=== PATIENT | female | born 1955 | race Caucasian/White ===

== ENCOUNTER → 2023-10-19 08:59 | Outpatient (BNVA) | payer MEDICARE, OTHER, SELFPAY | PROVIDERS: Visit Provider Thoracic Surgery (Cardiothoracic Vascular Surgery) | DX: I96 Gangrene, not elsewhere classified (principal); T81.31XD Disruption of external operation (surgical) wound, not elsewhere classified, subsequent encounter; Y83.8 Other surgical procedures as the cause of abnormal reaction of the patient, or of later complication, without mention of misadventure at the time of the procedure | CPT/HCPCS: 97597; 99213; A6210; A6212 ==

== ENCOUNTER → 2023-11-16 09:47 | Outpatient (BNVA) | payer MEDICARE, OTHER, SELFPAY | PROVIDERS: Visit Provider Thoracic Surgery (Cardiothoracic Vascular Surgery) | DX: I96 Gangrene, not elsewhere classified (principal); T81.31XD Disruption of external operation (surgical) wound, not elsewhere classified, subsequent encounter; Y83.8 Other surgical procedures as the cause of abnormal reaction of the patient, or of later complication, without mention of misadventure at the time of the procedure | CPT/HCPCS: 97597 ==

== ENCOUNTER 2023-12-06 06:00 | Outpatient (CLI) | payer MEDICARE, OTHER, SELFPAY ==
--- NOTE | 2023-12-06 12:00 | MM_ITS ---
WS: [id number] BILATERAL 3D TOMOSYNTHESIS DIGITAL SCREENING MAMMOGRAPHY WITH CAD CLINICAL INFORMATION: SCREENING HISTORY: Screening mammogram. No current complaints. COMPARISON: None. TECHNIQUE: Bilateral CC and MLO views. FINDINGS: Scattered fibroglandular densities bilaterally. No suspicious focal mass, asymmetry, calcifications, or architectural distortion. No evidence of malignancy. Incidental punctate and lucent centered calci fications. MM/MM scr tomosynthesis [id number] IMPRESSION: DENSITY: There are scattered areas of fibroglandular density. BI-RADS: 2 - Benign. FOLLOW UP: 1 Year Follow-up Recommend return to annual screening mammography.
== END 2023-12-06 06:01 | disposition home or self-care (01) ==
LOC: MOBLMAM 02-02 06:58
PROVIDERS: PCP Family Medicine; Visit Provider Family Medicine
DX: Z12.31 Encounter for screening mammogram for malignant neoplasm of breast (principal); R92.323 Mammographic fibroglandular density, bilateral breasts; R92.1 Mammographic calcification found on diagnostic imaging of breast
CPT/HCPCS: 77063; 77067

== ENCOUNTER → 2023-12-07 15:58 | Outpatient (BNVA) | payer MEDICARE, OTHER, SELFPAY | PROVIDERS: Visit Provider Internal Medicine Cardiovascular Disease | DX: R07.9 Chest pain, unspecified (principal); I49.9 Cardiac arrhythmia, unspecified; I44.4 Left anterior fascicular block; R94.31 Abnormal electrocardiogram [ECG] [EKG] | CPT/HCPCS: 93005; 99204 ==

== ENCOUNTER → 2023-12-14 09:39 | Outpatient (BNVA) | payer MEDICARE, OTHER, SELFPAY | PROVIDERS: Visit Provider Thoracic Surgery (Cardiothoracic Vascular Surgery) | DX: I96 Gangrene, not elsewhere classified (principal); L98.421 Non-pressure chronic ulcer of back limited to breakdown of skin | CPT/HCPCS: 97597; A6210 ==

== ENCOUNTER → 2024-01-10 11:18 | Outpatient (BNVA) | payer MEDICARE, OTHER, SELFPAY | PROVIDERS: Visit Provider Student in an Organized Health Care Education/Training Program | DX: T84.7XXA Infection and inflammatory reaction due to other internal orthopedic prosthetic devices, implants and grafts, initial encounter (principal); L89.104 Pressure ulcer of unspecified part of back, stage 4; X58.XXXA Exposure to other specified factors, initial encounter | CPT/HCPCS: 99205 ==

== ENCOUNTER 2024-01-11 11:08 | Outpatient (CLI) | payer MEDICARE, OTHER, SELFPAY ==
--- NOTE | 2024-01-11 11:11 | XRR_ITS ---
PROCEDURE INFORMATION: Exam: XR Spine; Lumbar Exam date and time: 01/11/2024 11:42 AM Age: 68 years old Clinical indication: Condition or disease; Condition/disease: Hardware infection over lumbar spine; Prior surgery; Surgery date: 6+ months; Surgery type: Pain pump, rods in spine, both hips replaced; Patient HX: [place] to exposed hardware TECHNIQUE: Imaging protocol: XR of the spine. Exam focused on the lumbar spine. Views: 1 view. 1 view. COMPARISON: No relevant prior studies available. FINDINGS: Tubes, catheters and devices: Neurostimulator device projects over the mid abdomen. Bones/joints: Very extensive prior surgery. Bilateral hip replacement. Extensive fusion of the thoracic and lumbar spine. Pedicle screws and rods and posterior cerclage wires.. No acute fracture. Normal alignment. Gastrointestinal tract: Nonspecific bowel gas pattern. Soft tissues: Normal. XR/XR lumbar spine 1V [id number] IMPRESSION: Extremely limited study, one view only. Extensive prior surgery.
[2024-01-11 11:37] LABS: Basophils % 0.7 %; Eosinophils # 0.2 10^3/uL (0.0-0.8); Eosinophils % 3.2 %; Hematocrit 36.6 % (36-47); Lymphocytes # 1.4 10^3/uL (0.8-4.8); Lymphocytes % 26.4 %; Mean Corpuscular HGB Conc 32.2 g/dL (30-55); Mean Corpuscular Hemoglobin 28.5 pg (27-33); Mean Corpuscular Volume 88.4 fl (85-98); Mean Platelet Volume 10.5 fL (7.4-10.4); Monocytes # 0.3 10^3/uL (0.2-0.9); Monocytes % 6.2 %; Neutrophils # 3.37 10^3/uL (1.8-7.7); Neutrophils % 63.1 %; Nucleated Red Blood Cells % 0 %; Platelet Count 233 10^3/cmm (157-399); Red Blood Count 4.14 10^6/uL (3.85-5.65); Red Cell Distribution Width 14.6 % (12.1-15.1); White Blood Count 5.34 10^3/uL (3.29-11.43)
[2024-01-11 11:54] LABS: Alanine Aminotransferase 12 U/L (0-33); Alkaline Phosphatase 87 U/L (35-105); Aspartate Amino Transferase 19 U/L (0-32); Blood Urea Nitrogen 48 mg/dL (8-23); C Reactive Protein 5.2 mg/L (0.0-4.9); Calcium 9.4 mg/dL (8.5-10.5); Carbon Dioxide 25 mmol/L (22-29); Chloride 98 mmol/L (98-107); Globulin 3.7 g/dL (1.3-4.6); Glomerular Filtration Rate 29.9 mL/min (90-130); Glucose 97 mg/dL (65-115); Osmolality Calculated 295 mOsm/kg (285-295); Sodium 136 mmol/L (136-145); Total Bilirubin 0.4 mg/dL (0.15-1.2); Total Protein 7.7 g/dL (6.6-8.7)
== END 2024-01-11 11:09 | disposition home or self-care (01) ==
LOC: LAB 11:10
PROVIDERS: PCP Family Medicine; Visit Provider Student in an Organized Health Care Education/Training Program
DX: T84.7XXA Infection and inflammatory reaction due to other internal orthopedic prosthetic devices, implants and grafts, initial encounter (principal); X58.XXXA Exposure to other specified factors, initial encounter; I96 Gangrene, not elsewhere classified; T81.31XD Disruption of external operation (surgical) wound, not elsewhere classified, subsequent encounter; Y83.8 Other surgical procedures as the cause of abnormal reaction of the patient, or of later complication, without mention of misadventure at the time of the procedure
CPT/HCPCS: 36415; 72020; 80053; 85025; 86140; 87070; 87077; 87176; 87186; 87205; 97597; A6220

== ENCOUNTER → 2024-01-18 07:38 | Day surgery (SDC) | payer MEDICARE, OTHER, SELFPAY ==
[2024-01-18 07:30] VITALS: BP 176/73; PULSE 72; RESP 18; TEMP 36.2; O2SAT 94
--- NOTE | 2024-01-18 07:52 | XRR_ITS ---
PROCEDURE INFORMATION: Exam: XR Chest Exam date and time: 01/18/2024 8:54 AM Age: 68 years old Clinical indication: Device placement; Picc; Additional info: Post picc insertion, maylin zhao in gi. Should be ready at 0825 TECHNIQUE: Imaging protocol: Radiologic exam of the chest. Views: 1 view. COMPARISON: No relevant prior studies available. FINDINGS: Tubes, catheters and devices: Peripherally inserted right central venous catheter is seen with tip at the distal superior vena cava. Lungs: Likely artifactual lucency of the right lung field. Pleural spaces: Unremarkable. No pleural effusion. No pneumothorax. Heart/Mediastinum: Unremarkable. No cardiomegaly. Bones/joints: Extensive spinal construct is seen without evidence for acute complication. Healed right lateral rib fracture deformities. XR/XR chest 1V portable [id number] IMPRESSION: 1. Medical devices as above. 2. Likely artifactual lucency of the right mid lung field. If there is concern for intrathoracic pathology recommend cross-sectional evaluation.
[2024-01-18] MEDS: cefepime 2,000 MG in sodium chloride 0.9% (plus) 50 ML 100 MG IV (09:30)
--- NOTE | 2024-01-18 09:49 | PICC.NOTE ---
Single lumen PICC placed to right brachial vein. Referred to vascular access nurse for PICC placement due to need for IV antibiotics x 6 weeks. Risks and benefits discussed and informed consent obtained from pt. Right arm assessed with right brachial vein measuring 3.2 mm, straight, and apparent best choice for placement. Using sterile technique and MST,right brachial vein accessed x 1 stick. Unable to pass guide wire. New attempt made proximal to original site with new needle. Able to pass guide wire. Mid-arm circumference measured 10 cm from right AC 23 cm. Trimmed cath 36 cm with 0 cm external length noted. CXR shows tip in distal SVC, in good position for use per radiologist. Line secured with stat-lock. Insertion site covered with Biopatch and TSM. Pt states her insurance unable to cover home infusions. Dr. Roney Kaiser's nurse, notified. Pt to come daily to OPS/CTC for daily infusions. First dose of IV Cefepime 2 gm given as ordered. No reaction noted. Pt put on holiday/weekend schedule for OPS at 1100. Pt has appointment at [facility] Tuesday, 01/22 at 0830. Appointments written on discharge paperwork. Pt verbalized understanding and states she has transportation to get her to daily appointments.
== END ==
LOC: GILAB 07:41
PROVIDERS: PCP Family Medicine; Visit Provider Student in an Organized Health Care Education/Training Program
DX: Z45.2 Encounter for adjustment and management of vascular access device (principal)
CPT/HCPCS: 36573; 71045; 96365; J0692

== ENCOUNTER 2024-01-21 10:42 | Oncology outpatient (recurring) (ONCR) | payer MEDICARE, OTHER, SELFPAY ==
[2024-01-19 11:09] VITALS: BP 148/80; RESP 16; TEMP 36.1
[2024-01-19] MEDS: cefepime 2,000 MG in sodium chloride 0.9% (plus) 50 ML 100 MG IV (11:32)
[2024-01-20 11:10] VITALS: BP 155/93; PULSE 80; RESP 16; TEMP 37.1; O2SAT 98
[2024-01-20] MEDS: cefepime 2,000 MG in sodium chloride 0.9% (plus) 50 ML 100 MG IV (11:12)
[2024-01-21] MEDS: cefepime 2,000 MG in sodium chloride 0.9% (plus) 50 ML 100 MG IV (10:49)
[2024-01-21 10:58] VITALS: BP 147/75; PULSE 82; RESP 17; TEMP 36.9; O2SAT 98
== END 2024-01-21 23:59 | disposition home or self-care (01) ==
LOC: OPS 01-22 11:26 → ONCMED 01-23 09:09
PROVIDERS: PCP Family Medicine; Visit Provider Radiology Diagnostic Radiology
DX: T84.7XXA Infection and inflammatory reaction due to other internal orthopedic prosthetic devices, implants and grafts, initial encounter (principal); Z79.899 Other long term (current) drug therapy
CPT/HCPCS: 96365; J0692

== ENCOUNTER 2024-01-30 15:16 | Outpatient (CLI) | payer MEDICARE, OTHER, SELFPAY ==
--- NOTE | 2024-01-30 15:30 | CTR_ITS ---
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 CT to TECHNIQUE: Imaging protocol: Computed tomography of the pelvis without contrast. Exam focused on the skeleton. Radiation optimization: All CT scans at this facility use at least one of these dose optimization techniques: automated exposure control; mA and/or kV adjustment per patient size (includes targeted exams where dose is matched to clinical indication); or iterative reconstruction. COMPARISON: CT lumbar spine wo con* [id number] 01/30/2024 3:19 PM RADIATION DOSE METRICS: Total DLP (mGy-cm): 503.7 FINDINGS: Tubes, catheters and devices: An intrathecal pump device is implanted in the subcutaneous tissues of the anterior pelvis near midline with the catheter partially imaged running through the subcutaneous tissues along the right flank entering the canal at the lumbosacral junction. Intestine: Large amount of stool is noted in the visualized portion of the rectum and distal colon. Bones/joints: The bones are osteopenic. Lumbar fixation hardware is present. A left iliac screw is joint with demineralization surrounding the screw track. Iliac sclerosis of the sacroiliac joint is noted. The patient is post bilateral total hip arthroplasty without evidence for hardware complication. There is no acute fracture. Soft tissues: There is swelling and inflammatory change with possible skin ulceration overlying the base of the left iliac screw in the joint and hardware connecting it to the lumbar hardware.. CT/CT bony pelvis [id number] IMPRESSION: Osteopenia and postsurgical change as described. Inflammatory change and possible skin ulceration in the left lower back, probably associated with the indwelling iliac surgical hardware. Constipation/rectal fecal impaction.
--- NOTE | 2024-01-30 16:00 | CTR_ITS ---
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 CT to TECHNIQUE: Imaging protocol: Computed tomography of the lumbar spine without contrast. Radiation optimization: All CT scans at this facility use at least one of these dose optimization techniques: automated exposure control; mA and/or kV adjustment per patient size (includes targeted exams where dose is matched to clinical indication); or iterative reconstruction. COMPARISON: CR XR lumbar spine 1V [id number] 01/11/2024 11:42 AM RADIATION DOSE METRICS: Total DLP (mGy-cm): 503.7 FINDINGS: Bones/joints: There is a 32 degree levoconvex curvature of the lumbar spine centered at L3. The bones are severely osteopenic. The patient is post fixation with pedicle screws from L2-S1, anterior plate and screws at L4-L5 and an interbody spacer device intervening and vertical rods which are bracketed to the L4 spinous process with cerclage wire fixing the rods to multiple lower thoracic and lumbar lamina. An intrathecal catheter is present, entering the canal at the right L5-S1 interlaminar foramen, passing craniad with the tip at the L1 level. Indwelling surgical hardware causes extensive beam hardening artifact limiting assessment. The lumbar canal is otherwise preserved and there is no significant bony neural foraminal stenosis. There is a left iliac screw which is bracketed to the vertical león on the left with demineralization of the bone surrounding the screw. Soft tissues: Unremarkable. CT/CT lumbar spine wo con* [id number] IMPRESSION: Extensive postsurgical change in the lumbar spine. Underlying osteopenia and levoscoliosis.
== END 2024-01-30 15:17 | disposition home or self-care (01) ==
LOC: RAD 15:16
PROVIDERS: PCP Family Medicine; Visit Provider Student in an Organized Health Care Education/Training Program
DX: T84.7XXA Infection and inflammatory reaction due to other internal orthopedic prosthetic devices, implants and grafts, initial encounter (principal); M85.80 Other specified disorders of bone density and structure, unspecified site; M43.26 Fusion of spine, lumbar region; M41.86 Other forms of scoliosis, lumbar region; X58.XXXA Exposure to other specified factors, initial encounter; K59.00 Constipation, unspecified; M79.89 Other specified soft tissue disorders
CPT/HCPCS: 72131; 72192

== ENCOUNTER 2024-02-07 11:00 | Oncology outpatient (recurring) (ONCR) | payer MEDICARE, OTHER, SELFPAY ==
[2024-01-22] MEDS: cefepime 2,000 MG in sodium chloride 0.9% (plus) 50 ML 100 MG IV (11:26)
[2024-01-22 11:30] VITALS: BP 114/65; PULSE 87; RESP 16; TEMP 37.1; O2SAT 98
[2024-01-23] MEDS: cefepime 2,000 mg SDV 2000 MG IVP (09:17)
[2024-01-23 09:28] VITALS: BP 146/81; PULSE 82; RESP 16; TEMP 36.3; O2SAT 92
[2024-01-24] MEDS: cefepime 2,000 mg SDV 2000 MG IVP (12:40)
[2024-01-24 12:50] VITALS: PULSE 79; RESP 16; TEMP 36.4; O2SAT 98
[2024-01-25] MEDS: cefepime 2,000 mg SDV 2000 MG IVP (11:10)
[2024-01-25 11:35] VITALS: BP 137/81; PULSE 77; RESP 16; TEMP 36.7; O2SAT 97
[2024-01-26] MEDS: cefepime 2,000 mg SDV 2000 MG IVP (11:27)
[2024-01-26 11:37] VITALS: BP 134/79; PULSE 100; RESP 16; TEMP 36.4; O2SAT 96
[2024-01-27] MEDS: cefepime 2,000 mg SDV 2000 MG IVP (10:59)
[2024-01-27 11:15] VITALS: BP 132/82; PULSE 59; RESP 16; TEMP 36.4; O2SAT 99
[2024-01-28 10:25] VITALS: BP 141/80; PULSE 68; RESP 16; TEMP 36.4; O2SAT 100
[2024-01-28] MEDS: cefepime 2,000 mg SDV 2000 MG IVP (10:37)
[2024-01-29] MEDS: cefepime 2,000 mg SDV 2000 MG IVP (10:50)
[2024-01-29 11:33] VITALS: BP 126/86; PULSE 83; RESP 18; TEMP 36.8; O2SAT 100
[2024-01-30] MEDS: cefepime 2,000 mg SDV 2000 MG IVP (12:14)
[2024-01-30 12:17] LABS: Basophils % 0.5 %; Eosinophils # 0.3 10^3/uL (0.0-0.8); Eosinophils % 4.3 %; Hematocrit 28.8 % (36-47); Lymphocytes # 1.9 10^3/uL (0.8-4.8); Lymphocytes % 31.8 %; Mean Corpuscular HGB Conc 31.9 g/dL (30-55); Mean Corpuscular Hemoglobin 28.5 pg (27-33); Mean Corpuscular Volume 89.2 fl (85-98); Mean Platelet Volume 10.6 fL (7.4-10.4); Monocytes # 0.7 10^3/uL (0.2-0.9); Monocytes % 12.6 %; Neutrophils # 2.94 10^3/uL (1.8-7.7); Neutrophils % 50.6 %; Nucleated Red Blood Cells % 0 %; Platelet Count 155 10^3/cmm (157-399); Red Blood Count 3.23 10^6/uL (3.85-5.65); Red Cell Distribution Width 14.4 % (12.1-15.1); White Blood Count 5.81 10^3/uL (3.29-11.43)
[2024-01-30 12:18] VITALS: BP 134/72; PULSE 80; RESP 16; TEMP 36.9; O2SAT 98
[2024-01-30 12:37] LABS: Alanine Aminotransferase 12 U/L (0-33); Albumin Level 3.5 g/dL (3.5-5.2); Alkaline Phosphatase 71 U/L (35-105); Aspartate Amino Transferase 17 U/L (0-32); Globulin 3.4 g/dL (1.3-4.6); Glomerular Filtration Rate 55.1 mL/min (90-130); Total Bilirubin 0.3 mg/dL (0.15-1.2); Total Protein 6.9 g/dL (6.6-8.7)
[2024-01-31] MEDS: cefepime 2,000 mg SDV 2000 MG IVP (11:36)
[2024-01-31 11:47] VITALS: BP 143/82; PULSE 70; RESP 16; TEMP 36.4; O2SAT 97
[2024-02-01] MEDS: cefepime 2,000 mg SDV 2000 MG IVP (11:15)
[2024-02-02] MEDS: cefepime 2,000 mg SDV 2000 MG IVP (10:50)
[2024-02-02 11:00] VITALS: BP 148/82; PULSE 65; RESP 18; TEMP 36.4; O2SAT 96
[2024-02-03 11:14] VITALS: BP 144/77; PULSE 79; RESP 16; TEMP 36.6; O2SAT 99
[2024-02-03] MEDS: cefepime 2,000 mg SDV 2000 MG IVP (11:20)
[2024-02-05 11:07] VITALS: BP 139/80; PULSE 84; RESP 18; TEMP 36.5; O2SAT 99
[2024-02-05] MEDS: cefepime 2,000 mg SDV 2000 MG IVP (11:37)
[2024-02-06 11:03] VITALS: BP 116/67; PULSE 67; RESP 16; TEMP 36.6; O2SAT 96
[2024-02-06] MEDS: cefepime 2,000 mg SDV 2000 MG IVP (11:11)
[2024-02-06 11:22] VITALS: BP 117/60; PULSE 85; RESP 17; TEMP 36.4; O2SAT 98
[2024-02-07 11:57] VITALS: BP 148/70; PULSE 73; RESP 14; TEMP 36.8; O2SAT 99
[2024-02-07] MEDS: cefepime 2,000 mg SDV 2000 MG IVP (12:00)
== END 2024-02-21 23:59 | disposition home or self-care (01) ==
PROVIDERS: PCP Family Medicine; Visit Provider Radiology Diagnostic Radiology
DX: Z53.9 Procedure and treatment not carried out, unspecified reason (principal); Z45.2 Encounter for adjustment and management of vascular access device; T84.7XXA Infection and inflammatory reaction due to other internal orthopedic prosthetic devices, implants and grafts, initial encounter; Y79.2 Prosthetic and other implants, materials and accessory orthopedic devices associated with adverse incidents; L89.134 Pressure ulcer of right lower back, stage 4
CPT/HCPCS: 36592; 80076; 82565; 85025; 96365; 96374; 99215; J0692

== ENCOUNTER → 2024-02-08 09:43 | Outpatient (BNVA) | payer MEDICARE, OTHER, SELFPAY | PROVIDERS: PCP Family Medicine; Visit Provider Thoracic Surgery (Cardiothoracic Vascular Surgery) | DX: I96 Gangrene, not elsewhere classified (principal); L98.422 Non-pressure chronic ulcer of back with fat layer exposed | CPT/HCPCS: 11042 ==

== ENCOUNTER → 2024-03-07 09:45 | Outpatient (BNVA) | payer MEDICARE, OTHER, SELFPAY | PROVIDERS: PCP Family Medicine; Visit Provider Thoracic Surgery (Cardiothoracic Vascular Surgery) | DX: I96 Gangrene, not elsewhere classified (principal); L98.422 Non-pressure chronic ulcer of back with fat layer exposed | CPT/HCPCS: 11042; A6220; A6446 ==

== ENCOUNTER → 2024-03-08 11:36 | Outpatient (BNVA) | payer MEDICARE, OTHER, SELFPAY | PROVIDERS: PCP Family Medicine; Visit Provider Nurse Practitioner Family | DX: R06.02 Shortness of breath (principal); M41.35 Thoracogenic scoliosis, thoracolumbar region; Q67.6 Pectus excavatum; Z96.698 Presence of other orthopedic joint implants | CPT/HCPCS: 71046; 99213 ==

== ENCOUNTER 2024-03-29 09:59 | Outpatient (CLI) | payer MEDICARE, OTHER, SELFPAY ==
--- NOTE | 2024-03-29 10:02 | XR_ITS ---
WS: [id number] Left hip, 2 views, 03/29/2024 Clinical Data: PAIN IN LEFT HIP JOINT Comparison: CT pelvis, 01/30/2024 Findings: The artificial left femoral head is dislocated from the acetabular cup. No fractures are seen. The extensive posterior lumbar fusion with a left SI joint fusion screw is noted. The left SI joint fusion screw has fractured in its midportion. There is a generator overlying the left lower abdomen, probably in the posterior subcutaneous space. 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
== END 2024-03-29 10:00 | disposition home or self-care (01) ==
LOC: RAD 10:01
PROVIDERS: PCP Family Medicine; Visit Provider Family Medicine
DX: M25.552 Pain in left hip (principal); T84.021A Dislocation of internal left hip prosthesis, initial encounter; X58.XXXA Exposure to other specified factors, initial encounter; Z98.1 Arthrodesis status
CPT/HCPCS: 73502

== ENCOUNTER 2024-04-04 13:01 | Emergency (ER) | payer MEDICARE, OTHER, SELFPAY ==
[2024-04-04 13:41] VITALS: BP 129/79; PULSE 70; RESP 17; TEMP 36.6; O2SAT 99; BMI 19.1
--- NOTE | 2024-04-04 13:56 | XR_ITS ---
WS: [id number] XR hip LT 2-3V wo/w pel* [id number] REASON FOR EXAM: previous reduction 4 days ago, pain returned FINDINGS: There is a total right hip arthroplasty which appears unremarkable. There is a total left hip arthroplasty which appears dislocated in a configuration essentially the same as 03/29/2024. No fracture is identified. XR/XR hip LT 2-3V wo/w pel* [id number] IMPRESSION: Dislocation of the total left hip arthroplasty.
--- NOTE | 2024-04-04 15:37 | CTR_ITS ---
PROCEDURE INFORMATION: Exam: CT Left Lower Extremity, Hip Exam date and time: 04/04/2024 4:20 PM Age: 68 years old Clinical indication: Pain; Left; Prior surgery; Surgery date: 6+ months; Surgery type: Bilateral hip, lumbar; Additional info: Pain/dislocation TECHNIQUE: Imaging protocol: CT of the left lower extremity without contrast was performed. Exam focused on the hip. Radiation optimization: All CT scans at this facility use at least one of these dose optimization techniques: automated exposure control; mA and/or kV adjustment per patient size (includes targeted exams where dose is matched to clinical indication); or iterative reconstruction. COMPARISON: CR XR hip LT 2-3V wo/w pel* [id number] 04/04/2024 2:35 PM RADIATION DOSE METRICS: Total DLP (mGy-cm): 418.95 FINDINGS: Limitations: Streak artifact from the metallic hardware limits fine detailed evaluation of the osseous structures in the region. Bones/joints: Generalized osseous demineralization. No evidence of fracture. Dislocated left hip arthroplasty. Soft tissues: Normal. CT/CT hip LT wo con* [id number] IMPRESSION: Dislocated left hip arthroplasty. No evidence of fracture.
--- NOTE | 2024-04-04 16:02 | W.ED.EXTPRO ---
Documented by User: Raza Roman, 04/05/24 05:42 HPI - Extremity Problem General: Chief complaint: Extremity Injury, Lower Stated complaint: left hip pain Time Seen by Provider: 04/04/24 15:24 History of Present Illness: 68-year-old female presents to the emergency room With a complaint of hip pain. 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 She was seen in her doctor's office on the 03/29. x-ray showed a dislocation she states she went to an orthopedist in [place] and had it reduced she feels like it is dislocated again now. She does not remember exactly what seemed to precipitated it began last night. It has been dislocated for nearly 24 hours no trauma that she can recall. Patient states in the past she has gone days with the hip dislocated. Associated symptoms: Deny chest pain, fever(s) or rash Related Data Home Medications ?Medication ?Instructions ?Recorded ?Confirmed amitriptyline 25 mg tablet 25 mg PO DAILY 12/07/23 03/08/24 atorvastatin 40 mg tablet 40 mg PO DAILY 12/07/23 03/08/24 bimatoprost 0.03 % eye drops 1 drp ophthalmic (eye) DAILY 12/07/23 03/08/24 brimonidine 0.2 % eye drops 1 drp ophthalmic (eye) Q8H 12/07/23 03/08/24 clopidogrel 75 mg tablet 75 mg PO DAILY 12/07/23 03/08/24 dorzolamide 2 % eye drops 1 drp ophthalmic (eye) TID 12/07/23 03/08/24 isosorbide dinitrate 10 mg tablet 10 mg PO BID 12/07/23 03/08/24 levothyroxine 50 mcg capsule 50 mcg PO DAILY 12/07/23 03/08/24 lubiprostone 24 mcg capsule 24 mcg PO BID 12/07/23 03/08/24 metformin 500 mg tablet 500 mg PO DAILY 12/07/23 03/08/24 metoprolol tartrate 25 mg tablet 25 mg PO DAILY 12/07/23 03/08/24 metronidazole 500 mg tablet 500 mg PO TID 12/07/23 03/08/24 netarsudil 0.02 % eye drops 1 drp ophthalmic (eye) ONCE 12/07/23 03/08/24 (Rhopressa) oxycodone 10 mg tablet 10 mg PO BID PRN Pain 12/07/23 03/08/24 pantoprazole 40 mg tablet,delayed 40 mg PO DAILY 12/07/23 03/08/24 release triamterene 75 1 tab PO DAILY 12/07/23 03/08/24 mg-hydrochlorothiazide 50 mg tablet Previous Rx's ?Medication ?Instructions ?Recorded cefepime 1 gram solution for 1 g IV Q12H 6 weeks #84 ea 01/17/24 injection ciprofloxacin HCl 500 mg tablet 500 mg PO BID hardware infection 02/07/24 30 days #60 tabs Allergies Allergy/AdvReac Type Severity Reaction Status Date / Time Penicillins Allergy Mild ALGY-Rash Verified 04/04/24 13:45 Review of Systems Const: Denies: fever(s) or chills Card: Denies: chest pain Resp: Denies: dyspnea GI: Denies: abdominal pain : Denies: dysuria, urinary frequency or urinary urgency Musc: Reports: joint pain (Left hip); Denies: neck pain or back pain Skin/Breast: Denies: rash PFSH ED PFSH: Medical History (Updated 04/04/24 @ 20:01 by Mayra Zamorano MD) RSD (reflex sympathetic dystrophy) Dyslipidemia Atherosclerosis of coronary artery of [place] without angina pectoris Had a LAD stent at the bifurcation,TRYTON stenting-found to be patent by angiogram in January 2023, 30% ostial narrowing of the right renal artery. Mild disease in the other vessels Benign essential HTN T2DM (type 2 diabetes mellitus) Social History Smoking and tobacco/nicotine status: never used tobacco/nicotine Physical Exam Const: GENERAL APPEARANCE: cooperative ORIENTATION/CONSCIOUSNESS: Yes awake, Yes oriented to person, Yes oriented to place and Yes oriented to time HENMT: COMMON NORMALS: normocephalic, atraumatic and hearing grossly normal bilaterally HEAD & SCALP: normocephalic and atraumatic Resp: COMMON NORMALS: normal respiratory effort, No retractions, No use of accessory muscles and clear to auscultation bilaterally AUSCULTATION: clear to auscultation bilaterally Cardio: COMMON NORMALS: regular rate, regular rhythm and No murmurs present (Cardio) RATE: regular rate RHYTHM: regular rhythm GI: COMMON NORMALS: Soft to palpation and No hepatosplenomegaly present AUSCULTATION: Yes normoactive bowel sounds PALPATION: Yes Soft to palpation, No Tenderness to palpation present (GI), No Guarding due to palpation present (GI) and Yes No hepatosplenomegaly present Extremity: OTHER: Pain in the left hip held in flexion dorsalis pedis pulse normal patient has normal sensation she is able to move the foot but she cannot take the hip out of hyperflexion. Even light palpation across it patient reports significant pain. Neuro: SENSORIUM/ORIENTATION: Yes oriented to person, Yes oriented to place and Yes oriented to time Skin: OTHER: Sacral decubitus ulcer Course Vital Signs: Vital signs: Vital Signs Temperature 97.9 F 04/04/24 13:41 Pulse Rate 65 04/04/24 20:20 Respiratory Rate 18 04/04/24 20:20 Blood Pressure 170/81 04/04/24 20:20 Pulse Oximetry 98 04/04/24 20:20 Oxygen Delivery Me thod Room Air 04/04/24 19:12 Oxygen Flow Rate 4 04/04/24 18:47 MDM - Extremity (Nontraumatic) Medical Decision Making Reviewed initial plain films discussed with Dr. Zepeda it does look like there is a dislocation however looks like the ball of the hip arthroplasty is held outside of the cup but not necessarily anterior post lead dislocated. Was difficult to tell in the view of the films Dr. Rommel Zepeda recommended CT to confirm. I am concerned there may be soft tissue entrapped within the hemiarthroplasty keeping it from relocating. Patient has had this out many times. We did attempt to reduce unable to do so. I contacted Dr. Ivory who is on-call for orthopedics who is aware this patient have referred her on previously. He did not feel that further attempts to reduce it would be beneficial the patient is likely to dislocate again. He recommends that she be discharged home with pain medications nonweightbearing and follow-up with referral for joint revision. Will sign out the case to Dr. Zamorano and try to contact the orthopedist where she previously had this reduced. Medical Records I reviewed the patient's medical records. Lab Data I reviewed the patient's lab results. Radiology Impressions Hip/Pelvis X-Ray 04/04/24 13:56 IMPRESSION: Dislocation of the total left hip arthroplasty. Hip CT 04/04/24 15:37 IMPRESSION: Dislocated left hip arthroplasty. No evidence of fracture. Discharge Plan Discharge Patient Disposition: Home Clinical Impression: Dislocation of hip prosthesis, Decubitus ulcer Condition: Stable Prescriptions: No Action Rhopressa 0.02 % drops 1 drp ophthalmic (eye) ONCE triamterene-hydrochlorothiazid 75-50 mg tablet 1 tab PO DAILY pantoprazole 40 mg tablet,delayed release (DR/EC) 40 mg PO DAILY metronidazole 500 mg tablet 500 mg PO TID metoprolol tartrate 25 mg tablet 25 mg PO DAILY metformin 500 mg tablet 500 mg PO DAILY lubiprostone 24 mcg capsule 24 mcg PO BID levothyroxine 50 mcg capsule 50 mcg PO DAILY isosorbide dinitrate 10 mg tablet 10 mg PO BID Rx Instructions: allow nitrate-free interval of 12-14 hrs per 24-hr period dorzolamide 2 % drops 1 drp ophthalmic (eye) TID clopidogrel 75 mg tablet 75 mg PO DAILY brimonidine 0.2 % drops 1 drp ophthalmic (eye) Q8H bimatoprost 0.03 % drops 1 drp ophthalmic (eye) DAILY atorvastatin 40 mg tablet 40 mg PO DAILY amitriptyline 25 mg tablet 25 mg PO DAILY oxycodone 10 mg tablet 10 mg PO BID PRN (Reason: Pain) ciprofloxacin HCl 500 mg tablet 500 mg PO BID 30 Days Qty: 60 2RF cefepime 1 gram recon soln 1 g IV Q12H 42 Days Qty: 84 0RF Discharge Orders: Discharge ED (Routine); Ordered 04/04/24 Ordered By: Mayra Zamorano Referrals: yahir [Other] Stefany Hawk DO [Primary Care Provider] - Bib Tom MD [Physician] - 04/05/24 9:00 am (I spoke with Dr. Hendrickson, Dr. Tom's partner who wants you to come to clinic tomorrow and be scheduled to have hip prosthesis removed.) Discharge Diet: Usual diet Discharge Activity: Limit activity as instructed Patient Instructions: Opioid Safety, Pain Management Activity Restrictions/Additional Instructions: Thank you for choosing [facility] for your healthcare needs today. Please realize this is an emergency room and that we are providing you with a medical screening exam and this may not be complete and all inclusive of all the testing and or work up that you may need to determine your ailment or severity of your illness. You have been screened and evaluated and felt safe for discharge. Health conditions do change or evolve sometimes and as such it is important that you follow up with your Primary Doctor to be re checked, 3-5 days is a general good time frame for follow up. You are always welcome to return to the ED for re assessment if your symptoms are worsening or you have new concerns Print Language: Nigerian Coding Level of Care Code ED Ophthalmic Technologist for Chg Fwd Documented by User: Mayra Zamorano MD 04/04/24 20:06 HPI - Extremity Problem General: Chief complaint: Extremity Injury, Lower Stated complaint: left hip pain Time Seen by Provider: 04/04/24 15:24 Related Data Home Medications ?Medication ?Instructions ?Recorded ?Confirmed amitriptyline 25 mg tablet 25 mg PO DAILY 12/07/23 03/08/24 atorvastatin 40 mg tablet 40 mg PO DAILY 12/07/23 03/08/24 bimatoprost 0.03 % eye drops 1 drp ophthalmic (eye) DAILY 12/07/23 03/08/24 brimonidine 0.2 % eye drops 1 drp ophthalmic (eye) Q8H 12/07/23 03/08/24 clopidogrel 75 mg tablet 75 mg PO DAILY 12/07/23 03/08/24 dorzolamide 2 % eye drops 1 drp ophthalmic (eye) TID 12/07/23 03/08/24 isosorbide dinitrate 10 mg tablet 10 mg PO BID 12/07/23 03/08/24 levothyroxine 50 mcg capsule 50 mcg PO DAILY 12/07/23 03/08/24 lubiprostone 24 mcg capsule 24 mcg PO BID 12/07/23 03/08/24 metformin 500 mg tablet 500 mg PO DAILY 12/07/23 03/08/24 metoprolol tartrate 25 mg tablet 25 mg PO DAILY 12/07/23 03/08/24 metronidazole 500 mg tablet 500 mg PO TID 12/07/23 03/08/24 netarsudil 0.02 % eye drops 1 drp ophthalmic (eye) ONCE 12/07/23 03/08/24 (Rhopressa) oxycodone 10 mg tablet 10 mg PO BID PRN Pain 12/07/23 03/08/24 pantoprazole 40 mg tablet,delayed 40 mg PO DAILY 12/07/23 03/08/24 release triamterene 75 1 tab PO DAILY 12/07/23 03/08/24 mg-hydrochlorothiazide 50 mg tablet Previous Rx's ?Medication ?Instructions ?Recorded cefepime 1 gram solution for 1 g IV Q12H 6 weeks #84 ea 01/17/24 injection ciprofloxacin HCl 500 mg tablet 500 mg PO BID hardware infection 02/07/24 30 days #60 tabs Allergies Allergy/AdvReac Type Severity Reaction Status Date / Time Penicillins Allergy Mild ALGY-Rash Verified 04/04/24 13:45 [facility] ED PFSH: Medical History (Updated 04/04/24 @ 20:01 by Mayra Zamorano MD) RSD (reflex sympathetic dystrophy) Dyslipidemia Atherosclerosis of coronary artery of [place] without angina pectoris Had a LAD stent at the bifurcation,TRYTON stenting-found to be patent by angiogram in January 2023, 30% ostial narrowing of the right renal artery. Mild disease in the other vessels Benign essential HTN T2DM (type 2 diabetes mellitus) Social History Smoking and tobacco/nicotine status: never used tobacco/nicotine Course Vital Signs: Vital signs: Vital Signs Temperature 97.9 F 04/04/24 13:41 Pulse Rate 65 04/04/24 20:20 Respiratory Rate 18 04/04/24 20:20 Blood Pressure 170/81 04/04/24 20:20 Pulse Oximetry 98 04/04/24 20:20 Oxygen Delivery Me thod Room Air 04/04/24 19:12 Oxygen Flow Rate 4 04/04/24 18:47 MDM - Extremity (Nontraumatic) Medical Decision Making Reviewed initial plain films discussed with Dr. Zepeda it does look like there is a dislocation however looks like the ball of the hip arthroplasty is held outside of the cup but not necessarily anterior post lead dislocated. Was difficult to tell in the view of the films Dr. Rommel Zepeda recommended CT to confirm. I am concerned there may be soft tissue entrapped within the hemiarthroplasty keeping it from relocating. Patient has had this out many times. We did attempt to reduce unable to do so. I contacted Dr. Ivory who is on-call for orthopedics who is aware this patient have referred her on previously. He did not feel that further attempts to reduce it would be beneficial the patient is likely to dislocate again. He recommends that she be discharged home with pain medications nonweightbearing and follow-up with referral for joint revision. Will sign out the case to Dr. Zamorano and try to contact the orthopedist where she previously had this reduced. Patient care transitioned me at shift change. I spoke with Dr. Hendrickson who is on-call for Dr. Negro lopez. He says do not attempt to place the hip any further and they will see the patient in clinic tomorrow. They will schedule a time to have the prosthesis removed completely. With the decubitus ulcer they are not going to try to revise this at this time. I discussed this plan with the family and with the patient. Lab Data Radiology Impressions Hip/Pelvis X-Ray 04/04/24 13:56 IMPRESSION: Dislocation of the total left hip arthroplasty. Hip CT 04/04/24 15:37 IMPRESSION: Dislocated left hip arthroplasty. No evidence of fracture. All radiology interpretation(s) finalized by discharge Discharge Plan Discharge Patient Disposition: Home Clinical Impression: Dislocation of hip prosthesis, Decubitus ulcer Condition: Stable Prescriptions: No Action Rhopressa 0.02 % drops 1 drp ophthalmic (eye) ONCE triamterene-hydrochlorothiazid 75-50 mg tablet 1 tab PO DAILY pantoprazole 40 mg tablet,delayed release (DR/EC) 40 mg PO DAILY metronidazole 500 mg tablet 500 mg PO TID metoprolol tartrate 25 mg tablet 25 mg PO DAILY metformin 500 mg tablet 500 mg PO DAILY lubiprostone 24 mcg capsule 24 mcg PO BID levothyroxine 50 mcg capsule 50 mcg PO DAILY isosorbide dinitrate 10 mg tablet 10 mg PO BID Rx Instructions: allow nitrate-free interval of 12-14 hrs per 24-hr period dorzolamide 2 % drops 1 drp ophthalmic (eye) TID clopidogrel 75 mg tablet 75 mg PO DAILY brimonidine 0.2 % drops 1 drp ophthalmic (eye) Q8H bimatoprost 0.03 % drops 1 drp ophthalmic (eye) DAILY atorvastatin 40 mg tablet 40 mg PO DAILY amitriptyline 25 mg tablet 25 mg PO DAILY oxycodone 10 mg tablet 10 mg PO BID PRN (Reason: Pain) ciprofloxacin HCl 500 mg tablet 500 mg PO BID 30 Days Qty: 60 2RF cefepime 1 gram recon soln 1 g IV Q12H 42 Days Qty: 84 0RF Discharge Orders: Discharge ED (Routine); Ordered 04/04/24 Ordered By: Mayra Zamorano Referrals: yahir [Other] Stefany Hawk DO [Primary Care Provider] - Bib Tom MD [Physician] - 04/05/24 9:00 am (I spoke with Dr. Hendrickson, Dr. Tom's partner who wants you to come to clinic tomorrow and be scheduled to have hip prosthesis removed.) Discharge Diet: Usual diet Discharge Activity: Limit activity as instructed Patient Instructions: Opioid Safety, Pain Management Activity Restrictions/Additional Instructions: Thank you for choosing [facility] for your healthcare needs today. Please realize this is an emergency room and that we are providing you with a medical screening exam and this may not be complete and all inclusive of all the testing and or work up that you may need to determine your ailment or severity of your illness. You have been screened and evaluated and felt safe for discharge. Health conditions do change or evolve sometimes and as such it is important that you follow up with your Primary Doctor to be re checked, 3-5 days is a general good time frame for follow up. You are always welcome to return to the ED for re assessment if your symptoms are worsening or you have new concerns Print Language: Nigerian Coding Level of Care Code ED Ophthalmic Technologist for [place]
[2024-04-04] MEDS: morphine 4 mg/mL SDV 1 mL IVP (16:12)
[2024-04-04] MEDS: ondansetron 2 mg/ML SDV 2 mL 4 MG IVP (16:12)
[2024-04-04 17:00] VITALS: BP 164/82; O2SAT 96
[2024-04-04 17:42] VITALS: BP 192/80; PULSE 66; RESP 18; O2SAT 93
[2024-04-04] MEDS: fentaNYL 50 mcg/mL INJ 2mL 100 MCG IVP (18:10)
[2024-04-04] MEDS: midazolam 1 mg/mL INJ 2 mL 6 MG IVP (18:10)
[2024-04-04 18:47] VITALS: BP 134/71; PULSE 69; O2SAT 100
[2024-04-04 19:12] VITALS: BP 166/82; PULSE 65; RESP 18; O2SAT 97
[2024-04-04 20:20] VITALS: BP 170/81; PULSE 65; RESP 18; O2SAT 98
[2024-04-04] MEDS: HYDROMORPHONE HCL 0.5 MG/0.5 ML INJ 1 MG IVP (20:21)
== END 2024-04-04 20:22 | disposition home or self-care (01) ==
PROVIDERS: Emergency Provider Emergency Medicine; PCP Family Medicine
DX: T84.021A Dislocation of internal left hip prosthesis, initial encounter (principal); X58.XXXA Exposure to other specified factors, initial encounter; I25.10 Atherosclerotic heart disease of native coronary artery without angina pectoris; E78.5 Hyperlipidemia, unspecified; E11.9 Type 2 diabetes mellitus without complications; I10 Essential (primary) hypertension; Z79.02 Long term (current) use of antithrombotics/antiplatelets; Z96.642 Presence of left artificial hip joint
CPT/HCPCS: 73502; 73700; 96374; 96375; 99285; J1171; J2250; J2270; J2405; J3010

== ENCOUNTER → 2024-04-18 09:44 | Outpatient (BNVA) | payer MEDICARE, OTHER, SELFPAY | PROVIDERS: PCP Family Medicine; Visit Provider Thoracic Surgery (Cardiothoracic Vascular Surgery) | DX: I96 Gangrene, not elsewhere classified (principal); L98.422 Non-pressure chronic ulcer of back with fat layer exposed; L89.152 Pressure ulcer of sacral region, stage 2 | CPT/HCPCS: 11042; 87070; 87075; 87077; 87186; 87205; 97597; A6220 ==

== ENCOUNTER 2024-04-25 17:52 | Inpatient (IN) | payer MEDICARE, OTHER, SELFPAY ==
--- OUTSIDE RECORDS SUMMARY | 2024-04-25 17:56 | XMS_ITS ---
Author Organization Unknown [facility] Start Date Provider Encounter for Check-up [id number] [facility]
--- OUTSIDE RECORDS SUMMARY | 2024-04-25 17:56 | XMS_ITS | Patient Health Record ---
Author Organization [facility] Address [address], [place] [id number] Care Team Providers Care Jewelry Engraver Name Role Phone Alphonse Treviño MD Unavailable [phone] Kristian Grover MD Unavailable Unavailable Jessica Desai Unavailable [phone] Reason For Referral Reason Back pain, chronic Diagnosis 1 Other dorsalgia (M54 .89) Referring Provider First Name Myranda Referring Provider Last Name Dominic Referring Provider Speciality Nurse Alaina yor Referred Organization [facility] Referred Provider Alphonse Treviño Referred Address [address], [id number], Referred Provider Specialty Pain Managem ent General Notes Brenda Martin 06:55:08 PM >Sent for insurance verification. Need SSN also., Zahra Weaver 10/18/2023 09:57:55 AM > active. no copay., Brenda Martin 10/20/2023 11:32:26 AM >Mail box is full and cannot accept any messages at this time. Mailed letter., Brenda Martin 10/27/2023 09:50:39 AM > Patient has a pain pump and is needing it filled. Patient was informed we are not accepting pump patients and she will need to contact her PCP about being referred to another clinic. Referral Priority Routine Reason Open wound of tissue overlying the spine. Patient has inserted pain pump that requires management. Diagnosis 1 Unspecified open wou nd of unspecified back wall of thorax without penetration into thoracic cavity, initial encounter (S21.209A) Referring Provider First Name Kristian Referring Provider Last Name Reilly Referring Provider Speciality Thoracic / Vascular surgery Referred Organization [facility] Referred Provider Alphonse Treviño Referred Address [address], [id number], Referred Provider Specialty Pain Managem ent General Notes Brenda Martin 10:56:51 AM >Patient has already contacted out office and was notified that Dr. Treviño is not accepting new pain pump patients. I will fax notification to this office as well. Referral Priority Routine Problems Problem Type SNOMED Code ICD Code Onset Dates Problem Status W/U Status Risk Notes Problem Backache (984464186) Other dorsalgia (M54.89) Active confirmed Problem Open wound of back, uncomplicated (321218170) Unspecified open wound of unspecified back wall of thorax without penetration into thoracic cavity, initial encounter (S21.209A) Active confirmed Plan Of Treatment No Information Insurance Providers Payer Name Payer Address Payer Phone Subscriber Number Group Number Insured Name Patient Relationship to Insured Coverage Start Date Coverage End Date [employer] Medicare Part B Claims Department [address] [address] [place] [address] [id number] Torie Dennison Self - patient is the insured FOR LIFE [address] [place] [address] [id number] Torie Dennison Self - patient is the insured
--- OUTSIDE RECORDS SUMMARY | 2024-04-25 17:56 | XMS_ITS ---
Author Organization [facility] Address [address] [place] [id number] Care Team Providers Care Custodian Name Role Phone Hudson BRASHER, Alphonse Unavailable [phone] Reilly BRASHER, Kristian Unavailable Unavailable Giuseppe [place], Jessica Unavailable [phone] REASON FOR VISIT New patient evaluation Encounters Encounter Location Date Provider Diagnosis [facility] [address] [place], [place] [id number] 01/30/2024 Jessica Chin Plan Of Treatment No Information Progress Notes * JUMA Torie HerringDOB: [birth year] (68 yo F)Acc No.[id number]:01/30/2024 Patient:?JUMA Torie Herring Provider:?ALEJANDRO Weber :1955???Age:68 Y???Sex:Female D ate:01/30/2024 Address:[address] [place], [place] [id number] Subjective: * Chief Complaints: * ???1. New patient evaluation . * Medical History:? Objective: * Vitals:? Therapeutic Interventions: Assessment: Plan: * Treatment: * Images: * Electronic signature of Sushila [place] on 04/25/2024 at 05:56 PM CREW ATTENDANT Sign off status: Pending * Provider:?ALEJANDRO Weber Date:? 024 Generated for Saul wright/Raghavendra/eTdontaeitting on:?04/25/2024 05:56 PM CREW ATTENDANT
--- NOTE | 2024-04-25 18:03 | XRR_ITS ---
PROCEDURE INFORMATION: Exam: XR Chest Exam date and time: 04/25/2024 8:59 PM Age: 68 years old Clinical indication: Other: Pre op chest x-ray; Prior surgery; Surgery date: 6+ months; Surgery type: Stent / rods in spine / pain pump TECHNIQUE: Imaging protocol: Radiologic exam of the chest. Views: 1 view. COMPARISON: CR XR chest 2V* [id number] 03/08/2024 11:41 AM FINDINGS: Lungs: A few small benign calcified granulomas. Likely emphysematous change upper lobes with small amount of scarring, without significant change with prior exam. No focal infiltrate or consolidation. No pulmonary vascular congestion/edema. Pleural spaces: No pleural effusion or pneumothorax. Heart/Mediastinum: Unremarkable. No cardiomegaly. Bones/joints: Roth rods again and mild thoracic dextroscoliosis is seen, as noted with prior exam. XR/XR chest 1V portable [id number] IMPRESSION: Stable appearance of the chest with prior exam, without acute findings.
--- NOTE | 2024-04-25 18:03 | ECG_ITS ---
[employer] Test Date: 2024-04-25 Pat Name: Torie Dennison Department: Room: 268 Gender: Female Die Maker: : 1955 Requested By: Charles Coleman Order Number: [id number] [place] MD: Paul Shafer M.D. Measurements Intervals [place] Rate: 83 P: 78 MN: 217 QRS: -38 QRSD: 120 T: 75 QT: 373 QTc: 439 Interpretive Statements SINUS RHYTHM WITH FIRST DEGREE AV BLOCK LEFT AXIS DEVIATION [QRS AXIS < -30] LEFT VENTRICULAR HYPERTROPHY AND ST-T CHANGE [VOLTAGE CRITERIA PLUS ST/T ABNORMALITY] PROBABLE LATERAL MYOCARDIAL INFARCTION , OF INDETERMINATE AGE [35 ms Q WAVE IN I/aVL/V5/V6] Compared to ECG 12/07/2023 16:07:32 First degree AV block now present Left anterior fascicular block no longer present T-wave abnormality no longer present Possible ischemia no longer present Myocardial infarct finding still present Electronically Signed On 04-28-2024 19:41:29 SCADA OPERATOR by Paul Shafer M.D. [email or web address]
--- NOTE | 2024-04-25 18:05 | PM.HP ---
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 Previously her wound cultures have grown Pseudomonas more recently the back culture has grown MRSA on 04/18. She was admitted today as a direct admit. As per patient, she first noticed hip wound back in January 2023 while she was in [place]. She was started on Levaquin and care. She was treated with IV antibiotics back in January 2024 for Pseudomonas infection for around 3 weeks and later has been on oral ciprofloxacin for chronic suppression. Recently she started having worsening drainage from the wound again and new wounds were found on her back while the visit at wound care clinic. Wound cultures from exposed screw wound grew MRSA. Patient also denies any nausea vomiting, headache, dizziness, diarrhea, fever. As per the family member she has daily wound care as per the wound clinic directions. Review of Systems General: Reports: 10 or more systems reviewed and unremarkable except in HPI and below Const: Denies: fever(s), chills, body aches, change in appetite, change in weight, malaise, night sweats, diaphoresis, change in sleep pattern, daytime sleepiness or snoring Eyes: Denies: change in vision, blurry vision, photophobia, eye discomfort or eye discharge ENMT: Denies: throat pain, enlarged tonsils, hoarseness, mouth pain, oral sores, dry mouth, tinnitus, nasal congestion or post nasal drip Card: Denies: chest pain, palpitations, irregular heart rhythm, edema, swelling of feet/ankles, lightheadedness, syncope, pre-syncope, dyspnea on exertion, orthopnea, leg pain with exertion or acrocyanosis Resp: Denies: dyspnea, productive cough, non-productive cough, wheezing, stridor, pain on inspiration, change in phlegm color, hemoptysis or chest congestion GI: Denies: abdominal pain, nausea, vomiting, hematemesis, coffee ground emesis, dysphagia, heartburn, diarrhea, constipation, bloating, GI cramping, change in bowel habits, pain on defecation, hematochezia or melena : Denies: flank pain, dysuria, urinary frequency, urinary urgency, urinary hesitancy, nocturia or hematuria Musc: Denies: neck pain, back pain, extremity pain, joint pain, joint swelling, joint redness, joint stiffness or limited range of motion Neuro: Denies: headache(s), numbness in extremities, weakness in extremities, sensory changes, lack of coordination, difficulty walking, frequent falls, dizziness, vertigo, confusion, Slurred speech present, difficulty communicating thoughts or seizure-like activity Psych: Denies: anxiety, depression, mood swings, panic attacks, hopelessness or irritability Endo: Denies: polyuria, polydipsia, tired all the time, cold intolerance, excessive sweating, flushing or heat intolerance Frandy/Lymph: Denies: easy bruising or easy bleeding All/Imm: Denies: tongue swelling, facial swelling or acute wheezing Medications/Allergies Home Medications ?Medication ?Instructions ?Recorded ?Confirmed ?Last Taken ?Type atorvastatin 40 mg tablet 40 mg PO DAILY 12/07/23 04/25/24 01/17/24 History clopidogrel 75 mg tablet 75 mg PO DAILY 12/07/23 04/25/24 01/17/24 History isosorbide dinitrate 10 mg tablet 10 mg PO BID 12/07/23 04/25/24 01/17/24 History levothyroxine 50 mcg capsule 50 mcg PO DAILY 12/07/23 04/25/24 01/17/24 History lubiprostone 24 mcg capsule 24 mcg PO BID 12/07/23 04/25/24 01/17/24 History metformin 500 mg tablet 500 mg PO DAILY 12/07/23 04/25/24 01/17/24 History metoprolol tartrate 25 mg tablet 25 mg PO DAILY 12/07/23 04/25/24 01/17/24 History triamterene 75 1 tab PO DAILY 12/07/23 04/25/24 01/17/24 History mg-hydrochlorothiazide 50 mg tablet ciprofloxacin HCl 500 mg tablet 500 mg PO BID hardware infection 02/07/24 04/25/24 Unknown Rx 30 days #60 tabs amitriptyline 100 mg tablet 100 mg PO DAILY 04/25/24 04/25/24 Unknown History Allergies Allergy/AdvReac Type Severity Reaction Status Date / Time Penicillins Allergy Mild ALGY-Rash Verified 04/04/24 13:45 PFSH Acute PFSH: Medical History (Updated 04/25/24 @ 18:13 by Charles Coleman MD) Fixation hardware in spine PIC line (peripherally inserted central catheter) removal RSD (reflex sympathetic dystrophy) Dyslipidemia Atherosclerosis of coronary artery of [place] heart without angina pectoris Had a LAD stent at the bifurcation,TRYTON stenting-found to be patent by angiogram in January 2023, 30% ostial narrowing of the right renal artery. Mild disease in the other vessels Benign essential HTN T2DM (type 2 diabetes mellitus) Surgical History (Updated 04/25/24 @ 18:13 by Charles Coleman MD) S/P total left hip arthroplasty Social History Smoking and tobacco/nicotine status: never used tobacco/nicotine Physical Exam Narrative: General: No acute distress, AO x3, pallor present, chronic sick appearing, cachectic HEENT: PERRLA, pupils bilaterally equal and reactive Chest: Normal vesicular breath sounds, no added sounds, equal good air entry bilaterally CVS: S1-S2 regular, no murmurs, no tachycardia, no gallops, no rubs Abdomen: Soft, nontender, no organomegaly, bowel sounds present Neuro: No focal deficits, no facial deformity, AO x3, power 5/5 in all limbs Skin: OTHER: A&P Assessment and plan (1) Hardware complicating wound infection: Open draining wound at the hip joint with exposed screw. Recent wound cultures growing MRSA. Previous culture growing Pseudomonas. Will consult Dr. Julien for further recommendations. Possible OR. Appreciate recent CT of the head from 04/04. Check CBC, CMP, procalcitonin, blood culture. Start on IV vancomycin. As recent cultures are only growing MRSA for now we will hold off on Pseudomonas coverage. Will consult infectious disease for further recommendations. Patient would most likely need IV antibiotics on discharge. (2) MRSA (methicillin resistant staph aureus) culture positive: (3) T2DM (type 2 diabetes mellitus): Check A1c. Start on insulin sliding scale at low-dose protocol. Qualifiers: Diabetes mellitus complication status: without complication Diabetes mellitus joint terminal attack controller insulin use: without joint terminal attack controller use Qualified Code(s): E11.9 - Type 2 diabetes mellitus without complications (4) Atherosclerosis of coronary artery of [place] heart without angina pectoris: No active chest pain. Continue with aspirin, statin. Holding off on Plavix given concerns for possible OR. Continue with metoprolol tartrate 25 mg twice daily. Qualifiers: Coronary Disease-Associated Artery/Lesion type: [place] artery Qualified Code(s): I25.10 - Atherosclerotic heart disease of [place] coronary artery without angina pectoris (5) Benign essential HTN: Goal blood pressure less than 140/90 mmHg. Patient takes isosorbide dinitrate 10 mg twice daily, metoprolol at home. For now continue with metoprolol. Will uptitrate as for goal blood pressures. (6) Pressure injury of back, stage 4: Continue wound care as per wound care clinic. For now we will start on Hydrofera Blue at that. If needed will consult wound care nurse. (7) Failure of left total hip arthroplasty with dislocation of hip: Being followed up as an outpatient with orthopedics. Currently in hip abductor device. Plan for possible orthopedic OR after control of hardware infection. Plan Start on normal saline at 50 cc/h. CODE STATUS: Discussed in detail with patient. Son will be DPOA. Full code. Famotidine for PUD prophylaxis Heparin 5000 Q12 hourly for DVT prophylaxis. PDMP PDMP Reviewed: Not Reviewed Attestations Medical Necessity Statement*: Admission for more than 2 midnights for management of hardware infection. Diagnoses Hardware complicating wound infection T84.7XXA MRSA (methicillin resistant staph aureus) culture positive Z22.322 Type 2 diabetes mellitus without complication, without long-term current use of insulin E11.9 Diabetes mellitus complication status: without complication Diabetes mellitus longterm insulin use: without joint terminal attack controller use Atherosclerosis of [place] coronary artery of [place] heart without angina pectoris I25.10 Coronary Disease-Associated Artery/Lesion type: [place] artery Benign essential HTN I10 Pressure injury of back, stage 4 L89.104 Failure of left total hip arthroplasty with dislocation of hip T84.021A
[2024-04-25 18:09] VITALS: BMI 19.3
[2024-04-25 18:13] VITALS: BP 134/76; PULSE 95; RESP 17; TEMP 36.7; O2SAT 100
--- NOTE | 2024-04-25 18:32 | PC.NURSE ---
bulge to lower abdomen. Pt states that she has a implanted pain pump. Dr. Coleman at bedside and aware. Pt also has a small hernia to her abdomen just above pain pump. ABD pillow in place from home. Pt states that she had a left hip surgery approx 15 years ago. States her hip has been coming out of socket routinely. Multiple wounds to sacral area. See wound assessment. Pt brings her own wheelchair.
[2024-04-25] MEDS: sodium chloride 0.9% 1,000 ML 50 ML IV (19:52)
[2024-04-25] MEDS: pantoprazole 40 mg SDV IVP (19:53)
[2024-04-25] MEDS: isosorbide dinitrate 20 mg Tablet 10 MG PO (19:53)
[2024-04-25] MEDS: docusate sodium 100 mg Capsule PO (19:53)
[2024-04-25 20:02] LABS: Basophils % 0.4 %; Eosinophils # 0.1 10^3/uL (0.0-0.8); Eosinophils % 1.4 %; Hematocrit 27.3 % (36-47); Lymphocytes # 0.9 10^3/uL (0.8-4.8); Mean Corpuscular HGB Conc 30.8 g/dL (30-55); Mean Corpuscular Hemoglobin 27.4 pg (27-33); Mean Corpuscular Volume 88.9 fl (85-98); Mean Platelet Volume 10.3 fL (7.4-10.4); Monocytes # 0.5 10^3/uL (0.2-0.9); Monocytes % 7.6 %; Neutrophils # 5.46 10^3/uL (1.8-7.7); Neutrophils % 76.9 %; Nucleated Red Blood Cells % 0 %; Platelet Count 366 10^3/cmm (157-399); Red Blood Count 3.07 10^6/uL (3.85-5.65); Red Cell Distribution Width 14.2 % (12.1-15.1)
[2024-04-25 20:28] VITALS: BP 138/67; PULSE 69; RESP 18; TEMP 36.7; O2SAT 100
[2024-04-25 20:30] LABS: Lactic Sepsis W/Reflex 2.5 mmol/L (0.5-2.2)
[2024-04-25 20:33] LABS: INR 1.01 (0.8-1.2)
[2024-04-25 20:40] LABS: Procalcitonin 0.16 ng/mL (0-0.5); Thyroid Stimulating Hormone 1.61 uIU/mL (0.27-4.20)
[2024-04-25 20:50] LABS: Alanine Aminotransferase 9 U/L (0-33); Albumin Level 3.3 g/dL (3.5-5.2); Alkaline Phosphatase 78 U/L (35-105); Anion Gap 21.5 (5-19); Aspartate Amino Transferase 18 U/L (0-32); Blood Urea Nitrogen 53 mg/dL (8-23); Carbon Dioxide 23 mmol/L (22-29); Chloride 94 mmol/L (98-107); Estmated Average Glucose 120; Globulin 4.8 g/dL (1.3-4.6); Glomerular Filtration Rate 18.3 mL/min (90-130); Glucose 91 mg/dL (65-115); Hemoglobin A1C 5.8 % (4.0-6.0); Magnesium 1.6 mg/dL (1.7-2.3); Osmolality Calculated 294 mOsm/kg (285-295); Phosphorus 3.6 mg/dL (2.5-4.5); Potassium 3.5 mmol/L (3.5-5.1); Sodium 135 mmol/L (136-145); Total Bilirubin 0.2 mg/dL (0.15-1.2); Total Protein 8.1 g/dL (6.6-8.7)
[2024-04-25 21:23] VITALS: RESP 18
[2024-04-25] MEDS: morphine 4 mg/mL SDV 1 mL 2 MG IVP (21:23)
[2024-04-25] MEDS: metoprolol tartrate 25 mg Tablet PO (21:23)
[2024-04-25 21:45] LABS: Reflex Lactate Order REFLEX LACTIC ORDERD
[2024-04-25] MEDS: VANCOMYCIN ADD-Vantage 750 MG in 0.9% NaCl ADD-Vantage 250 ML 250 MG IV (22:15)
--- NOTE | 2024-04-25 22:36 | CTR_ITS ---
PROCEDURE INFORMATION: Exam: CT Abdomen Without Contrast Exam date and time: 04/26/2024 12:46 AM Age: 68 years old Clinical indication: Abdominal tenderness; Prior surgery; Surgery date: 6+ months; Surgery type: Lumbar, adeline hip; Additional info: Maximiliano TECHNIQUE: Imaging protocol: Computed tomography of the abdomen without contrast. Radiation optimization: All CT scans at this facility use at least one of these dose optimization techniques: automated exposure control; mA and/or kV adjustment per patient size (includes targeted exams where dose is matched to clinical indication); or iterative reconstruction. COMPARISON: CT hip LT wo con* [id number] 04/04/2024 4:20 PM RADIATION DOSE METRICS: Total DLP (mGy-cm): 211.33 FINDINGS: Liver: Normal. No mass. Gallbladder and biliary ducts: Dependent gallstone. No ductal dilation. Pancreas: Normal. No ductal dilation. Spleen: Normal. No splenomegaly. Adrenal glands: Normal. No mass. Kidneys: Normal. No hydronephrosis. Stomach and bowel: Visualized stomach and bowel are unremarkable. No obstruction. No mucosal thickening. Large volume of stool within the mid upper pelvis, probably retained within redundant sigmoid colon, incompletely imaged. Ventral hernia containing nonobstructed small bowel. Intraperitoneal space: Unremarkable. No free air. No significant fluid collection. Vasculature: Unremarkable. No abdominal aortic aneurysm. Lymph nodes: Unremarkable. No enlarged lymph nodes. Bones/joints: Extensive osseous fusion of the entirety of the visualized spine. CT/CT abdomen wo con [id number] IMPRESSION: Probable fecal retention. Ventral hernia without obstruction.
[2024-04-25 23:04] LABS: Lactic Acid level (Lactate) 2.2 mmol/L (0.5-2.2)
[2024-04-26] VITALS (14 sets, daily range): BP systolic 92–136; BP diastolic 56–68; PULSE 64–92; RESP 16–20; TEMP 36.7–37.6; O2SAT 93–100
[2024-04-26 00:09] LABS: Iron 29 ug/dL (37-145); Percent Saturation 12.4 % (20-50); Total Iron Binding Capacity 233 mcg/dl; Unsaturated Iron Binding 204 ug/dL (112-347)
[2024-04-26 00:23] LABS: Vitamin B12 657 pg/mL (232-1245)
[2024-04-26] MEDS: morphine 4 mg/mL SDV 1 mL 2 MG IVP ×3 (01:00→20:54)
[2024-04-26 04:20] LABS: Bilirubin Urine Negative (Negative); Blood Urine Negative (Negative); Glucose Urine UA Negative (Normal); Ketones Urine Negative (Negative); Leukocyte Esterase Urine Negative (Negative); Nitrate Urine Negative (Negative); Protein Urine 1+ (Negative); Specific Gravity, Urine 1.013 (1.005-1.030); Urine Appearance Clear (CLEAR); Urine Color Yellow (Yellow); Urobilinogen Urine 0.2 mg/dL (Negative)
[2024-04-26 04:32] LABS: Potassium, Radom Urine 24 mmol/L; Urine Creatinine 57 mg/dL (28-217); Urine Random Chloride 59 mmol/L; Urine Random Sodium 79 mmol/L
[2024-04-26 04:40] LABS: Add Urine Microscopic? YES; Bacteria Urine TRACE /hpf; Squamous Epithelial Cell Urine 0-4 /hpf (0-5)
[2024-04-26 04:41] LABS: Add Urine Culture? No
[2024-04-26 05:20] LABS: Basophils % 0.5 %; Eosinophils # 0.2 10^3/uL (0.0-0.8); Eosinophils % 4.1 %; Lymphocytes # 1.8 10^3/uL (0.8-4.8); Lymphocytes % 31.2 %; Mean Corpuscular HGB Conc 30.9 g/dL (30-55); Mean Corpuscular Volume 87.5 fl (85-98); Mean Platelet Volume 10.4 fL (7.4-10.4); Monocytes # 0.7 10^3/uL (0.2-0.9); Neutrophils # 2.98 10^3/uL (1.8-7.7); Neutrophils % 51.3 %; Nucleated Red Blood Cells % 0 %; Platelet Count 320 10^3/cmm (157-399); Red Blood Count 2.63 10^6/uL (3.85-5.65); Red Cell Distribution Width 14.2 % (12.1-15.1); White Blood Count 5.81 10^3/uL (3.29-11.43)
[2024-04-26 05:37] LABS: Eosinophil Urine No Eosinophils Seen; Urine Eosinophil Count 0 (0-0)
[2024-04-26 05:45] LABS: Cholesterol 122 mg/dL (0-200); HDL Cholesterol 42 mg/dL (60-100); LDL Cholesterol Calculated 67 mg/dL (50-129); Triglycerides 65 mg/dL (0-150)
[2024-04-26 05:46] LABS: Alanine Aminotransferase 7 U/L (0-33); Albumin Level 2.7 g/dL (3.5-5.2); Alkaline Phosphatase 60 U/L (35-105); Anion Gap 17.9 (5-19); Aspartate Amino Transferase 14 U/L (0-32); Blood Urea Nitrogen 51 mg/dL (8-23); Calcium 8.3 mg/dL (8.5-10.5); Carbon Dioxide 22 mmol/L (22-29); Chloride 99 mmol/L (98-107); Globulin 3.8 g/dL (1.3-4.6); Glomerular Filtration Rate 21.1 mL/min (90-130); Glucose 97 mg/dL (65-115); Magnesium 1.5 mg/dL (1.7-2.3); Osmolality Calculated 294 mOsm/kg (285-295); Phosphorus 3.7 mg/dL (2.5-4.5); Potassium 3.9 mmol/L (3.5-5.1); Sodium 135 mmol/L (136-145); Total Bilirubin 0.2 mg/dL (0.15-1.2); Total Protein 6.5 g/dL (6.6-8.7)
[2024-04-26] MEDS: levothyroxine 50 mcg Tablet PO (05:49)
[2024-04-26] MEDS: blistex lip oint 7 gm Tube 1 APPLIC TOPICAL (05:49)
[2024-04-26 05:52] LABS: Procalcitonin 0.14 ng/mL (0-0.5)
[2024-04-26 07:19] LABS: Folate Level 5.7 ng/mL (4.8-37.3)
--- NOTE | 2024-04-26 09:59 | PM.CONSULT ---
Providers/Reason For Consult Consulting Physician/Specialty*: Hospitalist Reason for Consult*: To remove hardware from a wound on lumbar spine Attending Physician: Charles Coleman MD Primary Care Provider: Stefany Hawk DO History of Present Illness History of Present Illness Torie Dennison is a 68 year old female has had multiple surgeries on her spine. At this point she has some decubitus ulcers there is hardware that is prominent in one of the wounds from her spine. My plan is to take the piece of león that is in the wound as well as the screw out. And then return patient to the wound clinic Review of Systems General: Reports: 10 or more systems reviewed and unremarkable except in HPI and below Const: Denies: fever(s), chills, body aches, change in appetite, change in weight, malaise, night sweats, diaphoresis, change in sleep pattern, daytime sleepiness or snoring Eyes: Denies: change in vision, blurry vision, photophobia, eye discomfort or eye discharge ENMT: Denies: throat pain, enlarged tonsils, hoarseness, mouth pain, oral sores, dry mouth, tinnitus, nasal congestion or post nasal drip Card: Denies: chest pain, palpitations, irregular heart rhythm, edema, swelling of feet/ankles, lightheadedness, syncope, pre-syncope, dyspnea on exertion, orthopnea, leg pain with exertion or acrocyanosis Resp: Denies: dyspnea, productive cough, non-productive cough, wheezing, stridor, pain on inspiration, change in phlegm color, hemoptysis or chest congestion GI: Denies: abdominal pain, nausea, vomiting, hematemesis, coffee ground emesis, dysphagia, heartburn, diarrhea, constipation, bloating, GI cramping, change in bowel habits, pain on defecation, hematochezia or melena : Denies: flank pain, dysuria, urinary frequency, urinary urgency, urinary hesitancy, nocturia or hematuria Musc: Denies: neck pain, back pain, extremity pain, joint pain, joint swelling, joint redness, joint stiffness or limited range of motion Neuro: Denies: headache(s), numbness in extremities, weakness in extremities, sensory changes, lack of coordination, difficulty walking, frequent falls, dizziness, vertigo, confusion, Slurred speech present, difficulty communicating thoughts or seizure-like activity Psych: Denies: anxiety, depression, mood swings, panic attacks, hopelessness or irritability Endo: Denies: polyuria, polydipsia, tired all the time, cold intolerance, excessive sweating, flushing or heat intolerance Frandy/Lymph: Denies: easy bruising or easy bleeding All/Imm: Denies: tongue swelling, facial swelling or acute wheezing Medications/Allergies Home Medications ?Medication ?Instructions ?Recorded ?Confirmed ?Last Taken ?Type atorvastatin 40 mg tablet 40 mg PO DAILY 12/07/23 04/25/24 01/17/24 History clopidogrel 75 mg tablet 75 mg PO DAILY 12/07/23 04/25/24 01/17/24 History isosorbide dinitrate 10 mg tablet 10 mg PO BID 12/07/23 04/25/24 01/17/24 History levothyroxine 50 mcg capsule 50 mcg PO DAILY 12/07/23 04/25/24 01/17/24 History lubiprostone 24 mcg capsule 24 mcg PO BID 12/07/23 04/25/24 01/17/24 History metformin 500 mg tablet 500 mg PO DAILY 12/07/23 04/25/24 01/17/24 History metoprolol tartrate 25 mg tablet 25 mg PO DAILY 12/07/23 04/25/24 01/17/24 History triamterene 75 1 tab PO DAILY 12/07/23 04/25/24 01/17/24 History mg-hydrochlorothiazide 50 mg tablet ciprofloxacin HCl 500 mg tablet 500 mg PO BID hardware infection 02/07/24 04/25/24 Unknown Rx 30 days #60 tabs amitriptyline 100 mg tablet 100 mg PO DAILY 04/25/24 04/25/24 Unknown History Allergies Allergy/AdvReac Type Severity Reaction Status Date / Time Penicillins Allergy Mild ALGY-Rash Verified 04/04/24 13:45 Current Medications Generic Name Dose Route Start Last Admin Trade Name Freq PRN Reason Stop Dose Admin Camphor/Menthol/Phenol 1 applic 04/26/24 04:40 04/26/24 05:49 Blistex Lip Oint 7 Gm Tube TOPICAL 1 applic PRN PRN Administration DRYNESS Docusate Sodium 100 mg 04/25/24 18:00 04/25/24 19:53 Docusate Sodium 100 Mg Capsule PO 100 mg BID GABRIELLA Administration Sodium Chloride 1,000 mls @ 50 mls/hr 04/25/24 18:00 04/25/24 19:52 Sodium Chloride 0.9% IV 50 mls/hr .Q20H GABRIELLA Administration Isosorbide Dinitrate 10 mg 04/25/24 18:15 04/25/24 19:53 Isosorbide Dinitrate 20 Mg Tablet PO 10 mg BID GABRIELLA Administration Levothyroxine Sodium 50 mcg 04/26/24 06:00 04/26/24 05:49 Levothyroxine 50 Mcg Tablet PO 50 mcg DAILY@0600 GABRIELLA Administration Metoprolol Tartrate 25 mg 04/25/24 21:00 04/25/24 21:23 Metoprolol Tartrate 25 Mg Tablet PO 25 mg BID@0900,2100 GABRIELLA Administration Morphine Sulfate 2 mg 04/25/24 17:58 04/26/24 05:49 Morphine 4 Mg/Ml Sdv 1 Ml IVP 2 mg Q4H PRN Administration SEVERE PAIN Pantoprazole Sodium 40 mg 04/25/24 18:00 04/25/24 19:53 Pantoprazole 40 Mg Sdv IVP 40 mg Q24H GABRIELLA Administration PFSH Acute PFSH: Medical History (Updated 04/26/24 @ 10:01 by Jaswant Julien DO) Fixation hardware in spine PIC line (peripherally inserted central catheter) removal RSD (reflex sympathetic dystrophy) Dyslipidemia Atherosclerosis of coronary artery of [place] heart without angina pectoris Had a LAD stent at the bifurcation,TRYTON stenting-found to be patent by angiogram in January 2023, 30% ostial narrowing of the right renal artery. Mild disease in the other vessels Benign essential HTN T2DM (type 2 diabetes mellitus) Surgical History (Updated 04/25/24 @ 18:13 by Charles Coleman MD) S/P total left hip arthroplasty Social History Smoking and tobacco/nicotine status: never used tobacco/nicotine Vitals/I&O/Wt Last Vital Signs Temp 98.4 F 04/26/24 07:26 Pulse 66 04/26/24 07:26 Resp 16 04/26/24 07:26 BP 119/67 04/26/24 07:26 Pulse Ox 99 04/26/24 07:26 O2 Del Method Room Air 04/26/24 07:26 04/25/24 04/26/24 04/26/24 22:59 06:59 14:59 Intake Total 240 / 240 450 / 690 120 / 120 Output Total 550 / 550 300 / 300 Balance 240 / 240 -100 / 140 -180 / -180 Weight last 48 hrs Weight 123 lb 5 oz Weight 116 lb Physical Exam Narrative: Alert and oriented x 3 Head is normocephalic atraumatic Respirations are intact Patient has decubitus ulcers on her buttock Incision and lumbar spine appears to be intact no evidence of any infection in these incisions. Mother states that Urinary Catheter Management: Recinos: Cath Placed During This Visit: yes Urinary Catheter Date of Insertion: 04/26/24 Urinary Catheter Time of Insertion: 09:35 Data 04/26/24 04:45 04/26/24 04:45 Micro: Microbiology 04/26/24 04:05 Bacterial Antigens - Final Urine Kidney 04/25/24 19:20 Blood Culture - Preliminary Blood SPECIMEN COLLECTED 04/25/24 19:20 Blood Culture - Preliminary Blood SPECIMEN COLLECTED A&P Assessment and plan (1) Hardware complicating wound infection: Patient has being at the wound clinic getting wounds treated. However there is hardware that is prominent in this area this likely not allowing the wound to heal. Will remove the hardware. At this point will return to wound clinic for taking care of the wound. Qualifiers: Encounter type: initial encounter Qualified Code(s): T84.7XXA - Infection and inflammatory reaction due to other internal orthopedic prosthetic devices, implants and grafts, initial encounter PDMP PDMP Reviewed: Not Reviewed Coding Level of Care Code Acute Code for [facility] Diagnoses Hardware complicating wound infection, initial encounter T84.7XXA Encounter type: initial encounter
[2024-04-26] MEDS: docusate sodium 100 mg Capsule PO ×2 (10:24→17:39)
[2024-04-26] MEDS: metoprolol tartrate 25 mg Tablet PO ×2 (10:24→20:54)
[2024-04-26] MEDS: amitriptyline 25 mg Tablet PO (10:25)
[2024-04-26] MEDS: atorvastatin 40 mg Tablet PO (10:25)
[2024-04-26] MEDS: isosorbide dinitrate 20 mg Tablet 10 MG PO (10:25)
[2024-04-26] MEDS: magnesium hydroxide 30 mL UDC PO (11:56)
[2024-04-26] MEDS: iron sucrose 200 MG in sodium chloride 0.9% (100 ml) 100 ML 220 MG IV (11:57)
--- NOTE | 2024-04-26 13:17 | PM.PN ---
Subjective Subjective: No acute events overnight. Patient has remained hemodynamically stable and afebrile. Today morning seen sitting on bedside commode. Denies any nausea, vomiting, headache. Vitals/I&O/Wt Last Vital Signs Temp 98.4 F 04/26/24 07:26 Pulse 92 04/26/24 11:54 Resp 18 04/26/24 11:54 BP 96/56 04/26/24 11:54 Pulse Ox 93 04/26/24 11:54 O2 Del Method Room Air 04/26/24 11:54 04/25/24 04/26/24 04/26/24 22:59 06:59 14:59 Intake Total 240 / 240 450 / 690 1342.5 / 1342.5 Output Total 550 / 550 300 / 300 Balance 240 / 240 -100 / 140 1042.5 / 1042.5 Weight last 48 hrs Weight 55.934 kg Weight 52.617 kg Physical Exam Narrative: General: No acute distress, AO x3, pallor present, chronic sick appearing, cachectic HEENT: PERRLA, pupils bilaterally equal and reactive Chest: Normal vesicular breath sounds, no added sounds, equal good air entry bilaterally CVS: S1-S2 regular, no murmurs, no tachycardia, no gallops, no rubs Abdomen: Soft, nontender, no organomegaly, bowel sounds present Neuro: No focal deficits, no facial deformity, AO x3, power 5/5 in all limbs Skin: OTHER: Urinary Catheter Management: Recinos: Cath Placed During This Visit: yes Urinary Catheter Date of Insertion: 04/26/24 Urinary Catheter Time of Insertion: 09:35 Data 04/26/24 04:45 04/26/24 04:45 Micro: Microbiology 04/26/24 04:05 Bacterial Antigens - Final Urine Kidney 04/25/24 19:20 Blood Culture - Preliminary Blood SPECIMEN COLLECTED 04/25/24 19:20 Blood Culture - Preliminary Blood SPECIMEN COLLECTED A&P Assessment and plan (1) Hardware complicating wound infection: Open draining wound at the hip joint with exposed screw. Recent wound cultures growing MRSA. Previous culture growing Pseudomonas. Will consult Dr. Julien for further recommendations. Appreciate recent CT of the head from 04/04. Plan 4 OR in a.m. tomorrow. N.p.o. after midnight. Follow-up blood cultures. Appreciate procalcitonin trend. Continue with IV vancomycin. As recent cultures are only growing MRSA for now we will hold off on Pseudomonas coverage. Will consult ID. Patient will need to be discharged on IV antibiotics. Will place PICC line if blood cultures negative for 48 hours. Qualifiers: Encounter type: initial encounter Qualified Code(s): T84.7XXA - Infection and inflammatory reaction due to other internal orthopedic prosthetic devices, implants and grafts, initial encounter (2) MRSA (methicillin resistant staph aureus) culture positive: (3) Acute kidney injury: Baseline creatinine seems to be around 1-1.1. Currently 2.3. Could be in setting of sepsis versus dehydration. Continue with NS at 50 cc/h. Check urine lites, urine creatinine, urine eosinophil. Recinos catheterization. Monitor BMP daily. Monitor electrolytes. No concern for potassium abnormality or acidosis. CT abdomen pelvis to rule out obstructive nephropathy. (4) Anemia: Concerns for iron deficiency versus anemia of chronic disease. Target hemoglobin more than 8. Transfuse 1 PRBC. Start on IV iron supplementation. (5) Atherosclerosis of coronary artery of [place] heart without angina pectoris: No active chest pain. Continue with aspirin, statin. Holding off on Plavix given concerns for possible OR. Continue with metoprolol tartrate 25 mg twice daily. Qualifiers: Coronary Disease-Associated Artery/Lesion type: [place] artery Qualified Code(s): I25.10 - Atherosclerotic heart disease of [place] coronary artery without angina pectoris (6) Benign essential HTN: Goal blood pressure less than 140/90 mmHg. Patient takes isosorbide dinitrate 10 mg twice daily, metoprolol at home. For now continue with metoprolol. Will uptitrate as for goal blood pressures. (7) Pressure injury of back, stage 4: Continue wound care as per wound care clinic. For now we will start on Hydrofera Blue at that. Will consult wound care nurse. (8) Failure of left total hip arthroplasty with dislocation of hip: Being followed up as an outpatient with orthopedics. Currently in hip abductor device. Plan for possible orthopedic OR after control of hardware infection. (9) T2DM (type 2 diabetes mellitus): A1c- 5.8. Hold off on sliding scale. change to regular diet. Qualifiers: Diabetes mellitus assisted insulin use: without exterminator helper use Diabetes mellitus complication status: without complication Qualified Code(s): E11.9 - Type 2 diabetes mellitus without complications Plan Hypomagnesemia: Start on 2 g of IV magnesium. Monitor daily magnesium and potassium level. CODE STATUS: Discussed in detail with patient. Son will be DPOA. Full code. Protonix for PUD prophylaxis Heparin 5000 Q12 hourly for DVT prophylaxis. Discharge plan: Discussed in detail with patient's family. They would want patient to be transition to SNF as possible. PT/OT evaluation. Case management alerted. PDMP PDMP Reviewed: Not Reviewed Attestations Medical Necessity Statement*: Requires further hospitalization for management of hardware infection. As patient needs 6 OR hardware removal, MRSA infection, anemia requiring blood transfusion, JACKI versus CKD Diagnoses Hardware complicating wound infection, initial encounter T84.7XXA Encounter type: initial encounter MRSA (methicillin resistant staph aureus) culture positive Z22.322 Acute kidney injury N17.9 Anemia D64.9 Atherosclerosis of [place] coronary artery of [place] heart without angina pectoris I25.10 Coronary Disease-Associated Artery/Lesion type: [place] artery Benign essential HTN I10 Pressure injury of back, stage 4 L89.104 Failure of left total hip arthroplasty with dislocation of hip T84.021A Type 2 diabetes mellitus without complication, without long-term current use of insulin E11.9 Diabetes mellitus exterminator helper insulin use: without assisted use Diabetes mellitus complication status: without complication
--- NOTE | 2024-04-26 13:34 | PHA.VACGOAL ---
Vancomycin Goal - Goal Vancomycin Goal:: 15-20 mg/L Vancomycin Indication:: Other - Therapy Day of therpy:: Day 1 of [] . Actual body weight (kg): 123 lb 5 oz - Data Labs: WBC 5.81 10^3/uL (3.29-11.43) 04/26/24 04:45 RBC 2.63 10^6/uL (3.85-5.65) L 04/26/24 04:45 Hgb 7.10 g/dL (11.27-16.99) L 04/26/24 04:45 Hct 23.0 % (36-47) L 04/26/24 04:45 MCV 87.5 fl (85-98) 04/26/24 04:45 MCH 27.0 pg (27-33) 04/26/24 04:45 MCHC 30.9 g/dL (30-55) 04/26/24 04:45 RDW 14.2 % (12.1-15.1) 04/26/24 04:45 Sodium 135 mmol/L (136-145) L 04/26/24 04:45 Potassium 3.9 mmol/L (3.5-5.1) 04/26/24 04:45 Chloride 99 mmol/L (98-107) 04/26/24 04:45 Carbon Dioxide 22 mmol/L (22-29) 04/26/24 04:45 Anion Gap 17.9 (5-19) 04/26/24 04:45 BUN 51 mg/dL (8-23) H 04/26/24 04:45 Creatinine 2.3 mg/dL (0.5-0.9) H 04/26/24 04:45 GFR Calculation 21.1 mL/min (90-130) L 04/26/24 04:45 Treatment plan:: new consult Regimen:: Initial dose 750 mg once. Recommended loading dose based on weight would be 1750 mg. Giving another 1000 mg dose today 04/26. Will intermittently dose due to renal function based on vanc am levels and continue to follow daily. Follow up:: LEVEL WITH AM LABS
[2024-04-26] MEDS: heparin 5,000 unit/mL INJ 1 mL 5000 UNIT SUBCUT (14:24)
[2024-04-26] MEDS: VANCOMYCIN ADD-Vantage 1,000 MG in 0.9% NaCl ADD-Vantage 250 ML 250 MG IV (14:24)
--- NOTE | 2024-04-26 15:13 | P.CONIM_ITS ---
Providers/Reason For Consult 2 Consulting Physician/Specialty*: Fely sim MD / Infectious disease Reason for Consult*: hardware infection Requesting Physician: Charles Coleman MD Attending Physician: Charles Coleman MD Primary Care Provider: Stefany Hawk DO History of Present Illness History of Present Illness Torie Dennison is a 68 year old female previously known to me from the office. She is a 68-year-old lady who moved to the [facility] from [place] in early 2023. She has a history of scoliosis with spinal instrumentation in 1984 and then again several years ago. She has lumbar spinal hardware in place. Starting in January 2023 she developed a pressure sore over the left iliac region which had continued to increase in size. She had exposed hardware through this wound. She was evaluated locally by orthopedics, disease was considered to advance and she was referred instead to [place]. Patient was unable to follow-up in [place]. In the interim she has moved into the [facility]. Multiple attempts were made for her to be seen by orthopedics locally and also in [place] to assess for potential removal of the infected hardware versus debridement, however this has been unable to to be achieved to date due to various reasons. She reports that Ortho in [place] referred her to see plastic surgery instead. She established care with Dr. Tom at [facility] for recurrent dislocations of the left hip and is planned for a Girdlestone procedure of the left hip however the spinal hardware infection would not be addressed. She has previously been evaluated by infectious diseases in [place] and had received treatment with Augmentin and metronidazole. Review of wound cultures from outside IDs shows that patient had variously grown Streptococcus, Pseudomonas and Finegoldia magna in the past. I first saw her in the clinic in December 2023 referred from the wound care clinic at which point she had an open wound over the left iliac region. The wound was full-thickness with exposed support structures. There was deep tunneling with purulence and hardware notable in the wound. Cultures from this wound had grown Pseudomonas aeruginosa. She was started on treatment with IV cefepime via PICC line and referrals were provided to Ortho at several places as noted above. She was planned to complete a 6 weeks treatment, however she was unable to complete this treatment due to multiple reasons including the cost of antibiotics for home infusion, inability to come to the infusion center for a twice a day cefepime infusion, lack of reliable rides etc. She was therefore transition to oral ciprofloxacin 500 mg twice daily. She has remained on the oral antibiotics with the intention of eventual removal of hardware however this has not come to be on till date. In the interim she has developed 2 new additional wounds, 1 is a full-thickness wound over the sacrum which is a pressure ulcer. second 1 is a shallower wound over the left upper thigh. Other medical comorbidities include chronic pain for which she has a pain pump which is managed out of [facility]. She has had recurrent dislocations of left prosthetic hip for which she is now planned to undergo a Girdlestone procedure with orthopedics at [facility]. No new hardware is planned to be placed due to high risk of prosthetic joint infection with open chronic wounds. She was recently evaluated at the wound care clinic on April 18 where she was noted to have purulence, cx at the wound care clinic revealing MRSA. Again exposed hardware was noted in the wound. Wound worsening was noted while she remained on ciprofloxacin. Her wound drainage has continued to worsen. I had discussed patient's care with her and her daughter in law Boswell who is her primary trucking manager and recommended that patient be admitted for iv abx and assessment by spine surgery for removal of hardware as I am not hopeful about successful treatment of recurrent infections as long as the hardware remains in place. Review of Systems 2 General: Reports: 10 or more systems reviewed and unremarkable except in HPI and below Const: Denies: fever(s), chills or body aches Eyes: Denies: change in vision, blurry vision or photophobia ENMT: Reports: hoarseness; Denies: throat pain, enlarged tonsils, odynophagia or nasal congestion Card: Denies: chest pain, palpitations, irregular heart rhythm, edema, swelling of feet/ankles, lightheadedness, pre-syncope, dyspnea on exertion or orthopnea Resp: Denies: dyspnea, productive cough, non-productive cough, wheezing, stridor, pain on inspiration, change in phlegm color, hemoptysis or chest congestion GI: Denies: abdominal pain, nausea, vomiting, hematemesis, coffee ground emesis, dysphagia, heartburn, diarrhea, constipation, GI cramping, change in stool character, hematochezia or melena : Denies: flank pain, difficulty voiding, dysuria, urinary frequency, urinary urgency, urinary hesitancy or hematuria Musc: Denies: neck pain, back pain, extremity pain, joint swelling, joint warmth or deformity Neuro: Denies: headache(s), numbness in extremities, weakness in extremities, sensory changes, difficulty walking, frequent falls, dizziness, vertigo, behavioral changes, Slurred speech present or seizure-like activity Psych: Denies: anxiety, depression, suicidal ideation or homicidal ideation Endo: Denies: polyuria, polydipsia, tired all the time, cold intolerance or hot flashes Frandy/Lymph: Denies: easy bruising or easy bleeding Medications/Allergies Home Medications ?Medication ?Instructions ?Recorded ?Confirmed ?Last Taken ?Type atorvastatin 40 mg tablet 40 mg PO DAILY 12/07/2307/1501/17/24 History clopidogrel 75 mg tablet 75 mg PO DAILY 12/07/2307/1501/17/24 History isosorbide dinitrate 10 mg tablet 10 mg PO BID 4 04/25/24 01/17/24 History levothyroxine 50 mcg capsule 50 mcg PO DAILY 12/07/23 04/25/24 01/17/24 History lubiprostone 24 mcg capsule 24 mcg PO BID 12/07/2307/1501/17/24 History metformin 500 mg tablet 500 mg PO DAILY 12/07/2307/1501/17/24 History metoprolol tartrate 25 mg tablet 25 mg PO DAILY 04/25/24 01/17/24 History triamterene 75 1 tab PO DAILY 12/07/2307/1501/17/24 History mg-hydrochlorothiazide 50 mg tablet ciprofloxacin HCl 500 mg tablet 500 mg PO BID hardware infection 02/07/24 04/25/24 Unknown Rx 30 days #60 tabs amitriptyline 100 mg tablet 100 mg PO DAILY 04/25/24 0 04/25/24 Unknown History Allergies Allergy/AdvReac Type Severity Reaction Status Date / Time Penicillins Allergy Mild ALGY-Rash Verified 04/04/24 13:45 Current Medications Generic Name Dose Route Start Last Admin Trade Name Freq PRN Reason Stop Dose Admin Amitriptyline HCl 25 mg 04/26/24 09:00 04/26/24 10:25 Amitriptyline 25 Mg Tablet PO 25 mg DAILY GABRIELLA Administration Atorvastatin Calcium 40 mg 04/26/24 09:00 04/26/24 10:25 Atorvastatin 40 Mg Tablet PO 40 mg DAILY GABRIELLA Administration Camphor/Menthol/Phenol 1 applic 04/26/24 04:40 04/26/24 05:49 Blistex Lip Oint 7 Gm Tube TOPICAL 1 applic PRN PRN Administration DRYNESS Docusate Sodium 100 mg 04/25/24 18:00 04/26/24 10:24 Docusate Sodium 100 Mg Capsule PO 100 mg BID GABRIELLA Administration Heparin Sodium (Porcine) 5,000 unit 04/26/24 13:30 04/26/24 14:24 Heparin 5,000 Unit/Ml Inj 1 Ml SUBCUT 5,000 unit Q12H GABRIELLA Administration Sodium Chloride 1,000 mls @ 50 mls/hr 04/25/24 18:00 04/26/24 10:55 Sodium Chloride 0.9% IV 0 mls/hr .Q20H GABRIELLA Infusion Iron Sucrose 200 mg/ Sodium 110 mls @ 220 mls/hr 04/26/24 10:30 04/26/24 13:11 Chloride IV 04/30/24 10:59 Infused Q24H GABRIELLA Infusion Levothyroxine Sodium 50 mcg 04/26/24 06:00 04/26/24 05:49 Levothyroxine 50 Mcg Tablet PO 50 mcg DAILY@0600 GABRIELLA Administration Magnesium Hydroxide 30 ml 04/26/24 09:00 04/26/24 11:56 Magnesium Hydroxide 30 Ml Udc PO 30 ml DAILY GABRIELLA Administration Protocol Metoprolol Tartrate 25 mg 04/25/24 21:00 04/26/24 10:24 Metoprolol Tartrate 25 Mg Tablet PO 25 mg BID@0900,2100 GABRIELLA Administration Morphine Sulfate 2 mg 04/25/24 17:58 04/26/24 05:49 Morphine 4 Mg/Ml Sdv 1 Ml IVP 2 mg Q4H PRN Administration SEVERE PAIN Pantoprazole Sodium 40 mg 04/25/24 18:00 04/25/24 19:53 Pantoprazole 40 Mg Sdv IVP 40 mg Q24H GABRIELLA Administration PFSH Acute 2 PFSH: Medical History Pressure ulcer of sacral region, unstageable Fixation hardware in spine PIC line (peripherally inserted central catheter) removal RSD (reflex sympathetic dystrophy) Dyslipidemia Atherosclerosis of coronary artery of [place] heart without angina pectoris Had a LAD stent at the bifurcation,TRYTON stenting-found to be patent by angiogram in January 2023, 30% ostial narrowing of the right renal artery. Mild disease in the other vessels Benign essential HTN T2DM (type 2 diabetes mellitus) Surgical History S/P total left hip arthroplasty Social History Smoking and tobacco/nicotine status: never used tobacco/nicotine Vitals/I&O/Wt Last Vital Signs Temp 98.4 F 04/26/24 07:26 Pulse 92 04/26/24 11:54 Resp 18 04/26/24 11:54 BP 96/56 04/26/24 11:54 Pulse Ox 93 04/26/24 11:54 O2 Del Method Room Air 04/26/24 11:54 04/26/24 04/26/24 04/26/24 06:59 14:59 22:59 Intake Total 450 / 690 1342.5 / 1342.5 Output Total 550 / 550 300 / 300 Balance -100 / 140 1042.5 / 1042.5 Weight last 48 hrs Weight 55.934 kg Weight 52.617 kg Physical Exam 2 Narrative: General: No acute distress, AO x3 HEENT: PERRLA, pupils bilaterally equal and reactive, pallors not present Chest: Normal vesicular breath sounds, no added sounds, equal good air entry bilaterally CVS: S1-S2 regular, no murmurs, no tachycardia, no gallops, no rubs Abdomen: Soft, nontender, no organomegaly, bowel sounds present Neuro: No focal deficits, no facial deformity, AO x3, power 5/5 in all limbs Urinary Catheter Management: Recinos: Cath Placed During This Visit: yes Urinary Catheter Date of Insertion: 04/26/24 Urinary Catheter Time of Insertion: 09:35 Data 04/27/24 05:57 04/27/24 05:57 Micro: Microbiology 04/26/24 04:05 Bacterial Antigens - Final Urine Kidney 04/25/24 19:20 Blood Culture - Preliminary Blood SPECIMEN COLLECTED 04/25/24 19:20 Blood Culture - Preliminary Blood SPECIMEN COLLECTED Other data: NAME: Torie Dennison LOC: [facility] U #: [id number] AGE/SX: 68/F ROOM: R E04/18/[address]: Kristian GroverA : 1955 BED: D IS: FAX #: STATUS: DEP AMB TLOC: Spec #: [id number] Flora: 04/18/24 Status: COMP Req #: [id number] Recd: 04/18/[address]: Kristian Grover(Renzo) Src: Back SpDesc: Ordered: WC and GS Procedure Result Verified Site Gram Stain Final 04/19/24-929 Result NO ORGANISMS SEEN NO WHITE BLOOD CELLS Wound Culture Final 04/23/24-925 Organism 1 Methicillin Resis Staph Aureus Growth HEAVY DAY 3 CRITICAL RESULT YES/NO: YES CRITICAL CALLED BY: JAZMYN TO AND READ BACK BY: WOUND CLINIC- MESSAGE DATE: 04/20/24 TIME: 1411 2ND CRITICAL RES YES/NO: YES 2ND CRITICAL CALLED BY: JAZMYN 2ND TO AND READ BACK BY: GRACE DATE: 04/23/24 2ND CRITICAL TIME: 925 MRSA M.I.C. RX --------- ------ * Ciprofloxacin >2 R * Clindamycin <=0.5 S * Erythromycin <=0.5 S * Gentamicin <=4 S * Levofloxacin >4 R * Linezolid 4 S * Moxifloxacin >4 R * Oxacillin >2 R * Penicillin >8 R * Rifampin <=1 S * Tetracycline <=4 S * Trimethoprim/Sulfamethoxazole >2/38 R Vancomycin 1 S Daptomycin <=0.5 S NAME: Torie Dennison LOC: [facility] U #: [id number] AGE/SX: 68/F ROOM: 268 R E04/25/[address]: Charles Coleman MD : 1955 BED: 1 D IS: FAX #: STATUS: ADM IN TLOC: Spec #: [id number] Flora: 04/25/24 Status: RES Req #: [id number] Recd: 04/25/[address]: Charles Coleman MD Src: Blood SpDesc: Ordered: Bcult Procedure Result Verified Site Blood Culture Preliminary 04/26/24 NEGATIVE TO DATE Blood Culture Preliminary (changed) 04/25/24 SPECIMEN COLLECTED NAME: Torie Dennison LOC: [facility] U #: [id number] AGE/SX: 68/F ROOM: 268 R E04/25/[address]: Charles Coleman MD : 1955 BED: 1 D IS: FAX #: STATUS: ADM IN TLOC: Spec #: [id number] Flora: 04/25/24 Status: RES Req #: [id number] Recd: 04/25/[address]: Charles Coleman MD Src: Blood SpDesc: Ordered: Bcult Procedure Result Verified Site Blood Culture Preliminary 04/26/24 NEGATIVE TO DATE Blood Culture Preliminary (changed) 04/25/24 SPECIMEN COLLECTED NAME: Torie Dennison LOC: [facility] U #: [id number] AGE/SX: 68/F ROOM: 268 R E04/25/[address]: Charles Coleman MD : 1955 BED: 1 D IS: FAX #: STATUS: ADM IN TLOC: Spec #: [id number] Flora: 04/26/24 Status: COMP Req #: [id number] Recd: 04/26/[address]: Charles Coleman MD Src: Urine Kid SpDesc: Ordered: Bacterial AG Procedure Result Verified Site Bacterial Antigen Final 04/26/24 Streptococcus Group B Negative for Streptococcus Group B Antigen Haemophilus influenzae B Negative or Haemophilus influenzae B Antigen S. pneumoniae Antigen Negative for S. pneumoniae Antigen N.meningitidis A,C,Y,W135 Negative for N.meningitidis A,C,Y,W135 Antigen N.meningitidis B/E.coli Negative for N.meningitidis B/E.coli K1 Antigen A&P Assessment and plan (1) Hardware complicating wound infection: 68-year-old lady with history of multiple spinal surgeries in the past, developed pressure injury over the back leading to a left iliac wound posteriorly which has been open at least for a year at this point in time. There is underlying exposed hardware. Patient has not yet had any surgical debridement or removal of any hardware. Per past records from infectious disease at [facility], she has had infections with streptococcus, pseudomonas and Finegoldia magna in Jan-Feb. More recently she had Pseudomonas infection in Dec 2023 treated with cefepime, then Ciprofloxacin which was mainatained pending orthopedic assessment at higher center. Now more recently has had MRSA and worsening wound and drainage. Highly unlikley that we will be able to successfully treat this patient with underlying infected hardware remaining in place. Appreciate orthopedics assessment and plan for partial hardware removal recent hip CT from 04/04/2024 showed dislocated left hip arthroplasty. Pelvic CT from 01/30/24 with Inflammatory change and skin ulceration in the left lower back, probably associated with the indwelling iliac surgical hardware. Outpatient culture growing MRSA from the infected tract. Agree with IV vancomycin treatment with goal trough of 15-20. blood cx taken and pending Qualifiers: Encounter type: initial encounter Qualified Code(s): T84.7XXA - Infection and inflammatory reaction due to other internal orthopedic prosthetic devices, implants and grafts, initial encounter (2) MRSA infection: (3) Failure of left total hip arthroplasty with dislocation of hip: followed at [facility] case discussed with Dr. Tom She is planned for girdlestone procedure No new hardware planned due to open sacral ulcer PDMP PDMP Reviewed: Not Reviewed Consult Attestations 2 Medical Necessity Statement: per admitting, MRSA infection, need to remove hardware Coding Level of Care Code Acute Code for Chg Fwd High MDM includes number and complexity of problems actively addressed during encounter, amount and/or complexity of data reviewed/ordered and described risk of complication, morbidity or mortality of management as documented Diagnoses Hardware complicating wound infection, initial encounter T84.7XXA Encounter type: initial encounter MRSA infection A49.02 Failure of left total hip arthroplasty with dislocation of hip T84.021A
--- NOTE | 2024-04-26 16:38 | P.CONIM_ITS ---
<Statement entered by Kristian Grover MD - 04/27/24 07:45> Planned removal of a limited amount of hardware from the exposed wound in the lower back left of midline over the posterior iliac crest. It appears that there is extension of this wound more superiorly though not certain as to the amount of hardware which will be removed. If the jud purulence which we noted in wound care clinic on her prior visit does extend above the level of hardware removal, it may be a tremendous challenge to heal the wound. 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 It is moderate standing this is planned to be addressed by Dr. Tom from orthopedic services out of [facility] in [facility], presumably with possibly a [place] procedure. Providers/Reason For Consult 2 Consulting Physician/Specialty*: Wound care Reason for Consult*: Pressure ulcer on sacrum Requesting Physician: Dr. Charles Coleman MD Attending Physician: Charles Coleman MD Primary Care Provider: Stefany Hawk DO History of Present Illness History of Present Illness Torie Dennison is a 68 year old female admitted to the hospital yesterday. 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 She is a current patient at our wound care center, being treated by Dr. Grover and last seen on April 18, 2024. the original wound she was being treated for, on her lower back, overlies hardware that is exposed. She was treated with IV antibiotics for hardware infection in January and then transitioned to ciprofloxacin oral for chronic suppression managed by infectious disease. Dr. Julien plans to take her to surgery tomorrow to remove a león and screw from this wound. She will then be followed up by our service for continued treatment of her wounds. At her last visit, she had a small superficial ulceration to her left gluteus, which is now healed. The ulceration to her sacral region was present at this visit as well and eschar was noted at that time. Dr. Grover ordered PolyMem silver to be applied to this wound daily. She has been compliant with dressing changes. She is negative for fevers, chills, nausea, vomiting at this time. She is currently on vancomycin IV. Review of Systems 2 Const: Denies: fever(s) or chills Musc: Reports: joint pain (hip) Skin/Breast: Reports: sores (back and bottom) Medications/Allergies Home Medications ?Medication ?Instructions ?Recorded ?Confirmed ?Last Taken ?Type atorvastatin 40 mg tablet 40 mg PO DAILY 12/07/2307/1501/17/24 History clopidogrel 75 mg tablet 75 mg PO DAILY 12/07/2307/1501/17/24 History isosorbide dinitrate 10 mg tablet 10 mg PO BID 4 04/25/24 01/17/24 History levothyroxine 50 mcg capsule 50 mcg PO DAILY 12/07/23 04/25/24 01/17/24 History lubiprostone 24 mcg capsule 24 mcg PO BID 12/07/2307/1501/17/24 History metformin 500 mg tablet 500 mg PO DAILY 12/07/2307/1501/17/24 History metoprolol tartrate 25 mg tablet 25 mg PO DAILY 04/25/24 01/17/24 History triamterene 75 1 tab PO DAILY 12/07/2307/1501/17/24 History mg-hydrochlorothiazide 50 mg tablet ciprofloxacin HCl 500 mg tablet 500 mg PO BID hardware infection 02/07/24 04/25/24 Unknown Rx 30 days #60 tabs amitriptyline 100 mg tablet 100 mg PO DAILY 04/25/24 0 04/25/24 Unknown History Allergies Allergy/AdvReac Type Severity Reaction Status Date / Time Penicillins Allergy Mild ALGY-Rash Verified 04/04/24 13:45 Current Medications Generic Name Dose Route Start Last Admin Trade Name Freq PRN Reason Stop Dose Admin Amitriptyline HCl 25 mg 04/26/24 09:00 04/26/24 10:25 Amitriptyline 25 Mg Tablet PO 25 mg DAILY GABRIELLA Administration Atorvastatin Calcium 40 mg 04/26/24 09:00 04/26/24 10:25 Atorvastatin 40 Mg Tablet PO 40 mg DAILY GABRIELLA Administration Camphor/Menthol/Phenol 1 applic 04/26/24 04:40 04/26/24 05:49 Blistex Lip Oint 7 Gm Tube TOPICAL 1 applic PRN PRN Administration DRYNESS Docusate Sodium 100 mg 04/25/24 18:00 04/26/24 10:24 Docusate Sodium 100 Mg Capsule PO 100 mg BID GABRIELLA Administration Heparin Sodium (Porcine) 5,000 unit 04/26/24 13:30 04/26/24 14:24 Heparin 5,000 Unit/Ml Inj 1 Ml SUBCUT 5,000 unit Q12H GABRIELLA Administration Sodium Chloride 1,000 mls @ 50 mls/hr 04/25/24 18:00 04/26/24 10:55 Sodium Chloride 0.9% IV 0 mls/hr .Q20H GABRIELLA Infusion Iron Sucrose 200 mg/ Sodium 110 mls @ 220 mls/hr 04/26/24 10:30 04/26/24 13:11 Chloride IV 04/30/24 10:59 Infused Q24H GABRIELLA Infusion Levothyroxine Sodium 50 mcg 04/26/24 06:00 04/26/24 05:49 Levothyroxine 50 Mcg Tablet PO 50 mcg DAILY@0600 GABRIELLA Administration Magnesium Hydroxide 30 ml 04/26/24 09:00 04/26/24 11:56 Magnesium Hydroxide 30 Ml Udc PO 30 ml DAILY GABRIELLA Administration Protocol Metoprolol Tartrate 25 mg 04/25/24 21:00 04/26/24 10:24 Metoprolol Tartrate 25 Mg Tablet PO 25 mg BID@0900,2100 GABRIELLA Administration Morphine Sulfate 2 mg 04/25/24 17:58 04/26/24 05:49 Morphine 4 Mg/Ml Sdv 1 Ml IVP 2 mg Q4H PRN Administration SEVERE PAIN Pantoprazole Sodium 40 mg 04/25/24 18:00 04/25/24 19:53 Pantoprazole 40 Mg Sdv IVP 40 mg Q24H GABRIELLA Administration PFSH Acute 2 PFSH: Medical History Pressure ulcer of sacral region, unstageable Fixation hardware in spine PIC line (peripherally inserted central catheter) removal RSD (reflex sympathetic dystrophy) Dyslipidemia Atherosclerosis of coronary artery of [place] heart without angina pectoris Had a LAD stent at the bifurcation,TRYTON stenting-found to be patent by angiogram in January 2023, 30% ostial narrowing of the right renal artery. Mild disease in the other vessels Benign essential HTN T2DM (type 2 diabetes mellitus) Surgical History (Updated 03/05/25 @ 18:13 by Charles Coleman MD) S/P total left hip arthroplasty Social History Smoking and tobacco/nicotine status: never used tobacco/nicotine Vitals/I&O/Wt Last Vital Signs Temp 98.2 F 04/26/24 15:26 Pulse 68 04/26/24 15:26 Resp 17 04/26/24 15:26 BP 110/60 04/26/24 15:26 Pulse Ox 100 04/26/24 15:26 O2 Del Method Room Air 04/26/24 15:26 04/26/24 04/26/24 04/26/24 06:59 14:59 22:59 Intake Total 450 / 690 1342.5 / 1342.5 250 / 1592.5 Output Total 550 / 550 300 / 300 Balance -100 / 140 1042.5 / 1042.5 250 / 1292.5 Weight last 48 hrs Weight 55.934 kg Weight 52.617 kg Physical Exam 2 Const: COMMON NORMALS: no acute distress, patient oriented x3 and alert G ENERAL APPEARANCE: cooperative NUTRITIONAL APPEARANCE: thin O RIENTATION/CONSCIOUSNESS: Yes awake, Yes oriented to person, Yes oriented to place and Yes oriented to time Chest: CHEST: Yes Symmetrical chest wall rise Resp: COMMON NORMALS: normal respiratory effort, No retractions and No use of accessory muscles EFFORT & INSPECTION: Yes able to speak in complete sentences Cardio: COMMON NORMALS: regular rate RATE: regular rate Neuro: COMMON NORMALS: patient oriented x3 SENSORIUM/ORIENTATION: Yes alert, Yes oriented to person, Yes oriented to place and Yes oriented to time Psych: COMMON NORMALS: mental status grossly normal, cooperative, normal affect and speech normal SPEECH: Yes normal speech Skin: WOUNDS: Yes wounds noted (see wound assessment) Data 04/26/24 04:45 04/26/24 04:45 Micro: Microbiology 04/26/24 04:05 Bacterial Antigens - Final Urine Kidney 04/25/24 19:20 Blood Culture - Preliminary Blood SPECIMEN COLLECTED 04/25/24 19:20 Blood Culture - Preliminary Blood SPECIMEN COLLECTED A&P Assessment and plan (1) Pressure ulcer of sacral region, unstageable: Open wound sacral area originally started from friction and shearing and developed into a pressure ulcer in mid to late March. This wound would benefit from debridement. Will utilize Santyl to provide enzymatic debridement to the necrotic tissues in the wound bed. This should be applied nickel thick to the wound bed daily and covered with gauze. This should be secured by a silicone bordered sacral OPTi foam. Ms. Dennison would benefit from a [id number] mattress. She should regularly change position to relieve pressure on the affected area, at minimum every 2 hours. Use pillows, foam cushions, mattress pads, or other aids to reduce pressure on vulnerable areas. Prevent pressure from medical devices like catheters and oxygen tubing. She is able to move independently, although she may need to be reminded to avoid any pressure over this area. Nutrition will also be especially important for wound healing. PDMP PDMP Reviewed: Not Reviewed Consult Attestations 2 Time Spent in Patient Care: 16 - 35 minutes Coding Level of Care Code Acute Code for Chg Fwd Diagnoses Pressure ulcer of sacral region, unstageable L89.150 Wound Assessment Wound Assessment Wound Number 1 Sacrum: Primary Etiology:: Pressure Ulcer Length: (cm): 7 cm Width: (cm): 6.9 cm Depth: (cm): 0.2 cm Epithelialization:: None Tunneling:: No Undermining:: No Classification: Unstageable Exudate Amount:: Medium Drainage Type: Serosanguineous Exudate Color:: Brown Foul Odor After Cleansing:: No Slough/Fibrin?: Yes Granulation Amount: Small (1-33%) Granulation Quality:: [place] Necrotic Amount:: Large (67-100%) Necrotic Type:: Eschar and Adherent Slough Wound Orders Wound Number 1: sacrum Dressing change frequency: Daily Wound Cleansing: Saline Topical Orders: Santyl Ointment (applied to wound bed, nickel thickness) Secondary Wound Care Dressing: sacral optifoam Off-Loading: Low air-loss mattress and Turn and reposition every 2 hours
[2024-04-26] MEDS: pantoprazole 40 mg SDV IVP (17:39)
[2024-04-26] MEDS: sodium chloride 0.9% 1,000 ML 50 ML IV (22:35)
[2024-04-27] VITALS (27 sets, daily range): BP systolic 88–152; BP diastolic 42–72; PULSE 50–75; RESP 12–23; TEMP 36.3–37.8; O2SAT 92–100; BMI 20.7
[2024-04-27] MEDS: heparin 5,000 unit/mL INJ 1 mL 5000 UNIT SUBCUT ×2 (02:22→14:17)
[2024-04-27] MEDS: levothyroxine 50 mcg Tablet PO (05:52)
[2024-04-27 06:19] LABS: Basophils % 0.5 %; Eosinophils # 0.2 10^3/uL (0.0-0.8); Eosinophils % 3.3 %; Hematocrit 30.4 % (36-47); Lymphocytes % 15.6 %; Mean Corpuscular HGB Conc 31.9 g/dL (30-55); Mean Corpuscular Hemoglobin 27.6 pg (27-33); Mean Corpuscular Volume 86.4 fl (85-98); Mean Platelet Volume 10.3 fL (7.4-10.4); Monocytes # 0.4 10^3/uL (0.2-0.9); Monocytes % 6.7 %; Neutrophils # 4.49 10^3/uL (1.8-7.7); Neutrophils % 73.1 %; Nucleated Red Blood Cells % 0 %; Platelet Count 304 10^3/cmm (157-399); Red Blood Count 3.52 10^6/uL (3.85-5.65); Red Cell Distribution Width 14.3 % (12.1-15.1); White Blood Count 6.14 10^3/uL (3.29-11.43)
[2024-04-27 06:35] LABS: Vancomycin Random 23.1 ug/mL (20.0-40.0)
[2024-04-27 06:36] LABS: Alanine Aminotransferase 8 U/L (0-33); Albumin Level 2.8 g/dL (3.5-5.2); Alkaline Phosphatase 69 U/L (35-105); Anion Gap 14.9 (5-19); Aspartate Amino Transferase 15 U/L (0-32); Blood Urea Nitrogen 45 mg/dL (8-23); Calcium 8.1 mg/dL (8.5-10.5); Carbon Dioxide 24 mmol/L (22-29); Chloride 100 mmol/L (98-107); Globulin 3.2 g/dL (1.3-4.6); Glomerular Filtration Rate 23.4 mL/min (90-130); Glucose 105 mg/dL (65-115); Magnesium 1.7 mg/dL (1.7-2.3); Osmolality Calculated 292 mOsm/kg (285-295); Phosphorus 2.9 mg/dL (2.5-4.5); Potassium 3.9 mmol/L (3.5-5.1); Sodium 135 mmol/L (136-145); Total Bilirubin 0.7 mg/dL (0.15-1.2)
[2024-04-27] MEDS: sodium chloride 0.9% 1,000 ML 30 ML IV (08:50)
--- NOTE | 2024-04-27 09:05 | W.PM.OPSUD ---
Surgery/Procedure H&P Update DATE OF PROCEDURE: April 27, 2024 DATE H&P PERFORMED: 04/26/24 H&P UPDATE INFORMATION: I have reviewed H&P completed within last 30 days, I have examined patient prior to procedure and No changes to prior documentation PLANNED PROCEDURE: Operation Date: 04/27/24 10:15 Proposed Procedures p Hardware Removal Back(Not Applicable) - Jaswant Julien DO
--- NOTE | 2024-04-27 09:05 | PC.NURSE ---
Patient experienced a spontaneous nose bleed from her left nostril during preop. Gauze and pressure applied with successful cessation of bleeding. Area cleaned with damp washrag, patient instructed to notify nurse if bleed returns.
--- NOTE | 2024-04-27 09:09 | ANES.PREANE2 ---
Pre-Anesthetic Assessment Height/Weight: Height 1.65 m Weight 56.359 kg Temp Pulse Resp BP Pulse Ox O2 Del Method 97.8 F 75 18 129/72 96 Room Air 04/27/24 08:48 04/27/24 08:48 04/27/24 08:48 04/27/24 08:48 04/27/24 08:48 04/27/24 08:48 Operation Date: 04/27/24 10:15 Proposed Procedures p Hardware Removal Back(Not Applicable) - Jaswant Julien, DO Familial anesthetic complications: None Was Beta Terees taken within 24 hours: N/A Was Clonidine taken within 24 hours: N/A Last intake: > 8 hrs Social No alcohol and No tobacco Exam alert, oriented x 3, clear to auscultation bilaterally and regular rate & rhythm Airway Mallampati: Class I Dentition: chipped and other (very poor dentition) CV/HEM Coronary Artery Disease (stent), Hypertension and Peripheral Vascular Disease Metabolic Diabetes Mellitus, Hyperlipidemia and Thyroid Disease Anesthetic Plan ASA status: 4 Anesthesia: General Risk of > 500 ml blood loss (7ml/kg in children): No Medications/Allergies Home Medications ?Medication ?Instructions ?Recorded ?Confirmed ?Last Taken ?Type atorvastatin 40 mg tablet 40 mg PO DAILY 12/07/23 04/25/24 01/17/24 History clopidogrel 75 mg tablet 75 mg PO DAILY 12/07/23 04/25/24 01/17/24 History isosorbide dinitrate 10 mg tablet 10 mg PO BID 12/07/23 04/25/24 01/17/24 History levothyroxine 50 mcg capsule 50 mcg PO DAILY 12/07/23 04/25/24 01/17/24 History lubiprostone 24 mcg capsule 24 mcg PO BID 12/07/23 04/25/24 01/17/24 History metformin 500 mg tablet 500 mg PO DAILY 12/07/23 04/25/24 01/17/24 History metoprolol tartrate 25 mg tablet 25 mg PO DAILY 12/07/23 04/25/24 01/17/24 History triamterene 75 1 tab PO DAILY 12/07/23 04/25/24 01/17/24 History mg-hydrochlorothiazide 50 mg tablet ciprofloxacin HCl 500 mg tablet 500 mg PO BID hardware infection 02/07/24 04/25/24 Unknown Rx 30 days #60 tabs amitriptyline 100 mg tablet 100 mg PO DAILY 04/25/24 04/25/24 Unknown History Allergies Allergy/AdvReac Type Severity Reaction Status Date / Time Penicillins Allergy Mild ALGY-Rash Verified 04/04/24 13:45 Current Medications Generic Name Dose Route Start Last Admin Trade Name Freq PRN Reason Stop Dose Admin Amitriptyline HCl 25 mg 04/26/24 09:00 04/26/24 10:25 Amitriptyline 25 Mg Tablet PO 25 mg DAILY GABRIELLA Administration Atorvastatin Calcium 40 mg 04/26/24 09:00 04/26/24 10:25 Atorvastatin 40 Mg Tablet PO 40 mg DAILY GABRIELLA Administration Camphor/Menthol/Phenol 1 applic 04/26/24 04:40 04/26/24 05:49 Blistex Lip Oint 7 Gm Tube TOPICAL 1 applic PRN PRN Administration DRYNESS Collagenase 1 applic 04/26/24 17:00 04/27/24 07:55 Collagenase Oint 30 Gm TOPICAL Not Given DAILY GABRIELLA Docusate Sodium 100 mg 04/25/24 18:00 04/26/24 17:39 Docusate Sodium 100 Mg Capsule PO 100 mg BID GABRIELLA Administration Heparin Sodium (Porcine) 5,000 unit 04/26/24 13:30 04/27/24 02:22 Heparin 5,000 Unit/Ml Inj 1 Ml SUBCUT 5,000 unit Q12H GABRIELLA Administration Sodium Chloride 1,000 mls @ 50 mls/hr 04/25/24 18:00 04/26/24 22:35 Sodium Chloride 0.9% IV 0 mls/hr .Q20H GABRIELLA Infusion Iron Sucrose 200 mg/ Sodium 110 mls @ 220 mls/hr 04/26/24 10:30 04/26/24 13:11 Chloride IV Infused Q24H GABRIELLA Infusion Sodium Chloride 1,000 mls @ 30 mls/hr 04/27/24 08:45 04/27/24 08:50 Sodium Chloride 0.9% IV 04/28/24 08:44 30 mls/hr .Q24H GABRIELLA Administration Levothyroxine Sodium 50 mcg 04/26/24 06:00 04/27/24 05:52 Levothyroxine 50 Mcg Tablet PO 50 mcg DAILY@0600 GABRIELLA Administration Magnesium Hydroxide 30 ml 04/26/24 09:00 04/26/24 11:56 Magnesium Hydroxide 30 Ml Udc PO 30 ml DAILY GABREILLA Administration Protocol Metoprolol Tartrate 25 mg 04/25/24 21:00 04/26/24 20:54 Metoprolol Tartrate 25 Mg Tablet PO 25 mg BID@0900,2100 GABRIELLA Administration Morphine Sulfate 2 mg 04/25/24 17:58 04/26/24 20:54 Morphine 4 Mg/Ml Sdv 1 Ml IVP 2 mg Q4H PRN Administration SEVERE PAIN Pantoprazole Sodium 40 mg 04/25/24 18:00 04/26/24 17:39 Pantoprazole 40 Mg Sdv IVP 40 mg Q24H GABRIELLA Administration PFSH Anesthesia Medical History Pressure ulcer of sacral region, unstageable Fixation hardware in spine PIC line (peripherally inserted central catheter) removal RSD (reflex sympathetic dystrophy) Dyslipidemia Atherosclerosis of coronary artery of [place] heart without angina pectoris Had a LAD stent at the bifurcation,TRYTON stenting-found to be patent by angiogram in January 2023, 30% ostial narrowing of the right renal artery. Mild disease in the other vessels Benign essential HTN T2DM (type 2 diabetes mellitus) Surgical History (Updated 04/25/24 @ 18:13 by Charles Coleman MD) S/P total left hip arthroplasty Social History Smoking and tobacco/nicotine status: never used tobacco/nicotine Data Anesthesia 04/27/24 05:57 04/27/24 05:57 Short CBC 04/25/24 04/26/24 04/27/24 Range/Units 19:20 04:45 05:57 WBC 7.10 5.81 6.14 (3.29-11.43) 10^3/uL Hgb 8.40 L 7.10 L 9.70 L (11.27-16.99) g/dL Hct 27.3 L 23.0 L 30.4 L (36-47) % MCV 88.9 87.5 86.4 (85-98) fl Plt Count 366 320 304 (157-399) 10^3/cmm Neut % (Auto) 76.9 51.3 73.1 % Neut # (Auto) 5.46 2.98 4.49 (1.8-7.7) 10^3/uL BMP 04/25/24 04/26/24 04/27/24 19:20 04:45 05:57 Sodium 135 L 135 L 135 L Potassium 3.5 3.9 3.9 Chloride 94 L 99 100 Carbon Dioxide 23 22 24 BUN 53 H 51 H 45 H Creatinine 2.6 H 2.3 H 2.1 H Glucose 91 97 105 Calcium 9.0 8.3 L 8.1 L Liver Function 04/25/24 04/26/24 04/27/24 Range/Units 19:20 04:45 05:57 Total Bilirubin 0.2 0.2 0.7 (0.15-1.2) mg/dL AST 18 14 15 (0-32) U/L ALT 9 7 8 (0-33) U/L Alkaline Phosphatase 78 60 69 (35-105) U/L Albumin 3.3 L 2.7 L 2.8 L (3.5-5.2) g/dL Urine 04/26/24 Range/Units 04:05 Urine Color Yellow (Yellow) Urine Appearance Clear (CLEAR) Urine pH 6.0 (5-7) Ur Specific [place] 1.013 (1.005-1.030) Urine Protein 1+ A (Negative) Urine Glucose (UA) Negative (Normal) Urine Ketones Negative (Negative) Urine Nitrate Negative (Negative) Urine Bilirubin Negative (Negative) Ur Leukocyte Esterase Negative (Negative) Urine RBC None (0-2) /hpf Urine WBC 5-10 H (0-5) /hpf Blood Bank 04/26/24 12:40 Blood Type A Positive Rho(D) Type Rh positive Antibody Screen Positive Coags 04/25/24 19:20 PT 14.00 INR 1.01 Microbiology 04/25/24 19:20 Blood Culture - Preliminary Blood NEGATIVE TO DATE 04/25/24 19:20 Blood Culture - Preliminary Blood NEGATIVE TO DATE 04/26/24 04:05 Bacterial Antigens - Final Urine Kidney Cardiac Studies: No Data to Display
[2024-04-27] MEDS: vancomycin 1,000 MG SDV 1000 MG XX (10:07)
--- NOTE | 2024-04-27 11:04 | P.OP_ITS ---
Operative Report Date of procedure: April 27, 2024 Pre-op diagnosis: 1.Painful orthopedic hardware 2. Open wound (6 inches long 2 inches wide and 1 inch deep) over left gluteal area Procedure done: 1. removal of deep hardware from spine 2. Irrigation debridement of wound down to bone(wound is 6 inches long by 2 inches wide and 1 inch deep) 3. Complex wound closure (wound is 6 inches long by 2 inches wide and 1 inch deep) Surgeon: Jaswant Julien DO Estimated blood loss (mL): 25 Procedure: 1. removal of deep hardware from spine 2. Irrigation debridement of wound down to bone(wound is 6 inches long by 2 inches wide and 1 inch deep) 3. Complex wound closure (wound is 6 inches long by 2 inches wide and 1 inch deep) Patient is brought to the operative suite after undergoing anesthesia was placed in the prone position. Patient was then prepped and draped in normal sterile fashion. The screw head and león were identified in the wound. The wound edges were ellipsed. This was done with a sharp dissection with a knife. The wound was extended proximally and distally. There is a small pocket distally. This was opened and debrided with rongeur and sharp dissection to bleeding tissue. The screw head was dissected out using a Bovie and rongeur. Bone was removed from the león that he grown over the león and connector that was connected to the long león of the lumbar spine. Dissection was made all the way down to the connector and just proximal to it. The screw caps were removed from the conn daren and the screw Was removed from the screw that was going into the iliac crest. The connector was then removed. And then the screw that was going into the iliac crest was removed. The wound deep was debrided down to bone this done using a rongeur to bleeding tissue. As well as using sharp dissection and Bovie to bleeding healthy tissue. All necrotic tissue was removed. The wound was then closed in a layered fashion with PDS suture. The deep layer was closed with 0 PDS approximated tissue closing the space there was deep as well as in the pocket. The skin was closed with 2-0 PDS and 2-0 nylon suture. Sterile dressings were applied and patient was transferred to the PACU in stable condition.
--- NOTE | 2024-04-27 11:10 | XR_ITS ---
WS: [id number] PORTABLE CHEST HISTORY: Post PICC insertion COMPARISON: 04/25/2024 Normal positioning of the LEFT PICC line take into consideration rotation of the patient. Terminating at the cavoatrial junction. Hyperexpanded lungs. No pneumonia. No pleural effusion or pneumothorax. Cardiac size: Normal. Mediastinum/Aorta: Normal mediastinum. No osseous abnormality seen. XR/XR chest 1V portable [id number] IMPRESSION: Satisfactory positioning of the LEFT PICC line.
[2024-04-27] MEDS: morphine 4 mg/mL SDV 1 mL 2 MG IVP ×3 (11:35→21:05)
--- NOTE | 2024-04-27 11:56 | XR_ITS ---
WS: [id number] XR lumbar spine 1V [id number] REASON FOR EXAM: or pic, hardware removal, FINDINGS: L4 to thoracic spine. Pedicle screws and interconnecting rods pelvis to L2. Anterior plate and L4-L5. Interbody fusion devices L4-L5 and L5-S1. XR/XR lumbar spine 1V [id number] IMPRESSION: Hardware removal preprocedure imaging.
--- NOTE | 2024-04-27 12:00 | ANE.PACU2 ---
Inpatient post-anesthesia follow up: Airway intact: Yes Vital signs: Temperature 97.4 F Pulse Rate 61 Respiratory Rate 17 Blood Pressure 118/51 Pulse Oximetry 94 Oxygen Delivery Me thod Room Air Oxygen Flow Rate Fraction of Inspir ed Oxygen Hydration adequate: Yes Nausea and vomiting: No Pain level: 1 Mental status: Baseline
--- NOTE | 2024-04-27 12:13 | PICC.NOTE ---
Single lumen PICC placed to left brachial vein. Referred to vascular access nurse for PICC placement due to need for home IV antibiotics. Risks and benefits discussed and informed consent obtained from pt. Left arm assessed with left brachial vein measuring 4.4 mm, straight, and apparent best choice for placement. Using sterile technique and MST, left brachial vein accessed x 1 stick. Mid-arm circumference measured 10 cm from left AC 24 cm. Trimmed cath 45 cm with 1 cm external length noted. CXR shows tip in SVC, in good position for use per radiologist. Line secured with stat-lock. Insertion site covered with Biopatch and TSM. Report given to PACU nurse, SHARON Pope.
--- NOTE | 2024-04-27 14:35 | PM.PN ---
Subjective Subjective: No acute events overnight. Patient has remained hemodynamically stable and afebrile. Today morning seen sitting on bedside commode. Denies any nausea, vomiting, headache. Vitals/I&O/Wt Last Vital Signs Temp 97.4 F L 04/27/24 12:24 Pulse 50 L 04/27/24 13:15 Resp 16 04/27/24 13:15 BP 95/54 04/27/24 13:15 Pulse Ox 94 04/27/24 13:15 O2 Del Method Room Air 04/27/24 13:15 04/26/24 04/27/24 04/27/24 22:59 06:59 14:59 Intake Total 737.5 / 2080.0 350 / 2430.0 232.5 / 232.5 Output Total 1700 / 2000 30 / 30 Balance 737.5 / 1780.0 -1350 / 430.0 202.5 / 202.5 Weight last 48 hrs Weight 56.359 kg Weight 55.934 kg Weight 52.617 kg Physical Exam Narrative: General: No acute distress, AO x3, pallor present, chronic sick appearing, cachectic HEENT: PERRLA, pupils bilaterally equal and reactive Chest: Normal vesicular breath sounds, no added sounds, equal good air entry bilaterally CVS: S1-S2 regular, no murmurs, no tachycardia, no gallops, no rubs Abdomen: Soft, nontender, no organomegaly, bowel sounds present Neuro: No focal deficits, no facial deformity, AO x3, power 5/5 in all limbs Skin: OTHER: Urinary Catheter Management: Recinos: Cath Placed During This Visit: yes Reason for Continuing Indwelling Catheter: Required Immobilization for Trauma or Surgery or Anesthesia Urinary Catheter Date of Insertion: 04/26/24 Urinary Catheter Time of Insertion: 09:35 Data 04/27/24 05:57 04/27/24 05:57 Micro: Microbiology 04/25/24 19:20 Blood Culture - Preliminary Blood NEGATIVE TO DATE 04/25/24 19:20 Blood Culture - Preliminary Blood NEGATIVE TO DATE 04/26/24 04:05 Bacterial Antigens - Final Urine Kidney A&P Assessment and plan (1) Hardware complicating wound infection: Open draining wound at the hip joint with exposed screw. Recent wound cultures growing MRSA. Previous culture growing Pseudomonas. Post removal of deep hardware from spine, irrigation and debridement of the wound, complex wound closure on 04/27. Follow-up blood cultures. Appreciate procalcitonin trend. Continue with IV vancomycin. As recent cultures are only growing MRSA for now we will hold off on Pseudomonas coverage. Appreciate ID and orthopedic surgery recommendations. Qualifiers: Encounter type: initial encounter Qualified Code(s): T84.7XXA - Infection and inflammatory reaction due to other internal orthopedic prosthetic devices, implants and grafts, initial encounter (2) MRSA (methicillin resistant staph aureus) culture positive: (3) Acute kidney injury: Baseline creatinine seems to be around 1.7. Currently 2.3. Could be in setting of sepsis versus dehydration. Continue with NS at 50 cc/h. Appreciate urine lites, urine creatinine, urine eosinophil. Recinos catheterization. Monitor BMP daily. Monitor electrolytes. No concern for potassium abnormality or acidosis. CT abdomen pelvis ruled out obstructive nephropathy. (4) Anemia: Post to monitor blood transfusion. Hemoglobin appropriately elevated to 9.7. Found to have iron deficiency anemia. Continue with IV iron supplementation. Appreciate folic acid and vitamin B12 levels. (5) Atherosclerosis of coronary artery of [place] heart without angina pectoris: No active chest pain. Continue with aspirin, statin. Holding off on Plavix given concerns for possible OR. Patient having bradycardia. Holding off on metoprolol for now. Qualifiers: Coronary Disease-Associated Artery/Lesion type: [place] artery Qualified Code(s): I25.10 - Atherosclerotic heart disease of [place] coronary artery without angina pectoris (6) Benign essential HTN: Goal blood pressure less than 140/90 mmHg. Patient takes isosorbide dinitrate 10 mg twice daily, metoprolol at home. Continue to hold off on antihypertensive including metoprolol for now. Uptitrate as for goal blood pressure. (7) Pressure injury of back, stage 4: Appreciate wound care nurse recommendations. Continue with the same for now. (8) Failure of left total hip arthroplasty with dislocation of hip: Being followed up as an outpatient with orthopedics. Currently in hip abductor device. Plan for possible orthopedic OR after control of hardware infection. (9) T2DM (type 2 diabetes mellitus): A1c- 5.8. Hold off on sliding scale. change to regular diet. 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 Monitor daily magnesium and potassium level. CODE STATUS: Discussed in detail with patient. Son will be DPOA. Full code. Protonix for PUD prophylaxis Heparin 5000 Q12 hourly for DVT prophylaxis. Regular diet with Ensure with each meal. Discharge plan: Discussed in detail with patient's family. They would want patient to be transition to SNF as possible. PT/OT evaluation. Case management alerted. PDMP PDMP Reviewed: Not Reviewed Attestations Medical Necessity Statement*: Requires further hospitalization for management of hardware infection post hardware removal and deep debridement, MRSA infection, JACKI and CKD, anemia requiring blood transfusion, severe protein energy malnutrition while outpatient antibiotics and safe discharge planning is sought Diagnoses Hardware complicating wound infection, initial encounter T84.7XXA Encounter type: initial encounter MRSA (methicillin resistant staph aureus) culture positive Z22.322 Acute kidney injury N17.9 Anemia D64.9 Atherosclerosis of [place] coronary artery of [place] heart without angina pectoris I25.10 Coronary Disease-Associated Artery/Lesion type: [place] artery Benign essential HTN I10 Pressure injury of back, stage 4 L89.104 Failure of left total hip arthroplasty with dislocation of hip T84.021A Type 2 diabetes mellitus without complication, without long-term current use of insulin E11.9 Diabetes mellitus watermelon harvesting supervisor insulin use: without residential use Diabetes mellitus complication status: without complication Protein-energy malnutrition E46
--- NOTE | 2024-04-27 15:42 | PC.SOCIAL ---
IMM updated IMM dated and initialed, copy given to patient and copy placed in chart
[2024-04-27] MEDS: iron sucrose 200 MG in sodium chloride 0.9% (100 ml) 100 ML 220 MG IV (15:59)
--- NOTE | 2024-04-27 18:26 | P.PN_ITS ---
Subjective 2 Subjective: Infectious disease progress note. Patient has undergone removal of screw head and león that was exposed via the wound. Bone was removed from the león that had grown over the león. Dissection was made down to the connector and proximal to it. Screw that was going into the iliac crest was removed. The wound was debrided deep down to the bone. All necrotic tissue was removed. Complex wound closure was then attained.Tmax 100.1F overnight. Medications: Reviewed: Yes Vitals/I&O/Wt Last Vital Signs Temp 97.7 F 04/27/24 14:15 Pulse 63 04/27/24 17:12 Resp 18 04/27/24 17:12 BP 118/64 04/27/24 17:12 Pulse Ox 95 04/27/24 17:12 O2 Del Method Room Air 04/27/24 17:12 04/27/24 04/27/24 04/27/24 06:59 14:59 22:59 Intake Total 350 / 2430.0 232.5 / 232.5 230 / 462.5 Output Total 1700 / 2000 30 / 30 400 / 430 Balance -1350 / 430.0 202.5 / 202.5 -170 / 32.5 Weight last 48 hrs Weight 56.359 kg Weight 55.934 kg Physical Exam 2 Narrative: General: No acute distress, AO x3 HEENT: PERRLA, pupils bilaterally equal and reactive, pallors not present Chest: Normal vesicular breath sounds, no added sounds, equal good air entry bilaterally CVS: S1-S2 regular, no murmurs, no tachycardia, no gallops, no rubs Abdomen: Soft, nontender, no organomegaly, bowel sounds present Neuro: No focal deficits, no facial deformity, AO x3, power 5/5 in all limbs Urinary Catheter Management: Recinos: Cath Placed During This Visit: yes Reason for Continuing Indwelling Catheter: Required Immobilization for Trauma or Surgery or Anesthesia Urinary Catheter Date of Insertion: 04/26/24 Urinary Catheter Time of Insertion: 09:35 Data 04/27/24 05:57 04/27/24 05:57 Micro: Microbiology 04/25/24 19:20 Blood Culture - Preliminary Blood NEGATIVE TO DATE 04/25/24 19:20 Blood Culture - Preliminary Blood NEGATIVE TO DATE A&P Assessment and plan (1) Hardware complicating wound infection: 68-year-old lady with history of multiple spinal surgeries in the past, developed pressure injury over the back leading to a left iliac wound posteriorly which has been open at least for a year at this point in time. There is underlying exposed hardware. Patient has not yet had any surgical debridement or removal of any hardware. Per past records from infectious disease at [facility], she has had infections with streptococcus, pseudomonas and Finegoldia magna in Jan-Feb. More recently she had Pseudomonas infection in Dec 2023 treated with cefepime, then Ciprofloxacin which was mainatained pending orthopedic assessment at higher center. Now more recently has had MRSA and worsening wound and drainage. Highly unlikley that we will be able to successfully treat this patient with underlying infected hardware remaining in place. Appreciate orthopedics assessment and plan for partial hardware removal recent hip CT from 04/04/2024 showed dislocated left hip arthroplasty. Pelvic CT from 01/30/24 with Inflammatory change and skin ulceration in the left lower back, probably associated with the indwelling iliac surgical hardware. Outpatient culture growing MRSA from the infected tract. Agree with IV vancomycin treatment with goal trough of 15-20. blood cx taken and pending Qualifiers: Encounter type: initial encounter Qualified Code(s): T84.7XXA - Infection and inflammatory reaction due to other internal orthopedic prosthetic devices, implants and grafts, initial encounter (2) MRSA infection: (3) Failure of left total hip arthroplasty with dislocation of hip: followed at [facility] case discussed with Dr. Tom She is planned for girdlestone procedure No new hardware planned due to open sacral ulcer Plan Status post partial removal of hardware today. Discussed with patient that with removal of at least partial hardware there might be a better chance at healing the chronically draining left hip wound. However if level of infection extends beyond the removed hardware onto the remaining hardware we may still be facing possibility of antibiotic failure. Patient understood this and elected to proceed today. Continue IV vancomycin with goal trough of 15-20. Will follow surgical cultures from the OR. Will plan to likely add rifampin closer to discharge PDMP PDMP Reviewed: Not Reviewed Attestations 2 Medical Necessity Statement*: per dandremitting, s/p surgery today Coding Level of Care Code Acute Code for Chg Fwd Diagnoses Hardware complicating wound infection, initial encounter T84.7XXA Encounter type: initial encounter MRSA infection A49.02 Failure of left total hip arthroplasty with dislocation of hip T84.021A
[2024-04-27] MEDS: sodium chloride 0.9% 1,000 ML 50 ML IV (18:42)
[2024-04-27] MEDS: pantoprazole 40 mg SDV IVP (18:42)
[2024-04-27] MEDS: docusate sodium 100 mg Capsule PO (18:42)
[2024-04-28] VITALS (8 sets, daily range): BP systolic 115–145; BP diastolic 58–89; PULSE 65–94; RESP 14–18; TEMP 36.4–37; O2SAT 93–100; BMI 20.6
[2024-04-28] MEDS: heparin 5,000 unit/mL INJ 1 mL 5000 UNIT SUBCUT ×2 (01:33→12:30)
[2024-04-28] MEDS: morphine 4 mg/mL SDV 1 mL 2 MG IVP ×3 (01:33→11:06)
[2024-04-28 04:30] LABS: Basophils % 0.5 %; Eosinophils # 0.2 10^3/uL (0.0-0.8); Eosinophils % 3.4 %; Hematocrit 26.1 % (36-47); Lymphocytes % 18.4 %; Mean Corpuscular Hemoglobin 28.1 pg (27-33); Mean Corpuscular Volume 90.6 fl (85-98); Mean Platelet Volume 10.3 fL (7.4-10.4); Monocytes # 0.6 10^3/uL (0.2-0.9); Monocytes % 10.3 %; Neutrophils # 3.69 10^3/uL (1.8-7.7); Neutrophils % 66.7 %; Nucleated Red Blood Cells % 0 %; Platelet Count 296 10^3/cmm (157-399); Red Blood Count 2.88 10^6/uL (3.85-5.65); Red Cell Distribution Width 14.4 % (12.1-15.1); White Blood Count 5.54 10^3/uL (3.29-11.43)
[2024-04-28 04:55] LABS: Alanine Aminotransferase 6 U/L (0-33); Albumin Level 2.6 g/dL (3.5-5.2); Alkaline Phosphatase 57 U/L (35-105); Anion Gap 15.3 (5-19); Aspartate Amino Transferase 14 U/L (0-32); Blood Urea Nitrogen 33 mg/dL (8-23); Calcium 7.7 mg/dL (8.5-10.5); Carbon Dioxide 21 mmol/L (22-29); Chloride 100 mmol/L (98-107); Globulin 3.7 g/dL (1.3-4.6); Glomerular Filtration Rate 29.9 mL/min (90-130); Glucose 118 mg/dL (65-115); Magnesium 1.4 mg/dL (1.7-2.3); Osmolality Calculated 284 mOsm/kg (285-295); Phosphorus 2.6 mg/dL (2.5-4.5); Potassium 3.3 mmol/L (3.5-5.1); Sodium 133 mmol/L (136-145); Total Bilirubin 0.2 mg/dL (0.15-1.2); Total Protein 6.3 g/dL (6.6-8.7)
[2024-04-28] MEDS: levothyroxine 50 mcg Tablet PO (06:24)
[2024-04-28] MEDS: sodium chloride 0.9% 1,000 ML 50 ML IV (07:34)
[2024-04-28] MEDS: vancomycin 500 MG in sodium chloride 0.9% (plus) 100 ML 200 MG IV (08:46)
[2024-04-28] MEDS: atorvastatin 40 mg Tablet PO (08:50)
[2024-04-28] MEDS: docusate sodium 100 mg Capsule PO ×2 (08:50→18:16)
[2024-04-28] MEDS: magnesium hydroxide 30 mL UDC PO (08:50)
[2024-04-28] MEDS: collagenase oint 30 gm 1 APPLIC TOPICAL (11:09)
--- NOTE | 2024-04-28 11:10 | P.PN_ITS ---
Subjective 2 Subjective: Patient is sleeping I walked him when she woke and pain was controlled she was also. She is somewhat laying on but this where she is more comfortable because of her hip. At this point dressings clean dry and intact we will continue to follow Vitals/I&O/Wt Last Vital Signs Temp 98.0 F 04/28/24 08:00 Pulse 81 04/28/24 08:00 Resp 14 04/28/24 08:00 BP 145/67 04/28/24 08:00 Pulse Ox 95 04/28/24 08:00 O2 Del Method Room Air 04/28/24 08:00 04/27/24 04/28/24 04/28/24 22:59 06:59 14:59 Intake Total 271.667 / 061.904 3456 / 1700 Output Total 750 / 780 450 / 1230 Balance -478.333 / -275.833 -450 / -714.427 6975 / 1700 Weight last 48 hrs Weight 124 lb 3 oz Weight 124 lb 4 oz Physical Exam 2 Narrative: Resting comfortably in bed pain controlled Urinary Catheter Management: Recinos: Cath Placed During This Visit: yes, but has since been removed by the nurse Reason for Continuing Indwelling Catheter: Decision to DC Catheter Urinary Catheter Date of Insertion: 04/26/24 Urinary Catheter Time of Insertion: 09:35 Date Urinary Catheter Removed: 04/28/24 Time Urinary Catheter Discontinued: 07:35 Data 04/28/24 04:12 04/28/24 04:12 A&P Assessment and plan (1) Pressure ulcer of sacral region, unstageable: Postop day #1 removal of hardware and wound closure. PDMP PDMP Reviewed: Not Reviewed Attestations 2 Medical Necessity Statement*: Per primary service Coding Level of Care Code Acute Code for Chg Fwd Diagnoses Pressure ulcer of sacral region, unstageable L89.150
[2024-04-28] MEDS: potassium chloride ER 20 mEq Tablet 40 MEQ PO (12:30)
[2024-04-28] MEDS: iron sucrose 200 MG in sodium chloride 0.9% (100 ml) 100 ML 220 MG IV (14:36)
--- NOTE | 2024-04-28 15:26 | PM.PN ---
Subjective Subjective: Infectious disease progress note. Patient is afebrile, hemodynamically stable, states pain is under control today. Medications: Reviewed: Yes Vitals/I&O/Wt Last Vital Signs Temp 98.6 F 04/28/24 11:54 Pulse 94 04/28/24 11:54 Resp 18 04/28/24 11:54 BP 125/89 04/28/24 11:54 Pulse Ox 97 04/28/24 11:54 O2 Del Method Room Air 04/28/24 11:54 04/28/24 04/28/24 04/28/24 06:59 14:59 22:59 Intake Total 1820 / 1820 Output Total 450 / 1230 Balance -450 / -840.465 8333 / 1820 Weight last 48 hrs Weight 56.331 kg Weight 56.359 kg Physical Exam Narrative: General: No acute distress, AO x3 HEENT: PERRLA, pupils bilaterally equal and reactive, pallors not present Chest: Normal vesicular breath sounds, no added sounds, equal good air entry bilaterally CVS: S1-S2 regular, no murmurs, no tachycardia, no gallops, no rubs Abdomen: Soft, nontender, no organomegaly, bowel sounds present Neuro: No focal deficits, no facial deformity, AO x3, power 5/5 in all limbs Urinary Catheter Management: Recinos: Cath Placed During This Visit: yes, but has since been removed by the nurse Reason for Continuing Indwelling Catheter: Decision to DC Catheter Urinary Catheter Date of Insertion: 04/26/24 Urinary Catheter Time of Insertion: 09:35 Date Urinary Catheter Removed: 04/28/24 Time Urinary Catheter Discontinued: 07:35 Data 04/28/24 04:12 04/28/24 04:12 A&P Assessment and plan (1) Hardware complicating wound infection: 68-year-old lady with history of multiple spinal surgeries in the past, developed pressure injury over the back leading to a left iliac wound posteriorly which has been open at least for a year at this point in time. There is underlying exposed hardware. Patient has not yet had any surgical debridement or removal of any hardware. Per past records from infectious disease at [facility], she has had infections with streptococcus, pseudomonas and Finegoldia magna in Jan-Feb. More recently she had Pseudomonas infection in Dec 2023 treated with cefepime, then Ciprofloxacin which was mainatained pending orthopedic assessment at higher center. Now more recently has had MRSA and worsening wound and drainage. Highly unlikley that we will be able to successfully treat this patient with underlying infected hardware remaining in place. Appreciate orthopedics assessment and plan for partial hardware removal recent hip CT from 04/04/2024 showed dislocated left hip arthroplasty. Pelvic CT from 01/30/24 with Inflammatory change and skin ulceration in the left lower back, probably associated with the indwelling iliac surgical hardware. Outpatient culture growing MRSA from the infected tract. Agree with IV vancomycin treatment with goal trough of 15-20. blood cx taken and pending Qualifiers: Encounter type: initial encounter Qualified Code(s): T84.7XXA - Infection and inflammatory reaction due to other internal orthopedic prosthetic devices, implants and grafts, initial encounter (2) MRSA infection: (3) Failure of left total hip arthroplasty with dislocation of hip: followed at [facility] case discussed with Dr. Tom She is planned for girdlestone procedure No new hardware planned due to open sacral ulcer Plan Status post partial removal of hardware today. Discussed with patient that with removal of at least partial hardware there might be a better chance at healing the chronically draining left hip wound. However if level of infection extends beyond the removed hardware onto the remaining hardware we may still be facing possibility of antibiotic failure. Patient understood this and elected to proceed today. Continue IV vancomycin with goal trough of 15-20. Will follow surgical cultures from the OR. Will plan to likely add rifampin closer to discharge April 29, 2023 Currently afebrile. Hemodynamically stable. Continue IV vancomycin. Unfortunately no cultures are available from the OR. Most recent outpatient deep tissue cultures from the wound care clinic have been with MRSA. Add rifampin, assess for tolerability. Disposition planning is ongoing. Several social barriers patient getting IV antibiotics at home, therefore initially planned on transitioning to SNF, however currently states that her son is working on getting his vehicle fixed And it may be possible for her to come in to the infusion center. Alternately, can attempt to arrange home health though this has not been sucecssful previously. will follow PDMP PDMP Reviewed: Not Reviewed Attestations Medical Necessity Statement*: iv abx, disposiion planning Coding Level of Care Code Acute Code for [facility] Fwd Diagnoses Hardware complicating wound infection, initial encounter T84.7XXA Encounter type: initial encounter MRSA infection A49.02 Failure of left total hip arthroplasty with dislocation of hip T84.021A
--- NOTE | 2024-04-28 16:07 | PM.PN ---
Subjective Subjective: No acute vents overnight. Patient denies any nausea, vomiting, headache. Complaining of some back pain. Otherwise has remained hemodynamically stable and afebrile. Medications: Reviewed: Yes Vitals/I&O/Wt Last Vital Signs Temp 98.6 F 04/28/24 11:54 Pulse 94 04/28/24 11:54 Resp 18 04/28/24 11:54 BP 125/89 04/28/24 11:54 Pulse Ox 97 04/28/24 11:54 O2 Del Method Room Air 04/28/24 11:54 04/28/24 04/28/24 04/28/24 06:59 14:59 22:59 Intake Total 1820 / 1820 110 / 1930 Output Total 450 / 1230 Balance -450 / -248.816 8854 / 1820 110 / 1930 Weight last 48 hrs Weight 56.331 kg Weight 56.359 kg Physical Exam Narrative: General: No acute distress, AO x3, pallor present, chronic sick appearing, cachectic HEENT: PERRLA, pupils bilaterally equal and reactive Chest: Normal vesicular breath sounds, no added sounds, equal good air entry bilaterally CVS: S1-S2 regular, no murmurs, no tachycardia, no gallops, no rubs Abdomen: Soft, nontender, no organomegaly, bowel sounds present Neuro: No focal deficits, no facial deformity, AO x3, power 5/5 in all limbs Skin: OTHER: . On admission Urinary Catheter Management: Recinos: Cath Placed During This Visit: yes, but has since been removed by the nurse Reason for Continuing Indwelling Catheter: Decision to DC Catheter Urinary Catheter Date of Insertion: 04/26/24 Urinary Catheter Time of Insertion: 09:35 Date Urinary Catheter Removed: 04/28/24 Time Urinary Catheter Discontinued: 07:35 Data 04/28/24 04:12 04/28/24 04:12 A&P Assessment and plan (1) Hardware complicating wound infection: Open draining wound at the hip joint with exposed screw. Recent wound cultures growing MRSA. Previous culture growing Pseudomonas. Post removal of deep hardware from spine, irrigation and debridement of the wound, complex wound closure on 04/27. Follow-up blood cultures. Appreciate procalcitonin trend. No OR culture sent. Continue with IV vancomycin. As recent cultures are only growing MRSA for now we will hold off on Pseudomonas coverage. Appreciate ID and orthopedic surgery recommendations. Qualifiers: Encounter type: initial encounter Qualified Code(s): T84.7XXA - Infection and inflammatory reaction due to other internal orthopedic prosthetic devices, implants and grafts, initial encounter (2) MRSA infection: (3) Acute kidney injury: Baseline creatinine seems to be around 1.7. Creatinine down to baseline of 1.7. Monitor urine output. Does have hypokalemia and hypomagnesemia today. Replaced with 40 mg of oral potassium, 1 g of IV magnesium. CT abdomen pelvis ruled out obstructive nephropathy. (4) Anemia: Post 1 unit of blood transfusion. Hemoglobin 8.1 today. Continue to monitor daily. Found to have iron deficiency anemia. Continue with IV iron supplementation. Appreciate folic acid and vitamin B12 levels. (5) Atherosclerosis of coronary artery of [place] heart without angina pectoris: No active chest pain. Continue with aspirin, statin. Holding off on Plavix given concerns for possible OR. Patient having bradycardia. Holding off on metoprolol for now. Qualifiers: Coronary Disease-Associated Artery/Lesion type: [place] artery Qualified Code(s): I25.10 - Atherosclerotic heart disease of [place] coronary artery without angina pectoris (6) Benign essential HTN: Goal blood pressure less than 140/90 mmHg. Patient takes isosorbide dinitrate 10 mg twice daily, metoprolol at home. Continue to hold off on antihypertensive including metoprolol for now. Uptitrate as for goal blood pressure. (7) Pressure injury of back, stage 4: Appreciate wound care nurse recommendations. Continue with the same for now. (8) T2DM (type 2 diabetes mellitus): A1c- 5.8. Hold off on sliding scale. change to regular diet. Qualifiers: Diabetes mellitus truck terminal manager insulin use: without truck terminal manager use Diabetes mellitus complication status: without complication Qualified Code(s): E11.9 - Type 2 diabetes mellitus without complications (9) Protein-energy malnutrition: (10) Failure of left total hip arthroplasty with dislocation of hip: followed at [facility] case discussed with Dr. Tom She is planned for girdlestone procedure No new hardware planned due to open sacral ulcer Plan Hypomagnesemia: Replace 1 g IV magnesium. 40 minutes of oral potassium. Monitor daily. CODE STATUS: Discussed in detail with patient. Son will be DPOA. Full code. Protonix for PUD prophylaxis Heparin 5000 Q12 hourly for DVT prophylaxis. Regular diet with Ensure with each meal. Discharge plan: Discussed in detail with patient's family. They would want patient to be transition to SNF as possible. 04/28. Today patient states she wants to see how much the antibiotics will cost at senior living before making a decision. She wants to talk to machine adjuster leader case trim before making a decision. Will follow-up on Tuesday. PT/OT evaluation. Case management alerted. PDMP PDMP Reviewed: Not Reviewed Attestations Medical Necessity Statement*: Requires further hospitalization for management of hardware infection of the back post removal, deep debridement, anemia, acute kidney injury while safe discharge planning and outpatient antibiotics are set up Diagnoses Hardware complicating wound infection, initial encounter T84.7XXA Encounter type: initial encounter MRSA infection A49.02 Acute kidney injury N17.9 Anemia D64.9 Atherosclerosis of [place] coronary artery of [place] heart without angina pectoris I25.10 Coronary Disease-Associated Artery/Lesion type: [place] artery Benign essential HTN I10 Pressure injury of back, stage 4 L89.104 Type 2 diabetes mellitus without complication, without long-term current use of insulin E11.9 Diabetes mellitus truck terminal manager insulin use: without truck terminal manager use Diabetes mellitus complication status: without complication Protein-energy malnutrition E46 Failure of left total hip arthroplasty with dislocation of hip T84.021A
[2024-04-28] MEDS: HYDROcodone-acetaminophen 5-325 mg Tablet 1 TAB PO (18:15)
[2024-04-28] MEDS: pantoprazole 40 mg SDV IVP (18:15)
[2024-04-28] MEDS: magnesium sulfate premix 1 GM/100 ML PIGGYBACK IV (18:16)
[2024-04-28] MEDS: amitriptyline 25 mg Tablet 100 MG PO (20:27)
[2024-04-29] VITALS (7 sets, daily range): BP systolic 97–155; BP diastolic 48–74; PULSE 71–112; RESP 14–18; TEMP 36.4–38; O2SAT 93–97
[2024-04-29] MEDS: heparin 5,000 unit/mL INJ 1 mL 5000 UNIT SUBCUT ×2 (01:39→14:03)
[2024-04-29 04:18] LABS: Basophils % 0.4 %; Eosinophils # 0.2 10^3/uL (0.0-0.8); Eosinophils % 3.4 %; Hematocrit 23.9 % (36-47); Lymphocytes # 0.6 10^3/uL (0.8-4.8); Lymphocytes % 12.6 %; Mean Corpuscular HGB Conc 31.4 g/dL (30-55); Mean Corpuscular Hemoglobin 28.1 pg (27-33); Mean Corpuscular Volume 89.5 fl (85-98); Mean Platelet Volume 10.4 fL (7.4-10.4); Monocytes # 0.4 10^3/uL (0.2-0.9); Monocytes % 8.5 %; Neutrophils # 3.46 10^3/uL (1.8-7.7); Nucleated Red Blood Cells % 0 %; Platelet Count 251 10^3/cmm (157-399); Red Blood Count 2.67 10^6/uL (3.85-5.65); Red Cell Distribution Width 14.5 % (12.1-15.1); White Blood Count 4.68 10^3/uL (3.29-11.43)
[2024-04-29] MEDS: sodium chloride 0.9% 1,000 ML 50 ML IV (04:40)
[2024-04-29 05:02] LABS: Vancomycin Random 18.1 ug/mL (20.0-40.0)
[2024-04-29] MEDS: levothyroxine 50 mcg Tablet PO (06:06)
[2024-04-29] MEDS: HYDROcodone-acetaminophen 5-325 mg Tablet 1 TAB PO ×2 (06:12→14:03)
[2024-04-29] MEDS: magnesium hydroxide 30 mL UDC PO (08:38)
[2024-04-29] MEDS: docusate sodium 100 mg Capsule PO ×2 (08:38→18:27)
[2024-04-29] MEDS: atorvastatin 40 mg Tablet PO (08:38)
[2024-04-29] MEDS: clopidogrel 75 mg Tablet PO (08:38)
[2024-04-29 09:14] LABS: Alanine Aminotransferase 6 U/L (0-33); Albumin Level 2.6 g/dL (3.5-5.2); Alkaline Phosphatase 60 U/L (35-105); Blood Urea Nitrogen 27 mg/dL (8-23); Carbon Dioxide 23 mmol/L (22-29); Chloride 99 mmol/L (98-107); Globulin 3.8 g/dL (1.3-4.6); Glomerular Filtration Rate 34.5 mL/min (90-130); Glucose 124 mg/dL (65-115); Osmolality Calculated 281 mOsm/kg (285-295); Sodium 132 mmol/L (136-145); Total Bilirubin 0.3 mg/dL (0.15-1.2); Total Protein 6.4 g/dL (6.6-8.7)
[2024-04-29 09:20] LABS: Anion Gap 14.2 (5-19); Aspartate Amino Transferase 16 U/L (0-32); Potassium 4.2 mmol/L (3.5-5.1)
--- NOTE | 2024-04-29 13:16 | PM.PN ---
Subjective Subjective: No acute events overnight. Today morning examination patient laying comfortably in bed. Denies any nausea, vomiting, headache. States she is feeling comfortable. Medications: Reviewed: Yes Vitals/I&O/Wt Last Vital Signs Temp 97.5 F L 04/29/24 12:00 Pulse 101 H 04/29/24 12:00 Resp 17 04/29/24 12:00 BP 155/74 04/29/24 12:00 Pulse Ox 97 04/29/24 12:00 O2 Del Method Room Air 04/29/24 12:00 04/28/24 04/29/24 04/29/24 22:59 07:59 14:59 Intake Total 690 / 2510 1000 / 3510 120 / 120 Balance 690 / 2510 1000 / 3510 120 / 120 Weight last 48 hrs Weight 59.511 kg Weight 56.331 kg Physical Exam Narrative: General: No acute distress, AO x3, pallor present, chronic sick appearing, cachectic HEENT: PERRLA, pupils bilaterally equal and reactive Chest: Normal vesicular breath sounds, no added sounds, equal good air entry bilaterally CVS: S1-S2 regular, no murmurs, no tachycardia, no gallops, no rubs Abdomen: Soft, nontender, no organomegaly, bowel sounds present Neuro: No focal deficits, no facial deformity, AO x3, power 5/5 in all limbs Skin: OTHER: . On admission Urinary Catheter Management: Recinos: Cath Placed During This Visit: yes, but has since been removed by the nurse Reason for Continuing Indwelling Catheter: Decision to DC Catheter Urinary Catheter Date of Insertion: 04/26/24 Urinary Catheter Time of Insertion: 09:35 Date Urinary Catheter Removed: 04/28/24 Time Urinary Catheter Discontinued: 07:35 Data 04/29/24 03:45 04/29/24 08:46 A&P Assessment and plan (1) Hardware complicating wound infection: Open draining wound at the hip joint with exposed screw. Recent wound cultures growing MRSA. Previous culture growing Pseudomonas. Post removal of deep hardware from spine, irrigation and debridement of the wound, complex wound closure on 04/27. Follow-up blood cultures. Appreciate procalcitonin trend. No OR culture sent. Continue with IV vancomycin. As recent cultures are only growing MRSA for now we will hold off on Pseudomonas coverage. Appreciate ID and orthopedic surgery recommendations. Qualifiers: Encounter type: initial encounter Qualified Code(s): T84.7XXA - Infection and inflammatory reaction due to other internal orthopedic prosthetic devices, implants and grafts, initial encounter (2) MRSA infection: (3) Acute kidney injury: Baseline creatinine seems to be around 1.7. Creatinine down to baseline of 1.7. Monitor urine output. Does have hypokalemia and hypomagnesemia today. Replaced with 40 mg of oral potassium, 1 g of IV magnesium. CT abdomen pelvis ruled out obstructive nephropathy. (4) Anemia: Post 1 unit of blood transfusion. Hemoglobin 8.1 today. Continue to monitor daily. Found to have iron deficiency anemia. Continue with IV iron supplementation. Appreciate folic acid and vitamin B12 levels. (5) Atherosclerosis of coronary artery of [place] heart without angina pectoris: No active chest pain. Continue with aspirin, statin. Holding off on Plavix given concerns for possible OR. Patient having bradycardia. Holding off on metoprolol for now. Qualifiers: Coronary Disease-Associated Artery/Lesion type: [place] artery Qualified Code(s): I25.10 - Atherosclerotic heart disease of [place] coronary artery without angina pectoris (6) Benign essential HTN: Goal blood pressure less than 140/90 mmHg. Patient takes isosorbide dinitrate 10 mg twice daily, metoprolol at home. Continue to hold off on antihypertensive including metoprolol for now. Uptitrate as for goal blood pressure. (7) Pressure injury of back, stage 4: Appreciate wound care nurse recommendations. Continue with the same for now. (8) T2DM (type 2 diabetes mellitus): A1c- 5.8. Hold off on sliding scale. change to regular diet. 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 Tom She is planned for girdlestone procedure No new hardware planned due to open sacral ulcer Plan Hypomagnesemia: Replace 1 g IV magnesium. 40 minutes of oral potassium. Monitor daily. CODE STATUS: Discussed in detail with patient. Son will be DPOA. Full code. Protonix for PUD prophylaxis Heparin 5000 Q12 hourly for DVT prophylaxis. Regular diet with Ensure with each meal. Discharge plan: Discussed in detail with patient's family. They would want patient to be transition to SNF as possible. 04/28. Today patient states she wants to see how much the antibiotics will cost at [facility] before making a decision. She wants to talk to case assembler before making a decision. Will follow-up on Tuesday. PT/OT evaluation. Case management alerted. Plan for the day: Patient has remained hemodynamically stable and afebrile. Follow-up cultures. Continue with IV vancomycin. Antibiotic as per ID. Hemoglobin down to 7.5. Most likely dilutional as patient is on IV fluid along with anemia because of malnutrition. Recheck hemoglobin in afternoon. Transfuse with a target of more than 7. Creatinine stable. Hold off on IV fluids now. Goal blood pressure less than 140/90 mmHg. Start on low-dose metoprolol 25 mg twice daily. PDMP PDMP Reviewed: Not Reviewed Attestations Medical Necessity Statement*: Requires further hospitalization for management of infected hardware, post removal and deep debridement while safe discharge planning and outpatient IV antibiotics were adjusted. Diagnoses Hardware complicating wound infection, initial encounter T84.7XXA Encounter type: initial encounter MRSA infection A49.02 Acute kidney injury N17.9 Anemia D64.9 Atherosclerosis of [place] coronary artery of [place] heart without angina pectoris I25.10 Coronary Disease-Associated Artery/Lesion type: [place] artery Benign essential HTN I10 Pressure injury of back, stage 4 L89.104 Type 2 diabetes mellitus without complication, without long-term current use of insulin E11.9 Diabetes mellitus rodent exterminator insulin use: without correction use Diabetes mellitus complication status: without complication Protein-energy malnutrition E46 Failure of left total hip arthroplasty with dislocation of hip T84.021A
[2024-04-29] MEDS: collagenase oint 30 gm 1 APPLIC TOPICAL (14:02)
[2024-04-29 14:22] LABS: Creatine Phosphokinase 54 U/L (26-192)
[2024-04-29] MEDS: iron sucrose 200 MG in sodium chloride 0.9% (100 ml) 100 ML 220 MG IV (14:58)
[2024-04-29 15:08] LABS: Hematocrit 24.6 % (36-47)
[2024-04-29] MEDS: pantoprazole 40 mg SDV IVP (18:27)
[2024-04-29] MEDS: amitriptyline 25 mg Tablet 100 MG PO (20:43)
[2024-04-29] MEDS: metoprolol tartrate 25 mg Tablet PO (20:44)
[2024-04-29] MEDS: acetaminophen 325 mg Tablet 650 MG PO (20:44)
--- NOTE | 2024-04-29 21:06 | XRR_ITS ---
PROCEDURE INFORMATION: Exam: XR Chest Exam date and time: 04/29/2024 8:20 PM Age: 68 years old Clinical indication: Prior surgery; Surgery date: 6+ months; Surgery type: Pete rods; Adventitious lung sounds TECHNIQUE: Imaging protocol: Radiologic exam of the chest. Views: 1 view. COMPARISON: CR XR chest 1V portable [id number] 04/27/2024 11:42 AM FINDINGS: Lungs: No consolidation. There is a calcified granuloma in the right lung base. Pleural spaces: Unremarkable. No pleural effusion. No pneumothorax. Heart/Mediastinum: Unremarkable. No cardiomegaly. Bones/joints: There are posterior fusion rods in the thoracic spine. There is a left PICC catheter is tip in the superior vena cava. XR/XR chest 1V portable [id number] IMPRESSION: There are no acute concerning abnormalities.
[2024-04-29] MEDS: cefepime 2,000 mg SDV 2000 MG IVP (23:14)
[2024-04-29 23:28] LABS: Adenovirus Not Detected (NOT DETECT); Chlamydia Pneumoniae Not Detected (NOT DETECT); Human Metapneumovirus Not Detected (NOT DETECT); Human Rhinovirus/Enterovirus Not Detected (NOT DETECT); Influenza A Detected (NOT DETECT); Influenza A H1 Not Detected (NOT DETECT); Influenza A H1-2009 Detected (NOT DETECT); Influenza A H3 Not Detected (NOT DETECT); Influenza B Not Detected (NOT DETECT); Mycoplasma Pneumoniae Not Detected (NOT DETECT); Parainfluenza Virus Type 1 Not Detected (NOT DETECT); Parainfluenza Virus Type 2 Not Detected (NOT DETECT); Parainfluenza Virus Type 3 Not Detected (NOT DETECT); Parainfluenza Virus Type 4 Not Detected (NOT DETECT); Respiratory Syncytial Virus A Not Detected (NOT DETECT); Respiratory Syncytial Virus B Not Detected (NOT DETECT); SARS-COV-2 Not Detected (NOT DETECT)
[2024-04-29 23:31] LABS: Coronavirus 229E,HKU1,NL63,OC4 Detected (NOT DETECT)
--- NOTE | 2024-04-30 00:30 | PM.MISC ---
Miscellaneous Note Purpose of Documentation: Postop patient was febrile, requested blood culture, respiratory panel, Respiratory panel positive for common cold COVID variant with influenza A Will put patient on isolation with conservative management for influenza A
[2024-04-30] MEDS: heparin 5,000 unit/mL INJ 1 mL 5000 UNIT SUBCUT ×2 (01:29→15:51)
[2024-04-30 03:09] LABS: Basophils % 0.3 %; Eosinophils % 0.3 %; Hematocrit 23.5 % (36-47); Lymphocytes # 0.8 10^3/uL (0.8-4.8); Lymphocytes % 20.3 %; Mean Corpuscular HGB Conc 31.1 g/dL (30-55); Mean Corpuscular Hemoglobin 27.7 pg (27-33); Mean Platelet Volume 10.8 fL (7.4-10.4); Monocytes # 0.5 10^3/uL (0.2-0.9); Monocytes % 14.6 %; Neutrophils # 2.33 10^3/uL (1.8-7.7); Neutrophils % 63.1 %; Nucleated Red Blood Cells % 0 %; Platelet Count 224 10^3/cmm (157-399); Red Blood Count 2.64 10^6/uL (3.85-5.65); Red Cell Distribution Width 14.7 % (12.1-15.1); White Blood Count 3.69 10^3/uL (3.29-11.43)
[2024-04-30 03:43] LABS: Magnesium 1.9 mg/dL (1.7-2.3); Vancomycin Random 10.1 ug/mL (20.0-40.0)
[2024-04-30 03:44] LABS: Alanine Aminotransferase 8 U/L (0-33); Albumin Level 2.6 g/dL (3.5-5.2); Alkaline Phosphatase 66 U/L (35-105); Anion Gap 13.3 (5-19); Aspartate Amino Transferase 19 U/L (0-32); Blood Urea Nitrogen 29 mg/dL (8-23); Calcium 7.8 mg/dL (8.5-10.5); Carbon Dioxide 26 mmol/L (22-29); Chloride 101 mmol/L (98-107); Globulin 2.8 g/dL (1.3-4.6); Glomerular Filtration Rate 32.1 mL/min (90-130); Glucose 87 mg/dL (65-115); Osmolality Calculated 287 mOsm/kg (285-295); Potassium 4.3 mmol/L (3.5-5.1); Sodium 136 mmol/L (136-145); Total Bilirubin 0.2 mg/dL (0.15-1.2); Total Protein 5.4 g/dL (6.6-8.7)
[2024-04-30 04:00] VITALS: BP 134/71; PULSE 80; RESP 15; TEMP 36.8; O2SAT 94
[2024-04-30] MEDS: levothyroxine 50 mcg Tablet PO (06:02)
[2024-04-30] MEDS: HYDROcodone-acetaminophen 5-325 mg Tablet 1 TAB PO ×2 (06:06→15:51)
[2024-04-30 07:58] VITALS: BP 144/71; PULSE 82; RESP 16; TEMP 37.9; O2SAT 94
--- NOTE | 2024-04-30 09:53 | PC.NURSE ---
Patient sees [facility] phone number [phone]. Called the facility in [place], [place] to confirm medications but no answer. Patient states there is Fentanyl, clonidine, and bivocaine. She states she gets this filled every three months and is due to get it filled 05/09/24.
[2024-04-30] MEDS: vancomycin 500 MG in sodium chloride 0.9% (plus) 100 ML 200 MG IV (10:52)
[2024-04-30] MEDS: atorvastatin 40 mg Tablet PO (10:52)
[2024-04-30] MEDS: clopidogrel 75 mg Tablet PO (10:52)
[2024-04-30] MEDS: metoprolol tartrate 25 mg Tablet PO ×2 (10:52→20:41)
[2024-04-30 11:20] VITALS: BP 115/52; PULSE 87; RESP 18; TEMP 37.1; O2SAT 92
[2024-04-30] MEDS: cefepime 2,000 mg SDV 2000 MG IVP (11:40)
[2024-04-30] MEDS: collagenase oint 30 gm 1 APPLIC TOPICAL (15:51)
[2024-04-30] MEDS: iron sucrose 200 MG in sodium chloride 0.9% (100 ml) 100 ML 220 MG IV (15:51)
[2024-04-30 16:29] VITALS: BP 150/78; PULSE 80; RESP 16; TEMP 37.7; O2SAT 96
--- NOTE | 2024-04-30 16:48 | PM.CONSULT ---
Providers/Reason For Consult Consulting Physician/Specialty*: Wound care Reason for Consult*: Pressure ulcer on sacrum Requesting Physician: Dr. Charles Coleman MD Attending Physician: Santino Temple Primary Care Provider: Stefany Hawk DO History of Present Illness History of Present Illness Ms. Dennison is found to be on the bedside commode upon entering her room today. She states she feels okay, but kind of rundown. She is positive for influenza A as well as coronavirus. She underwent partial removal of the hardware in her back by on Tuesday. The wound was closed during time of surgery. There is a clean dry and intact dressing overlying this area. She has been receiving Santyl to her sacral wound once daily covered by a sacral OPTi foam. There is no open ulceration to her left lateral ankle upon evaluation. Medications/Allergies Home Medications ?Medication ?Instructions ?Recorded ?Confirmed ?Last Taken ?Type atorvastatin 40 mg tablet 40 mg PO DAILY 12/07/23 04/25/24 01/17/24 History clopidogrel 75 mg tablet 75 mg PO DAILY 12/07/23 04/25/24 01/17/24 History isosorbide dinitrate 10 mg tablet 10 mg PO BID 12/07/23 04/25/24 01/17/24 History levothyroxine 50 mcg capsule 50 mcg PO DAILY 12/07/23 04/25/24 01/17/24 History lubiprostone 24 mcg capsule 24 mcg PO BID 12/07/23 04/25/24 01/17/24 History metformin 500 mg tablet 500 mg PO DAILY 12/07/23 04/25/24 01/17/24 History metoprolol tartrate 25 mg tablet 25 mg PO DAILY 12/07/23 04/25/24 01/17/24 History triamterene 75 1 tab PO DAILY 12/07/23 04/25/24 01/17/24 History mg-hydrochlorothiazide 50 mg tablet ciprofloxacin HCl 500 mg tablet 500 mg PO BID hardware infection 02/07/24 04/25/24 Unknown Rx 30 days #60 tabs amitriptyline 100 mg tablet 100 mg PO BEDTIME 04/25/24 04/28/24 Unknown History Allergies Allergy/AdvReac Type Severity Reaction Status Date / Time Penicillins Allergy Mild ALGY-Rash Verified 04/04/24 13:45 Current Medications Generic Name Dose Route Start Last Admin Trade Name Freq PRN Reason Stop Dose Admin Acetaminophen 650 mg 04/25/24 17:58 04/29/24 20:44 Acetaminophen 325 Mg Tablet PO 650 mg Q6H PRN Administration Mild/Mod Pain Or Temp >/= 101 Hydrocodone Bitart/Acetaminophen 1 tab 04/28/24 11:29 04/30/24 15:51 Hydrocodone-Acetaminophen 5-325 Mg Tablet PO 1 tab Q8H PRN Administration MODERATE PAIN Amitriptyline HCl 100 mg 04/28/24 21:00 04/29/24 20:43 Amitriptyline 25 Mg Tablet PO 100 mg BEDTIME GABRIELLA Administration Atorvastatin Calcium 40 mg 04/26/24 09:00 04/30/24 10:52 Atorvastatin 40 Mg Tablet PO 40 mg DAILY GABRIELLA Administration Camphor/Menthol/Phenol 1 applic 04/26/24 04:40 04/26/24 05:49 Blistex Lip Oint 7 Gm Tube TOPICAL 1 applic PRN PRN Administration DRYNESS Clopidogrel Bisulfate 75 mg 04/29/24 09:00 04/30/24 10:52 Clopidogrel 75 Mg Tablet PO 75 mg DAILY GABRIELLA Administration Collagenase 1 applic 04/26/24 17:00 04/30/24 15:51 Collagenase Oint 30 Gm TOPICAL 1 applic DAILY GABRIELLA Administration Docusate Sodium 100 mg 04/25/24 18:00 04/30/24 10:59 Docusate Sodium 100 Mg Capsule PO Not Given BID GABRIELLA Heparin Sodium (Porcine) 5,000 unit 04/26/24 13:30 04/30/24 15:51 Heparin 5,000 Unit/Ml Inj 1 Ml SUBCUT 5,000 unit Q12H GABRIELLA Administration Levothyroxine Sodium 50 mcg 04/26/24 06:00 04/30/24 06:02 Levothyroxine 50 Mcg Tablet PO 50 mcg DAILY@0600 GABRIELLA Administration Magnesium Hydroxide 30 ml 04/26/24 09:00 04/30/24 10:53 Magnesium Hydroxide 30 Ml Udc PO Not Given DAILY [facility] Protocol Metoprolol Tartrate 25 mg 04/29/24 21:00 04/30/24 10:52 Metoprolol Tartrate 25 Mg Tablet PO 25 mg BID@0900,2100 GABRIELLA Administration Pantoprazole Sodium 40 mg 04/25/24 18:00 04/29/24 18:27 Pantoprazole 40 Mg Sdv IVP 40 mg Q24H GABRIELLA Administration PFSH Acute PFSH: Medical History Pressure ulcer of sacral region, unstageable Fixation hardware in spine PIC line (peripherally inserted central catheter) removal RSD (reflex sympathetic dystrophy) Dyslipidemia Atherosclerosis of coronary artery of [place] heart without angina pectoris Had a LAD stent at the bifurcation,TRYTON stenting-found to be patent by angiogram in January 2023, 30% ostial narrowing of the right renal artery. Mild disease in the other vessels Benign essential HTN T2DM (type 2 diabetes mellitus) Surgical History S/P total left hip arthroplasty Social History Smoking and tobacco/nicotine status: never used tobacco/nicotine Vitals/I&O/Wt Last Vital Signs Temp 99.8 F H 04/30/24 16:29 Pulse 80 04/30/24 16:29 Resp 16 04/30/24 16:29 BP 150/78 04/30/24 16:29 Pulse Ox 96 04/30/24 16:29 O2 Del Method Room Air 04/30/24 16:29 04/30/24 04/30/24 04/30/24 06:59 14:59 22:59 Intake Total 820 / 820 Output Total 100 / 700 Balance -100 / 130 820 / 820 Weight last 48 hrs Weight 58.922 kg Weight 59.511 kg Physical Exam Const: COMMON NORMALS: no acute distress and alert GENERAL APPEARANCE: cooperative NUTRITIONAL APPEARANCE: thin ORIENTATION/CONSCIOUSNESS: Yes awake Chest: CHEST: Yes Symmetrical chest wall rise Resp: COMMON NORMALS: normal respiratory effort, No retractions and No use of accessory muscles EFFORT & INSPECTION: Yes able to speak in complete sentences Cardio: COMMON NORMALS: regular rate RATE: regular rate Neuro: SENSORIUM/ORIENTATION: Yes alert Psych: COMMON NORMALS: cooperative, normal affect and speech normal SPEECH: Yes normal speech Skin: WOUNDS: Yes wounds noted (see wound assessment) Data 04/30/24 02:15 04/30/24 02:15 Micro: Microbiology 04/29/24 21:20 Blood Culture - Preliminary Blood SPECIMEN COLLECTED 04/29/24 21:27 Blood Culture - Preliminary Blood SPECIMEN COLLECTED A&P Assessment and plan (1) Pressure ulcer of sacral region, unstageable: The open sacral ulcer appears to be stable, without further decline. The eschar is noted to still be present in the ulceration. The adherent slough noted to the remainder of the wound is starting to decrease with the use of Santyl. Continued enzymatic debridement is needed therefore, we will continue with Santyl daily to the wound bed covered with a sacral OPTi foam. Nutrition will be especially important for wound healing. Ms. Dennison is in need of a [id number] mattress for pressure relief. She should regularly change position to relieve pressure on the affected area, at minimum every 2 hours. Use pillows, foam cushions, mattress pads, or other aids to reduce pressure on vulnerable areas. Prevent pressure from medical devices like catheters and oxygen tubing. She is able to move independently, although she may need to be reminded to avoid any pressure over this area. PDMP PDMP Reviewed: Not Reviewed Consult Attestations Time Spent in Patient Care: 16 - 35 minutes Coding Level of Care Code Acute Code for Chg Fwd Diagnoses Pressure ulcer of sacral region, unstageable L89.150 Wound Assessment Wound Assessment Wound Number 1 Sacrum: Primary Etiology:: Pressure Ulcer Length: (cm): 6 cm Width: (cm): 6.9 cm Depth: (cm): 0.2 cm Epithelialization:: None Tunneling:: No Undermining:: No Classification: Unstageable Exudate Amount:: Medium Drainage Type: Serosanguineous Exudate Color:: Brown Foul Odor After Cleansing:: No Slough/Fibrin?: Yes Granulation Amount: Small (1-33%) Granulation Quality:: [place] Necrotic Amount:: Large (67-100%) Necrotic Type:: Eschar and Adherent Slough Wound Orders Wound Number 1: sacrum Dressing change frequency: Daily Wound Cleansing: Saline Topical Orders: Santyl Ointment (applied to wound bed, nickel thickness) Secondary Wound Care Dressing: sacral optifoam Off-Loading: Low air-loss mattress and Turn and reposition every 2 hours
[2024-04-30] MEDS: pantoprazole 40 mg SDV IVP (18:09)
--- NOTE | 2024-04-30 19:30 | PM.PN ---
Subjective Subjective: Patient was noted to have fevers overnight. At the time of my evaluation she was afebrile. Did not have any respiratory complaints. Pain was under control. Vitals/I&O/Wt Last Vital Signs Temp 99.8 F H 04/30/24 16:29 Pulse 80 04/30/24 16:29 Resp 16 04/30/24 16:29 BP 150/78 04/30/24 16:29 Pulse Ox 96 04/30/24 16:29 O2 Del Method Room Air 04/30/24 16:29 04/30/24 04/30/24 04/30/24 06:59 14:59 22:59 Intake Total 820 / 820 590 / 1410 Output Total 100 / 700 Balance -100 / 130 820 / 820 590 / 1410 Weight last 48 hrs Weight 58.922 kg Weight 59.511 kg Physical Exam Narrative: General: No acute distress, AO x3, pallor present, chronic sick appearing, cachectic HEENT: PERRLA, pupils bilaterally equal and reactive Chest: Normal vesicular breath sounds, no added sounds, equal good air entry bilaterally CVS: S1-S2 regular, no murmurs, no tachycardia, no gallops, no rubs Abdomen: Soft, nontender, no organomegaly, bowel sounds present Neuro: No focal deficits, no facial deformity, AO x3, power 5/5 in all limbs Skin: OTHER: . On admission Urinary Catheter Management: Recinos: Cath Placed During This Visit: yes, but has since been removed by the nurse Reason for Continuing Indwelling Catheter: Decision to DC Catheter Urinary Catheter Date of Insertion: 04/26/24 Urinary Catheter Time of Insertion: 09:35 Date Urinary Catheter Removed: 04/28/24 Time Urinary Catheter Discontinued: 07:35 Data 04/30/24 02:15 04/30/24 02:15 Micro: Microbiology 04/29/24 21:20 Blood Culture - Preliminary Blood SPECIMEN COLLECTED 04/29/24 21:27 Blood Culture - Preliminary Blood SPECIMEN COLLECTED A&P Assessment and plan (1) Hardware complicating wound infection: Open draining wound at the hip joint with exposed screw. Recent wound cultures growing MRSA. Previous culture growing Pseudomonas. Post removal of deep hardware from spine, irrigation and debridement of the wound, complex wound closure on 04/27. Plan: Wound care consult today noted Discussed with infectious disease Continue current antibiotic regimen Qualifiers: Encounter type: initial encounter Qualified Code(s): T84.7XXA - Infection and inflammatory reaction due to other internal orthopedic prosthetic devices, implants and grafts, initial encounter (2) MRSA infection: (3) Acute kidney injury: Baseline creatinine seems to be around 1.7. Creatinine down to baseline of 1.6 today Monitor urine output. (4) Anemia: Post 1 unit of blood transfusion. hemoglobin has been slightly decreasing to 7.3 today. Does not have any active bleeding. Will continue to monitor H&H and replaced iron. Repeat CBC in a.m.. Will transfuse if less than 7. Consider holding heparin (5) Atherosclerosis of coronary artery of [place] heart without angina pectoris: No active chest pain. appears patient aspirin and Plavix have been held due to anemia. Has not had any chest discomfort. If with stable hemoglobin no signs of bleeding and no further surgical plan will resume. Qualifiers: Coronary Disease-Associated Artery/Lesion type: [place] artery Qualified Code(s): I25.10 - Atherosclerotic heart disease of [place] coronary artery without angina pectoris (6) Benign essential HTN: Goal blood pressure less than 140/90 mmHg. Patient takes isosorbide dinitrate 10 mg twice daily, metoprolol at home. Continue to hold off on antihypertensive including metoprolol for now. Uptitrate as for goal blood pressure. (7) Pressure injury of back, stage 4: Appreciate wound care nurse recommendations. Continue with the same for now. (8) T2DM (type 2 diabetes mellitus): A1c- 5.8. Hold off on sliding scale. change to regular diet. Qualifiers: Diabetes mellitus shelter insulin use: without shelter use Diabetes mellitus complication status: without complication Qualified Code(s): E11.9 - Type 2 diabetes mellitus without complications (9) Protein-energy malnutrition: (10) Failure of left total hip arthroplasty with dislocation of hip: followed at [facility] case discussed with Dr. Tom She is planned for girdlestone procedure No new hardware planned due to open sacral ulcer Plan Case management assisting in discharge planning to detention facility. PDMP PDMP Reviewed: Not Reviewed Attestations Medical Necessity Statement*: Requires further hospitalization for management of infected hardware, post removal and deep debridement while safe discharge planning and outpatient IV antibiotics were adjusted. Coding Level of Care Code Acute Code for Chg Fwd Diagnoses Hardware complicating wound infection, initial encounter T84.7XXA Encounter type: initial encounter MRSA infection A49.02 Acute kidney injury N17.9 Anemia D64.9 Atherosclerosis of [place] coronary artery of [place] heart without angina pectoris I25.10 Coronary Disease-Associated Artery/Lesion type: [place] artery Benign essential HTN I10 Pressure injury of back, stage 4 L89.104 Type 2 diabetes mellitus without complication, without long-term current use of insulin E11.9 Diabetes mellitus shelter insulin use: without shelter use Diabetes mellitus complication status: without complication Protein-energy malnutrition E46 Failure of left total hip arthroplasty with dislocation of hip T84.021A
[2024-04-30 20:00] VITALS: BP 117/78; PULSE 93; RESP 18; TEMP 37.8; O2SAT 92
[2024-04-30] MEDS: amitriptyline 25 mg Tablet 100 MG PO (20:41)
[2024-04-30] MEDS: acetaminophen 325 mg Tablet 650 MG PO (20:41)
[2024-04-30 23:40] VITALS: BP 99/55; PULSE 65; RESP 15; TEMP 36.9; O2SAT 96
[2024-05-01] MEDS: heparin 5,000 unit/mL INJ 1 mL 5000 UNIT SUBCUT ×2 (01:12→12:46)
[2024-05-01 04:00] VITALS: BP 122/66; PULSE 68; RESP 16; TEMP 37.2; O2SAT 96
[2024-05-01] MEDS: levothyroxine 50 mcg Tablet PO (05:28)
[2024-05-01] MEDS: HYDROcodone-acetaminophen 5-325 mg Tablet 1 TAB PO ×3 (05:28→23:26)
[2024-05-01 05:31] LABS: Basophils % 0.4 %; Eosinophils # 0.1 10^3/uL (0.0-0.8); Eosinophils % 3.2 %; Hematocrit 22.9 % (36-47); Lymphocytes # 0.7 10^3/uL (0.8-4.8); Lymphocytes % 26.1 %; Mean Corpuscular Volume 90.2 fl (85-98); Mean Platelet Volume 10.6 fL (7.4-10.4); Monocytes # 0.4 10^3/uL (0.2-0.9); Monocytes % 15.3 %; Neutrophils # 1.31 10^3/uL (1.8-7.7); Neutrophils % 52.6 %; Nucleated Red Blood Cells % 0 %; Platelet Count 234 10^3/cmm (157-399); Red Blood Count 2.54 10^6/uL (3.85-5.65); Red Cell Distribution Width 14.8 % (12.1-15.1); White Blood Count 2.49 10^3/uL (3.29-11.43)
[2024-05-01 05:59] LABS: Alanine Aminotransferase 9 U/L (0-33); Albumin Level 2.3 g/dL (3.5-5.2); Alkaline Phosphatase 64 U/L (35-105); Aspartate Amino Transferase 27 U/L (0-32); Blood Urea Nitrogen 28 mg/dL (8-23); Calcium 7.7 mg/dL (8.5-10.5); Carbon Dioxide 24 mmol/L (22-29); Chloride 101 mmol/L (98-107); Globulin 3.6 g/dL (1.3-4.6); Glomerular Filtration Rate 26.3 mL/min (90-130); Glucose 76 mg/dL (65-115); Osmolality Calculated 284 mOsm/kg (285-295); Sodium 135 mmol/L (136-145); Total Bilirubin 0.2 mg/dL (0.15-1.2); Total Protein 5.9 g/dL (6.6-8.7)
[2024-05-01 06:00] LABS: Vancomycin Random 12.7 ug/mL (20.0-40.0)
[2024-05-01 06:03] LABS: Anion Gap 13.8 (5-19); Potassium 3.8 mmol/L (3.5-5.1)
[2024-05-01 06:16] LABS: Magnesium 1.9 mg/dL (1.7-2.3)
[2024-05-01 08:10] VITALS: BP 151/68; PULSE 84; RESP 18; TEMP 36.6; O2SAT 96
[2024-05-01] MEDS: vancomycin 500 MG in sodium chloride 0.9% (plus) 100 ML 200 MG IV (09:27)
[2024-05-01] MEDS: metoprolol tartrate 25 mg Tablet PO ×2 (09:28→20:32)
[2024-05-01] MEDS: clopidogrel 75 mg Tablet PO (09:28)
[2024-05-01] MEDS: docusate sodium 100 mg Capsule PO ×2 (09:28→17:26)
[2024-05-01] MEDS: atorvastatin 40 mg Tablet PO (09:28)
[2024-05-01 11:17] VITALS: BP 145/70; PULSE 73; RESP 16; TEMP 36.6; O2SAT 97
[2024-05-01] MEDS: cefepime 1,000 mg SDV 1000 MG IVP ×3 (12:45→23:18)
--- NOTE | 2024-05-01 15:24 | PM.CONSULT ---
Providers/Reason For Consult Consulting Physician/Specialty*: Wound care Reason for Consult*: Pressure ulcer on sacrum Requesting Physician: Dr. Charles Coleman MD Attending Physician: Santino Temple Primary Care Provider: Stefany Hawk DO History of Present Illness History of Present Illness Ms. Dennison is resting in bed upon entering her room today. She states she is feeling a little better than she has for the last few days. There is a dressing overlying the surgical incision from her surgery with Dr. Julien and on her sacral wound. Review of Systems Const: Denies: fever(s) or chills Musc: Reports: joint pain (hip) Medications/Allergies Home Medications ?Medication ?Instructions ?Recorded ?Confirmed ?Last Taken ?Type atorvastatin 40 mg tablet 40 mg PO DAILY 12/07/23 04/25/24 01/17/24 History clopidogrel 75 mg tablet 75 mg PO DAILY 12/07/23 04/25/24 01/17/24 History isosorbide dinitrate 10 mg tablet 10 mg PO BID 12/07/23 04/25/24 01/17/24 History levothyroxine 50 mcg capsule 50 mcg PO DAILY 12/07/23 04/25/24 01/17/24 History lubiprostone 24 mcg capsule 24 mcg PO BID 12/07/23 04/25/24 01/17/24 History metformin 500 mg tablet 500 mg PO DAILY 12/07/23 04/25/24 01/17/24 History metoprolol tartrate 25 mg tablet 25 mg PO DAILY 12/07/23 04/25/24 01/17/24 History triamterene 75 1 tab PO DAILY 12/07/23 04/25/24 01/17/24 History mg-hydrochlorothiazide 50 mg tablet ciprofloxacin HCl 500 mg tablet 500 mg PO BID hardware infection 02/07/24 04/25/24 Unknown Rx 30 days #60 tabs amitriptyline 100 mg tablet 100 mg PO BEDTIME 04/25/24 04/28/24 Unknown History Allergies Allergy/AdvReac Type Severity Reaction Status Date / Time Penicillins Allergy Mild ALGY-Rash Verified 04/04/24 13:45 Current Medications Generic Name Dose Route Start Last Admin Trade Name Freq PRN Reason Stop Dose Admin Acetaminophen 650 mg 04/25/24 17:58 04/30/24 20:41 Acetaminophen 325 Mg Tablet PO 650 mg Q6H PRN Administration Mild/Mod Pain Or Temp >/= 101 Hydrocodone Bitart/Acetaminophen 1 tab 04/28/24 11:29 05/01/24 05:28 Hydrocodone-Acetaminophen 5-325 Mg Tablet PO 1 tab Q8H PRN Administration MODERATE PAIN Amitriptyline HCl 100 mg 04/28/24 21:00 04/30/24 20:41 Amitriptyline 25 Mg Tablet PO 100 mg BEDTIME GABRIELLA Administration Atorvastatin Calcium 40 mg 04/26/24 09:00 05/01/24 09:28 Atorvastatin 40 Mg Tablet PO 40 mg DAILY GABRIELLA Administration Camphor/Menthol/Phenol 1 applic 04/26/24 04:40 04/26/24 05:49 Blistex Lip Oint 7 Gm Tube TOPICAL 1 applic PRN PRN Administration DRYNESS Cefepime HCl 1,000 mg 04/30/24 23:30 05/01/24 12:45 Cefepime 1,000 Mg Sdv IVP 1,000 mg Q12H GABRIELLA Administration Protocol Clopidogrel Bisulfate 75 mg 04/29/24 09:00 05/01/24 09:28 Clopidogrel 75 Mg Tablet PO 75 mg DAILY GABRIELLA Administration Docusate Sodium 100 mg 04/25/24 18:00 05/01/24 09:28 Docusate Sodium 100 Mg Capsule PO 100 mg BID GABRIELLA Administration Heparin Sodium (Porcine) 5,000 unit 04/26/24 13:30 05/01/24 12:46 Heparin 5,000 Unit/Ml Inj 1 Ml SUBCUT 5,000 unit Q12H GABRIELLA Administration Levothyroxine Sodium 50 mcg 04/26/24 06:00 05/01/24 05:28 Levothyroxine 50 Mcg Tablet PO 50 mcg DAILY@0600 GABRIELLA Administration Magnesium Hydroxide 30 ml 04/26/24 09:00 05/01/24 09:28 Magnesium Hydroxide 30 Ml Udc PO Not Given DAILY GABRIELLA Protocol Metoprolol Tartrate 25 mg 04/29/24 21:00 05/01/24 09:28 Metoprolol Tartrate 25 Mg Tablet PO 25 mg BID@0900,2100 GABRIELLA Administration Pantoprazole Sodium 40 mg 04/25/24 18:00 04/30/24 18:09 Pantoprazole 40 Mg Sdv IVP 40 mg Q24H GABRIELLA Administration PFSH Acute PFSH: Medical History Pressure ulcer of sacral region, unstageable Fixation hardware in spine PIC line (peripherally inserted central catheter) removal RSD (reflex sympathetic dystrophy) Dyslipidemia Atherosclerosis of coronary artery of [place] heart without angina pectoris Had a LAD stent at the bifurcation,TRYTON stenting-found to be patent by angiogram in January 2023, 30% ostial narrowing of the right renal artery. Mild disease in the other vessels Benign essential HTN T2DM (type 2 diabetes mellitus) Surgical History S/P total left hip arthroplasty Social History Smoking and tobacco/nicotine status: never used tobacco/nicotine Vitals/I&O/Wt Last Vital Signs Temp 97.8 F 05/01/24 11:17 Pulse 73 05/01/24 11:17 Resp 16 05/01/24 11:17 BP 145/70 05/01/24 11:17 Pulse Ox 97 05/01/24 11:17 O2 Del Method Room Air 05/01/24 11:17 05/01/24 05/01/24 05/01/24 06:59 14:59 22:59 Intake Total 0 / 1770 1260 / 1260 Output Total 700 / 700 Balance 0 / 1770 560 / 560 Weight last 48 hrs Weight 57.969 kg Weight 58.922 kg Physical Exam Const: COMMON NORMALS: no acute distress and alert GENERAL APPEARANCE: cooperative NUTRITIONAL APPEARANCE: thin ORIENTATION/CONSCIOUSNESS: Yes awake Chest: CHEST: Yes Symmetrical chest wall rise Resp: COMMON NORMALS: normal respiratory effort, No retractions and No use of accessory muscles EFFORT & INSPECTION: Yes able to speak in complete sentences Cardio: COMMON NORMALS: regular rate RATE: regular rate Neuro: SENSORIUM/ORIENTATION: Yes alert Psych: COMMON NORMALS: cooperative, normal affect and speech normal SPEECH: Yes normal speech Skin: WOUNDS: Yes wounds noted (see wound assessment) Urinary Catheter Management: Recinos: Cath Placed During This Visit: yes, but has since been removed by the nurse Reason for Continuing Indwelling Catheter: Decision to DC Catheter Urinary Catheter Date of Insertion: 04/26/24 Urinary Catheter Time of Insertion: 09:35 Date Urinary Catheter Removed: 04/28/24 Time Urinary Catheter Discontinued: 07:35 Data 05/01/24 04:50 05/01/24 04:50 Micro: Microbiology 04/29/24 21:20 Blood Culture - Preliminary Blood NEGATIVE TO DATE 04/29/24 21:27 Blood Culture - Preliminary Blood NEGATIVE TO DATE 04/25/24 19:20 Blood Culture - Final Blood NO GROWTH AFTER 5 DAYS 04/25/24 19:20 Blood Culture - Final Blood NO GROWTH AFTER 5 DAYS A&P Assessment and plan (1) Pressure ulcer of sacral region, unstageable: The open ulceration to her sacrum appears stable today with no further decline. Santyl is providing enzymatic debridement to the necrotic tissue in the wound bed. We will continue this daily covered by a sacral OPTi foam. She is currently receiving cefepime IV. Optimal nutrition will be especially important for wound healing. Ms. Dennison is in need of a [id number] mattress for pressure relief. She should regularly change position to relieve pressure on the affected area, at minimum every 2 hours. Use pillows, foam cushions, mattress pads, or other aids to reduce pressure on vulnerable areas. Prevent pressure from medical devices like catheters and oxygen tubing. She is able to move independently, though she may need to be reminded to avoid any pressure over this area. Will sign off for now. Further wound care recommendations should be guided by hospitalist service. PDMP PDMP Reviewed: Not Reviewed Consult Attestations Time Spent in Patient Care: 16 - 35 minutes Coding Level of Care Code Acute Code for Chg Fwd Diagnoses Pressure ulcer of sacral region, unstageable L89.150 Wound Assessment Wound Assessment Wound Number 1 Sacrum: Primary Etiology:: Pressure Ulcer Length: (cm): 6 cm Width: (cm): 6.9 cm Depth: (cm): 0.2 cm Epithelialization:: Small (1-33%) Tunneling:: No Undermining:: No Classification: Unstageable Exudate Amount:: Medium Drainage Type: Serosanguineous Exudate Color:: Brown Foul Odor After Cleansing:: No Slough/Fibrin?: Yes Granulation Amount: Small (1-33%) Granulation Quality:: [place] Necrotic Amount:: Large (67-100%) Necrotic Type:: Eschar and Adherent Slough Wound Orders Wound Number 1: sacrum Dressing change frequency: Daily Wound Cleansing: Saline Topical Orders: Santyl Ointment (applied to wound bed, nickel thickness) Secondary Wound Care Dressing: sacral optifoam Off-Loading: Low air-loss mattress and Turn and reposition every 2 hours
[2024-05-01 16:03] VITALS: BP 150/73; PULSE 72; RESP 16; TEMP 37.3; O2SAT 100
[2024-05-01] MEDS: pantoprazole 40 mg SDV IVP (17:26)
--- NOTE | 2024-05-01 18:34 | PC.NURSE ---
dresssings changed 05/01 with [place] from wound care
[2024-05-01] MEDS: amitriptyline 25 mg Tablet 100 MG PO (20:32)
[2024-05-01 20:44] VITALS: BP 120/58; PULSE 71; RESP 18; TEMP 36.4; O2SAT 96
--- NOTE | 2024-05-01 23:23 | P.PN_ITS ---
Subjective 2 Subjective: Feeling fine no new complaints Fever curve improved Vitals/I&O/Wt Last Vital Signs Temp 97.6 F 05/01/24 20:44 Pulse 71 05/01/24 20:44 Resp 18 05/01/24 20:44 BP 120/58 05/01/24 20:44 Pulse Ox 96 05/01/24 20:44 O2 Del Method Room Air 05/01/24 16:03 05/01/24 05/01/24 05/02/24 14:59 22:59 06:59 Intake Total 1260 / 1260 840 / 2100 Output Total 700 / 700 650 / 1350 Balance 560 / 560 190 / 750 Weight last 48 hrs Weight 57.969 kg Weight 58.922 kg Physical Exam 2 Narrative: General: No acute distress, AO x3, pallor present, chronic sick appearing, cachectic HEENT: PERRLA, pupils bilaterally equal and reactive Chest: Normal vesicular breath sounds, no added sounds, equal good air entry bilaterally CVS: S1-S2 regular, no murmurs, no tachycardia, no gallops, no rubs Abdomen: Soft, nontender, no organomegaly, bowel sounds present Neuro: No focal deficits, no facial deformity, AO x3, power 5/5 in all limbs Const: COMMON NORMALS: no acute distress and alert GENERAL APPEARANCE: c ooperative NUTRITIONAL APPEARANCE: thin ORIENTATION/CONSCIOUSNESS: Yes awake Chest: CHEST: Yes Symmetrical chest wall rise Resp: COMMON NORMALS: normal respiratory effort, No retractions and No use of accessory muscles EFFORT & INSPECTION: Yes able to speak in complete sentences Cardio: COMMON NORMALS: regular rate RATE: regular rate Neuro: SENSORIUM/ORIENTATION: Yes alert Psych: COMMON NORMALS: cooperative, normal affect and speech normal SPEECH: Yes normal speech Skin: WOUNDS: Yes wounds noted (see wound assessment) OTHER: . On admission Urinary Catheter Management: Recinos: Cath Placed During This Visit: yes, but has since been removed by the nurse Reason for Continuing Indwelling Catheter: Decision to DC Catheter Urinary Catheter Date of Insertion: 04/26/24 Urinary Catheter Time of Insertion: 09:35 Date Urinary Catheter Removed: 04/28/24 Time Urinary Catheter Discontinued: 07:35 Data 05/01/24 04:50 05/01/24 04:50 Micro: Microbiology 04/29/24 21:20 Blood Culture - Preliminary Blood NEGATIVE TO DATE 04/29/24 21:27 Blood Culture - Preliminary Blood NEGATIVE TO DATE 04/25/24 19:20 Blood Culture - Final Blood NO GROWTH AFTER 5 DAYS 04/25/24 19:20 Blood Culture - Final Blood NO GROWTH AFTER 5 DAYS A&P Assessment and plan (1) Hardware complicating wound infection: Open draining wound at the hip joint with exposed screw. Recent wound cultures growing MRSA. Previous culture growing Pseudomonas. Post removal of deep hardware from spine, irrigation and debridement of the wound, complex wound closure on 04/27. Plan: - d/w wound care - Stable - ID on board Qualifiers: Encounter type: initial encounter Qualified Code(s): T84.7XXA - Infection and inflammatory reaction due to other internal orthopedic prosthetic devices, implants and grafts, initial encounter (2) MRSA infection: (3) Acute kidney injury: Baseline creatinine seems to be around 1.7. Creatinine increased to 1.9 today may consider nephrology input if worsening BMP in am Monitor urine output. (4) Anemia: Post 1 unit of blood transfusion. hemoglobin has been slightly decreasing to 7.3 today. Does not have any active bleeding. Will continue to monitor H&H and replaced iron. Repeat CBC in a.m.. Will transfuse if less than 7. Consider holding heparin if worsening on IV iron CBC in am (5) Atherosclerosis of coronary artery of [place] heart without angina pectoris: No active chest pain. appears patient aspirin and Plavix have been held due to anemia. Has not had any chest discomfort. If with stable hemoglobin no signs of bleeding and no further surgical plan will resume. Qualifiers: Coronary Disease-Associated Artery/Lesion type: [place] artery Qualified Code(s): I25.10 - Atherosclerotic heart disease of [place] coronary artery without angina pectoris (6) Benign essential HTN: Goal blood pressure less than 140/90 mmHg. Patient takes isosorbide dinitrate 10 mg twice daily, metoprolol at home. Continue to hold off on antihypertensive including metoprolol for now. Uptitrate as for goal blood pressure. (7) Pressure injury of back, stage 4: Appreciate wound care nurse recommendations. Continue with the same for now. (8) T2DM (type 2 diabetes mellitus): A1c- 5.8. Hold off on sliding scale. change to regular diet. Qualifiers: Diabetes mellitus half-way insulin use: without exterminator helper use Diabetes mellitus complication status: without complication Qualified Code(s): E11.9 - Type 2 diabetes mellitus without complications (9) Protein-energy malnutrition: (10) Failure of left total hip arthroplasty with dislocation of hip: followed at [facility] case discussed with Dr. Tom She is planned for girdlestone procedure No new hardware planned due to open sacral ulcer Plan Case management assisting in discharge planning to half-way facility. PDMP PDMP Reviewed: Not Reviewed Attestations 2 Medical Necessity Statement*: Requires further hospitalization for management of infected hardware, post removal and deep debridement while safe discharge planning and outpatient IV antibiotics were adjusted. Coding Level of Care Code Acute Code for Chg Fwd Diagnoses Hardware complicating wound infection, initial encounter T84.7XXA Encounter type: initial encounter MRSA infection A49.02 Acute kidney injury N17.9 Anemia D64.9 Atherosclerosis of [place] coronary artery of [place] heart without angina pectoris I25.10 Coronary Disease-Associated Artery/Lesion type: [place] artery Benign essential HTN I10 Pressure injury of back, stage 4 L89.104 Type 2 diabetes mellitus without complication, without long-term current use of insulin E11.9 Diabetes mellitus half-way insulin use: without half-way use Diabetes mellitus complication status: without complication Protein-energy malnutrition E46 Failure of left total hip arthroplasty with dislocation of hip T84.021A
[2024-05-02] VITALS (7 sets, daily range): BP systolic 104–152; BP diastolic 55–79; PULSE 64–94; RESP 16–20; TEMP 36.6–37.4; O2SAT 95–99
[2024-05-02] MEDS: heparin 5,000 unit/mL INJ 1 mL 5000 UNIT SUBCUT ×2 (00:58→17:13)
[2024-05-02 05:11] LABS: Basophils % 0.3 %; Eosinophils # 0.1 10^3/uL (0.0-0.8); Eosinophils % 2.7 %; Hematocrit 23.5 % (36-47); Lymphocytes # 0.8 10^3/uL (0.8-4.8); Lymphocytes % 27.7 %; Mean Corpuscular HGB Conc 31.5 g/dL (30-55); Mean Corpuscular Hemoglobin 28.2 pg (27-33); Mean Corpuscular Volume 89.7 fl (85-98); Mean Platelet Volume 10.5 fL (7.4-10.4); Monocytes # 0.4 10^3/uL (0.2-0.9); Monocytes % 12.3 %; Neutrophils # 1.54 10^3/uL (1.8-7.7); Neutrophils % 52.9 %; Nucleated Red Blood Cells % 0 %; Platelet Count 252 10^3/cmm (157-399); Red Blood Count 2.62 10^6/uL (3.85-5.65); White Blood Count 2.92 10^3/uL (3.29-11.43)
[2024-05-02] MEDS: levothyroxine 50 mcg Tablet PO (05:21)
[2024-05-02 05:33] LABS: Vancomycin Random 15.7 ug/mL (20.0-40.0)
[2024-05-02 05:51] LABS: Alanine Aminotransferase 12 U/L (0-33); Albumin Level 2.5 g/dL (3.5-5.2); Alkaline Phosphatase 68 U/L (35-105); Blood Urea Nitrogen 27 mg/dL (8-23); Calcium 7.5 mg/dL (8.5-10.5); Carbon Dioxide 25 mmol/L (22-29); Chloride 99 mmol/L (98-107); Globulin 3.7 g/dL (1.3-4.6); Glomerular Filtration Rate 34.5 mL/min (90-130); Glucose 88 mg/dL (65-115); Osmolality Calculated 281 mOsm/kg (285-295); Sodium 133 mmol/L (136-145); Total Bilirubin 0.2 mg/dL (0.15-1.2); Total Protein 6.2 g/dL (6.6-8.7)
[2024-05-02 05:58] LABS: Anion Gap 12.9 (5-19); Aspartate Amino Transferase 35 U/L (0-32); Potassium 3.9 mmol/L (3.5-5.1)
[2024-05-02] MEDS: clopidogrel 75 mg Tablet PO (11:03)
[2024-05-02] MEDS: docusate sodium 100 mg Capsule PO ×2 (11:04→17:13)
[2024-05-02] MEDS: atorvastatin 40 mg Tablet PO (11:04)
[2024-05-02] MEDS: cefepime 1,000 mg SDV 1000 MG IVP (11:04)
[2024-05-02] MEDS: metoprolol tartrate 25 mg Tablet PO ×2 (11:04→20:08)
[2024-05-02] MEDS: HYDROcodone-acetaminophen 5-325 mg Tablet 1 TAB PO (11:04)
[2024-05-02] MEDS: magnesium hydroxide 30 mL UDC PO (11:04)
--- NOTE | 2024-05-02 15:33 | PC.SOCIAL ---
IMM updated IMM dated and initialed copy given to patient and copy placed in chart
[2024-05-02] MEDS: DAPTOmycin 500 MG in sodium chloride 0.9% (100 ml) 100 ML 100 MG IV (17:12)
[2024-05-02] MEDS: pantoprazole 40 mg SDV IVP (17:13)
[2024-05-02] MEDS: ciprofloxacin 500 mg Tablet PO (20:08)
[2024-05-02] MEDS: amitriptyline 25 mg Tablet 100 MG PO (20:08)
[2024-05-02] MEDS: acetaminophen 325 mg Tablet 650 MG PO (20:08)
[2024-05-02] MEDS: collagenase oint 30 gm 1 APPLIC TOPICAL (20:12)
--- NOTE | 2024-05-02 20:52 | P.PN_ITS ---
Subjective 2 Subjective: no new complaints wanting to go home with home health Vitals/I&O/Wt Last Vital Signs Temp 99.3 F 05/02/24 19:30 Pulse 75 05/02/24 19:30 Resp 20 H 05/02/24 19:30 BP 116/73 05/02/24 19:30 Pulse Ox 99 05/02/24 19:30 O2 Del Method Room Air 05/02/24 19:30 05/02/24 05/02/24 05/02/24 06:59 14:59 22:59 Intake Total 240 / 240 340 / 580 Output Total 1200 / 2550 600 / 600 Balance -1200 / -450 -360 / -360 340 / -20 Weight last 48 hrs Weight 57.153 kg Weight 57.969 kg Physical Exam 2 Narrative: General: No acute distress, AO x3, pallor present, chronic sick appearing, cachectic HEENT: PERRLA, pupils bilaterally equal and reactive Chest: Normal vesicular breath sounds, no added sounds, equal good air entry bilaterally CVS: S1-S2 regular, no murmurs, no tachycardia, no gallops, no rubs Abdomen: Soft, nontender, no organomegaly, bowel sounds present Neuro: No focal deficits, no facial deformity, AO x3, power 5/5 in all limbs Urinary Catheter Management: Recinos: Cath Placed During This Visit: yes, but has since been removed by the nurse Reason for Continuing Indwelling Catheter: Decision to DC Catheter Urinary Catheter Date of Insertion: 04/26/24 Urinary Catheter Time of Insertion: 09:35 Date Urinary Catheter Removed: 04/28/24 Time Urinary Catheter Discontinued: 07:35 Data 05/02/24 04:54 05/02/24 04:54 A&P Assessment and plan (1) Hardware complicating wound infection: Open draining wound at the hip joint with exposed screw. Recent wound cultures growing MRSA. Previous culture growing Pseudomonas. Post removal of deep hardware from spine, irrigation and debridement of the wound, complex wound closure on 04/27. Plan: Discussed with ID today Cefepime discontinued Daptomycin started Cipro resumed Plan for discharge in am Qualifiers: Encounter type: initial encounter Qualified Code(s): T84.7XXA - Infection and inflammatory reaction due to other internal orthopedic prosthetic devices, implants and grafts, initial encounter (2) MRSA infection: (3) Acute kidney injury: Baseline creatinine seems to be around 1.7. Creatinine stable 1.5 today may consider nephrology input if worsening BMP in am Monitor urine output. (4) Anemia: stable S/P IV iron (5) Atherosclerosis of coronary artery of [place] heart without angina pectoris: No active chest pain. appears patient aspirin and Plavix have been held due to anemia. Has not had any chest discomfort. If with stable hemoglobin no signs of bleeding and no further surgical plan will resume. Qualifiers: Coronary Disease-Associated Artery/Lesion type: [place] artery Qualified Code(s): I25.10 - Atherosclerotic heart disease of [place] coronary artery without angina pectoris (6) Benign essential HTN: Goal blood pressure less than 140/90 mmHg. Patient takes isosorbide dinitrate 10 mg twice daily, metoprolol at home. Continue to hold off on antihypertensive including metoprolol for now. Uptitrate as for goal blood pressure. (7) Pressure injury of back, stage 4: Appreciate wound care nurse recommendations. Continue with the same for now. (8) T2DM (type 2 diabetes mellitus): A1c- 5.8. Hold off on sliding scale. change to regular diet. Qualifiers: Diabetes mellitus group home insulin use: without terminal superintendent use Diabetes mellitus complication status: without complication Qualified Code(s): E11.9 - Type 2 diabetes mellitus without complications (9) Protein-energy malnutrition: (10) Failure of left total hip arthroplasty with dislocation of hip: followed at [facility] case discussed with Dr. Tom She is planned for girdlestone procedure No new hardware planned due to open sacral ulcer Plan Case management assisting in [facility] planning to [facility]. PDMP PDMP Reviewed: Not Reviewed Attestations 2 Medical Necessity Statement*: Requires further hospitalization for management of infected hardware, post removal and deep debridement while safe discharge planning and outpatient IV antibiotics were adjusted. Coding Level of Care Code Acute Code for [facility] Diagnoses Hardware complicating wound infection, initial encounter T84.7XXA Encounter type: initial encounter MRSA infection A49.02 Acute kidney injury N17.9 Anemia D64.9 Atherosclerosis of [place] coronary artery of [place] heart without angina pectoris I25.10 Coronary Disease-Associated Artery/Lesion type: [place] artery Benign essential HTN I10 Pressure injury of back, stage 4 L89.104 Type 2 diabetes mellitus without complication, without long-term current use of insulin E11.9 Diabetes mellitus group home insulin use: without group home use Diabetes mellitus complication status: without complication Protein-energy malnutrition E46 Failure of left total hip arthroplasty with dislocation of hip T84.021A
[2024-05-03 04:00] VITALS: BP 116/68; PULSE 76; RESP 16; TEMP 36.9; O2SAT 97
[2024-05-03] MEDS: acetaminophen 325 mg Tablet 650 MG PO (05:06)
[2024-05-03] MEDS: heparin 5,000 unit/mL INJ 1 mL 5000 UNIT SUBCUT (05:06)
[2024-05-03] MEDS: levothyroxine 50 mcg Tablet PO (05:06)
[2024-05-03 07:41] VITALS: BP 113/68; PULSE 71; RESP 18; TEMP 37.2; O2SAT 96
[2024-05-03] MEDS: metoprolol tartrate 25 mg Tablet PO (08:32)
[2024-05-03] MEDS: docusate sodium 100 mg Capsule PO (08:32)
[2024-05-03] MEDS: clopidogrel 75 mg Tablet PO (08:32)
[2024-05-03] MEDS: magnesium hydroxide 30 mL UDC PO (08:32)
[2024-05-03] MEDS: ciprofloxacin 500 mg Tablet PO (08:32)
[2024-05-03] MEDS: atorvastatin 40 mg Tablet PO (08:32)
--- NOTE | 2024-05-03 09:32 | P.DS_ITS ---
Discharge Providers Date of Admission: 04/25/24 17:52 Date of Discharge: May 03, 2024 Attending Provider at Admission: Charles Coleman MD Attending Provider at Discharge: Santino Temple Primary Care Provider: Stefany Hawk DO Diagnoses at Discharge Discharge Diagnosis (1) Hardware complicating wound infection: Status: Acute Qualifiers: Encounter type: initial encounter Qualified Code(s): T84.7XXA - Infection and inflammatory reaction due to other internal orthopedic prosthetic devices, implants and grafts, initial encounter (2) MRSA infection: Status: Acute (3) Acute kidney injury: Status: Inactive (4) Anemia: Status: Inactive (5) Atherosclerosis of coronary artery of chinik heart without angina pectoris: Status: Inactive Qualifiers: Coronary Disease-Associated Artery/Lesion type: chinik artery Qualified Code(s): I25.10 - Atherosclerotic heart disease of chinik coronary artery without angina pectoris Permanent problem details: Had a LAD stent at the bifurcation,TRYTON stenting-found to be patent by angiogram in January 2023, 30% ostial narrowing of the right renal artery. Mild disease in the other vessels (6) Benign essential HTN: Status: Inactive (7) Pressure injury of back, stage 4: Status: Inactive (8) T2DM (type 2 diabetes mellitus): Status: Inactive Qualifiers: Diabetes mellitus complication status: without complication Diabetes mellitus termite control technician insulin use: without prison use Qualified Code(s): E11.9 - Type 2 diabetes mellitus without complications (9) Protein-energy malnutrition: Status: Inactive (10) Failure of left total hip arthroplasty with dislocation of hip: Status: Inactive Reason for Visit Reason for Visit: infection Hospital Course Hospital Course 68-year-old lady with a history of multiple spinal surgeries presented with a pressure injury over the back leading to a left iliac wound posteriorly, which has been open for at least one year. There is underlying exposed hardware. The patient has not yet had any surgical debridement or removal of any hardware. Per past records from infectious disease at [place], [place], she has had infections with streptococcus, pseudomonas, and Finegoldia magna in January 2023-February 2023. More recently, she had Pseudomonas infection in December 2023 treated with cefepime, then ciprofloxacin, which was maintained pending orthopedic assessment at a higher center. Now, more recently, she has had MRSA and worsening wound and drainage. It is highly unlikely that we will be able to successfully treat this patient with underlying infected hardware remaining in place. Recent hip CT from 04/04/2024 showed a dislocated left hip arthroplasty. Pelvic CT from 01/30/2024 showed inflammatory change and skin ulceration in the left lower back, probably associated with the indwelling iliac surgical hardware. Outpatient culture grew MRSA from the infected tract. Blood cultures were taken and are pending. The patient's case was discussed with Dr. Tom. She is followed at [facility]. She is planned for a Girdlestone procedure. No new hardware is planned due to the open sacral ulcer. Partial removal of hardware was performed. It was discussed with the patient that with removal of at least partial hardware, there might be a better chance at healing the chronically draining left hip wound. However, if the level of infection extends beyond the removed hardware onto the remaining hardware, we may still be facing the possibility of antibiotic failure. The patient understood this and elected to proceed. IV vancomycin was started with a goal trough of 15-20. Surgical cultures from the OR will be followed. The patient was noted to have anemia; no active bleeding was noted. Her hemoglobin decreased to 7.5 but did not require any transfusion. Cefepime was discontinued. Daptomycin was started. Ciprofloxacin was resumed. The patient remained afebrile and hemodynamically stable throughout hospitalization. The patient was discharged home on IV antibiotics. There were several social barriers to the patient getting IV antibiotics at home; therefore, it was initially planned to transition her to a long-term facility. However, she stated that her son is working on getting his vehicle fixed, and it may be possible for her to come to the infusion center. Alternately, home health can be arranged, though this has not been successful previously. The patient had a difficult time with placement given her pain pump management by [place] pain clinic [place] of [place]. She will continue follow-up at [facility]. Physical Exam Narrative: General: No acute distress, AO x3, pallor improved. chronic sick appearing, cachectic HEENT: PERRLA, pupils bilaterally equal and reactive Chest: Normal vesicular breath sounds, no added sounds, equal good air entry bilaterally CVS: S1-S2 regular, no murmurs, no tachycardia, no gallops, no rubs Abdomen: Soft, nontender, no organomegaly, bowel sounds present Neuro: No focal deficits, no facial deformity, AO x3, power 5/5 in all limbs Urinary Catheter Management: Recinos: Cath Placed During This Visit: yes, but has since been removed by the nurse Reason for Continuing Indwelling Catheter: Decision to DC Catheter Urinary Catheter Date of Insertion: 04/26/24 Urinary Catheter Time of Insertion: 09:35 Date Urinary Catheter Removed: 04/28/24 Time Urinary Catheter Discontinued: 07:35 Discharge Data Studies Completed and Pending Completed Studies During Hospitalization Category Date Time Status CT abdomen wo con [id number] Routine Cat Scan 04/25/24 22:36 Completed CXRP [XR chest 1V portable [id number]] Routine Exams 04/27/24 11:10 Completed XR chest 1V portable [id number] Routine Exams 04/25/24 18:03 Completed XR chest 1V portable [id number] Stat Exams 04/29/24 21:06 Completed XR lumbar spine 1V [id number] Routine Exams 04/27/24 11:56 Completed Pending at discharge Category Date Time Status Blood Culture Stat Lab 04/29/24 21:20 Results Radiology Impressions Abdomen CT 04/25/24 22:36 IMPRESSION: Probable fecal retention. Ventral hernia without obstruction. Lumbar Spine X-Ray 04/27/24 11:56 IMPRESSION: Hardware removal preprocedure imaging. Chest X-Ray 04/29/24 21:06 IMPRESSION: There are no acute concerning abnormalities. Laboratory Results WBC 2.92 10^3/uL (3.29-11.43) L 05/02/24 04:54 RBC 2.62 10^6/uL (3.85-5.65) L 05/02/24 04:54 Hgb 7.40 g/dL (11.27-16.99) L 05/02/24 04:54 Hct 23.5 % (36-47) L 05/02/24 04:54 MCV 89.7 fl (85-98) 05/02/24 04:54 MCH 28.2 pg (27-33) 05/02/24 04:54 MCHC 31.5 g/dL (30-55) 05/02/24 04:54 RDW 15.0 % (12.1-15.1) 05/02/24 04:54 Plt Count 252 10^3/cmm (157-399) 05/02/24 04:54 MPV 10.5 fL (7.4-10.4) H 05/02/24 04:54 Neut % (Auto) 52.9 % 05/02/24 04:54 Lymph % (Auto) 27.7 % 05/02/24 04:54 Gonzales % (Auto) 12.3 % 05/02/24 04:54 Eos % (Auto) 2.7 % 05/02/24 04:54 Baso % (Auto) 0.3 % 05/02/24 04:54 Neut # (Auto) 1.54 10^3/uL (1.8-7.7) L 05/02/24 04:54 Lymph # (Auto) 0.8 10^3/uL (0.8-4.8) 05/02/24 04:54 Gonzales # (Auto) 0.4 10^3/uL (0.2-0.9) 05/02/24 04:54 Eos # (Auto) 0.1 10^3/uL (0.0-0.8) 05/02/24 04:54 Baso # (Auto) 0.0 10^3/uL (0.0-0.1) 05/02/24 04:54 Nucleated RBC % (auto) 0 % 05/02/24 04:54 Nucleated RBCs # 0.0 /100WBC 05/02/24 04:54 PT 14.00 SECONDS (12.1-14.9) 04/25/24 19:20 INR 1.01 (0.8-1.2) 04/25/24 19:20 Sodium 133 mmol/L (136-145) L 05/02/24 04:54 Potassium 3.9 mmol/L (3.5-5.1) 05/02/24 04:54 Chloride 99 mmol/L (98-107) 05/02/24 04:54 Carbon Dioxide 25 mmol/L (22-29) 05/02/24 04:54 Anion Gap 12.9 (5-19) 05/02/24 04:54 BUN 27 mg/dL (8-23) H 05/02/24 04:54 Creatinine 1.5 mg/dL (0.5-0.9) H 05/02/24 04:54 GFR Calculation 34.5 mL/min (90-130) L 05/02/24 04:54 Glucose 88 mg/dL (65-115) 05/02/24 04:54 Estimat Average Glucose 120 04/25/24 19:20 Hemoglobin A1c 5.8 % (4.0-6.0) 04/25/24 19:20 Calculated Osmolality 281 mOsm/kg (285-295) L 05/02/24 04:54 Lactic Acid 2.5 mmol/L (0.5-2.2) H 04/25/24 19:20 Lactic Acid (Sepsis) 2.2 mmol/L (0.5-2.2) 04/25/24 22:39 Calcium 7.5 mg/dL (8.5-10.5) L 05/02/24 04:54 Phosphorus 2.6 mg/dL (2.5-4.5) 04/28/24 04:12 Magnesium 1.9 mg/dL (1.7-2.3) 05/01/24 04:50 Iron 29 ug/dL (37-145) L 04/25/24 19:20 TIBC 233 mcg/dl 04/25/24 19:20 % Saturation 12.4 % (20-50) L 04/25/24 19:20 Unsat Iron Binding 204 ug/dL (112-347) 04/25/24 19:20 Total Bilirubin 0.2 mg/dL (0.15-1.2) 05/02/24 04:54 AST 35 U/L (0-32) H 05/02/24 04:54 ALT 12 U/L (0-33) 05/02/24 04:54 Alkaline Phosphatase 68 U/L (35-105) 05/02/24 04:54 Creatine Kinase 54 U/L (26-192) 04/29/24 08:46 Total Protein 6.2 g/dL (6.6-8.7) L 05/02/24 04:54 Albumin 2.5 g/dL (3.5-5.2) L 05/02/24 04:54 Globulin 3.7 g/dL (1.3-4.6) 05/02/24 04:54 Triglycerides 65 mg/dL (0-150) 04/26/24 04:45 Cholesterol 122 mg/dL (0-200) 04/26/24 04:45 LDL Cholesterol, Calc 67 mg/dL (50-129) 04/26/24 04:45 HDL Cholesterol 42 mg/dL (60-100) L 04/26/24 04:45 LDL/HDL Ratio 1.60 RATIO (0.00-3.22) 04/26/24 04:45 Cholesterol/HDL Ratio 2.90 mg/dL (0.0-4.40) 04/26/24 04:45 Vitamin B12 657 pg/mL (232-1245) 04/25/24 19:20 Folate 5.7 ng/mL (4.8-37.3) 04/26/24 04:45 Procalcitonin 0.14 ng/mL (0-0.5) 04/26/24 04:45 TSH 1.61 uIU/mL (0.27-4.20) 04/25/24 19:20 Urine Color Yellow (Yellow) 04/26/24 04:05 Urine Appearance Clear (CLEAR) 04/26/24 04:05 Urine pH 6.0 (5-7) 04/26/24 04:05 Ur Specific [place] 1.013 (1.005-1.030) 04/26/24 04:05 Urine Protein 1+ (Negative) A 04/26/24 04:05 Urine Glucose (UA) Negative (Normal) 04/26/24 04:05 Urine Ketones Negative (Negative) 04/26/24 04:05 Urine Blood Negative (Negative) 04/26/24 04:05 Urine Nitrate Negative (Negative) 04/26/24 04:05 Urine Bilirubin Negative (Negative) 04/26/24 04:05 Urine Urobilinogen 0.2 mg/dL (Negative) 04/26/24 04:05 Ur Leukocyte Esterase Negative (Negative) 04/26/24 04:05 Urine RBC None /hpf (0-2) 04/26/24 04:05 Urine WBC 5-10 /hpf (0-5) H 04/26/24 04:05 Ur Eosinophil Smear 0 (0-0) 04/26/24 04:05 Ur Squamous Epith Cells 0-4 /hpf (0-5) H 04/26/24 04:05 Amorphous Sediment Not Reportable 04/26/24 04:05 Urine Bacteria Trace /hpf (NONE) 04/26/24 04:05 Urine Eosinophils No eosinophils seen 04/26/24 04:05 Ur Random Sodium 79 mmol/L 04/26/24 04:05 Ur Random Potassium 24 mmol/L 04/26/24 04:05 Ur Random Chloride 59 mmol/L 04/26/24 04:05 Urine Creatinine 57 mg/dL (28-217) 04/26/24 04:05 Random Vancomycin 15.7 ug/mL (20.0-40.0) L 05/02/24 04:54 Adenovirus (PCR) Not detected (NOT DETECT) 04/29/24 21:30 C. pneumoniae DNA (PCR) Not detected (NOT DETECT) 04/29/24 21:30 Coronavirus 229E (PCR) Detected (NOT DETECT) A 04/29/24 21:30 Human Metapneumovir PCR Not detected (NOT DETECT) 04/29/24 21:30 Influenza A (H1) PCR Not detected (NOT DETECT) 04/29/24 21:30 Influ A (H1/09) PCR Detected (NOT DETECT) A 04/29/24 21: Influenza A (H3) PCR Not detected (NOT DETECT) 04/29/24 21:30 Influenza Type A (PCR) Detected (NOT DETECT) A 04/29/24 21:30 Influenza Type B (PCR) Not detected (NOT DETECT) 04/29/24 21:30 M. pneumoniae (PCR) Not detected (NOT DETECT) 04/29/24 21:30 Parainfluenza 1 (PCR) Not detected (NOT DETECT) 04/29/24 21:30 Parainfluenza 2 (PCR) Not detected (NOT DETECT) 04/29/24 21:30 Parainfluenza 3 (PCR) Not detected (NOT DETECT) 04/29/24 21:30 Parainfluenza 4 (PCR) Not detected (NOT DETECT) 04/29/24 21:30 RSV Type A (PCR) Not detected (NOT DETECT) 04/29/24 21:30 RSV Type B (PCR) Not detected (NOT DETECT) 04/29/24 21:30 Entero/Rhino (PCR) Not detected (NOT DETECT) 04/29/24 21:30 SARS-CoV-2 (PCR) Not detected (NOT DETECT) 04/29/24 21:30 Blood Type A Positive 04/26/24 12:40 Rho(D) Type Rh positive 04/26/24 12:40 Antibody Screen Positive 04/26/24 12:40 Antibody Identification Inconclusive Anti-K 04/26/24 12:40 Antibody Identification Inconclusive Anti-K 04/26/24 12:40 Antigen Identification K Antigen - NEGATIVE 04/26/24 12:40 Crossmatch See Detail 04/26/24 12:40 Vitals Last Vital Signs Temp 98.9 F 05/03/24 07:41 Pulse 71 05/03/24 07:41 Resp 18 05/03/24 07:41 BP 113/68 05/03/24 07:41 Pulse Ox 96 05/03/24 07:41 O2 Del Method Room Air 05/03/24 07:41 Discharge Plan Discharge Patient Disposition: Home Condition: Stable Prescriptions: New pantoprazole [Protonix] 40 mg tablet,delayed release (DR/EC) 40 mg PO DAILY Qty: 30 0RF Continued lubiprostone [Amitiza] 24 mcg capsule 24 mcg PO BID levothyroxine 50 mcg capsule 50 mcg PO DAILY isosorbide dinitrate 10 mg tablet 10 mg PO BID Rx Instructions: allow nitrate-free interval of 12-14 hrs per 24-hr period clopidogrel 75 mg tablet 75 mg PO DAILY atorvastatin 40 mg tablet 40 mg PO DAILY ciprofloxacin HCl 500 mg tablet 500 mg PO BID 30 Days Qty: 60 2RF amitriptyline 100 mg Tablet 100 mg PO BEDTIME Changed metoprolol tartrate 25 mg tablet 25 mg PO BIDWM Qty: 60 0RF Discontinued triamterene-hydrochlorothiazid 75-50 mg tablet 1 tab PO DAILY metformin 500 mg tablet 500 mg PO DAILY No Action aspirin [Aspir-81] 81 mg Tablet,Delayed Release (Dr/Ec) 81 mg PO DAILY dorzolamide 2 % Drops 1 drp OPHTHALMIC (EYE) TID Lumigan 0.01 % Drops 1 drp OPHTHALMIC (EYE) QPM brimonidine 0.025 % Drops 1 drp OPHTHALMIC (EYE) TID Rhopressa 0.02 % Drops 1 drp OPHTHALMIC (EYE) QPM Discharge Orders: Discharge Order (Routine); Ordered 05/03/24 Ordered By: Santino Temple Other Ambulatory Orders: DME: Miscellaneous (Order) Location: None Selected Ordered By: Satnino Temple Referrals: Jaswant Julien DO [Physician] - 2 weeks (We have notified your physician's clinic of the need for a follow-up appointment to be scheduled. If you have not heard from them within the next 2 business days, please call them directly. ) Kristian Grover MD [Physician] - 05/16/24 10:00 am Discharge Diet: Usual diet Discharge Activity: Increase activity as tolerated Patient Instructions: Pantoprazole (By mouth), MRSA (Methicillin-Resistant Staphylococcus Aureus) (DC), Acute Wound Care (DC), Pressure Injury (DC), Hardware Removal (DC), Opioid Safety, Post Anesthesia Care Activity Restrictions/Additional Instructions: Follow-up in orthopedic clinic in 1 to 2 weeks. You also need to get established with a PCP if you have not already done so. After doing so, please try and see them as soon as possible for hospital stay follow-up. Discharge Attestations Time Spent in Discharge Care*: greater than 30 min Status at Discharge: Cognitive status at discharge: cognitively intact , Behavioral status at discharge: cooperative , Functional status at discharge: uses cane/walker , Overall status at discharge: patient is progressing back to baseline Quality Metrics Clinical Quality Measures [ No reported AMI, CVA or VTE this stay] Coding Level of Care Code Acute Code for Chg Fwd Diagnoses Hardware complicating wound infection, initial encounter T84.7XXA Encounter type: initial encounter MRSA infection A49.02 Acute kidney injury N17.9 Anemia D64.9 Atherosclerosis of chin[place] coronary artery of chin[place] heart without angina pectoris I25.10 Coronary Disease-Associated Artery/Lesion type: chin[place] artery Benign essential HTN I10 Pressure injury of back, stage 4 L89.104 Type 2 diabetes mellitus without complication, without long-term current use of insulin E11.9 Diabetes mellitus complication status: without complication Diabetes mellitus termite control technician insulin use: without termite control technician use Protein-energy malnutrition E46 Failure of left total hip arthroplasty with dislocation of hip T84.021A
[2024-05-03 11:19] VITALS: BP 92/53; PULSE 72; RESP 15; TEMP 37.2; O2SAT 96
--- NOTE | 2024-05-03 11:22 | PC.NURSE ---
Discharge paperwork completed with patient. All questions answered. Patient is ready to go pending ride. This nurse has contacted the son, Nathanael, per the patient request. The son says he will get things gathered and will be here soon. Will continue to monitor patient until safely discharged and off the unit.
--- NOTE | 2024-05-03 12:25 | PC.NURSE ---
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 Patient wheeled off of floor with family members x3.
== END 2024-05-03 12:25 | disposition home health service (06) | DRG 495 ==
PROVIDERS: Internal Medicine; Orthopaedic Surgery; Student in an Organized Health Care Education/Training Program; Admitting Provider Student in an Organized Health Care Education/Training Program; PCP Family Medicine; Visit Provider Hospitalist
PROC: 0QP004Z Removal of Internal Fixation Device from Lumbar Vertebra, Open Approach (ICD-10-PCS; principal; 2024-04-27 10:05)
DX: T84.7XXA Infection and inflammatory reaction due to other internal orthopedic prosthetic devices, implants and grafts, initial encounter (principal); E43 Unspecified severe protein-calorie malnutrition; L89.154 Pressure ulcer of sacral region, stage 4; N17.9 Acute kidney failure, unspecified; G90.50 Complex regional pain syndrome I, unspecified; T84.84XA Pain due to internal orthopedic prosthetic devices, implants and grafts, initial encounter; I25.10 Atherosclerotic heart disease of native coronary artery without angina pectoris; T84.021A Dislocation of internal left hip prosthesis, initial encounter; B95.62 Methicillin resistant Staphylococcus aureus infection as the cause of diseases classified elsewhere; N18.9 Chronic kidney disease, unspecified; E87.6 Hypokalemia; E83.42 Hypomagnesemia; I12.9 Hypertensive chronic kidney disease with stage 1 through stage 4 chronic kidney disease, or unspecified chronic kidney disease; J10.1 Influenza due to other identified influenza virus with other respiratory manifestations; B97.29 Other coronavirus as the cause of diseases classified elsewhere; D63.1 Anemia in chronic kidney disease; E11.22 Type 2 diabetes mellitus with diabetic chronic kidney disease; Z11.52 Encounter for screening for COVID-19; Z22.322 Carrier or suspected carrier of Methicillin resistant Staphylococcus aureus; Z88.0 Allergy status to penicillin; Z79.899 Other long term (current) drug therapy; Z79.02 Long term (current) use of antithrombotics/antiplatelets; Z79.84 Long term (current) use of oral hypoglycemic drugs; Z95.5 Presence of coronary angioplasty implant and graft; Z68.21 Body mass index [BMI] 21.0-21.9, adult; Y79.2 Prosthetic and other implants, materials and accessory orthopedic devices associated with adverse incidents
CPT/HCPCS: 36415; 36430; 36573; 36592; 51702; 71045; 72020; 74150; 76000; 80053; 80061; 80202; 80503; 81001; 82436; 82550; 82570; 82607; 82746; 83036; 83540; 83550; 83605; 83735; 84100; 84133; 84145; 84300; 84443; 85014; 85018; 85025; 85610; 85999; 86403; 86850; 86870; 86900; 86902; 86920; 87040; 87486; 87581; 87633; 93005; 94664; 96372; 97110; 97116; 97161; 97165; 97530; 97535; J0131; J0692; J0878; J1644; J1756; J2270; J2470; J3010; J3370; J3475; J7030; J7050; J9999; P9016; P9045

== ENCOUNTER 2024-05-10 11:45 | Outpatient (CLI) | payer MEDICARE, OTHER, SELFPAY ==
[2024-05-10 12:19] LABS: Basophils % 0.4 %; Eosinophils # 0.1 10^3/uL (0.0-0.8); Eosinophils % 2.7 %; Hematocrit 25.7 % (36-47); Lymphocytes # 1.3 10^3/uL (0.8-4.8); Lymphocytes % 27.2 %; Mean Corpuscular HGB Conc 31.5 g/dL (30-55); Mean Corpuscular Hemoglobin 28.1 pg (27-33); Mean Corpuscular Volume 89.2 fl (85-98); Mean Platelet Volume 10.6 fL (7.4-10.4); Monocytes # 0.6 10^3/uL (0.2-0.9); Monocytes % 12.7 %; Neutrophils % 53.1 %; Nucleated Red Blood Cells % 0 %; Platelet Count 360 10^3/cmm (157-399); Red Blood Count 2.88 10^6/uL (3.85-5.65); Red Cell Distribution Width 15.7 % (12.1-15.1); White Blood Count 4.89 10^3/uL (3.29-11.43)
[2024-05-10 12:36] LABS: Alanine Aminotransferase 12 U/L (0-33); Albumin Level 2.8 g/dL (3.5-5.2); Alkaline Phosphatase 74 U/L (35-105); Blood Urea Nitrogen 15 mg/dL (8-23); C Reactive Protein 76.4 mg/L (0.0-4.9); Calcium 7.7 mg/dL (8.5-10.5); Carbon Dioxide 25 mmol/L (22-29); Chloride 100 mmol/L (98-107); Creatine Phosphokinase 109 U/L (26-192); Globulin 4.1 g/dL (1.3-4.6); Glomerular Filtration Rate 49.4 mL/min (90-130); Glucose 83 mg/dL (65-115); Osmolality Calculated 280 mOsm/kg (285-295); Sodium 135 mmol/L (136-145); Total Bilirubin 0.4 mg/dL (0.15-1.2); Total Protein 6.9 g/dL (6.6-8.7)
[2024-05-10 12:41] LABS: Anion Gap 13.4 (5-19); Aspartate Amino Transferase 27 U/L (0-32); Potassium 3.4 mmol/L (3.5-5.1)
== END 2024-05-10 11:46 | disposition home or self-care (01) ==
LOC: LAB 11:47
PROVIDERS: PCP Family Medicine; Visit Provider Student in an Organized Health Care Education/Training Program
DX: T84.7XXA Infection and inflammatory reaction due to other internal orthopedic prosthetic devices, implants and grafts, initial encounter (principal); X58.XXXA Exposure to other specified factors, initial encounter
CPT/HCPCS: 80053; 82550; 85025; 86140

== ENCOUNTER → 2024-05-16 09:45 | Outpatient (BNVA) | payer MEDICARE, OTHER, SELFPAY | PROVIDERS: PCP Family Medicine; Visit Provider Thoracic Surgery (Cardiothoracic Vascular Surgery) | DX: I96 Gangrene, not elsewhere classified (principal); L89.152 Pressure ulcer of sacral region, stage 2; Z09 Encounter for follow-up examination after completed treatment for conditions other than malignant neoplasm | CPT/HCPCS: 11042; A6210 ==

== ENCOUNTER 2024-05-17 07:10 | Oncology outpatient (recurring) (ONCR) | payer MEDICARE, OTHER, SELFPAY ==
--- NOTE | 2024-05-17 07:45 | USCV_ITS ---
oTrie Dennison Age: 69 Gender: F : 1955 Exam Date: 05/17/2024 07:57 Ordering Phys: Emmanuelle Eric NP Technologist: Exam Location: [facility] Indication: chest pain BP: / HR: 77 Rhythm: Sinus Technical Quality: Adequate MEASUREMENTS (Male / Female) Normal Values 2D ECHO LV Diastolic Diameter PLAX 4.0 cm 4.2 - 5.9 / 3.9 - 5.3 cm IVS Diastolic Thickness 0.6 cm 0.6 - 1.0 / 0.6 - 0.9 cm IVS Systolic Thickness 1.2 cm LVPW Diastolic Thickness 0.9 cm 0.6 - 1.0 / 0.6 - 0.9 cm LVPW Systolic Thickness 1.3 cm LVOT Diameter 2.0 cm LV Ejection Fraction 2D Teich 55.4 % LV Ejection Fraction MOD 4C 64.1 % LV Ejection Fraction MOD 2C 57.6 % LV Ejection Fraction 2C AL 56.7 % LA Diameter 3.0 cm RA Systolic Volume 4C AL 47.9 ml RA Systolic Volume 4C MOD 45.9 ml Aorta at Sinotubular Diameter 2.4 cm M-MODE LA Ao Ratio MM 1.2 MV E Point Septal Separation 1.2 cm AV Cusp Separation MM 2.2 cm DOPPLER AV Peak Velocity 116.0 cm/s MV Peak Velocity 98.0 cm/s MV Area PHT 4.2 cm squared Mitral E to A Ratio 0.9 TV Peak Velocity 131.5 cm/s TR Peak Velocity 139.0 cm/s TR Peak Gradient 7.7 mmHg TV Peak E Velocity 112.0 cm/s PV Peak Velocity 82.0 cm/s FINDINGS Left Ventricle Normal left ventricular size and systolic function, EF 60%.no regional wall motion abnormalities. Right Ventricle The right ventricle is normal in size and function. Right Atrium The right atrium is normal in size. Left Atrium The left atrium is normal in size. Mitral Valve Trace mitral valve regurgitation. Aortic Valve Thickened aortic valve. Trace to mild aortic valve regurgitation. Tricuspid Valve Trace tricuspid valve regurgitation. Pulmonic Valve Pulmonic valve not well visualized. Pericardium Normal pericardium without effusion. Aorta Normal ascending aorta dimension. IVC Normal inferior vena cava. CONCLUSIONS Normal left ventricular size and systolic function, EF 60%.no regional wall motion abnormalities. Trace mitral valve regurgitation. Thickened aortic valve. Trace to mild aortic valve regurgitation. Trace tricuspid valve regurgitation. Estimated pulmonary artery peak systolic pressure possibly within normal limits There is no pericardial effusion. No similar previous studies are available for comparison Dr North Higgins MD [facility] (Electronically Signed) Final Date: 18 May 2024 13:32 S
== END 2024-05-21 23:59 | disposition home or self-care (01) ==
PROVIDERS: PCP Family Medicine; Visit Provider Radiology Diagnostic Radiology
DX: I25.10 Atherosclerotic heart disease of native coronary artery without angina pectoris (principal); I34.0 Nonrheumatic mitral (valve) insufficiency; I35.1 Nonrheumatic aortic (valve) insufficiency; I07.1 Rheumatic tricuspid insufficiency
CPT/HCPCS: 72020; 93306; 99024

== ENCOUNTER 2024-05-18 12:16 | Outpatient (CLI) | payer MEDICARE, OTHER, SELFPAY ==
[2024-05-18 12:40] LABS: Basophils % 0.6 %; Eosinophils # 0.1 10^3/uL (0.0-0.8); Eosinophils % 1.1 %; Hematocrit 29.5 % (36-47); Lymphocytes # 1.4 10^3/uL (0.8-4.8); Lymphocytes % 19.5 %; Mean Corpuscular HGB Conc 31.2 g/dL (30-55); Mean Corpuscular Hemoglobin 27.8 pg (27-33); Mean Corpuscular Volume 89.1 fl (85-98); Mean Platelet Volume 10.6 fL (7.4-10.4); Monocytes # 0.4 10^3/uL (0.2-0.9); Monocytes % 6.1 %; Neutrophils # 5.04 10^3/uL (1.8-7.7); Neutrophils % 71.7 %; Nucleated Red Blood Cells % 0 %; Platelet Count 379 10^3/cmm (157-399); Red Blood Count 3.31 10^6/uL (3.85-5.65); Red Cell Distribution Width 15.9 % (12.1-15.1); White Blood Count 7.03 10^3/uL (3.29-11.43)
== END 2024-05-18 12:17 | disposition home or self-care (01) ==
LOC: LAB 12:18
PROVIDERS: PCP Family Medicine; Visit Provider Student in an Organized Health Care Education/Training Program
DX: T84.7XXA Infection and inflammatory reaction due to other internal orthopedic prosthetic devices, implants and grafts, initial encounter (principal); X58.XXXA Exposure to other specified factors, initial encounter
CPT/HCPCS: 85025

== ENCOUNTER 2024-05-18 14:45 | Inpatient (IN) | payer MEDICARE, OTHER, SELFPAY ==
[2024-05-18] VITALS (11 sets, daily range): BP systolic 170–197; BP diastolic 71–97; PULSE 77–97; RESP 16–19; TEMP 36.8–36.9; O2SAT 91–100; BMI 21.1; BMI 21.2
--- NOTE | 2024-05-18 14:55 | XRR_ITS ---
PROCEDURE INFORMATION: Exam: XR Left Hip Exam date and time: 05/18/2024 3:44 PM Age: 69 years old Clinical indication: Hip pain; Left hip TECHNIQUE: Imaging protocol: Radiologic exam of the left hip. Views: 2 or 3 views hip with pelvis when performed. COMPARISON: CT hip LT wo con* [id number] 04/04/2024 4:20 PM FINDINGS: Bones/joints: Bilateral hip prostheses are noted. The left prosthesis demonstrates dislocation of the femoral component superiorly. Soft tissues: Unremarkable. XR/XR hip LT 2-3V wo/w pel* [id number] IMPRESSION: Left hip prosthesis dislocation
--- NOTE | 2024-05-18 15:31 | W.ED.EXTPRO ---
HPI - Extremity Problem General: Chief complaint: Extremity Injury, Lower Stated complaint: left hip pain - dislocation Time Seen by Provider: 05/18/24 14:53 History of Present Illness: 69-year-old female with chronic problems with her left hip. Is chronically been dislocated. We had seen her back a few months ago I talked to Ortho we attempted to reduce it could not get it to reduce they had gotten it reduced but she had dislocated it shortly after she was felt to need a revision and is referred back to her orthopedist in [place]. She tells me that they were were able to reduce the hip and been in place for several months and spontaneously dislocated yesterday while she was laying on a couch. She states it is very painful. Patient has is of a fentanyl pain pump in place. She also reports in the interim since we seen her last she had a back surgery to remove some protruding hardware. She denies any falls or trauma she denies flexing sharply at the hip at the time this dislocated. It has been dislocated now for nearly a full 24 hours. Patient does have a PICC line she is on chronic antibiotics due to sacral ulcer Associated symptoms: Deny chest pain, fever(s) or rash Related Data Home Medications ?Medication ?Instructions ?Recorded ?Confirmed atorvastatin 40 mg tablet 40 mg PO DAILY 12/07/23 05/17/24 clopidogrel 75 mg tablet 75 mg PO DAILY 12/07/23 05/17/24 isosorbide dinitrate 10 mg tablet 10 mg PO BID 12/07/23 05/17/24 levothyroxine 50 mcg capsule 50 mcg PO DAILY 12/07/23 05/17/24 lubiprostone 24 mcg capsule 24 mcg PO BID 12/07/23 05/17/24 amitriptyline 100 mg tablet 100 mg PO BEDTIME 04/25/24 05/17/24 Previous Rx's ?Medication ?Instructions ?Recorded ciprofloxacin HCl 500 mg tablet 500 mg PO BID hardware infection 02/07/24 30 days #60 tabs metoprolol tartrate 25 mg tablet 25 mg PO BIDWM #60 tabs 05/03/24 pantoprazole 40 mg tablet,delayed 40 mg PO DAILY #30 tabs 05/03/24 release (Protonix) Allergies Allergy/AdvReac Type Severity Reaction Status Date / Time Penicillins Allergy Mild ALGY-Rash Verified 05/17/24 14:20 Review of Systems Const: Denies: fever(s) or chills Card: Denies: chest pain Resp: Denies: dyspnea GI: Denies: abdominal pain : Denies: dysuria, urinary frequency or urinary urgency Musc: Reports: joint pain; Denies: neck pain or back pain Skin/Breast: Denies: rash PFSH ED PFSH: Medical History Protein-energy malnutrition Anemia Acute kidney injury Failure of left total hip arthroplasty with dislocation of hip MRSA (methicillin resistant staph aureus) culture positive Pressure injury of back, stage 4 Hardware complicating wound infection Pressure ulcer of sacral region, unstageable Fixation hardware in spine PIC line (peripherally inserted central catheter) removal RSD (reflex sympathetic dystrophy) Dyslipidemia Atherosclerosis of coronary artery of [place] heart without angina pectoris Had a LAD stent at the bifurcation,TRYTON stenting-found to be patent by angiogram in January 2023, 30% ostial narrowing of the right renal artery. Mild disease in the other vessels Benign essential HTN T2DM (type 2 diabetes mellitus) Surgical History S/P total left hip arthroplasty Social History Smoking and tobacco/nicotine status: never used tobacco/nicotine Physical Exam Const: GENERAL APPEARANCE: cooperative ORIENTATION/CONSCIOUSNESS: Yes awake, Yes oriented to person, Yes oriented to place and Yes oriented to time HENMT: COMMON NORMALS: normocephalic, atraumatic and hearing grossly normal bilaterally HEAD & SCALP: normocephalic and atraumatic Resp: COMMON NORMALS: normal respiratory effort, No retractions, No use of accessory muscles and clear to auscultation bilaterally AUSCULTATION: clear to auscultation bilaterally Cardio: COMMON NORMALS: regular rate, regular rhythm and No murmurs present (Cardio) RATE: regular rate RHYTHM: regular rhythm GI: COMMON NORMALS: Soft to palpation and No hepatosplenomegaly present AUSCULTATION: Yes normoactive bowel sounds PALPATION: Yes Soft to palpation, No Tenderness to palpation present (GI), No Guarding due to palpation present (GI) and Yes No hepatosplenomegaly present Extremity: COMMON NORMALS: normal to inspection, capillary refill normal, no clubbing, cyanosis or edema, no calf tenderness and no pedal edema Neuro: SENSORIUM/ORIENTATION: Yes oriented to person, Yes oriented to place and Yes oriented to time Skin: COMMON NORMALS: no rashes or lesions noted GENERAL SKIN EXAM: no rashes or lesions noted Course Vital Signs: Vital signs: Vital Signs Temperature 98.4 F 05/18/24 14:48 Pulse Rate 83 05/18/24 16:30 Respiratory Rate 19 H 05/18/24 15:44 Blood Pressure 184/79 05/18/24 16:30 Pulse Oximetry 100 05/18/24 16:30 Oxygen Delivery Me thod Room Air 05/18/24 16:30 MDM - Extremity (Nontraumatic) Medical Decision Making Discussed with Dr. Julien he seen the patient yesterday earlier this week in the office that time the hip was dislocated. He is well acquainted this patient as far as he is worried it has been dislocated for several weeks since last time she was seen in the emergency room by myself in March. He offered the patient to admit for pain control and will remove the hip arthroplasty which is at this point her best option for orthopedics. After consideration discussion the family patient wishes to be admitted for pain control and removal of the hip arthroplasty. She understands that this will essentially result in a flail joint that she will not be able to stand on. Medical Records I reviewed the patient's medical records. Lab Data I reviewed the patient's lab results. Radiology Impressions Hip/Pelvis X-Ray 05/18/24 14:55 IMPRESSION: Left hip prosthesis dislocation All radiology interpretation(s) finalized by discharge Discharge Plan Discharge Patient Disposition: Admitted As Inpatient Clinical Impression: Recurrent dislocation, left hip, MRSA infection Condition: Stable Prescriptions: No Action lubiprostone 24 mcg capsule 24 mcg PO BID levothyroxine 50 mcg capsule 50 mcg PO DAILY isosorbide dinitrate 10 mg tablet 10 mg PO BID Rx Instructions: allow nitrate-free interval of 12-14 hrs per 24-hr period clopidogrel 75 mg tablet 75 mg PO DAILY atorvastatin 40 mg tablet 40 mg PO DAILY ciprofloxacin HCl 500 mg tablet 500 mg PO BID 30 Days Qty: 60 2RF amitriptyline 100 mg Tablet 100 mg PO BEDTIME pantoprazole [Protonix] 40 mg tablet,delayed release (DR/EC) 40 mg PO DAILY Qty: 30 0RF metoprolol tartrate 25 mg tablet 25 mg PO BIDWM Qty: 60 0RF Referrals: Stefany Hawk DO [Primary Care Provider] - Print Language: Liberian Coding Level of Care Code ED [facility] for [facility]
[2024-05-18] MEDS: fentaNYL 50 mcg/mL INJ 2mL IVP (15:44)
[2024-05-18] MEDS: morphine 4 mg/mL SDV 1 mL IVP ×2 (17:59→21:55)
--- NOTE | 2024-05-18 18:10 | PM.HP ---
Providers/Chief Complaint Primary Care Provider: Stefany Hawk DO Chief Complaint: left hip pain - dislocation History of Present Illness Torie Dennison is a 69 year old female with a past medical history of heartburn complicating wound infection, status post multiple spinal surgeries, requiring removal of partial hardware, currently on daptomycin, ciprofloxacin, history of failure of left hip arthroplasty with recurrent dislocations of hip, with plans on Girdlestone procedure at [facility], history of open sacral ulcer, has fentanyl pump in place, patient has had multiple reductions over the left hip, 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 Julien, who discussed doing surgical procedure here at [facility] on Tuesday, removal of hip arthroplasty close team was called for admission to await surgical intervention on Tuesday, patient tells that she lives at home with her son and her grandkids, who help in her care taking Review of Systems Const: Denies: fever(s) Card: Denies: chest pain Resp: Denies: dyspnea Medications/Allergies Home Medications ?Medication ?Instructions ?Recorded ?Confirmed ?Last Taken ?Type atorvastatin 40 mg tablet 40 mg PO DAILY 12/07/23 05/17/24 01/17/24 History clopidogrel 75 mg tablet 75 mg PO DAILY 12/07/23 05/17/24 01/17/24 History isosorbide dinitrate 10 mg tablet 10 mg PO BID 12/07/23 05/17/24 01/17/24 History levothyroxine 50 mcg capsule 50 mcg PO DAILY 12/07/23 05/17/24 01/17/24 History lubiprostone 24 mcg capsule 24 mcg PO BID 12/07/23 05/17/24 01/17/24 History ciprofloxacin HCl 500 mg tablet 500 mg PO BID hardware infection 02/07/24 05/17/24 Unknown Rx 30 days #60 tabs amitriptyline 100 mg tablet 100 mg PO BEDTIME 04/25/24 05/17/24 Unknown History metoprolol tartrate 25 mg tablet 25 mg PO BIDWM #60 tabs 05/03/24 05/17/24 01/17/24 Rx pantoprazole 40 mg tablet,delayed 40 mg PO DAILY #30 tabs 05/03/24 05/17/24 Unknown Rx release (Protonix) Allergies Allergy/AdvReac Type Severity Reaction Status Date / Time Penicillins Allergy Mild ALGY-Rash Verified 05/17/24 14:20 PFSH Acute PFSH: Medical History (Updated 05/18/24 @ 18:19 by Refugio Brewer MD) Hardware complicating wound infection Protein-energy malnutrition Anemia Acute kidney injury Failure of left total hip arthroplasty with dislocation of hip MRSA (methicillin resistant staph aureus) culture positive Pressure injury of back, stage 4 Pressure ulcer of sacral region, unstageable Fixation hardware in spine PIC line (peripherally inserted central catheter) removal RSD (reflex sympathetic dystrophy) Dyslipidemia Atherosclerosis of coronary artery of [place] heart without angina pectoris Had a LAD stent at the bifurcation,TRYTON stenting-found to be patent by angiogram in January 2023, 30% ostial narrowing of the right renal artery. Mild disease in the other vessels Benign essential HTN T2DM (type 2 diabetes mellitus) Surgical History S/P total left hip arthroplasty Social History Smoking and tobacco/nicotine status: never used tobacco/nicotine Vitals/I&O/Wt Last Vital Signs Temp 98.4 F 05/18/24 14:48 Pulse 83 05/18/24 16:30 Resp 18 05/18/24 17:59 BP 184/79 05/18/24 16:30 Pulse Ox 100 05/18/24 16:30 O2 Del Method Room Air 05/18/24 16:30 Weight last 48 hrs Weight 57.606 kg Physical Exam Const: COMMON NORMALS: no acute distress and patient oriented x3 HENMT: COMMON NORMALS: normocephalic HEAD & SCALP: normocephalic Neck/C-Spine: COMMON NORMALS: no JVD Resp: COMMON NORMALS: normal respiratory effort, No retractions, No use of accessory muscles and clear to auscultation bilaterally AUSCULTATION: clear to auscultation bilaterally Cardio: COMMON NORMALS: no JVD, regular rate, regular rhythm, S1 normal heart sound present and S2 normal heart sound present RATE: regular rate RHYTHM: regular rhythm HEART SOUNDS: S1 normal heart sound present and S2 normal heart sound present GI: COMMON NORMALS: Normal to inspection, nondistended, normoactive bowel sounds present, Soft to palpation and non-tender Extremity: COMMON NORMALS: no calf tenderness and no pedal edema NARRATIVE EXTREMITY EXAM: Left leg shortened Neuro: COMMON NORMALS: patient oriented x3 Psych: COMMON NORMALS: mental status grossly normal A&P Assessment and plan (1) Recurrent dislocation, left hip: (2) MRSA infection: (3) Wound dehiscence: (4) Intractable back pain: (5) Hardware complicating wound infection: Qualifiers: Encounter type: initial encounter Qualified Code(s): T84.7XXA - Infection and inflammatory reaction due to other internal orthopedic prosthetic devices, implants and grafts, initial encounter Plan Recurrent left hip dislocation -With plans on Girdlestone procedure at [facility] -Presents with recurrent hip dislocation, status post multiple reductions -Dr. Zapata had discussed case with Dr. Julien, I was told that Dr. Julien plans on removing hip arthroplasty on Tuesday -Hospitalist team was called for admission -Continue fentanyl pump -Morphine as needed for pain control -Lovenox for DVT prophylaxis Fentanyl pump -Managed by a physician in [place] -Patient tells me that she has to go to [place] to have her fentanyl pump refilled Multiple wounds -1 draining over left hip -1 draining over sacrum -Unfortunately patient's severe pain and would not let me look at her wounds, once her pain is more under control we will take a look History of hardware complicating wound infection -Status post partial removal of hardware -Will continue vancomycin here -Continue ciprofloxacin -Obtain blood cultures Full code Lovenox for DVT prophylaxis PDMP PDMP Reviewed: Last Reviewed 05/18/24 18:16 by Refugio Brewer MD Attestations Medical Necessity Statement*: Patient requires hospitalization for recurrent hip dislocation, pain control, concern for surgical intervention Diagnoses Recurrent dislocation, left hip M24.452 MRSA infection A49.02 Wound dehiscence T81.30XA Intractable back pain M54.9 Hardware complicating wound infection, initial encounter T84.7XXA Encounter type: initial encounter
[2024-05-18] MEDS: sodium chloride 0.9% 1,000 ML 75 ML IV (18:36)
[2024-05-18] MEDS: enoxaparin 40 mg/0.4 mL Syringe SUBCUT (18:38)
[2024-05-18] MEDS: pantoprazole 40 mg SDV IVP (18:38)
[2024-05-18 18:42] LABS: Basophils % 0.7 %; Eosinophils % 0.3 %; Hematocrit 31.1 % (36-47); Lymphocytes % 16.4 %; Mean Corpuscular HGB Conc 30.5 g/dL (30-55); Mean Corpuscular Hemoglobin 27.8 pg (27-33); Mean Corpuscular Volume 90.9 fl (85-98); Mean Platelet Volume 10.1 fL (7.4-10.4); Monocytes # 0.5 10^3/uL (0.2-0.9); Monocytes % 7.7 %; Neutrophils # 4.42 10^3/uL (1.8-7.7); Neutrophils % 73.7 %; Nucleated Red Blood Cells % 0 %; Platelet Count 377 10^3/cmm (157-399); Red Blood Count 3.42 10^6/uL (3.85-5.65); Red Cell Distribution Width 15.4 % (12.1-15.1); White Blood Count 5.99 10^3/uL (3.29-11.43)
[2024-05-18 18:48] LABS: Add Urine Microscopic? NO
[2024-05-18 19:00] LABS: Bilirubin Urine Neg (Negative); Blood Urine 3+ (Negative); Glucose Urine UA Norm (Normal); Ketones Urine Negative (Negative); Leukocyte Esterase Urine Negative (Negative); Nitrate Urine Negative (Negative); Protein Urine 1+ (Negative); Specific Gravity, Urine 1.005 (1.005-1.030); Urine Appearance Clear (CLEAR); Urine Color Yellow (Yellow); Urobilinogen Urine Norm (Negative); pH Urine 6.5 (5-7)
[2024-05-18 19:02] LABS: Charge for UA Resulting for Rev
[2024-05-18 19:04] LABS: Bacteria Urine None Seen /hpf; Hyaline Casts Urine 2.87 /lpf; RBC Urine 0-2 /hpf (0-2); Squamous Epithelial Cell Urine 0-5 /hpf (0-5); WBC Urine 0-5 /hpf (0-5)
[2024-05-18 19:06] LABS: Thyroid Stimulating Hormone 0.42 uIU/mL (0.27-4.20)
[2024-05-18 19:33] LABS: Alanine Aminotransferase 15 U/L (0-33); Albumin Level 2.8 g/dL (3.5-5.2); Alkaline Phosphatase 81 U/L (35-105); Anion Gap 19.2 (5-19); Aspartate Amino Transferase 35 U/L (0-32); Blood Urea Nitrogen 20 mg/dL (8-23); C Reactive Protein 66.8 mg/L (0.0-4.9); Calcium 7.9 mg/dL (8.5-10.5); Carbon Dioxide 22 mmol/L (22-29); Chloride 99 mmol/L (98-107); Creatinine Clr Calc Pharmacy 47.9803; Globulin 4.3 g/dL (1.3-4.6); Glucose 89 mg/dL (65-115); Osmolality Calculated 286 mOsm/kg (285-295); Potassium 3.2 mmol/L (3.5-5.1); Sodium 137 mmol/L (136-145); Total Bilirubin 0.4 mg/dL (0.15-1.2); Total Protein 7.1 g/dL (6.6-8.7)
[2024-05-18] MEDS: VANCOMYCIN ADD-Vantage 1,000 MG in 0.9% NaCl ADD-Vantage 250 ML 250 MG IV (19:34)
--- NOTE | 2024-05-18 19:47 | PHA.VACGOAL ---
Vancomycin Goal - Goal Vancomycin Goal:: 15-20 mg/L Vancomycin Indication:: Other - Therapy Current therapy:: Other Antibiotic (CIPRO) Day of therpy:: Day []of [] . Actual body weight (kg): 127 lb - Data Labs: WBC 5.99 10^3/uL (3.29-11.43) 05/18/24 18:31 RBC 3.42 10^6/uL (3.85-5.65) L 05/18/24 18:31 Hgb 9.50 g/dL (11.27-16.99) L 05/18/24 18:31 Hct 31.1 % (36-47) L 05/18/24 18: MCV 90.9 fl (85-98) 05/18/24 18: MCH 27.8 pg (27-33) 05/18/24 18: MCHC 30.5 g/dL (30-55) 05/18/24 18: RDW 15.4 % (12.1-15.1) H 05/18/24 18:31 Sodium 137 mmol/L (136-145) 05/18/24 18:31 Potassium 3.2 mmol/L (3.5-5.1) L 05/18/24 18: Chloride 99 mmol/L (98-107) 05/18/24 18: Carbon Dioxide 22 mmol/L (22-29) 05/18/24 18:31 Anion Gap 19.2 (5-19) H 05/18/24 18:31 BUN 20 mg/dL (8-23) 05/18/24 18:31 Creatinine 1.0 mg/dL (0.5-0.9) H 05/18/24 18:31 GFR Calculation 55.0 mL/min (90-130) L 05/18/24 18:31 Last dialysis session:: N/A Treatment plan:: new consult Regimen:: PATIENT WITH A HISTORY OF MRSA. LOADING DOSE OF 1000 MG GIVEN. MAINTENANCE DOSE OF 500 MG Q12H PER DOSING PROTOCOL. Follow up:: WILL CONTINUE TO MONITOR AND FOLLOW UP DAILY
[2024-05-18] MEDS: amitriptyline 25 mg Tablet 100 MG PO (21:03)
[2024-05-18] MEDS: acetaminophen 325 mg Tablet 650 MG PO (21:05)
[2024-05-19] VITALS: BP 180/91; PULSE 88; RESP 17; TEMP 36.8; O2SAT 96
[2024-05-19] MEDS: HYDROmorphone 0.5 MG/0.5 ML INJ 1 MG IVP ×6 (01:13→22:55)
[2024-05-19 04:00] VITALS: BP 162/90; PULSE 86; RESP 18; TEMP 36.9; O2SAT 98
[2024-05-19 05:51] LABS: Basophils # 0.1 10^3/uL (0.0-0.1); Basophils % 0.8 %; Eosinophils # 0.2 10^3/uL (0.0-0.8); Eosinophils % 2.3 %; Hematocrit 28.1 % (36-47); Lymphocytes # 1.2 10^3/uL (0.8-4.8); Lymphocytes % 19.4 %; Mean Corpuscular HGB Conc 30.6 g/dL (30-55); Mean Corpuscular Hemoglobin 27.2 pg (27-33); Mean Corpuscular Volume 88.9 fl (85-98); Mean Platelet Volume 10.5 fL (7.4-10.4); Monocytes # 0.7 10^3/uL (0.2-0.9); Monocytes % 11.4 %; Neutrophils # 4.15 10^3/uL (1.8-7.7); Nucleated Red Blood Cells % 0 %; Platelet Count 338 10^3/cmm (157-399); Red Blood Count 3.16 10^6/uL (3.85-5.65); Red Cell Distribution Width 15.7 % (12.1-15.1); White Blood Count 6.39 10^3/uL (3.29-11.43)
[2024-05-19 06:12] LABS: Alanine Aminotransferase 12 U/L (0-33); Albumin Level 2.8 g/dL (3.5-5.2); Alkaline Phosphatase 71 U/L (35-105); Aspartate Amino Transferase 31 U/L (0-32); Blood Urea Nitrogen 19 mg/dL (8-23); Calcium 7.6 mg/dL (8.5-10.5); Carbon Dioxide 25 mmol/L (22-29); Chloride 100 mmol/L (98-107); Glomerular Filtration Rate 49.2 mL/min (90-130); Glucose 111 mg/dL (65-115); Magnesium 1.4 mg/dL (1.7-2.3); Osmolality Calculated 283 mOsm/kg (285-295); Phosphorus 2.7 mg/dL (2.5-4.5); Sodium 135 mmol/L (136-145); Total Bilirubin 0.4 mg/dL (0.15-1.2); Total Protein 6.8 g/dL (6.6-8.7)
[2024-05-19 06:14] LABS: Anion Gap 13.2 (5-19); Potassium 3.2 mmol/L (3.5-5.1)
[2024-05-19] MEDS: sodium chloride 0.9% 1,000 ML 75 ML IV (06:31)
[2024-05-19] MEDS: vancomycin 500 MG in sodium chloride 0.9% (plus) 100 ML 200 MG IV ×2 (06:37→18:56)
[2024-05-19 07:53] VITALS: BP 161/88; PULSE 82; RESP 16; TEMP 36.8; O2SAT 97
[2024-05-19] MEDS: metoprolol tartrate 25 mg Tablet PO ×2 (08:45→18:32)
[2024-05-19] MEDS: levothyroxine 50 mcg Tablet PO (08:45)
[2024-05-19] MEDS: ciprofloxacin 500 mg Tablet PO ×2 (08:45→18:32)
[2024-05-19] MEDS: clopidogrel 75 mg Tablet PO (08:45)
[2024-05-19] MEDS: isosorbide dinitrate 20 mg Tablet 10 MG PO ×2 (08:45→18:31)
--- NOTE | 2024-05-19 09:18 | PC.PHAR ---
Addendum entered by Josephine Mares 05/19/24 09:21: Guardian stated pt takes Metoprolol Tart. 25 mg only once daily but the new order from 05/05/24 states twice daily, for the IR. Original Note: Pts' guardian (Andreia) stated pt has 4 eye drops and read the directions off the bottles of all her medications over the phone. Pt did take medications yesterday.
[2024-05-19] MEDS: lidocaine 1% 5 ML in potassium chloride premix 100 ML 26.25 ML IV (09:55)
[2024-05-19] MEDS: magnesium sulfate premix 1 GM/100 ML PIGGYBACK IV (09:55)
[2024-05-19 11:16] VITALS: BP 129/74; PULSE 79; RESP 16; TEMP 36.8; O2SAT 97
--- NOTE | 2024-05-19 11:49 | PC.CHAP ---
Pastoral Care Encounter/Spiritual Assessment Type of Contact [] Declined foam dispenser visit [] Patient/Family/Request visit [] Outpatient visit [] Follow-up visit [] Physician referral [] Code/Alert [x] Routine visit [] Staff referral [] Actively dying [] Patient sleeping [] Family support [] [] Out of room [] Palliative care [] [] Receiving care in room [] Pre-surgical visit [] Trauma [] Long length of stay [] ICU visit [] Other: Relational/Emotional Strength [x] Patient feels connected with others/family/visitors/staff [] Distress [] Loneliness/isolation [] Abandonment Spirituality of Patient [x] Person of Amberly [x] Attends Evangelical of their Amberly [x] Believes in Prayer [x] Reads Bible or Advent materials [] There are Spiritual issues to be addressed Cytogeneticist Interventions [x] Prayer [x] Active listening [x] Non-anxious presence [x] Spiritual/emotional support [] Crisis/trauma care [] Spiritual counseling [] Bereavement support [] Provided bereavement packet [] Provided Bible/devotional materials [] Provided toy/stuffed animal, coloring book to patient or family member [] Provided Communion [] Anointing/[place] [] Salvation [] Completed spiritual assessment [] Other: Impact on Illness or Injury [] Angry [] Fearful [] Anxious [] Often cries [] Exhaustion [] Unable to work [] Unable to attend episcopal [] Unable to walk/stand [] Unable to read [] Unable to drive [] Unable to eat/drink [] Unable to sleep [] Unable to be with family [] Patient intubated [] Other: Summary Prayer Spiritual support Time spent with patient 20min
[2024-05-19] MEDS: flu vacc pf 24-25 (6 mos+) SYRINGE 45 MCG IM (12:23)
--- NOTE | 2024-05-19 13:33 | P.PN_ITS ---
Vitals/I&O/Wt Last Vital Signs Temp 98.3 F 05/19/24 11:16 Pulse 79 05/19/24 11:16 Resp 16 05/19/24 11:16 BP 129/74 05/19/24 11:16 Pulse Ox 97 05/19/24 11:16 O2 Del Method Room Air 05/19/24 11:16 05/18/24 05/19/24 05/19/24 22:59 06:59 14:59 Intake Total 250 / 250 893.75 / 1143.75 876.25 / 876.25 Output Total 200 / 200 450 / 450 Balance 250 / 250 693.75 / 943.75 426.25 / 426.25 Weight last 48 hrs Weight 57.47 kg Weight 58.014 kg Weight 57.606 kg Physical Exam 2 Const: COMMON NORMALS: no acute distress and patient oriented x3 Resp: COMMON NORMALS: normal respiratory effort, No retractions, No use of accessory muscles and clear to auscultation bilaterally AUSCULTATION: clear to auscultation bilaterally Cardio: COMMON NORMALS: regular rate, regular rhythm, S1 normal heart sound present and S2 normal heart sound present RATE: regular rate RHYTHM: r egular rhythm HEART SOUNDS: S1 normal heart sound present and S2 normal heart sound present GI: COMMON NORMALS: Normal to inspection, nondistended, normoactive bowel sounds present and non-tender Extremity: COMMON NORMALS: no pedal edema Neuro: COMMON NORMALS: patient oriented x3 Psych: COMMON NORMALS: mental status grossly normal Urinary Catheter Management: Recinos: Cath Placed During This Visit: yes Reason for Continuing Indwelling Catheter: Accurate Measurement of Urinary Output in Critically Ill Patients Urinary Catheter Date of Insertion: 05/18/24 Urinary Catheter Time of Insertion: 18:20 Data 05/19/24 05:17 05/19/24 05:17 Micro: Microbiology 05/18/24 18:25 Blood Culture - Preliminary Blood SPECIMEN COLLECTED 05/18/24 18:31 Blood Culture - Preliminary Blood SPECIMEN COLLECTED A&P Assessment and plan (1) Recurrent dislocation, left hip: (2) MRSA infection: (3) Wound dehiscence: (4) Intractable back pain: (5) Hardware complicating wound infection: Qualifiers: Encounter type: initial encounter Qualified Code(s): T84.7XXA - Infection and inflammatory reaction due to other internal orthopedic prosthetic devices, implants and grafts, initial encounter Plan Recurrent left hip dislocation -With plans on Girdlestone procedure at [facility] -Presents with recurrent hip dislocation, status post multiple reductions -Dr. Zapata had discussed case with Dr. Julien -Plan on surgical invention on Tuesday -Hospitalist team was called for admission -Continue fentanyl pump -Dilaudid as needed for pain control -Lovenox for DVT prophylaxis Intractable pain/hip pain/back pain Fentanyl pump -Managed by a physician in [place] -Patient tells me that she has to go to [place] to have her fentanyl pump refilled Multiple wounds -1 draining over left hip -1 draining over sacrum -Continue wound care History of hardware complicating wound infection -Status post partial removal of hardware -Will continue vancomycin here -Continue ciprofloxacin -Obtain blood cultures Full code Lovenox for DVT prophylaxis PDMP PDMP Reviewed: Last Reviewed 05/18/24 18:16 by Refugio Brewer MD Attestations 2 Medical Necessity Statement*: Patient requires hospitalization for recurrent left hip dislocation, intractable pain Diagnoses Recurrent dislocation, left hip M24.452 MRSA infection A49.02 Wound dehiscence T81.30XA Intractable back pain M54.9 Hardware complicating wound infection, initial encounter T84.7XXA Encounter type: initial encounter
--- NOTE | 2024-05-19 13:51 | PM.CONSULT ---
Providers/Reason For Consult Consulting Physician/Specialty*: Hospitalist Reason for Consult*: Left hip dislocation Attending Physician: Refugio Brewer MD Primary Care Provider: Stefany Hawk DO History of Present Illness History of Present Illness Torie Dennison is a 69 year old female has returned to the ER multiple times very constantly dislocating hip. She was in discussions with Dr. Tom to have a Girdlestone. However she keeps coming to the ER here. Recently remove hardware from her spine for decubitus ulcer. At this point I discussed with her that we could do the Girdlestone here. However she could also potentially go to a [facility] setting and get a revision total hip. She would like to just proceed with getting the Girdlestone done here. Discussed with her that she will get a put weight on it after this however she still wants to proceed with getting this done here. I am in the process of trying to get equipment here from [employer] to get this done. Review of Systems Const: Denies: fever(s) Card: Denies: chest pain Resp: Denies: dyspnea Medications/Allergies Home Medications ?Medication ?Instructions ?Recorded ?Confirmed ?Last Taken ?Type atorvastatin 40 mg tablet 40 mg PO DAILY 12/07/23 05/19/24 05/18/24 History clopidogrel 75 mg tablet 75 mg PO DAILY 12/07/23 05/19/24 05/18/24 History isosorbide dinitrate 10 mg tablet 10 mg PO BID 12/07/23 05/19/24 05/18/24 History levothyroxine 50 mcg capsule 50 mcg PO DAILY 12/07/23 05/19/24 05/18/24 History lubiprostone 24 mcg capsule 24 mcg PO BID 12/07/23 05/19/24 05/18/24 History (Amitiza) ciprofloxacin HCl 500 mg tablet 500 mg PO BID hardware infection 02/07/24 05/19/24 05/18/24 Rx 30 days #60 tabs amitriptyline 100 mg tablet 100 mg PO BEDTIME 04/25/24 05/19/24 05/18/24 History metoprolol tartrate 25 mg tablet 25 mg PO BIDWM #60 tabs 05/03/24 05/19/24 05/18/24 Rx pantoprazole 40 mg tablet,delayed 40 mg PO DAILY #30 tabs 0305/19/24 05/18/24 Rx release (Protonix) aspirin 81 mg tablet,delayed 81 mg PO DAILY 05/19/24 05/19/24 05/18/24 History release bimatoprost 0.01 % eye drops 1 drp ophthalmic (eye) QPM 05/19/24 05/19/24 05/18/24 History (Lumigan) brimonidine 0.025 % eye drops 1 drp ophthalmic (eye) TID 05/19/24 05/19/24 05/18/24 History dorzolamide 2 % eye drops 1 drp ophthalmic (eye) TID 05/19/24 05/19/24 05/18/24 History netarsudil 0.02 % eye drops 1 drp ophthalmic (eye) QPM 05/19/24 05/19/24 05/18/24 History (Rhopressa) Allergies Allergy/AdvReac Type Severity Reaction Status Date / Time Penicillins Allergy Mild ALGY-Rash Verified 05/17/24 14:20 Current Medications Generic Name Dose Route Start Last Admin Trade Name Freq PRN Reason Stop Dose Admin Acetaminophen 650 mg 05/18/24 18:03 05/18/24 21:05 Acetaminophen 325 Mg Tablet PO 650 mg Q6H PRN Administration Mild/Mod Pain Or Temp >/= 101 Amitriptyline HCl 100 mg 05/18/24 21:00 05/18/24 21:03 Amitriptyline 25 Mg Tablet PO 100 mg BEDTIME GABRIELLA Administration Ciprofloxacin HCl 500 mg 05/19/24 09:00 05/19/24 08:45 Ciprofloxacin 500 Mg Tablet PO 500 mg BID GABRIELLA Administration Protocol Clopidogrel Bisulfate 75 mg 05/19/24 09:00 05/19/24 08:45 Clopidogrel 75 Mg Tablet PO 75 mg DAILY GABRIELLA Administration Enoxaparin Sodium 40 mg 05/18/24 18:15 05/18/24 18:38 Enoxaparin 40 Mg/0.4 Ml Syringe SUBCUT 40 mg Q24H GABRIELLA Administration Hydromorphone HCl 1 mg 05/19/24 01:01 05/19/24 09:55 Hydromorphone 0.5 Mg/0.5 Ml Inj IVP 1 mg Q4H PRN Administration MODERATE TO SEVERE PAIN Vancomycin HCl 500 mg/ Sodium 100 mls @ 200 mls/hr 05/19/24 07:30 05/19/24 07:38 Chloride IV Infused Q12H GABRIELLA Infusion Isosorbide Dinitrate 10 mg 05/19/24 09:00 05/19/24 08:45 Isosorbide Dinitrate 20 Mg Tablet PO 10 mg BID GABRIELLA Administration Levothyroxine Sodium 50 mcg 05/19/24 09:00 05/19/24 08:45 Levothyroxine 50 Mcg Tablet PO 50 mcg DAILY GABRIELLA Administration Metoprolol Tartrate 25 mg 05/19/24 08:00 05/19/24 08:45 Metoprolol Tartrate 25 Mg Tablet PO 25 mg BIDWM GABRIELLA Administration Pantoprazole Sodium 40 mg 05/18/24 18:15 05/18/24 18:38 Pantoprazole 40 Mg Sdv IVP 40 mg Q24H GABRIELLA Administration PFSH Acute PFSH: Medical History (Updated 05/18/24 @ 18:19 by Refugio Brewer MD) Hardware complicating wound infection Protein-energy malnutrition Anemia Acute kidney injury Failure of left total hip arthroplasty with dislocation of hip MRSA (methicillin resistant staph aureus) culture positive Pressure injury of back, stage 4 Pressure ulcer of sacral region, unstageable Fixation hardware in spine PIC line (peripherally inserted central catheter) removal RSD (reflex sympathetic dystrophy) Dyslipidemia Atherosclerosis of coronary artery of [place] heart without angina pectoris Had a LAD stent at the bifurcation,TRYTON stenting-found to be patent by angiogram in January 2023, 30% ostial narrowing of the right renal artery. Mild disease in the other vessels Benign essential HTN T2DM (type 2 diabetes mellitus) Surgical History S/P total left hip arthroplasty Social History Smoking and tobacco/nicotine status: never used tobacco/nicotine Vitals/I&O/Wt Last Vital Signs Temp 98.3 F 05/19/24 11:16 Pulse 79 05/19/24 11:16 Resp 16 05/19/24 11:16 BP 129/74 05/19/24 11:16 Pulse Ox 97 05/19/24 11:16 O2 Del Method Room Air 05/19/24 11:16 05/18/24 05/19/24 05/19/24 22:59 06:59 14:59 Intake Total 250 / 250 893.75 / 1143.75 876.25 / 876.25 Output Total 200 / 200 450 / 450 Balance 250 / 250 693.75 / 943.75 426.25 / 426.25 Weight last 48 hrs Weight 126 lb 11.2 oz Weight 127 lb 14.4 oz Weight 127 lb Physical Exam Narrative: Alert and oriented x 3 Head is normocephalic atraumatic Respirations are intact No evidence of any rashes or infection left leg shortened and externally rotated Urinary Catheter Management: Recinos: Cath Placed During This Visit: yes Reason for Continuing Indwelling Catheter: Accurate Measurement of Urinary Output in Critically Ill Patients Urinary Catheter Date of Insertion: 05/18/24 Urinary Catheter Time of Insertion: 18:20 Data 05/19/24 05:17 05/19/24 05:17 Micro: Microbiology 05/18/24 18:25 Blood Culture - Preliminary Blood SPECIMEN COLLECTED 05/18/24 18:31 Blood Culture - Preliminary Blood SPECIMEN COLLECTED A&P Assessment and plan (1) Recurrent dislocation, left hip: Plan to do a gallstone on Tuesday when I get the equipment here to do it. PDMP PDMP Reviewed: Not Reviewed Coding Level of Care Code Acute Code for Chg Fwd Diagnoses Recurrent dislocation, left hip M24.452
[2024-05-19 15:38] VITALS: BP 172/88; PULSE 93; RESP 16; TEMP 37.9; O2SAT 96
[2024-05-19] MEDS: pantoprazole 40 mg SDV IVP (18:32)
[2024-05-19] MEDS: enoxaparin 40 mg/0.4 mL Syringe SUBCUT (18:32)
[2024-05-19 20:00] VITALS: BP 137/77; PULSE 90; RESP 17; TEMP 37.8; O2SAT 96
[2024-05-19] MEDS: cyclobenzaprine 10 mg Tablet PO (20:50)
[2024-05-19] MEDS: amitriptyline 25 mg Tablet 100 MG PO (20:50)
[2024-05-19] MEDS: acetaminophen 325 mg Tablet 650 MG PO (22:54)
[2024-05-20] VITALS (7 sets, daily range): BP systolic 121–160; BP diastolic 69–80; PULSE 74–85; RESP 17–20; TEMP 36.7–37.5; O2SAT 95–98
[2024-05-20] MEDS: HYDROmorphone 0.5 MG/0.5 ML INJ 1 MG IVP ×5 (03:10→22:20)
[2024-05-20 05:25] LABS: Basophils % 0.3 %; Eosinophils # 0.2 10^3/uL (0.0-0.8); Eosinophils % 3.1 %; Hematocrit 25.2 % (36-47); Lymphocytes # 1.5 10^3/uL (0.8-4.8); Lymphocytes % 22.6 %; Mean Corpuscular HGB Conc 30.2 g/dL (30-55); Mean Corpuscular Hemoglobin 27.5 pg (27-33); Mean Corpuscular Volume 91.3 fl (85-98); Mean Platelet Volume 10.3 fL (7.4-10.4); Monocytes # 0.7 10^3/uL (0.2-0.9); Neutrophils # 3.97 10^3/uL (1.8-7.7); Neutrophils % 61.8 %; Nucleated Red Blood Cells % 0 %; Platelet Count 276 10^3/cmm (157-399); Red Blood Count 2.76 10^6/uL (3.85-5.65); Red Cell Distribution Width 15.7 % (12.1-15.1); White Blood Count 6.43 10^3/uL (3.29-11.43)
[2024-05-20 05:46] LABS: Alanine Aminotransferase 11 U/L (0-33); Albumin Level 2.5 g/dL (3.5-5.2); Alkaline Phosphatase 64 U/L (35-105); Anion Gap 11.8 (5-19); Aspartate Amino Transferase 26 U/L (0-32); Blood Urea Nitrogen 16 mg/dL (8-23); Calcium 7.5 mg/dL (8.5-10.5); Carbon Dioxide 25 mmol/L (22-29); Chloride 101 mmol/L (98-107); Creatinine Clr Calc Pharmacy 44.1024; Globulin 3.7 g/dL (1.3-4.6); Glomerular Filtration Rate 49.2 mL/min (90-130); Glucose 96 mg/dL (65-115); Magnesium 1.5 mg/dL (1.7-2.3); Osmolality Calculated 279 mOsm/kg (285-295); Phosphorus 2.3 mg/dL (2.5-4.5); Potassium 3.8 mmol/L (3.5-5.1); Sodium 134 mmol/L (136-145); Total Bilirubin 0.3 mg/dL (0.15-1.2); Total Protein 6.2 g/dL (6.6-8.7)
[2024-05-20] MEDS: vancomycin 500 MG in sodium chloride 0.9% (plus) 100 ML 200 MG IV ×2 (06:27→20:03)
--- NOTE | 2024-05-20 08:17 | P.PN_ITS ---
Subjective 2 Subjective: Unchanged from yesterday. Still in pain hip continues to dislocate. Planning on surgery tomorrow for removal of total hip arthroplasty Vitals/I&O/Wt Last Vital Signs Temp 98.0 F 05/20/24 07:37 Pulse 77 05/20/24 07:37 Resp 19 H 05/20/24 07:37 BP 146/75 05/20/24 07:37 Pulse Ox 98 05/20/24 07:37 O2 Del Method Room Air 05/20/24 07:37 05/19/24 05/20/24 05/20/24 22:59 06:59 14:59 Intake Total 685 / 1561.25 100 / 100 Output Total 500 / 950 Balance 685 / 1111.25 -500 / 611.25 100 / 100 Weight last 48 hrs Weight 130 lb 8 oz Weight 126 lb 11.2 oz Weight 127 lb 14.4 oz Weight 127 lb Physical Exam 2 Narrative: Patient sit on right side because left hip hurts Urinary Catheter Management: Recions: Cath Placed During This Visit: yes Reason for Continuing Indwelling Catheter: Accurate Measurement of Urinary Output in Critically Ill Patients Urinary Catheter Date of Insertion: 05/18/24 Urinary Catheter Time of Insertion: 18:20 Data 05/20/24 04:38 05/20/24 04:38 Micro: Microbiology 05/18/24 18:25 Blood Culture - Preliminary Blood NEGATIVE TO DATE 05/18/24 18:31 Blood Culture - Preliminary Blood NEGATIVE TO DATE A&P Assessment and plan (1) Recurrent dislocation, left hip: Girdlestone procedure planned for tomorrow PDMP PDMP Reviewed: Not Reviewed Attestations 2 Medical Necessity Statement*: Per primary service Coding Level of Care Code Acute Code for Chg Fwd Diagnoses Recurrent dislocation, left hip M24.452
[2024-05-20] MEDS: ciprofloxacin 500 mg Tablet PO ×2 (08:54→17:41)
[2024-05-20] MEDS: cyclobenzaprine 10 mg Tablet PO ×2 (08:54→20:04)
[2024-05-20] MEDS: isosorbide dinitrate 20 mg Tablet 10 MG PO ×2 (08:54→17:41)
[2024-05-20] MEDS: levothyroxine 50 mcg Tablet PO (08:54)
[2024-05-20] MEDS: metoprolol tartrate 25 mg Tablet PO ×2 (08:54→17:41)
[2024-05-20 09:23] LABS: Iron 19 ug/dL (37-145); Percent Saturation 15.4 % (20-50); Total Iron Binding Capacity 123 mcg/dl; Unsaturated Iron Binding 104 ug/dL (112-347)
[2024-05-20 09:37] LABS: Ferritin 1129 ng/mL (15-150)
--- NOTE | 2024-05-20 12:05 | P.PN_ITS ---
Subjective 2 Subjective: Patient was seen this morning, she is alert oriented x 3, following all commands, continues to have pain in her left hip, she tells me that she spoke to Dr. Julien, she understands what the surgery entails, her decreased performance status long-term with this surgery, she is not sure how much help she will have at home, Vitals/I&O/Wt Last Vital Signs Temp 98.0 F 05/20/24 11:23 Pulse 76 05/20/24 11:37 Resp 19 H 05/20/24 11:23 BP 146/75 05/20/24 11:23 Pulse Ox 97 05/20/24 11:37 O2 Del Method Room Air 05/20/24 11:37 05/19/24 05/20/24 05/20/24 22:59 06:59 14:59 Intake Total 685 / 1561.25 580 / 580 Output Total 500 / 950 Balance 685 / 1111.25 -500 / 611.25 580 / 580 Weight last 48 hrs Weight 59.194 kg Weight 57.47 kg Weight 58.014 kg Weight 57.606 kg Physical Exam 2 Const: COMMON NORMALS: no acute distress and patient oriented x3 Resp: COMMON NORMALS: normal respiratory effort, No retractions, No use of accessory muscles and clear to auscultation bilaterally AUSCULTATION: clear to auscultation bilaterally Cardio: COMMON NORMALS: regular rate, regular rhythm, S1 normal heart sound present and S2 normal heart sound present RATE: regular rate RHYTHM: r egular rhythm HEART SOUNDS: S1 normal heart sound present and S2 normal heart sound present GI: COMMON NORMALS: Normal to inspection, nondistended, normoactive bowel sounds present and non-tender Extremity: COMMON NORMALS: no pedal edema NARRATIVE EXTREMITY EXAM: Good DP PT pulses, left left leg shortened Neuro: COMMON NORMALS: patient oriented x3 Psych: COMMON NORMALS: mental status grossly normal Urinary Catheter Management: Recinos: Cath Placed During This Visit: yes Reason for Continuing Indwelling Catheter: Accurate Measurement of Urinary Output in Critically Ill Patients Urinary Catheter Date of Insertion: 05/18/24 Urinary Catheter Time of Insertion: 18:20 Data 05/20/24 04:38 05/20/24 04:38 Micro: Microbiology 05/18/24 18:25 Blood Culture - Preliminary Blood NEGATIVE TO DATE 03/28/25 18:31 Blood Culture - Preliminary Blood NEGATIVE TO DATE A&P Assessment and plan (1) Recurrent dislocation, left hip: Girdlestone procedure planned for tomorrow (2) MRSA infection: (3) Wound dehiscence: (4) Intractable back pain: (5) Hardware complicating wound infection: Qualifiers: Encounter type: initial encounter Qualified Code(s): T84.7XXA - Infection and inflammatory reaction due to other internal orthopedic prosthetic devices, implants and grafts, initial encounter Plan Recurrent left hip dislocation -With plans on Girdlestone procedure at [place] -Presents with recurrent hip dislocation, status post multiple reductions -Dr. Zapata had discussed case with Dr. Julien -Plan on Girdlestone surgery tomorrow -N.p.o. midnight -Continue fentanyl pump -Dilaudid as needed for pain control -Lovenox for DVT prophylaxis Intractable pain/hip pain/back pain Fentanyl pump -Managed by a physician in [place] -Patient tells me that she has to go to [place] to have her fentanyl pump refilled Acute anemia -No reported bloody or black stools -Iron studies, ferritin, retake count -Protonix, Carafate -Monitor hemoglobin this afternoon Multiple wounds -1 draining over left hip -1 draining over sacrum -Continue wound care, consult wound care nurse tomorrow History of hardware complicating wound infection -Status post partial removal of hardware -Will continue vancomycin here, -Continue ciprofloxacin -Obtain blood cultures Full code Lovenox for DVT prophylaxis PDMP PDMP Reviewed: Last Reviewed 05/18/24 18:16 by Refugio Brewer MD Attestations 2 Medical Necessity Statement*: Patient requires hospitalization for recurrent left hip dislocation, acute anemia, intractable hip pain Diagnoses Recurrent dislocation, left hip M24.452 MRSA infection A49.02 Wound dehiscence T81.30XA Intractable back pain M54.9 Hardware complicating wound infection, initial encounter T84.7XXA Encounter type: initial encounter
[2024-05-20] MEDS: magnesium lactate 84 mg Tablet PO (13:53)
[2024-05-20] MEDS: sucralfate 1 gm/10 mL Oral Liq UDC PO ×2 (13:53→17:41)
[2024-05-20] MEDS: pantoprazole 40 mg SDV IVP (13:53)
[2024-05-20 14:01] LABS: Basophils % 0.3 %; Eosinophils # 0.2 10^3/uL (0.0-0.8); Eosinophils % 3.8 %; Hematocrit 23.9 % (36-47); Lymphocytes % 17.7 %; Mean Corpuscular HGB Conc 30.5 g/dL (30-55); Mean Corpuscular Hemoglobin 27.7 pg (27-33); Mean Corpuscular Volume 90.5 fl (85-98); Mean Platelet Volume 10.2 fL (7.4-10.4); Monocytes # 0.7 10^3/uL (0.2-0.9); Monocytes % 11.5 %; Neutrophils # 3.81 10^3/uL (1.8-7.7); Neutrophils % 65.3 %; Nucleated Red Blood Cells % 0 %; Platelet Count 258 10^3/cmm (157-399); Red Blood Count 2.64 10^6/uL (3.85-5.65); Red Cell Distribution Width 15.9 % (12.1-15.1); White Blood Count 5.83 10^3/uL (3.29-11.43)
[2024-05-20] MEDS: phosphorus 250 mg Tablet PO (17:41)
[2024-05-20] MEDS: enoxaparin 40 mg/0.4 mL Syringe SUBCUT (17:42)
[2024-05-20 18:42] LABS: Vancomycin Trough 16.3 ug/mL (10-15)
[2024-05-20] MEDS: amitriptyline 25 mg Tablet 100 MG PO (20:03)
[2024-05-20 21:25] LABS: Hematocrit 24.4 % (36-47)
[2024-05-21] VITALS (19 sets, daily range): BP systolic 137–179; BP diastolic 71–93; PULSE 72–96; RESP 14–23; TEMP 36.1–37.3; O2SAT 93–100
[2024-05-21] MEDS: pantoprazole 40 mg SDV IVP ×2 (00:13→11:29)
[2024-05-21] MEDS: sucralfate 1 gm/10 mL Oral Liq UDC PO ×3 (00:13→11:29)
[2024-05-21] MEDS: acetaminophen 325 mg Tablet 650 MG PO (01:15)
[2024-05-21] MEDS: HYDROmorphone 0.5 MG/0.5 ML INJ 1 MG IVP ×3 (03:13→21:35)
[2024-05-21 03:23] LABS: Basophils % 0.4 %; Eosinophils # 0.2 10^3/uL (0.0-0.8); Eosinophils % 3.1 %; Lymphocytes # 1.1 10^3/uL (0.8-4.8); Lymphocytes % 15.6 %; Mean Corpuscular Hemoglobin 27.6 pg (27-33); Mean Corpuscular Volume 91.9 fl (85-98); Mean Platelet Volume 10.4 fL (7.4-10.4); Monocytes # 0.8 10^3/uL (0.2-0.9); Monocytes % 10.5 %; Neutrophils # 4.92 10^3/uL (1.8-7.7); Nucleated Red Blood Cells % 0 %; Platelet Count 275 10^3/cmm (157-399); Red Blood Count 2.83 10^6/uL (3.85-5.65); Red Cell Distribution Width 15.7 % (12.1-15.1); White Blood Count 7.13 10^3/uL (3.29-11.43)
[2024-05-21 04:01] LABS: Alanine Aminotransferase 11 U/L (0-33); Albumin Level 2.6 g/dL (3.5-5.2); Alkaline Phosphatase 64 U/L (35-105); Aspartate Amino Transferase 25 U/L (0-32); Blood Urea Nitrogen 17 mg/dL (8-23); Calcium 7.7 mg/dL (8.5-10.5); Carbon Dioxide 23 mmol/L (22-29); Chloride 98 mmol/L (98-107); Creatinine Clr Calc Pharmacy 44.1024; Glomerular Filtration Rate 49.2 mL/min (90-130); Glucose 128 mg/dL (65-115); Magnesium 1.4 mg/dL (1.7-2.3); Osmolality Calculated 277 mOsm/kg (285-295); Phosphorus 2.6 mg/dL (2.5-4.5); Sodium 132 mmol/L (136-145); Total Bilirubin 0.3 mg/dL (0.15-1.2); Total Protein 6.6 g/dL (6.6-8.7)
[2024-05-21] MEDS: isosorbide dinitrate 20 mg Tablet 10 MG PO ×2 (04:50→11:29)
--- NOTE | 2024-05-21 07:03 | W.PM.OPSUD ---
Surgery/Procedure H&P Update DATE OF PROCEDURE: May 21, 2024 DATE H&P PERFORMED: 05/19/24 H&P UPDATE INFORMATION: I have reviewed H&P completed within last 30 days, I have examined patient prior to procedure and No changes to prior documentation PLANNED PROCEDURE: Operation Date: 05/21/24 18:05 Proposed Procedures p Removal Total Hip Arthroplasty(Left) - Jaswant Julien DO
[2024-05-21] MEDS: magnesium lactate 84 mg Tablet PO (11:28)
[2024-05-21] MEDS: levothyroxine 50 mcg Tablet PO (11:29)
[2024-05-21] MEDS: cyclobenzaprine 10 mg Tablet PO (11:29)
[2024-05-21] MEDS: phosphorus 250 mg Tablet PO (11:29)
[2024-05-21] MEDS: metoprolol tartrate 25 mg Tablet PO (11:29)
[2024-05-21] MEDS: ciprofloxacin 500 mg Tablet PO (11:29)
[2024-05-21] MEDS: vancomycin 500 MG in sodium chloride 0.9% (plus) 100 ML 200 MG IV ×2 (11:30→23:05)
--- NOTE | 2024-05-21 12:17 | P.CONIM_ITS ---
<Statement entered by Kristian Grover MD - 05/21/24 14:13> I have reviewed the documentation and plan of care as noted by Ms. Vicente and agree with the assessment and plan of care as written. Dr. Kristian Grover Providers/Reason For Consult 2 Consulting Physician/Specialty*: Wound Care Reason for Consult*: Open wounds to left hip and sacrum Requesting Physician: Dr. Refugio Brewer MD Attending Physician: Refugio Brewer MD Primary Care Provider: Stefany Hawk DO History of Present Illness History of Present Illness Torie Dennison is a 69 year old female who presented to the [facility] emergency department on May 18 for left hip pain and dislocation. Dr. Julien was consulted and recommended admission for pain control and surgical procedure to remove the left hip arthroplasty. She is also noted to be anemic. She is being medically managed by hospitalist team. Surgery on the left hip is currently scheduled for this afternoon. Ms. Dennison is a well-known patient of [facility] wound care and was last seen on May [address] Grover. She has a chronic pressure ulcer to her sacrum and is noted to have pressure areas on her knee and thigh. There is dehiscence noted to the left lower back wound which was operated on by Dr. Julien on April 27. This is the original wound for which she established care with [facility] wound care and was noted to have hardware infection complicating wound healing. Part of the hardware was removed during the surgical procedure performed by Dr. Julien. She has been consistently laying on her right side due to left hip pain. She is currently on oral Cipro and IV vancomycin. Preliminary blood cultures on May 18 are negative to date. Her white blood cell count is 7.13. Review of Systems 2 General: Reports: 10 or more systems reviewed and unremarkable except in HPI and below Const: Denies: fever(s) or chills Musc: Reports: joint pain (left hip) Skin/Breast: Reports: sores Medications/Allergies Home Medications ?Medication ?Instructions ?Recorded ?Confirmed ?Last Taken ?Type atorvastatin 40 mg tablet 40 mg PO DAILY 12/07/2304/2205/18/24 History clopidogrel 75 mg tablet 75 mg PO DAILY 12/07/2304/2205/18/24 History isosorbide dinitrate 10 mg tablet 10 mg PO BID 4 05/19/24 05/18/24 History levothyroxine 50 mcg capsule 50 mcg PO DAILY 12/07/23 05/19/24 05/18/24 History lubiprostone 24 mcg capsule 24 mcg PO BID 12/07/2305/18/24 History (Amitiza) ciprofloxacin HCl 500 mg tablet 500 mg PO BID hardware infection 02/07/24 05/19/24 05/18/24 Rx 30 days #60 tabs amitriptyline 100 mg tablet 100 mg PO BEDTIME 04/25/24 05/19/24 05/18/24 History metoprolol tartrate 25 mg tablet 25 mg PO BIDWM #60 ta bs 05/03/24 05/19/24 05/18/24 Rx pantoprazole 40 mg tablet,delayed 40 mg PO DAILY #30 t abs 05/03/24 05/19/24 05/18/24 Rx release (Protonix) aspirin 81 mg tablet,delayed 81 mg PO DAILY 05/19/24 0 05/19/24 05/18/24 History release bimatoprost 0.01 % eye drops 1 drp ophthalmic (eye) QP M 05/19/24 05/19/24 05/18/24 History (Lumigan) brimonidine 0.025 % eye drops 1 drp ophthalmic (eye) T ID 05/19/24 05/19/24 05/18/24 History dorzolamide 2 % eye drops 1 drp ophthalmic (eye) TID 0 05/19/24 05/19/24 05/18/24 History netarsudil 0.02 % eye drops 1 drp ophthalmic (eye) QPM 05/19/24 05/19/24 05/18/24 History (Rhopressa) Allergies Allergy/AdvReac Type Severity Reaction Status Date / Time Penicillins Allergy Mild ALGY-Rash Verified 05/17/24 14:20 Current Medications Generic Name Dose Route Start Last Admin Trade Name Freq PRN Reason Stop Dose Admin Acetaminophen 650 mg 05/18/24 18:03 05/21/24 01:15 Acetaminophen 325 Mg Tablet PO 650 mg Q6H PRN Administration Mild/Mod Pain Or Temp >/= 101 Amitriptyline HCl 100 mg 05/18/24 21:00 05/20/24 20:03 Amitriptyline 25 Mg Tablet PO 100 mg BEDTIME GABRIELLA Administration Ciprofloxacin HCl 500 mg 05/19/24 09:00 05/21/24 11:29 Ciprofloxacin 500 Mg Tablet PO 500 mg BID GABRIELLA Administration Protocol Clopidogrel Bisulfate 75 mg 05/19/24 09:00 05/21/24 04:25 Clopidogrel 75 Mg Tablet PO Not Given DAILY GABRIELLA Cyclobenzaprine HCl 10 mg 05/19/24 13:27 05/21/24 11:29 Cyclobenzaprine 10 Mg Tablet PO 10 mg TID PRN Administration MUSCLE SPASMS Enoxaparin Sodium 40 mg 05/18/24 18:15 05/20/24 17:42 Enoxaparin 40 Mg/0.4 Ml Syringe SUBCUT 40 mg Q24H GABRIELLA Administration Hydromorphone HCl 1 mg 05/19/24 01:01 05/21/24 11:30 Hydromorphone 0.5 Mg/0.5 Ml Inj IVP 1 mg Q4H PRN Administration MODERATE TO SEVERE PAIN Vancomycin HCl 500 mg/ Sodium 100 mls @ 200 mls/hr 05/21/24 11:30 05/21/24 11:30 Chloride IV 200 mls/hr Q12H GABRIELLA Administration Isosorbide Dinitrate 10 mg 05/19/24 09:00 05/21/24 11:29 Isosorbide Dinitrate 20 Mg Tablet PO 10 mg BID GABRIELLA Administration Levothyroxine Sodium 50 mcg 05/19/24 09:00 05/21/24 11:29 Levothyroxine 50 Mcg Tablet PO 50 mcg DAILY GABRIELLA Administration Magnesium Lactate 84 mg 05/20/24 12:15 05/21/24 11:28 Magnesium Lactate 84 Mg Tablet PO 84 mg Q24H GABRIELLA Administration Metoprolol Tartrate 25 mg 05/19/24 08:00 05/21/24 11:29 Metoprolol Tartrate 25 Mg Tablet PO 25 mg BIDWM GABRIELLA Administration Pantoprazole Sodium 40 mg 05/20/24 12:15 05/21/24 11:29 Pantoprazole 40 Mg Sdv IVP 40 mg Q12H GABRIELLA Administration Sucralfate 1 gm 05/20/24 12:15 05/21/24 11:29 Sucralfate 1 Gm/10 Ml Oral Liq Udc PO 1 gm Q6H GABRIELLA Administration PFSH Acute 2 PFSH: Medical History Hardware complicating wound infection Protein-energy malnutrition Anemia Acute kidney injury Failure of left total hip arthroplasty with dislocation of hip MRSA (methicillin resistant staph aureus) culture positive Pressure injury of back, stage 4 Pressure ulcer of sacral region, unstageable Fixation hardware in spine PIC line (peripherally inserted central catheter) removal RSD (reflex sympathetic dystrophy) Dyslipidemia Atherosclerosis of coronary artery of ig[place]ugig heart without angina pectoris Had a LAD stent at the bifurcation,TRYTON stenting-found to be patent by angiogram in January 2023, 30% ostial narrowing of the right renal artery. Mild disease in the other vessels Benign essential HTN T2DM (type 2 diabetes mellitus) Surgical History S/P total left hip arthroplasty Social History Smoking and tobacco/nicotine status: never used tobacco/nicotine Vitals/I&O/Wt Last Vital Signs Temp 97.8 F 05/21/24 07:32 Pulse 86 05/21/24 07:32 Resp 18 05/21/24 07:32 BP 174/80 05/21/24 07:32 Pulse Ox 96 05/21/24 07:32 O2 Del Method Room Air 05/21/24 07:32 05/20/24 05/21/24 05/21/24 22:59 06:59 14:59 Intake Total 480 / 1420 100 / 1520 Output Total 600 / 600 200 / 800 Balance -120 / 820 -100 / 720 Weight last 48 hrs Weight 57.153 kg Weight 59.194 kg Physical Exam 2 Const: COMMON NORMALS: patient oriented x3 EXAM LIMITATIONS: physical limitations GENERAL APPEARANCE: cooperative, disheveled and frail appearing NUTRITIONAL APPEARANCE: thin ORIENTATION/CONSCIOUSNESS: Yes awake, Yes oriented to person, Yes oriented to place and Yes oriented to time HENMT: HEAD & SCALP: normal to inspection Resp: COMMON NORMALS: normal respiratory effort and No use of accessory muscles EFFORT & INSPECTION: Yes able to speak in complete sentences Cardio: COMMON NORMALS: regular rate RATE: regular rate Neuro: COMMON NORMALS: patient oriented x3 SENSORIUM/ORIENTATION: Yes oriented to person, Yes oriented to place and Yes oriented to time Psych: COMMON NORMALS: mental status grossly normal and speech normal A TTITUDE: Yes calm ACTIVITY/MOTOR BEHAVIOR: Yes appropriate eye contact S PEECH: Yes normal speech Skin: WOUNDS: Yes wounds noted (See wound assessment) Urinary Catheter Management: Recinos: Cath Placed During This Visit: yes Reason for Continuing Indwelling Catheter: Required Immobilization for Trauma or Surgery or Anesthesia Urinary Catheter Date of Insertion: 05/18/24 Urinary Catheter Time of Insertion: 18:20 Data 05/21/24 02:51 05/21/24 02:51 A&P Assessment and plan (1) Pressure ulcer of sacral region, stage 3: Pressure ulcer which was noted on the last admission. Full thickness eschar is no longer present. Wound bed is visible with adherent slough noted over a large portion of this. No deeper structures are visible or palpable classifying this as a stage 3 pressure ulcer. She has been using hydrofera blue/dermablue at home per Dr. Grover on 05/16/2024. Will continue this for today as she is going to surgery later this afternoon. Will place an order for santyl to be utilized for enzymatic debridement of the adherent slough in the wound bed starting tomorrow 05/22/24. Cover with sacrum optifoam. (2) Wound dehiscence: The area on the left lower back where Dr. Julien removed hardware and had closed during this surgery on April 27 has dehisced. Sutures were noted to be removed at her follow up visit with him on May 17. There is tunneling at 11 o'clock extending 4.5 cm. This wound should be packed twice daily with saline moistened gauze. Cover with dry gauze and 4x6 covaderm. (3) Deep tissue injury: purple/maroon appearing areas to left medial knee and right anterior leg. This is likely from sustained pressure where bony areas collide when patient is side lying on the right. This may advance and loss of epidermis and deeper tissue may occur. Areas need monitored closely. Ensure optiofams are placed over both areas of concern and changed daily. Ensure pillow is placed between legs to prevent further breakdown of this area. Plan Open wounds do not appear acutely infected at this time. Regularly change position to relieve pressure on the affected area, at minimum every 2 hours. Use pillows, foam cushions, mattress pads, or other aids to reduce pressure on vulnerable areas. Remove pressure from medical devices like catheters and oxygen tubing. Upon discharge, she would benefit from a [id number]-[id number] mattress and a gel or a Roho wheelchair cushion. Nutrition will be especially important for wound healing. She would benefit from a protein supplement and/or automation consultant consult if she is not currently receiving this and it is medically appropriate per hospitalist. Ensure pillow is placed between legs at all times to prevent further breakdown of the deep tissue injuries noted to her left medial knee and right anterior thigh. Wounds were cleansed and dressings were applied during the visit. PDMP PDMP Reviewed: Not Reviewed Consult Attestations 2 Time Spent in Patient Care: 16 - 35 minutes Coding Level of Care Code Acute Code for Chg Fwd Diagnoses Pressure ulcer of sacral region, stage 3 L89.153 Wound dehiscence T81.30XA Deep tissue injury T14.8XXA Wound Assessment Wound Assessment Wound Number 1 Sacrum: Primary Etiology:: Pressure Ulcer Length: (cm): 3.2 cm Width: (cm): 4 cm Depth: (cm): 0.8 cm Epithelialization:: None Tunneling:: No Undermining:: No Classification: Stage 3 Limited to Skin Breakdown: No Exudate Amount:: Medium Drainage Type: Serosanguineous Foul Odor After Cleansing:: No Slough/Fibrin?: Yes Granulation Amount: Small (1-33%) Granulation Quality:: Red Necrotic Amount:: Large (67-100%) Necrotic Type:: Adherent Slough Wound Number 2 Back: Descriptor: Left, Lateral and Inferior Primary Etiology:: Open Surgical Wound Length: (cm): 4 cm Width: (cm): 1.8 cm Depth: (cm): 3 cm Tunneling:: Yes (4.5cm at 11o'clock) Limited to Skin Breakdown: No Exudate Amount:: Medium Drainage Type: Serosanguineous Foul Odor After Cleansing:: No Slough/Fibrin?: Yes Granulation Amount: Small (1-33%) Granulation Quality:: Lisle Necrotic Amount:: Medium (34-66%) Necrotic Type:: Adherent Slough Non Wound Condition 1: deep tissue injury: left medial knee and right anterior thigh Exudate Amount:: None Present: Wound Orders Wound Number 1: sacrum Dressing change frequency: Daily Wound Cleansing: Saline Primary Wound Care Dressing: hydrofera blue ready today; santyl starting 05/22/2024 Secondary Wound Care Dressing: sacrum optifoam Off-Loading: Air fluidized (overlay) and Turn and reposition every 2 hours Wound Number 2: left lower back Dressing change frequency: Twice Daily Wound Cleansing: Saline Primary Wound Care Dressing: wet to dry packing with 4x4 gauze; Ensure tunnel at 11 o'clock is lightly packed to depth of 4.5cm Secondary Wound Care Dressing: dry gauze and 4x6 covaderm Off-Loading: Air fluidized (overlay) and Turn and reposition every 2 hours Non Wound Condition 1: left medial knee and right anterior thigh Dressing change frequency: Daily Secondary Wound Care Dressing: optifoam Off-Loading: Other (ensure pillow is placed between legs at all times)
--- NOTE | 2024-05-21 15:29 | PC.SOCIAL ---
IMM updated Updated pt on IMM. No questions voiced. Provided pt a copy. Initialed, dated, & timed a copy & placed in chart.
--- NOTE | 2024-05-21 16:00 | P.PN_ITS ---
Subjective 2 Subjective: Patient was seen this morning, she is alert oriented x 3, following all commands, she is n.p.o. for surgical intervention today, hemoglobin 7.8, denies any blood or black stools, she will receive PRBC by anesthesia today Vitals/I&O/Wt Last Vital Signs Temp 98.1 F 05/21/24 15:35 Pulse 73 05/21/24 15:35 Resp 14 05/21/24 15:35 BP 145/79 05/21/24 15:35 Pulse Ox 97 05/21/24 15:35 O2 Del Method Room Air 05/21/24 12:00 05/21/24 05/21/24 05/21/24 06:59 14:59 22:59 Intake Total 100 / 1520 100 / 100 0 / 100 Output Total 200 / 800 Balance -100 / 720 100 / 100 0 / 100 Weight last 48 hrs Weight 57.153 kg Weight 59.194 kg Physical Exam 2 Const: COMMON NORMALS: no acute distress and patient oriented x3 Resp: COMMON NORMALS: normal respiratory effort, No retractions, No use of accessory muscles and clear to auscultation bilaterally AUSCULTATION: clear to auscultation bilaterally Cardio: COMMON NORMALS: regular rate, regular rhythm, S1 normal heart sound present and S2 normal heart sound present RATE: regular rate RHYTHM: r egular rhythm HEART SOUNDS: S1 normal heart sound present and S2 normal heart sound present GI: COMMON NORMALS: Normal to inspection, nondistended, normoactive bowel sounds present and non-tender Extremity: COMMON NORMALS: no pedal edema NARRATIVE EXTREMITY EXAM: DP PT pulses palpable Neuro: COMMON NORMALS: patient oriented x3 Psych: COMMON NORMALS: mental status grossly normal Urinary Catheter Management: Recinos: Cath Placed During This Visit: yes Reason for Continuing Indwelling Catheter: Required Immobilization for Trauma or Surgery or Anesthesia Urinary Catheter Date of Insertion: 05/18/24 Urinary Catheter Time of Insertion: 18:20 Data 05/21/24 02:51 05/21/24 02:51 A&P Assessment and plan (1) Recurrent dislocation, left hip: Girdlestone procedure planned for tomorrow (2) MRSA infection: (3) Wound dehiscence: (4) Intractable back pain: (5) Hardware complicating wound infection: Qualifiers: Encounter type: initial encounter Qualified Code(s): T84.7XXA - Infection and inflammatory reaction due to other internal orthopedic prosthetic devices, implants and grafts, initial encounter Plan Recurrent left hip dislocation -With plans on Girdlestone procedure at [place] -Presents with recurrent hip dislocation, status post multiple reductions -Dr. Zapata had discussed case with Dr. Julien -Plan on Girdlestone surgery today -N.p.o. -Continue fentanyl pump -Dilaudid as needed for pain control -Lovenox for DVT prophylaxis Intractable pain/hip pain/back pain Fentanyl pump -Managed by a physician in [place] -Patient tells me that she has to go to [place] to have her fentanyl pump refilled Acute anemia -No reported bloody or black stools, no hemodynamic compromise -Iron studies, ferritin, show evidence of early iron deficiency -Protonix, Carafate -Anesthesia is wanting to give her 2 units of PRBC Multiple wounds -1 draining over left hip -1 draining over sacrum -Continue wound care, consult wound care nurse History of hardware complicating wound infection -Status post partial removal of hardware -Will continue vancomycin here, -Continue ciprofloxacin -Obtain blood cultures Full code Lovenox for DVT prophylaxis PDMP PDMP Reviewed: Last Reviewed 05/18/24 18:16 by Refugio Brewer MD Attestations 2 Medical Necessity Statement*: Patient requires hospitalization for recurrent left hip dislocation requiring surgical intervention Diagnoses Recurrent dislocation, left hip M24.452 MRSA infection A49.02 Wound dehiscence T81.30XA Intractable back pain M54.9 Hardware complicating wound infection, initial encounter T84.7XXA Encounter type: initial encounter
--- NOTE | 2024-05-21 16:21 | ANES.PAUD2 ---
Pre-Anesthetic Update Pre-Anesthetic Assessment: Date of Surgery/Procedure: 05/21/24 Proposed Procedure: Operation Date: 05/21/24 18:05 Proposed Procedures p Removal Total Hip Arthroplasty(Left) - Jaswant Julien DO Changes from Pre-Anesthetic Assessment: Hip dislocation, anemia Last Intake: Intake Last Liquid Date 05/21/24 Last Liquid Time 00:00 Last Solid Date 05/20/24 Last Solid Time 20:00 Labs Last 48hrs: Short CBC 05/20/24 05/20/24 05/20/24 Range/Units 04:38 13:53 21:18 WBC 6.43 5.83 (3.29-11.43) 10^ 3/uL Hgb 7.60 L 7.30 L 7.50 L (11.27-16.99) g/ dL Hct 25.2 L 23.9 L 24.4 L (36-47) % MCV 91.3 90.5 (85-98) fl Plt Count 276 258 (157-399) 10^3/c mm Neut % (Auto) 61.8 65.3 % Neut # (Auto) 3.97 3.81 (1.8-7.7) 10^3/u L 05/21/24 Range/Units 02:51 WBC 7.13 (3.29-11.43) 10^ 3/uL Hgb 7.80 L (11.27-16.99) g/ dL Hct 26.0 L (36-47) % MCV 91.9 (85-98) fl Plt Count 275 (157-399) 10^3/c mm Neut % (Auto) 69.0 % Neut # (Auto) 4.92 (1.8-7.7) 10^3/u L BMP 05/20/24 05/21/24 04:38 02:51 Sodium 134 L 132 L Potassium 3.8 4.0 Chloride 101 98 Carbon Dioxide 25 23 BUN 16 17 Creatinine 1.1 H 1.1 H Glucose 96 128 H Calcium 7.5 L 7.7 L Liver Function 05/20/24 05/21/24 Range/Units 04:38 02:51 Total Bilirubin 0.3 0.3 (0.15-1.2) mg/dL AST 26 25 (0-32) U/L ALT 11 11 (0-33) U/L Alkaline Phosphata se 64 64 (35-105) U/L Albumin 2.5 L 2.6 L (3.5-5.2) g/dL Blood Bank 05/21/24 10:54 Blood Type A Positive Rho(D) Type Rh positive Antibody Screen Positive Vitals: Temperature 98.1 F 05/21/24 15:35 Temperature Source Axillary 05/21/24 15:35 Pulse Rate 73 05/21/24 15:35 Pulse Rhythm Regular 05/18/24 21:05 Respiratory Rate 14 05/21/24 15:35 Respiratory Effort Spontaneous, Non- Labored 05/21/24 15:35 Respiratory Depth Normal 05/21/24 15:35 Respiratory Patter n Normal 05/21/24 15:35 Blood Pressure 145/79 05/21/24 15:35 Blood Pressure Gayla n 101 05/21/24 15:35 Blood Pressure Pos ition Semi Fowlers 05/21/24 15:35 Pulse Oximetry 97 05/21/24 15:35 Oxygen Delivery Me thod Room Air 05/21/24 12:00 Sepsis Recent Feve r Within 48 Hours No 05/18/24 14:48 Exam: Pre-Anes Outpt Exam: alert, oriented x 3, clear to auscultation bilaterally and regular rate & rhythm Cardiac Studies: Echocardiogram 05/17/24
[2024-05-21] MEDS: HYDROmorphone 1 mg/mL INJ 1ml 0.5 MG IVP (16:56)
--- NOTE | 2024-05-21 18:44 | PM.OP ---
Operative Report Date of procedure: May 21, 2024 Pre-op diagnosis: Infected total hip arthroplasty Post-op diagnosis: same Procedure done: Removal of total hip arthroplasty from left hip Surgeon: Jaswant Julien DO Estimated blood loss (mL): 100 Procedure: Removal left total hip arthroplasty. Patient brought the operative suite after an Gonasi was placed in the he was positioned with the left side up. Patient was prepped and draped in a sterile fashion. All areas impingement well-padded. Skin incisions made over the previous incision. The hip was dislocated. The stem was identified osteotome was used to take down bone over the end of the over the greater trochanter. The head was popped off using osteotomes tamp and a mallet. The extraction device was then hooked onto the implant. In the flexible osteotomes were used to loosen the implant. And then the stem was back slapped out. Next tension was brought to the acetabular component. The sharp flexible osteotomes were then used around the acetabular cup. The cut out the cup and the malleted in then rotated and sequentially increased in size. Until the cup was then removed. Cultures were taken. Wounds were irrigated vancomycin powder was placed and wound was closed in a layered fashion with 0 Vicryl 2-0 Vicryl and Monocryl suture. Sterile dressings were applied and patient was transferred to the PACU in stable condition.
[2024-05-21] MEDS: vancomycin 1,000 MG SDV 1000 MG INTRA-ARTI (18:46)
--- NOTE | 2024-05-21 19:25 | PC.NURSE ---
1924 - pt to pacu with blood infusing per anesthesia
--- NOTE | 2024-05-21 19:55 | ANE.PACU2 ---
Inpatient post-anesthesia follow up: Airway intact: Yes Vital signs: Temperature 98.0 F Pulse Rate 96 Respiratory Rate 19 Blood Pressure 105/64 Pulse Oximetry 96 Oxygen Delivery Me thod [ Room Air Current Rate & Del qamar] Oxygen Delivery Me thod Room Air Oxygen Flow Rate 8 Fraction of Inspir ed Oxygen Hydration adequate: Yes Nausea and vomiting: No Pain level: 1 Mental status: Baseline
--- NOTE | 2024-05-21 20:06 | PC.NURSE ---
1999 - per this nurse and Janee HOWARD, RN notified nurse in room that dressing to bottom needed to be changed to dr heydi of [facility] chiu - nurse verbalizes understanding - left hip bobby c/d/i - BP 152/79 - pulse 79 - 02 93% temp 97.8
[2024-05-21] MEDS: amitriptyline 25 mg Tablet 100 MG PO (21:34)
[2024-05-21] MEDS: enoxaparin 40 mg/0.4 mL Syringe SUBCUT (21:35)
[2024-05-21 23:44] LABS: Basophils % 0.3 %; Eosinophils % 0.1 %; Hematocrit 30.1 % (36-47); Lymphocytes # 0.5 10^3/uL (0.8-4.8); Lymphocytes % 5.4 %; Mean Corpuscular HGB Conc 32.6 g/dL (30-55); Mean Corpuscular Hemoglobin 28.3 pg (27-33); Mean Platelet Volume 10.3 fL (7.4-10.4); Monocytes # 0.7 10^3/uL (0.2-0.9); Monocytes % 7.9 %; Neutrophils # 7.38 10^3/uL (1.8-7.7); Neutrophils % 84.9 %; Nucleated Red Blood Cells % 0 %; Platelet Count 246 10^3/cmm (157-399); Red Blood Count 3.46 10^6/uL (3.85-5.65); Red Cell Distribution Width 15.5 % (12.1-15.1)
[2024-05-22] VITALS: BP 144/83; PULSE 83; RESP 16; TEMP 36.5; O2SAT 97
[2024-05-22] MEDS: pantoprazole 40 mg SDV IVP ×3 (02:09→23:19)
[2024-05-22 04:00] VITALS: BP 110/73; PULSE 100; RESP 18; TEMP 36.6; O2SAT 95
[2024-05-22] MEDS: sucralfate 1 gm/10 mL Oral Liq UDC PO ×4 (06:01→23:19)
[2024-05-22 06:52] LABS: Basophils % 0.3 %; Eosinophils % 0.5 %; Hematocrit 27.1 % (36-47); Lymphocytes # 1.1 10^3/uL (0.8-4.8); Lymphocytes % 17.9 %; Mean Corpuscular HGB Conc 32.1 g/dL (30-55); Mean Corpuscular Hemoglobin 28.4 pg (27-33); Mean Corpuscular Volume 88.6 fl (85-98); Mean Platelet Volume 10.7 fL (7.4-10.4); Monocytes # 0.8 10^3/uL (0.2-0.9); Monocytes % 12.9 %; Neutrophils # 4.09 10^3/uL (1.8-7.7); Neutrophils % 66.6 %; Nucleated Red Blood Cells % 0 %; Platelet Count 220 10^3/cmm (157-399); Red Blood Count 3.06 10^6/uL (3.85-5.65); Red Cell Distribution Width 16.1 % (12.1-15.1); White Blood Count 6.14 10^3/uL (3.29-11.43)
[2024-05-22 07:04] LABS: Alanine Aminotransferase 11 U/L (0-33); Albumin Level 2.2 g/dL (3.5-5.2); Alkaline Phosphatase 57 U/L (35-105); Blood Urea Nitrogen 19 mg/dL (8-23); Calcium 7.5 mg/dL (8.5-10.5); Carbon Dioxide 24 mmol/L (22-29); Chloride 100 mmol/L (98-107); Creatinine Clr Calc Pharmacy 47.5089; Globulin 3.5 g/dL (1.3-4.6); Glucose 101 mg/dL (65-115); Osmolality Calculated 276 mOsm/kg (285-295); Sodium 132 mmol/L (136-145); Total Bilirubin 0.6 mg/dL (0.15-1.2); Total Protein 5.7 g/dL (6.6-8.7)
[2024-05-22 07:07] LABS: Anion Gap 12.7 (5-19); Potassium 4.7 mmol/L (3.5-5.1)
[2024-05-22 07:08] LABS: Aspartate Amino Transferase 18 U/L (0-32)
[2024-05-22 07:56] VITALS: BP 114/74; PULSE 102; RESP 18; TEMP 36.7; O2SAT 95
[2024-05-22] MEDS: levothyroxine 50 mcg Tablet PO (08:17)
[2024-05-22] MEDS: metoprolol tartrate 25 mg Tablet PO (08:17)
[2024-05-22] MEDS: ciprofloxacin 500 mg Tablet PO ×2 (08:17→17:32)
[2024-05-22] MEDS: HYDROmorphone 0.5 MG/0.5 ML INJ 1 MG IVP ×4 (08:17→20:11)
[2024-05-22] MEDS: cyclobenzaprine 10 mg Tablet PO ×3 (08:17→22:10)
[2024-05-22] MEDS: clopidogrel 75 mg Tablet PO (08:17)
[2024-05-22] MEDS: isosorbide dinitrate 20 mg Tablet 10 MG PO (08:25)
--- NOTE | 2024-05-22 10:06 | P.PN_ITS ---
Subjective 2 Subjective: Patient's pain is improved in her left hip. Vitals/I&O/Wt Last Vital Signs Temp 98.0 F 05/22/24 07:56 Pulse 102 H 05/22/24 07:56 Resp 18 05/22/24 07:56 BP 114/74 05/22/24 07:56 Pulse Ox 95 05/22/24 07:56 O2 Del Method Room Air 05/22/24 07:56 O2 Flow Rate 8 05/21/24 19:39 05/21/24 05/22/24 05/22/24 22:59 06:59 14:59 Intake Total 400 / 500 100 / 600 Output Total 100 / 100 150 / 250 Balance 300 / 400 -50 / 350 Weight last 48 hrs Weight 123 lb 14.4 oz Weight 126 lb Physical Exam 2 Narrative: Sitting up in bed. Appears to be more comfortable this morning. Urinary Catheter Management: Recinos: Cath Placed During This Visit: yes Reason for Continuing Indwelling Catheter: Other Urinary Catheter Date of Insertion: 05/18/24 Urinary Catheter Time of Insertion: 18:20 Data 05/22/24 06:05 05/22/24 06:05 A&P Assessment and plan (1) Recurrent dislocation, left hip: Postop day #1 Girdlestone procedure. Up with physical therapy PDMP PDMP Reviewed: Not Reviewed Attestations 2 Medical Necessity Statement*: Per primary service Coding Level of Care Code Acute Code for Chg Fwd Diagnoses Recurrent dislocation, left hip M24.452
--- NOTE | 2024-05-22 11:40 | P.PN_ITS ---
<Statement entered by Kristian Grover MD - 05/22/24 13:05> I have reviewed the documentation and plan of care and agree with the assessment and plan of care as written. Dr. Kristian Grover Subjective 2 Subjective: Ms. Dennison underwent surgery for removal of the left hip arthroplasty yesterday afternoon. Upon entering the room she is laying on her back with a folded up blanket under her right hip. She states she is in a fair amount of pain still from the surgery. The wound dressings were intact upon evaluation. She states the dressing to her left lower back had to be changed a few times since yesterday due to drainage. There is a dressing over the incision on her left hip that is clean dry and intact at this time. There is a new open ulceration to the superior portion of the incision on her left lower back. Vitals/I&O/Wt Last Vital Signs Temp 98.0 F 05/22/24 07:56 Pulse 102 H 05/22/24 07:56 Resp 18 05/22/24 07:56 BP 114/74 05/22/24 07:56 Pulse Ox 95 05/22/24 07:56 O2 Del Method Room Air 05/22/24 07:56 O2 Flow Rate 8 05/21/24 19:39 05/21/24 05/22/24 05/22/24 22:59 06:59 14:59 Intake Total 400 / 500 100 / 600 240 / 240 Output Total 100 / 100 150 / 250 Balance 300 / 400 -50 / 350 240 / 240 Weight last 48 hrs Weight 56.2 kg Weight 57.153 kg Physical Exam 2 Const: COMMON NORMALS: patient oriented x3 EXAM LIMITATIONS: physical limitations GENERAL APPEARANCE: cooperative and frail appearing N UTRITIONAL APPEARANCE: thin ORIENTATION/CONSCIOUSNESS: Yes awake, Yes oriented to person, Yes oriented to place and Yes oriented to time HENMT: HEAD & SCALP: normal to inspection Resp: COMMON NORMALS: normal respiratory effort and No use of accessory muscles EFFORT & INSPECTION: Yes able to speak in complete sentences Cardio: COMMON NORMALS: regular rate RATE: regular rate Neuro: COMMON NORMALS: patient oriented x3 SENSORIUM/ORIENTATION: Yes oriented to person, Yes oriented to place and Yes oriented to time Psych: COMMON NORMALS: mental status grossly normal and speech normal A TTITUDE: Yes calm ACTIVITY/MOTOR BEHAVIOR: Yes appropriate eye contact S PEECH: Yes normal speech Skin: WOUNDS: Yes wounds noted (See wound assessment) Urinary Catheter Management: Recinos: Cath Placed During This Visit: yes Reason for Continuing Indwelling Catheter: Other Urinary Catheter Date of Insertion: 05/18/24 Urinary Catheter Time of Insertion: 18:20 Data 05/22/24 06:05 05/22/24 06:05 A&P Assessment and plan (1) Pressure ulcer of sacral region, stage 3: Sacral wound with evidence of sustained pressure around wound edges. The majority of the wound bed remains covered with adherent slough. We will utilize Santyl for enzymatic debridement. This should be covered with gauze and a sacral OPTi foam. It will be especially important for Ms. Dennison to be turned very frequently, at least every 2 hours to prevent further decline. It would be beneficial for her to be on a pressure relief mattress for the rest of her hospital stay. (2) Wound dehiscence: The left lower back wound remains stable. Upon palpation and inspection, there is a suture in the wound bed. She was unable to tolerate full investigation of this wound due to pain. At some point in the near future this will need to be removed and a wound debridement would be advantageous. There is noted to be a moderate amount of drainage coming from this wound. An ABD pad may be better suited for moisture control instead of a 4 x 6 covaderm. Will continue wet-to-dry packing with saline. There is also another small area of wound dehiscence to the incision line superior to this open area. It does not extend to deep tissue at this time. We will utilize Hydrofera Blue and an Optifoam to this area. (3) Deep tissue injury: purple/maroon appearing areas to left medial knee and right anterior leg still present without much change. She has been using a pillow between her legs consistently. Upon evaluation there is a bulla just distal to the area on the medial knee. We will continue utilizing Optifoam's to these areas daily and ensuring a pillow is always between her legs to prevent pressure between these 2 points. Plan Open wounds do not appear acutely infected at this time. Regularly change position to relieve pressure on the affected area, at minimum every 2 hours. Use pillows, foam cushions, mattress pads, or other aids to reduce pressure on vulnerable areas. Remove pressure from medical devices like catheters and oxygen tubing. Upon discharge, she would benefit from a [id number] mattress and a gel or a Roho wheelchair cushion. Nutrition will be especially important for wound healing. She would benefit from a protein supplement and/or revenue liaison consult if she is not currently receiving this and it is medically appropriate per hospitalist. Ensure pillow is placed between legs at all times to prevent further breakdown of the deep tissue injuries noted to her left medial knee and right anterior thigh. Wounds were cleansed and dressings were applied during the visit. PDMP PDMP Reviewed: Not Reviewed Attestations 2 Medical Necessity Statement*: Time Spent in Patient Care: 16 - 35 minutes Coding Level of Care Code Acute Code for Chg Fwd Diagnoses Pressure ulcer of sacral region, stage 3 L89.153 Wound dehiscence T81.30XA Deep tissue injury T14.8XXA Wound Assessment Wound Assessment Wound Number 1 Sacrum: Primary Etiology:: Pressure Ulcer Length: (cm): 3.2 cm Width: (cm): 4 cm Depth: (cm): 0.8 cm Epithelialization:: None Tunneling:: No Undermining:: No Classification: Stage 3 Limited to Skin Breakdown: No Exudate Amount:: Medium Drainage Type: Serosanguineous Foul Odor After Cleansing:: No Slough/Fibrin?: Yes Granulation Amount: Small (1-33%) Granulation Quality:: Red Necrotic Amount:: Large (67-100%) Necrotic Type:: Adherent Slough Wound Number 2 Back: Descriptor: Left and Inferior Primary Etiology:: Open Surgical Wound Length: (cm): 4 cm Width: (cm): 1.8 cm Depth: (cm): 3 cm Epithelialization:: None Tunneling:: Yes (4.5cm at 11o'clock) Limited to Skin Breakdown: No Exudate Amount:: Medium Drainage Type: Serosanguineous Foul Odor After Cleansing:: No Slough/Fibrin?: Yes Granulation Amount: Small (1-33%) Granulation Quality:: [place] Necrotic Amount:: Small (1-33%) Necrotic Type:: Adherent Slough Non Wound Condition 1: deep tissue injury: left medial knee and right anterior thigh Exudate Amount:: None Present: Wound Number 4 Back: Descriptor: Left Primary Etiology:: Open Surgical Wound Length: (cm): 1 cm Width: (cm): 0.3 cm Depth: (cm): 0.2 cm Epithelialization:: None Tunneling:: No Undermining:: No Limited to Skin Breakdown: Yes Exudate Amount:: Small Drainage Type: Serosanguineous Foul Odor After Cleansing:: No Slough/Fibrin?: No Granulation Amount: None Necrotic Amount:: None Wound Orders Wound Number 1: sacrum Dressing change frequency: Daily Wound Cleansing: Saline Primary Wound Care Dressing: Santyl, nickel thickness to wound bed Secondary Wound Care Dressing: Gauze, sacrum optifoam Off-Loading: Air fluidized (overlay) and Turn and reposition every 2 hours Wound Number 2: left lower back Dressing change frequency: Twice Daily Wound Cleansing: Saline Primary Wound Care Dressing: wet to dry packing with 4x4 gauze; Ensure tunnel at 11 o'clock is lightly packed to depth of 4.5cm Secondary Wound Care Dressing: dry gauze and ABD pad secured with Medipore tape Off-Loading: Air fluidized (overlay) and Turn and reposition every 2 hours Non Wound Condition 1: left medial knee and right anterior thigh Dressing change frequency: Daily Secondary Wound Care Dressing: optifoam Off-Loading: Other (ensure pillow is placed between legs at all times) Wound Number 4: left back Dressing change frequency: Daily Wound Cleansing: Saline Primary Wound Care Dressing: Hydrofera Blue ready Secondary Wound Care Dressing: Optifoam Off-Loading: Air fluidized and Turn and reposition every 2 hours
[2024-05-22] MEDS: magnesium lactate 84 mg Tablet PO (11:48)
[2024-05-22] MEDS: collagenase oint 30 gm 1 APPLIC TOPICAL (11:48)
[2024-05-22] MEDS: vancomycin 500 MG in sodium chloride 0.9% (plus) 100 ML 200 MG IV ×2 (11:48→23:19)
[2024-05-22 11:49] VITALS: BP 105/64; PULSE 96; RESP 19; TEMP 36.7; O2SAT 96
--- NOTE | 2024-05-22 16:25 | P.PN_ITS ---
Subjective 2 Subjective: Patient was seen this morning, she is alert oriented x 3, following all commands, her pain is more under control, she is working with observational therapy Vitals/I&O/Wt Last Vital Signs Temp 98.0 F 05/22/24 11:49 Pulse 96 05/22/24 11:49 Resp 19 H 05/22/24 11:49 BP 105/64 05/22/24 11:49 Pulse Ox 96 05/22/24 11:49 O2 Del Method Room Air 05/22/24 11:49 O2 Flow Rate 8 05/21/24 19:39 05/22/24 05/22/24 05/22/24 06:59 14:59 22:59 Intake Total 100 / 600 700 / 700 Output Total 150 / 250 Balance -50 / 350 700 / 700 Weight last 48 hrs Weight 56.2 kg Weight 57.153 kg Physical Exam 2 Const: COMMON NORMALS: no acute distress and patient oriented x3 Resp: COMMON NORMALS: normal respiratory effort, No retractions, No use of accessory muscles and clear to auscultation bilaterally AUSCULTATION: clear to auscultation bilaterally Cardio: COMMON NORMALS: regular rate, regular rhythm, S1 normal heart sound present and S2 normal heart sound present RATE: regular rate RHYTHM: r egular rhythm HEART SOUNDS: S1 normal heart sound present and S2 normal heart sound present GI: COMMON NORMALS: Normal to inspection, nondistended, normoactive bowel sounds present and non-tender Extremity: COMMON NORMALS: no pedal edema Neuro: COMMON NORMALS: patient oriented x3 Psych: COMMON NORMALS: mental status grossly normal Urinary Catheter Management: Recinos: Cath Placed During This Visit: yes Reason for Continuing Indwelling Catheter: Other Urinary Catheter Date of Insertion: 05/18/24 Urinary Catheter Time of Insertion: 18:20 Data 05/22/24 06:05 05/22/24 06:05 Micro: Microbiology 05/21/24 19:05 Gram Stain - Final Hip - Left Wound Culture - Preliminary A&P Assessment and plan (1) Recurrent dislocation, left hip: [place] procedure planned for tomorrow (2) MRSA infection: (3) Wound dehiscence: (4) Intractable back pain: (5) Hardware complicating wound infection: Qualifiers: Encounter type: initial encounter Qualified Code(s): T84.7XXA - Infection and inflammatory reaction due to other internal orthopedic prosthetic devices, implants and grafts, initial encounter Plan Recurrent left hip dislocation -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 -Continue fentanyl pump -Dilaudid as needed for pain control -Lovenox for DVT prophylaxis Intractable pain/hip pain/back pain Fentanyl pump -Managed by a physician in [place] -Patient tells me that she has to go to [place] to have her fentanyl pump refilled Acute anemia, status post 2 units PRBC -No reported bloody or black stools, no hemodynamic compromise -Iron studies, ferritin, show evidence of early iron deficiency -Protonix, Carafate Multiple wounds -1 draining over left hip -1 draining over sacrum -Continue wound care, consult wound care nurse History of hardware complicating wound infection -Status post partial removal of hardware from spine -Will continue vancomycin here, -Continue ciprofloxacin - blood cultures Full code Lovenox for DVT prophylaxis PDMP PDMP Reviewed: Last Reviewed 05/18/24 18:16 by Refugio Brewer MD Attestations 2 Medical Necessity Statement*: Patient requires hospitalization status post removal of total hip arthroplasty from the left, plan for today pain control, PT OT requiring IV antibiotics for hardware complicating wound infection Diagnoses Recurrent dislocation, left hip M24.452 MRSA infection A49.02 Wound dehiscence T81.30XA Intractable back pain M54.9 Hardware complicating wound infection, initial encounter T84.7XXA Encounter type: initial encounter
[2024-05-22] MEDS: enoxaparin 40 mg/0.4 mL Syringe SUBCUT (17:32)
[2024-05-22 18:15] VITALS: BP 99/55; PULSE 104; RESP 19; O2SAT 93
[2024-05-22] MEDS: amitriptyline 25 mg Tablet 100 MG PO (20:11)
[2024-05-22 20:33] VITALS: BP 114/70; PULSE 112; RESP 15; TEMP 37.1; O2SAT 93
[2024-05-22] MEDS: acetaminophen 325 mg Tablet 650 MG PO (23:19)
[2024-05-23] VITALS (7 sets, daily range): BP systolic 108–153; BP diastolic 65–82; PULSE 80–97; RESP 12–20; TEMP 36.5–37.7; O2SAT 94–100
[2024-05-23] MEDS: HYDROmorphone 0.5 MG/0.5 ML INJ 1 MG IVP ×6 (00:23→21:15)
[2024-05-23 05:20] LABS: Basophils % 0.7 %; Eosinophils # 0.2 10^3/uL (0.0-0.8); Eosinophils % 2.6 %; Hematocrit 22.3 % (36-47); Lymphocytes # 1.3 10^3/uL (0.8-4.8); Lymphocytes % 21.8 %; Mean Corpuscular HGB Conc 30.5 g/dL (30-55); Mean Corpuscular Volume 91.8 fl (85-98); Mean Platelet Volume 10.7 fL (7.4-10.4); Monocytes # 0.9 10^3/uL (0.2-0.9); Monocytes % 15.1 %; Neutrophils # 3.57 10^3/uL (1.8-7.7); Nucleated Red Blood Cells % 0 %; Platelet Count 163 10^3/cmm (157-399); Red Blood Count 2.43 10^6/uL (3.85-5.65); White Blood Count 6.15 10^3/uL (3.29-11.43)
[2024-05-23 05:45] LABS: Alanine Aminotransferase 10 U/L (0-33); Albumin Level 2.1 g/dL (3.5-5.2); Alkaline Phosphatase 58 U/L (35-105); Anion Gap 14.4 (5-19); Aspartate Amino Transferase 20 U/L (0-32); Blood Urea Nitrogen 30 mg/dL (8-23); Calcium 7.1 mg/dL (8.5-10.5); Carbon Dioxide 22 mmol/L (22-29); Chloride 98 mmol/L (98-107); Creatinine Clr Calc Pharmacy 26.4614; Globulin 3.3 g/dL (1.3-4.6); Glomerular Filtration Rate 27.9 mL/min (90-130); Glucose 125 mg/dL (65-115); Osmolality Calculated 278 mOsm/kg (285-295); Potassium 4.4 mmol/L (3.5-5.1); Sodium 130 mmol/L (136-145); Total Bilirubin 0.2 mg/dL (0.15-1.2); Total Protein 5.4 g/dL (6.6-8.7)
[2024-05-23] MEDS: sucralfate 1 gm/10 mL Oral Liq UDC PO ×3 (06:41→17:12)
[2024-05-23] MEDS: isosorbide dinitrate 20 mg Tablet 10 MG PO ×2 (08:30→17:11)
[2024-05-23] MEDS: ciprofloxacin 500 mg Tablet PO ×2 (08:30→21:15)
[2024-05-23] MEDS: cyclobenzaprine 10 mg Tablet PO (08:30)
[2024-05-23] MEDS: metoprolol tartrate 25 mg Tablet PO ×2 (08:31→17:12)
[2024-05-23] MEDS: levothyroxine 50 mcg Tablet PO (08:31)
--- NOTE | 2024-05-23 10:56 | P.PN_ITS ---
<Statement entered by Kristian Grover MD - 05/23/24 12:57> I have reviewed the documentation and plan of care and agree with the assessment and plan of care as written. If possible, a more in-depth conversation should be had with Ms. Dennison concerning the difficulties with managing her multiple problems and wounds in a home setting. Would be most ideal if possible if there were a skilled care option. Dr. Kristian Grover Subjective 2 Subjective: Ms. Dennison [facility]. She is in quite a bit of pain at this time, and her pain medicine is due to be given soon. Her nurse was preparing to give her a unit of blood while we were there. She was uncomfortable while turning to the right side for evaluation of the wounds to her sacrum and left lower back, therefore examination was limited. She also reports she is unable to fully turn off her backside due to postsurgical discomfort, therefore she is having a pillow tucked under alternating hips approximately every 2 hours. She plans to go home once discharged Vitals/I&O/Wt Last Vital Signs Temp 98.2 F 05/23/24 10:51 Pulse 80 05/23/24 10:51 Resp 12 05/23/24 10:51 BP 138/74 05/23/24 10:51 Pulse Ox 98 05/23/24 07:52 O2 Del Method Room Air 05/23/24 03:50 O2 Flow Rate 8 05/21/24 19:39 05/22/24 05/23/24 05/23/24 22:59 06:59 14:59 Intake Total 560 / 1260 700 / 1960 240 / 240 Output Total 600 / 600 0 / 600 Balance -40 / 660 700 / 1360 240 / 240 Weight last 48 hrs Weight 56.563 kg Weight 56.2 kg Physical Exam 2 Const: COMMON NORMALS: patient oriented x3 and alert EXAM LIMITATIONS: p hysical limitations GENERAL APPEARANCE: cooperative NUTRITIONAL APPEARANCE: thin ORIENTATION/CONSCIOUSNESS: Yes awake, Yes oriented to person, Yes oriented to place and Yes oriented to time HENMT: HEAD & SCALP: normal to inspection Resp: COMMON NORMALS: normal respiratory effort and No use of accessory muscles EFFORT & INSPECTION: Yes able to speak in complete sentences Cardio: COMMON NORMALS: regular rate RATE: regular rate Neuro: COMMON NORMALS: patient oriented x3 SENSORIUM/ORIENTATION: Yes alert, Yes oriented to person, Yes oriented to place and Yes oriented to time Psych: COMMON NORMALS: mental status grossly normal and speech normal A TTITUDE: Yes calm ACTIVITY/MOTOR BEHAVIOR: Yes appropriate eye contact S PEECH: Yes normal speech Skin: WOUNDS: Yes wounds noted (See wound assessment) Urinary Catheter Management: Recinos: Cath Placed During This Visit: yes Reason for Continuing Indwelling Catheter: Other Urinary Catheter Date of Insertion: 05/18/24 Urinary Catheter Time of Insertion: 18:20 Data 05/23/24 04:58 05/23/24 04:58 Micro: Microbiology 05/21/24 19:05 Gram Stain - Final Hip - Left Wound Culture - Preliminary A&P Assessment and plan (1) Pressure ulcer of sacral region, stage 3: Sacral wound with evidence of sustained pressure around wound edges. Deep tissue color changes surrounding the entire wound extending approximately 2-3cm from wound edges. The wound bed is nearly entirely covered with necrotic tissue. We will utilize Santyl for enzymatic debridement for now. This should be covered with gauze and a sacral OPTi foam. It will be especially important for Ms. Dennison to be turned very frequently, at least every 2 hours to prevent further decline. It would be beneficial for her to be on a pressure relief mattress for the rest of her hospital stay. (2) Wound dehiscence: The left lower back wound remains stable with slight improvement. The suture is still visible to wound bed. Ms Dennison was expiriencing great discomfort during visit, therefore exam was limited. Will continue wet-to-dry packing with saline. There is also another small area of wound dehiscence to the incision line superior to this open area. It does not extend to deep tissue at this time. We will utilize Hydrofera Blue and an Optifoam to this area. (3) Deep tissue injury: purple/maroon appearing areas to left medial knee and right anterior leg still present without change. She is now using folded up sheet between her legs as this is more comfortable for her. We will continue utilizing Optifoam's to these areas daily and ensuring a pillow or the folded sheet is always between her legs to prevent pressure between these 2 points. Plan Open wounds do not appear acutely infected at this time. Sacral wound is showing signs of decline over the last 2 days with deep tissue skin changes noted to wound edges and wound bed is entirely covered with necrotic tissue. This is due to her not being able to fully turn off her bottom after surgery on her left hip secondary to discomfort. I have relayed this to Dr. Brewer who states he will try to get her a pressure relieving mattress and talk with a surgeon about potential surgical debridement. Regularly change position to relieve pressure on the affected area, at minimum every 2 hours. Use pillows, foam cushions, mattress pads, or other aids to reduce pressure on vulnerable areas. Remove pressure from medical devices like catheters and oxygen tubing. Upon discharge, she would benefit from a hospital bed, [id number] mattress, and a gel or a Roho wheelchair cushion. Nutrition will be especially important for wound healing. She would benefit from a protein supplement and/or regional sales representative consult if she is not currently receiving this and it is medically appropriate per hospitalist. Ensure pillow is placed between legs at all times to prevent further breakdown of the deep tissue injuries noted to her left medial knee and right anterior thigh. Wounds were cleansed during the visit. Her staff nurse will apply dressings once patient has had pain medication. PDMP PDMP Reviewed: Not Reviewed Attestations 2 Medical Necessity Statement*: Time Spent in Patient Care: 16 - 35 minutes Coding Level of Care Code Acute Code for Chg Fwd Diagnoses Pressure ulcer of sacral region, stage 3 L89.153 Wound dehiscence T81.30XA Deep tissue injury T14.8XXA Wound Assessment Wound Assessment Wound Number 1 Sacrum: Primary Etiology:: Pressure Ulcer Length: (cm): 3.2 cm Width: (cm): 4 cm Depth: (cm): 0.8 cm Epithelialization:: None Tunneling:: No Undermining:: No Classification: Stage 3 Limited to Skin Breakdown: No Exudate Amount:: Medium Drainage Type: Serosanguineous Foul Odor After Cleansing:: No Slough/Fibrin?: Yes Granulation Amount: None Necrotic Amount:: Large (67-100%) Necrotic Type:: Adherent Slough Wound Number 2 Back: Descriptor: Left and Inferior Primary Etiology:: Open Surgical Wound Length: (cm): 3 cm Width: (cm): 1.5 cm Depth: (cm): 2.4 cm Epithelialization:: None Tunneling:: Yes (3cm at 11o'clock) Limited to Skin Breakdown: No Exudate Amount:: Medium Drainage Type: Serosanguineous Foul Odor After Cleansing:: No Slough/Fibrin?: Yes Granulation Amount: Medium (34-66%) Granulation Quality:: [place] Necrotic Amount:: Small (1-33%) Necrotic Type:: Adherent Slough Non Wound Condition 1: deep tissue injury: left medial knee and right anterior thigh Exudate Amount:: None Present: Wound Number 4 Back: Descriptor: Left (Superior portion of incision) Primary Etiology:: Open Surgical Wound Length: (cm): 0.8 cm Width: (cm): 0.2 cm Depth: (cm): 0.2 cm Epithelialization:: None Tunneling:: No Undermining:: No Limited to Skin Breakdown: Yes Exudate Amount:: Small Drainage Type: Serosanguineous Foul Odor After Cleansing:: No Slough/Fibrin?: No Granulation Amount: None Necrotic Amount:: None Wound Orders Wound Number 1: sacrum Dressing change frequency: Daily Wound Cleansing: Saline Primary Wound Care Dressing: Daily: Santyl, nickel thickness to wound bed Secondary Wound Care Dressing: Gauze, sacrum optifoam Off-Loading: Air fluidized (overlay) and Turn and reposition every 2 hours Wound Number 2: left lower back Dressing change frequency: Twice Daily Wound Cleansing: Saline Primary Wound Care Dressing: twice daily: wet to dry packing with 4x4 gauze; Ensure tunnel at 11 o'clock is lightly packed to depth of 4.5cm Secondary Wound Care Dressing: dry gauze and ABD pad secured with Medipore tape Off-Loading: Air fluidized (overlay) and Turn and reposition every 2 hours Non Wound Condition 1: left medial knee and right anterior thigh Dressing change frequency: Daily Secondary Wound Care Dressing: daily: optifoam Off-Loading: Other (ensure pillow is placed between legs at all times) Wound Number 4: left back Dressing change frequency: Daily Wound Cleansing: Saline Primary Wound Care Dressing: Daily: Hydrofera Blue ready Secondary Wound Care Dressing: Optifoam Off-Loading: Air fluidized and Turn and reposition every 2 hours
[2024-05-23 11:17] LABS: Vancomycin Trough 34.1 ug/mL (10-15)
--- NOTE | 2024-05-23 11:20 | PC.NURSE ---
Notified Radu, pharmacist, of [facility]
[2024-05-23] MEDS: pantoprazole 40 mg SDV IVP (11:55)
[2024-05-23] MEDS: magnesium lactate 84 mg Tablet PO (11:55)
[2024-05-23] MEDS: sodium chloride 0.9% 1,000 ML 75 ML IV (11:56)
[2024-05-23 13:20] LABS: Hematocrit 22.6 % (36-47)
--- NOTE | 2024-05-23 13:46 | PC.SOCIAL ---
IMM updated Updated pt on IMM. No questions voiced. Provided pt a copy. Initialed, dated, & timed a copy & placed in chart.
--- NOTE | 2024-05-23 14:22 | PM.CONSULT ---
Providers/Reason For Consult Consulting Physician/Specialty*: General Surgery Reason for Consult*: Anemia and sacral decubitus ulcer Attending Physician: Refugio Brewer MD Primary Care Provider: Stefany Hawk DO History of Present Illness History of Present Illness Torie Dennison is a 69 year old female With multiple medical comorbidities who is in the hospital for surgical site infection, and need for removal of left hip hardware. She has sacral ulcer as she is currently bedbound. This has been evaluated by wound care but it has been determined that it may benefit from surgical debridement. In addition she has been having consistent downtrend of the hemoglobin requiring transfusions. Currently no evidence of blood in the stool but upper GI bleeding needs to be ruled out. Review of Systems General: Reports: 10 or more systems reviewed and unremarkable except in HPI and below Medications/Allergies Home Medications ?Medication ?Instructions ?Recorded ?Confirmed ?Last Taken ?Type atorvastatin 40 mg tablet 40 mg PO DAILY 12/07/23 05/19/24 05/18/24 History clopidogrel 75 mg tablet 75 mg PO DAILY 12/07/23 05/19/24 05/18/24 History isosorbide dinitrate 10 mg tablet 10 mg PO BID 12/07/23 05/19/24 05/18/24 History levothyroxine 50 mcg capsule 50 mcg PO DAILY 12/07/23 05/19/24 05/18/24 History lubiprostone 24 mcg capsule 24 mcg PO BID 12/07/23 05/19/24 05/18/24 History (Amitiza) ciprofloxacin HCl 500 mg tablet 500 mg PO BID hardware infection 02/07/24 05/19/24 05/18/24 Rx 30 days #60 tabs amitriptyline 100 mg tablet 100 mg PO BEDTIME 04/25/24 05/19/24 05/18/24 History metoprolol tartrate 25 mg tablet 25 mg PO BIDWM #60 tabs 05/03/24 05/19/24 05/18/24 Rx pantoprazole 40 mg tablet,delayed 40 mg PO DAILY #30 tabs 05/03/24 05/19/24 05/18/24 Rx release (Protonix) aspirin 81 mg tablet,delayed 81 mg PO DAILY 05/19/24 05/19/24 05/18/24 History release bimatoprost 0.01 % eye drops 1 drp ophthalmic (eye) QPM 05/19/24 05/19/24 05/18/24 History (Lumigan) brimonidine 0.025 % eye drops 1 drp ophthalmic (eye) TID 05/19/24 05/19/24 05/18/24 History dorzolamide 2 % eye drops 1 drp ophthalmic (eye) TID 05/19/24 05/19/24 05/18/24 History netarsudil 0.02 % eye drops 1 drp ophthalmic (eye) QPM 05/19/24 05/19/24 05/18/24 History (Rhopressa) Allergies Allergy/AdvReac Type Severity Reaction Status Date / Time Penicillins Allergy Mild ALGY-Rash Verified 05/17/24 14:20 Current Medications Generic Name Dose Route Start Last Admin Trade Name Freq PRN Reason Stop Dose Admin Acetaminophen 650 mg 05/18/24 18:03 05/22/24 23:19 Acetaminophen 325 Mg Tablet PO 650 mg Q6H PRN Administration Mild/Mod Pain Or Temp >/= 101 Amitriptyline HCl 100 mg 05/18/24 21:00 05/22/24 20:11 Amitriptyline 25 Mg Tablet PO 100 mg BEDTIME GABRIELLA Administration Ciprofloxacin HCl 500 mg 05/19/24 09:00 05/23/24 08:30 Ciprofloxacin 500 Mg Tablet PO 500 mg BID GABRIELLA Administration Protocol Clopidogrel Bisulfate 75 mg 05/19/24 09:00 05/22/24 08:17 Clopidogrel 75 Mg Tablet PO 75 mg DAILY GABRIELLA Administration Collagenase 1 applic 05/22/24 12:00 05/23/24 11:03 Collagenase Oint 30 Gm TOPICAL Not Given DAILY [facility] Cyclobenzaprine HCl 10 mg 05/19/24 13:27 05/23/24 08:30 Cyclobenzaprine 10 Mg Tablet PO 10 mg TID PRN Administration MUSCLE SPASMS Enoxaparin Sodium 40 mg 05/18/24 18:15 05/22/24 17:32 Enoxaparin 40 Mg/0.4 Ml Syringe SUBCUT 40 mg Q24H GABRIELLA Administration Hydromorphone HCl 1 mg 05/19/24 01:01 05/23/24 10:55 Hydromorphone 0.5 Mg/0.5 Ml Inj IVP 1 mg Q4H PRN Administration MODERATE TO SEVERE PAIN Sodium Chloride 1,000 mls @ 75 mls/hr 05/23/24 08:45 05/23/24 11:56 Sodium Chloride 0.9% IV 75 mls/hr .[id number] GABRIELLA Administration Isosorbide Dinitrate 10 mg 05/19/24 09:00 05/23/24 08:30 Isosorbide Dinitrate 20 Mg Tablet PO 10 mg BID GABRIELLA Administration Levothyroxine Sodium 50 mcg 05/19/24 09:00 05/23/24 08:31 Levothyroxine 50 Mcg Tablet PO 50 mcg DAILY GABRIELLA Administration Magnesium Lactate 84 mg 05/20/24 12:15 05/23/24 11:55 Magnesium Lactate 84 Mg Tablet PO 84 mg Q24H GABRIELLA Administration Metoprolol Tartrate 25 mg 05/19/24 08:00 05/23/24 08:31 Metoprolol Tartrate 25 Mg Tablet PO 25 mg BIDWM GABRIELLA Administration Pantoprazole Sodium 40 mg 05/20/24 12:15 05/23/24 11:55 Pantoprazole 40 Mg Sdv IVP 40 mg Q12H GABRIELLA Administration Sucralfate 1 gm 05/20/24 12:15 05/23/24 11:55 Sucralfate 1 Gm/10 Ml Oral Liq Udc PO 1 gm Q6H GABRIELLA Administration PFSH Acute PFSH: Medical History Hardware complicating wound infection Protein-energy malnutrition Anemia Acute kidney injury Failure of left total hip arthroplasty with dislocation of hip MRSA (methicillin resistant staph aureus) culture positive Pressure injury of back, stage 4 Pressure ulcer of sacral region, unstageable Fixation hardware in spine PIC line (peripherally inserted central catheter) removal RSD (reflex sympathetic dystrophy) Dyslipidemia Atherosclerosis of coronary artery of [place] heart without angina pectoris Had a LAD stent at the bifurcation,TRYTON stenting-found to be patent by angiogram in January 2023, 30% ostial narrowing of the right renal artery. Mild disease in the other vessels Benign essential HTN T2DM (type 2 diabetes mellitus) Surgical History S/P total left hip arthroplasty Social History Smoking and tobacco/nicotine status: never used tobacco/nicotine Vitals/I&O/Wt Last Vital Signs Temp 98.0 F 05/23/24 11:40 Pulse 82 05/23/24 11:40 Resp 20 H 05/23/24 11:40 BP 131/75 05/23/24 11:40 Pulse Ox 100 05/23/24 11:40 O2 Del Method Room Air 05/23/24 11:40 O2 Flow Rate 8 05/21/24 19:39 05/22/24 05/23/24 05/23/24 22:59 06:59 14:59 Intake Total 560 / 1260 700 / 1960 480 / 480 Output Total 600 / 600 0 / 600 Balance -40 / 660 700 / 1360 480 / 480 Weight last 48 hrs Weight 124 lb 11.2 oz Weight 123 lb 14.4 oz Physical Exam Narrative: Abdomen is soft and nontender. Patient has a surgical incision on the left hip that is covered with dressing, no pressure can be placed on that area. I was able to evaluate her your sacral decubitus ulcer but due to location is very difficult to completely evaluated at the bedside. It appears to be full-thickness and appears to have devitalized margins with a small eschar. Urinary Catheter Management: Recinos: Cath Placed During This Visit: yes Reason for Continuing Indwelling Catheter: Other Urinary Catheter Date of Insertion: 05/18/24 Urinary Catheter Time of Insertion: 18:20 Data 05/23/24 04:58 05/23/24 04:58 Micro: Microbiology 05/21/24 19:05 Gram Stain - Final Hip - Left Wound Culture - Preliminary A&P Assessment and plan (1) Pressure ulcer of sacral region, stage 3: (2) Acute anemia: Plan After complete history physical examination and review of all available clinical data the following is my assessment. I do agree with the need of the debridement of the sacral decubitus ulcer as well as upper endoscopy for evaluation of possible upper GI bleeding. I Discussed all recent benefits of upper endoscopy with the patient including the risk of perforation, injury to the soft tissue of mouth and pharynx and teeth, I have also discussed the risks of debridement of the scar liquid is also including the risk of major bleeding, poor wound healing and need for additional debridements. Will plan to proceed to the OR tomorrow and we will do the case as a combined procedure. Patient will continue follow-up with wound care after we do the surgical debridement. Patient will be n.p.o. at midnight PDMP PDMP Reviewed: Not Reviewed Coding Level of Care Code Acute Code for Chg Fwd Diagnoses Pressure ulcer of sacral region, stage 3 L89.153 Acute anemia D64.9
--- NOTE | 2024-05-23 15:33 | P.PN_ITS ---
Subjective 2 Subjective: Patient was seen this morning, she is alert oriented x 3, following all commands denies any blood black stools, her pain is more under control, she is doing physical therapy -Hemoglobin down to 6.8, this is her thi rd unit of blood, discussed holding Plavix, Lovenox, monitor hemoglobin, continue Protonix, Carafate, discussed doing EGD given her diffuse anemia, will start IV iron -She also has multiple ulcers in the sac rum, spoke to wound care nurse, these will likely need debridement, -Spoke to general surgery for EGD, and d ebridement of sacral wounds Vitals/I&O/Wt Last Vital Signs Temp 98.0 F 05/23/24 11:40 Pulse 82 05/23/24 11:40 Resp 20 H 05/23/24 11:40 BP 131/75 05/23/24 11:40 Pulse Ox 100 05/23/24 11:40 O2 Del Method Room Air 05/23/24 11:40 O2 Flow Rate 8 05/21/24 19:39 05/23/24 05/23/24 05/23/24 06:59 14:59 22:59 Intake Total 700 / 1960 480 / 480 Output Total 0 / 600 Balance 700 / 1360 480 / 480 Weight last 48 hrs Weight 56.563 kg Weight 56.2 kg Physical Exam 2 Const: COMMON NORMALS: no acute distress and patient oriented x3 Resp: COMMON NORMALS: normal respiratory effort, No retractions, No use of accessory muscles and clear to auscultation bilaterally AUSCULTATION: clear to auscultation bilaterally Cardio: COMMON NORMALS: regular rate, regular rhythm, S1 normal heart sound present and S2 normal heart sound present RATE: regular rate RHYTHM: r egular rhythm HEART SOUNDS: S1 normal heart sound present and S2 normal heart sound present GI: COMMON NORMALS: Normal to inspection, nondistended, normoactive bowel sounds present, Soft to palpation and non-tender PALPATION: Yes Soft to palpation Extremity: COMMON NORMALS: no pedal edema Neuro: COMMON NORMALS: patient oriented x3 Psych: COMMON NORMALS: mental status grossly normal Skin: NARRATIVE SKIN EXAM: - 3 units -1 over thigh -1 over sacrum, necrotic tissue, knee wi th tunneling -1 over prior back surgery site, has nec rotic tissue Urinary Catheter Management: Recinos: Cath Placed During This Visit: yes Reason for Continuing Indwelling Catheter: Other Urinary Catheter Date of Insertion: 05/18/24 Urinary Catheter Time of Insertion: 18:20 Data 05/23/24 04:58 05/23/24 04:58 Micro: Microbiology 05/21/24 19:05 Gram Stain - Final Hip - Left Wound Culture - Preliminary A&P Assessment and plan (1) Recurrent dislocation, left hip: Girdlestone procedure planned for tomorrow (2) MRSA infection: (3) Wound dehiscence: (4) Intractable back pain: (5) Hardware complicating wound infection: Qualifiers: Encounter type: initial encounter Qualified Code(s): T84.7XXA - Infection and inflammatory reaction due to other internal orthopedic prosthetic devices, implants and grafts, initial encounter Plan Recurrent left hip dislocation -Presumed due to concerns for hip infection -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 -Continue IV antibiotics -Continue fentanyl pump -Dilaudid as needed for pain control -Lovenox for DVT prophylaxis Intractable pain/hip pain/back pain Fentanyl pump -Managed by a physician in [place] -Patient tells me that she has to go to [place] to have her fentanyl pump refilled Acute anemia, status post 3 units PRBC -No reported bloody or black stools, no hemodynamic compromise -Iron studies, ferritin, show evidence of early iron deficiency -Protonix, Carafate -Now working on her third unit of PRBC, -Started on IV iron -General Surgery consulted for EGD Multiple wounds -1 draining over left hip, this has healed over, this was originally debrided by care -1 draining over sacrum, monitored by wound nurse, continues to drain, neurosurgery consulted for debridement -1 over the hip -Continue wound care, consult wound care nurse History of hardware complicating wound infection -Status post partial removal of hardware from spine -Currently on daptomycin -Will continue vancomycin here, -Continue ciprofloxacin - blood cultures Now with acute kidney injury, creatinine 1.8, IV fluids Full code Lovenox for DVT prophylaxis Plan for today IV antibiotics, continue blood transfusions, IV iron infusion, IV fluids, general surgery consulted, n.p.o. midnight, for EGD, wound debridement over sacrum PDMP PDMP Reviewed: Last Reviewed 05/18/24 18:16 by Refugio Brewer MD Attestations 2 Medical Necessity Statement*: Patient requires hospitalization for debridement of wound, acute anemia, dislocation requiring Girdlestone procedure Diagnoses Recurrent dislocation, left hip M24.452 MRSA infection A49.02 Wound dehiscence T81.30XA Intractable back pain M54.9 Hardware complicating wound infection, initial encounter T84.7XXA Encounter type: initial encounter
[2024-05-23 16:35] LABS: Basophils % 0.1 %; Eosinophils # 0.2 10^3/uL (0.0-0.8); Eosinophils % 2.5 %; Hematocrit 26.9 % (36-47); Lymphocytes # 0.8 10^3/uL (0.8-4.8); Lymphocytes % 10.6 %; Mean Corpuscular Hemoglobin 29.4 pg (27-33); Mean Corpuscular Volume 91.8 fl (85-98); Mean Platelet Volume 10.4 fL (7.4-10.4); Monocytes # 0.9 10^3/uL (0.2-0.9); Monocytes % 11.8 %; Neutrophils # 5.78 10^3/uL (1.8-7.7); Neutrophils % 73.1 %; Nucleated Red Blood Cells % 0 %; Platelet Count 192 10^3/cmm (157-399); Red Blood Count 2.93 10^6/uL (3.85-5.65); Red Cell Distribution Width 15.2 % (12.1-15.1); White Blood Count 7.91 10^3/uL (3.29-11.43)
[2024-05-23 16:54] LABS: Anion Gap 12.9 (5-19); Blood Urea Nitrogen 30 mg/dL (8-23); Calcium 7.3 mg/dL (8.5-10.5); Carbon Dioxide 23 mmol/L (22-29); Chloride 100 mmol/L (98-107); Glomerular Filtration Rate 29.8 mL/min (90-130); Glucose 105 mg/dL (65-115); Osmolality Calculated 279 mOsm/kg (285-295); Potassium 4.9 mmol/L (3.5-5.1); Sodium 131 mmol/L (136-145)
[2024-05-23] MEDS: iron sucrose 200 MG in sodium chloride 0.9% (100 ml) 100 ML 220 MG IV (17:12)
--- NOTE | 2024-05-23 18:19 | PC.NURSE ---
Wound care LOW RAW SUGAR CUTTER, Alexandra, leaves dressings off during her rounds. This RN attempts to roll patient over multiple times to dress wound. Dr. Solano present for one attempt. Pt screams in pain. Wound unable to be visualized, even with pre-medication. RN notifies Dr. Brewer. No response at this time. Will notify oncoming night nurse. Patient goes for debridement of wound at 1410 05/24/2024.
--- NOTE | 2024-05-23 19:30 | PC.NURSE ---
Dr. Brewer states OK to delay wound care d/t uncontrolled pain during movement.
[2024-05-23] MEDS: amitriptyline 25 mg Tablet 100 MG PO (21:15)
[2024-05-24] VITALS (16 sets, daily range): BP systolic 106–157; BP diastolic 61–78; PULSE 63–89; RESP 15–18; TEMP 36.2–37; O2SAT 95–100; BMI 20.6
[2024-05-24] MEDS: sodium chloride 0.9% 1,000 ML 75 ML IV ×2 (00:31→18:48)
[2024-05-24] MEDS: sucralfate 1 gm/10 mL Oral Liq UDC PO ×4 (00:31→23:57)
[2024-05-24] MEDS: pantoprazole 40 mg SDV IVP ×2 (00:31→23:57)
[2024-05-24] MEDS: cyclobenzaprine 10 mg Tablet PO ×2 (01:20→19:48)
[2024-05-24] MEDS: HYDROmorphone 0.5 MG/0.5 ML INJ 1 MG IVP ×6 (01:20→23:57)
[2024-05-24 04:55] LABS: Basophils % 0.3 %; Eosinophils # 0.3 10^3/uL (0.0-0.8); Eosinophils % 4.2 %; Hematocrit 22.9 % (36-47); Lymphocytes % 13.2 %; Mean Corpuscular HGB Conc 32.3 g/dL (30-55); Mean Corpuscular Hemoglobin 28.7 pg (27-33); Mean Corpuscular Volume 88.8 fl (85-98); Mean Platelet Volume 10.1 fL (7.4-10.4); Monocytes # 0.9 10^3/uL (0.2-0.9); Monocytes % 11.5 %; Neutrophils # 5.08 10^3/uL (1.8-7.7); Neutrophils % 68.5 %; Nucleated Red Blood Cells % 0 %; Platelet Count 164 10^3/cmm (157-399); Red Blood Count 2.58 10^6/uL (3.85-5.65); Red Cell Distribution Width 15.2 % (12.1-15.1); White Blood Count 7.41 10^3/uL (3.29-11.43)
[2024-05-24 05:16] LABS: Alanine Aminotransferase 8 U/L (0-33); Albumin Level 2.2 g/dL (3.5-5.2); Alkaline Phosphatase 61 U/L (35-105); Aspartate Amino Transferase 14 U/L (0-32); Blood Urea Nitrogen 27 mg/dL (8-23); Calcium 7.3 mg/dL (8.5-10.5); Carbon Dioxide 24 mmol/L (22-29); Chloride 102 mmol/L (98-107); Creatinine Clr Calc Pharmacy 25.0687; Globulin 3.1 g/dL (1.3-4.6); Glomerular Filtration Rate 26.2 mL/min (90-130); Glucose 89 mg/dL (65-115); Osmolality Calculated 283 mOsm/kg (285-295); Sodium 134 mmol/L (136-145); Total Bilirubin 0.5 mg/dL (0.15-1.2); Total Protein 5.3 g/dL (6.6-8.7)
[2024-05-24 05:23] LABS: Vancomycin Random 24.8 ug/mL (20.0-40.0)
--- NOTE | 2024-05-24 06:58 | W.PM.OPSUD ---
Surgery/Procedure H&P Update DATE OF PROCEDURE: May 24, 2024 DATE H&P PERFORMED: 05/18/24 H&P UPDATE INFORMATION: I have reviewed H&P completed within last 30 days, I have examined patient prior to procedure, No changes to prior documentation, Changes to prior documentation as noted here and Risks and benefits of the procedure reviewed PLANNED PROCEDURE: Operation Date: 05/21/24 18:05 Proposed Procedures p Removal Total Hip Arthroplasty(Left) - Jaswant Julien DO Operation Date: 05/24/24 14:20 Proposed Procedures p Debridement of scral ulcer(Not Applicable) - Osvaldo Solano MD s EGD(Not Applicable) - Osvaldo Solano MD
--- NOTE | 2024-05-24 08:18 | P.PN_ITS ---
Subjective 2 Subjective: Patient is resting comfortably in bed. Vitals/I&O/Wt Last Vital Signs Temp 98.2 F 05/24/24 05:48 Pulse 84 05/24/24 05:48 Resp 15 05/24/24 05:48 BP 144/68 05/24/24 05:48 Pulse Ox 96 05/24/24 05:48 O2 Del Method Room Air 05/23/24 21:00 O2 Flow Rate 8 05/21/24 19:39 05/23/24 05/24/24 05/24/24 22:59 06:59 14:59 Intake Total 1330 / 2160 161.25 / 2321.25 Output Total 850 / 850 600 / 1450 Balance 480 / 1310 -438.75 / 871.25 Weight last 48 hrs Weight 124 lb Weight 124 lb 11.2 oz Physical Exam 2 Narrative: Patient is resting company in bed at this time. Urinary Catheter Management: Recinos: Cath Placed During This Visit: yes Reason for Continuing Indwelling Catheter: Perioperative Use in Selected Surgeries Urinary Catheter Date of Insertion: 05/18/24 Urinary Catheter Time of Insertion: 18:20 Data 05/24/24 04:40 05/24/24 04:40 Micro: Microbiology 05/18/24 18:25 Blood Culture - Final Blood NO GROWTH AFTER 5 DAYS 05/18/24 18:31 Blood Culture - Final Blood NO GROWTH AFTER 5 DAYS 05/21/24 19:05 Gram Stain - Final Hip - Left Wound Culture - Preliminary A&P Assessment and plan (1) Recurrent dislocation, left hip: Patient status post heart removal left hip. PDMP PDMP Reviewed: Not Reviewed Attestations 2 Medical Necessity Statement*: Per primary service Coding Level of Care Code Acute Code for Chg Fwd Diagnoses Recurrent dislocation, left hip M24.452
[2024-05-24] MEDS: metoprolol tartrate 25 mg Tablet PO ×2 (09:43→17:02)
[2024-05-24] MEDS: levothyroxine 50 mcg Tablet PO (09:44)
[2024-05-24] MEDS: isosorbide dinitrate 20 mg Tablet 10 MG PO ×2 (09:44→17:02)
--- NOTE | 2024-05-24 10:37 | ANES.PAUD2 ---
Pre-Anesthetic Update Pre-Anesthetic Assessment: Date of Surgery/Procedure: 05/24/24 Proposed Procedure: Operation Date: 05/21/24 18:05 Proposed Procedures p Removal Total Hip Arthroplasty(Left) - Jaswant Julien DO Operation Date: 05/24/24 14:20 Proposed Procedures p Debridement of scral ulcer(Not Applicable) - Osvaldo Solano MD s EGD(Not Applicable) - Osvaldo Solano MD Any changes to Pre-Anesthetic Assessment?: No Last Intake: Intake Last Liquid Date 05/24/24 Last Liquid Time 09:30 Last Solid Date 05/22/24 Last Solid Time 18:00 Labs Last 48hrs: Short CBC 05/23/24 05/23/24 05/23/24 Range/Units 04:58 04:58 04:58 WBC 6.15 (3.29-11.43) 10^ 3/uL Hgb 6.80 L 6.80 L (11.27-16.99) g/ dL Hct 22.3 L 22.6 L (36-47) % MCV 91.8 (85-98) fl Plt Count 163 (157-399) 10^3/c mm Neut % (Auto) 58.0 % Neut # (Auto) 3.57 (1.8-7.7) 10^3/u L 05/23/24 05/24/24 Range/Units 16:14 04:40 WBC 7.91 7.41 (3.29-11.43) 10^ 3/uL Hgb 8.60 L 7.40 L (11.27-16.99) g/ dL Hct 26.9 L 22.9 L (36-47) % MCV 91.8 88.8 (85-98) fl Plt Count 192 164 (157-399) 10^3/c mm Neut % (Auto) 73.1 68.5 % Neut # (Auto) 5.78 5.08 (1.8-7.7) 10^3/u L BMP 05/23/24 05/23/24 05/24/24 04:58 16:14 04:40 Sodium 130 L 131 L 134 L Potassium 4.4 4.9 4.0 Chloride 98 100 102 Carbon Dioxide 22 23 24 BUN 30 H 30 H 27 H Creatinine 1.8 H 1.7 H 1.9 H Glucose 125 H 105 89 Calcium 7.1 L 7.3 L 7.3 L Liver Function 05/23/24 05/24/24 Range/Units 04:58 04:40 Total Bilirubin 0.2 0.5 (0.15-1.2) mg/dL AST 20 14 (0-32) U/L ALT 10 8 (0-33) U/L Alkaline Phosphata se 58 61 (35-105) U/L Albumin 2.1 L 2.2 L (3.5-5.2) g/dL Blood Bank 05/21/24 10:54 Blood Type A Positive Rho(D) Type Rh positive Antibody Screen Positive Vitals: Temperature 98.6 F 05/24/24 08:00 Temperature Source Oral 05/24/24 08:00 Pulse Rate 83 05/24/24 08:00 Pulse Rhythm Regular 05/21/24 22:17 Pulse Strength 2+ Slightly Dimin ished 05/21/24 22:17 Respiratory Rate 16 05/24/24 08:00 Respiratory Effort Spontaneous, Non- Labored 05/21/24 22:29 Respiratory Depth Normal 05/21/24 22:29 Respiratory Patter n Normal 05/21/24 22:29 Blood Pressure 154/77 05/24/24 08:00 Blood Pressure Gayla n 102 05/24/24 08:00 Blood Pressure Pos ition Supine 05/23/24 03:50 Pulse Oximetry 95 05/24/24 08:00 Oxygen Delivery Me thod Room Air 05/24/24 08:00 Oxygen Flow Rate 8 05/21/24 19:39 Sepsis Recent Feve r Within 48 Hours No 05/18/24 14:48 Exam: Pre-Anes Outpt Exam: alert, oriented x 3, clear to auscultation bilaterally and regular rate & rhythm Cardiac Studies: Echocardiogram 05/17/24
[2024-05-24] MEDS: sodium chloride 0.9% 1,000 ML 30 ML IV (11:15)
--- NOTE | 2024-05-24 11:43 | US_ITS ---
WS: [id number] RENAL ULTRASOUND HISTORY: robert COMPARISON: None available. TECHNIQUE: 2-D and color Doppler imaging of the kidney submitted. Right kidney: 9.1 cm x 3.9 cm x 4.6 cm. Cortex: 0.9 cm Low normal size kidneys with mild cortical thinning. No obstruction or mass. Mild increased echogenicity. Left kidney: 8.5 cm x 4.1 cm x 4.6 cm. Cortex: 1.1 cm Small kidney with cortical thinning. No obstruction or mass. Aorta: Not visualized. Urinary Bladder: Recinos catheter present. US/US renal BI* [id number] IMPRESSION: Kidneys are measuring small caliber with no obstruction. Mild increased echogenicity RIGHT kidney suggesting mild chronic medical renal disease.
--- NOTE | 2024-05-24 12:52 | PM.OP ---
Operative Report Date of procedure: May 24, 2024 Pre-op diagnosis: Sacral decubitus ulcer and suspected GI bleeding Post-op diagnosis: Sacral decubitus ulcer stage IV, Post-op findings: No evidence of GI bleeding to the level of the second portion of the duodenum. Otherwise unremarkable EGD. Sacral decubitus ulcer initial measurements were 4 x 4 x 1 after debridement measurement of the wound was 6.5 x 5 x 1. Procedure done: Esophagogastroduodenoscopy, excisional debridement of sacral decubitus ulcer to the level of the fascia Surgeon: Osvaldo Solano MD Complications: None apparent Brief History: 69-year-old female with multiple medical problems who has acute anemia and also a decubitus ulcer. After discussion risk benefits with proceed to the OR for debridement and EGD. Procedure: Patient was brought to the OR, she was placed in a spine position. General anesthesia was given. A timeout was conducted. I then proceeded with upper endoscopy, upper endoscopy showed evidence of a normal esophagus normal stomach and normal duodenum, no evidence of GI bleeding. After endoscopy was completed the patient was transferred to the OR bed and placing a right lateral decubitus position taking care called for consideration of not manipulating her left hip area. The sacral region was prepped and draped in usual sterile fashion. The wound measure 4 x 4 x 1 cm, there was an area of devitalized tissue on the inferolateral aspect of the wound. I then proceeded with sharp excisional debridement using forceps and Metzenbaum. The pedal anesthesia was removed until we visualized healthy bleeding flat. I then used a curette to revitalized edges and the base of the wound. Hemostasis was then achieved. The final measurement of the wound was 6.5 x 5 x 1 cm. The wound was irrigated. Dressing was applied with wet-to-dry and a padded foam cover. Patient tolerated well the procedure was transferred to the PACU in stable condition.
--- NOTE | 2024-05-24 14:40 | PM.PN ---
Subjective Subjective: Patient was seen this morning, preoperatively in PACU, no acute event overnight, no fevers, no chills, no bloody or black stools Vitals/I&O/Wt Last Vital Signs Temp 97.2 F L 05/24/24 13:28 Pulse 64 05/24/24 13:28 Resp 16 05/24/24 13:28 BP 137/71 05/24/24 13:28 Pulse Ox 100 05/24/24 13:28 O2 Del Method Room Air 05/24/24 13:28 O2 Flow Rate 8 05/24/24 13:13 05/23/24 05/24/24 05/24/24 22:59 06:59 14:59 Intake Total 1330 / 2160 161.25 / 2321.25 0 / 0 Output Total 850 / 850 600 / 1450 1605 / 1605 Balance 480 / 1310 -438.75 / 871.25 -1605 / -1605 Weight last 48 hrs Weight 56.245 kg Weight 56.563 kg Physical Exam Const: COMMON NORMALS: no acute distress and patient oriented x3 Resp: COMMON NORMALS: normal respiratory effort, No retractions, No use of accessory muscles and clear to auscultation bilaterally AUSCULTATION: clear to auscultation bilaterally Cardio: COMMON NORMALS: regular rate, regular rhythm, S1 normal heart sound present and S2 normal heart sound present RATE: regular rate RHYTHM: regular rhythm HEART SOUNDS: S1 normal heart sound present and S2 normal heart sound present GI: COMMON NORMALS: Normal to inspection, nondistended, normoactive bowel sounds present and non-tender Extremity: COMMON NORMALS: no pedal edema OTHER: DP PT pulses palpable Neuro: COMMON NORMALS: patient oriented x3 Psych: COMMON NORMALS: mental status grossly normal Urinary Catheter Management: Recinos: Cath Placed During This Visit: yes Reason for Continuing Indwelling Catheter: Perioperative Use in Selected Surgeries Urinary Catheter Date of Insertion: 05/18/24 Urinary Catheter Time of Insertion: 18:20 Data 05/24/24 04:40 05/24/24 04:40 Micro: Microbiology 05/21/24 19:05 Gram Stain - Final Hip - Left Wound Culture - Final 05/18/24 18:25 Blood Culture - Final Blood NO GROWTH AFTER 5 DAYS 05/18/24 18:31 Blood Culture - Final Blood NO GROWTH AFTER 5 DAYS A&P Assessment and plan (1) Recurrent dislocation, left hip: Girdlestone procedure planned for tomorrow (2) MRSA infection: (3) Wound dehiscence: (4) Intractable back pain: (5) Hardware complicating wound infection: Qualifiers: Encounter type: initial encounter Qualified Code(s): T84.7XXA - Infection and inflammatory reaction due to other internal orthopedic prosthetic devices, implants and grafts, initial encounter Plan Recurrent left hip dislocation -Presumed due to concerns for hip infection -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 -Continue IV antibiotics -Continue fentanyl pump -Dilaudid as needed for pain control -Lovenox for DVT prophylaxis Intractable pain/hip pain/back pain Fentanyl pump -Managed by a physician in [place] -Patient tells me that she has to go to [place] to have her fentanyl pump refilled Acute anemia, status post 3 units PRBC -No reported bloody or black stools, no hemodynamic compromise -Iron studies, ferritin, show evidence of early iron deficiency -Protonix, Carafate -Started on IV iron -Plavix, Lovenox on hold -General Surgery consulted for EGD Multiple wounds -1 draining over left hip, this has healed over, this was originally debrided by care -1 draining over sacrum, monitored by wound nurse, continues to drain, neurosurgery consulted for debridement -1 over the hip -Continue wound care, consult wound care nurse History of hardware complicating wound infection -Status post partial removal of hardware from spine -Currently on daptomycin -Will continue vancomycin here, -Continue ciprofloxacin - blood cultures Now with acute kidney injury, creatinine 1.9, IV fluids, renal ultrasound Full code Lovenox for DVT prophylaxis Plan for today continue IV vancomycin, 1 dose IV Venofer, hemoglobin 7.4, recheck hemoglobin this afternoon, will consider transfusing 1 unit PRBC, she is n.p.o. for EGD, will also have debridement, follow cultures PDMP PDMP Reviewed: Last Reviewed 05/18/24 18:16 by Refugio Brewer MD Attestations Medical Necessity Statement*: Patient requires hospitalization for left hip dislocation require surgical intervention Hospital course complicated acute anemia, multiple wounds requiring debridement, JACKI Diagnoses Recurrent dislocation, left hip M24.452 MRSA infection A49.02 Wound dehiscence T81.30XA Intractable back pain M54.9 Hardware complicating wound infection, initial encounter T84.7XXA Encounter type: initial encounter
--- NOTE | 2024-05-24 15:28 | PC.OT ---
OT TREATMENT HELD TODAY PATIENT WAS IN SURGERY THIS AFTERNOON
[2024-05-24] MEDS: ciprofloxacin 500 mg Tablet PO (17:01)
[2024-05-24] MEDS: acetaminophen 325 mg Tablet 650 MG PO (17:51)
[2024-05-24 18:15] LABS: Basophils % 0.3 %; Eosinophils # 0.3 10^3/uL (0.0-0.8); Hematocrit 24.9 % (36-47); Lymphocytes # 0.8 10^3/uL (0.8-4.8); Lymphocytes % 9.7 %; Mean Corpuscular HGB Conc 30.9 g/dL (30-55); Mean Corpuscular Hemoglobin 28.7 pg (27-33); Mean Corpuscular Volume 92.9 fl (85-98); Mean Platelet Volume 10.8 fL (7.4-10.4); Monocytes # 0.8 10^3/uL (0.2-0.9); Monocytes % 9.3 %; Neutrophils # 6.55 10^3/uL (1.8-7.7); Nucleated Red Blood Cells % 0 %; Platelet Count 200 10^3/cmm (157-399); Red Blood Count 2.68 10^6/uL (3.85-5.65); Red Cell Distribution Width 15.6 % (12.1-15.1); White Blood Count 8.63 10^3/uL (3.29-11.43)
[2024-05-24 18:29] LABS: Anion Gap 17.1 (5-19); Blood Urea Nitrogen 26 mg/dL (8-23); Calcium 7.3 mg/dL (8.5-10.5); Carbon Dioxide 21 mmol/L (22-29); Chloride 101 mmol/L (98-107); Creatinine Clr Calc Pharmacy 31.6826; Glomerular Filtration Rate 34.4 mL/min (90-130); Glucose 164 mg/dL (65-115); Osmolality Calculated 288 mOsm/kg (285-295); Potassium 4.1 mmol/L (3.5-5.1); Sodium 135 mmol/L (136-145)
[2024-05-24] MEDS: amitriptyline 25 mg Tablet 100 MG PO (19:48)
[2024-05-25] VITALS (15 sets, daily range): BP systolic 109–159; BP diastolic 62–81; PULSE 72–81; RESP 15–19; TEMP 36.6–37.2; O2SAT 93–99
[2024-05-25] MEDS: HYDROmorphone 0.5 MG/0.5 ML INJ 1 MG IVP ×3 (04:22→23:41)
[2024-05-25] MEDS: sodium chloride 0.9% 1,000 ML 75 ML IV ×2 (04:22→21:07)
[2024-05-25 05:59] LABS: Basophils % 0.5 %; Eosinophils # 0.4 10^3/uL (0.0-0.8); Eosinophils % 5.8 %; Lymphocytes # 0.9 10^3/uL (0.8-4.8); Lymphocytes % 13.8 %; Mean Corpuscular HGB Conc 31.6 g/dL (30-55); Mean Corpuscular Hemoglobin 28.9 pg (27-33); Mean Corpuscular Volume 91.7 fl (85-98); Mean Platelet Volume 10.3 fL (7.4-10.4); Monocytes # 0.6 10^3/uL (0.2-0.9); Neutrophils # 4.23 10^3/uL (1.8-7.7); Nucleated Red Blood Cells % 0 %; Platelet Count 185 10^3/cmm (157-399); Red Blood Count 2.28 10^6/uL (3.85-5.65); Red Cell Distribution Width 15.3 % (12.1-15.1); White Blood Count 6.22 10^3/uL (3.29-11.43)
[2024-05-25 06:20] LABS: Vancomycin Random 21.1 ug/mL (20.0-40.0)
[2024-05-25 06:34] LABS: Alanine Aminotransferase 8 U/L (0-33); Alkaline Phosphatase 74 U/L (35-105); Aspartate Amino Transferase 14 U/L (0-32); Blood Urea Nitrogen 24 mg/dL (8-23); Carbon Dioxide 24 mmol/L (22-29); Chloride 103 mmol/L (98-107); Creatinine Clr Calc Pharmacy 27.5513; Globulin 2.6 g/dL (1.3-4.6); Glomerular Filtration Rate 27.9 mL/min (90-130); Glucose 92 mg/dL (65-115); Magnesium 1.4 mg/dL (1.7-2.3); Osmolality Calculated 286 mOsm/kg (285-295); Phosphorus 3.6 mg/dL (2.5-4.5); Sodium 136 mmol/L (136-145); Total Bilirubin 0.3 mg/dL (0.15-1.2); Total Protein 4.6 g/dL (6.6-8.7)
[2024-05-25 06:44] LABS: Hematocrit 20.9 % (36-47)
[2024-05-25 08:59] LABS: LAB Peripheral Smear Sent for Review
[2024-05-25] MEDS: metoprolol tartrate 25 mg Tablet PO ×2 (09:05→18:22)
[2024-05-25] MEDS: isosorbide dinitrate 20 mg Tablet 10 MG PO ×2 (09:05→18:22)
[2024-05-25] MEDS: levothyroxine 50 mcg Tablet PO (09:05)
[2024-05-25] MEDS: collagenase oint 30 gm 1 APPLIC TOPICAL (09:07)
[2024-05-25 09:11] LABS: Lactate Dehydrogenase 210 U/L (135-214)
[2024-05-25] MEDS: acetaminophen 325 mg Tablet 650 MG PO (09:16)
[2024-05-25] MEDS: ciprofloxacin 500 mg Tablet PO (09:16)
--- NOTE | 2024-05-25 09:31 | P.PN_ITS ---
Subjective 2 Subjective: Patient doing okay this morning, continues to have low hemoglobin but other than that she is in good spirits. Vitals/I&O/Wt Last Vital Signs Temp 98.3 F 05/25/24 07:55 Pulse 81 05/25/24 07:55 Resp 15 05/25/24 07:55 BP 159/77 05/25/24 07:55 Pulse Ox 99 05/25/24 07:55 O2 Del Method Room Air 05/25/24 07:55 O2 Flow Rate 8 05/24/24 13:13 05/24/24 05/25/24 05/25/24 22:59 06:59 14:59 Intake Total 603.5 / 1603.5 1000 / 2603.5 Output Total 1000 / 2605 Balance 603.5 / -1.5 0 / -1.5 Weight last 48 hrs Weight 137 lb 9.6 oz Weight 124 lb Physical Exam 2 GI: OTHER: Abdomen soft nontender nondistended Back/Pelvis: OTHER: Surgical site covered with dressing Urinary Catheter Management: Recinos: Cath Placed During This Visit: yes Reason for Continuing Indwelling Catheter: Perioperative Use in Selected Surgeries Urinary Catheter Date of Insertion: 05/18/24 Urinary Catheter Time of Insertion: 18:20 Data 05/25/24 05:09 05/25/24 05:09 Micro: Microbiology 05/21/24 19:05 Gram Stain - Final Hip - Left Wound Culture - Final A&P Assessment and plan (1) Pressure ulcer of sacral region, stage 3: (2) Acute anemia: Plan I explained to the patient the findings of the EGD that did not show any pathology and no evidence of bleeding. At this point I think probably the most likely source of bleeding is surgical site due to major left hip surgery. This examination with poor nutritional status and chronic disease is my primary differential for her anemia, this will be worked up and managed by medical team. Regarding her sacral wound it was debrided to healthy bleeding tissue, still has some minimal slough of covering the sacrum at the base, we will continue dressing with Santyl on a daily basis and wound care management of her sacral decubitus ulcer will be continued. PDMP PDMP Reviewed: Not Reviewed Attestations 2 Medical Necessity Statement*: Per medical team Coding Level of Care Code Acute Code for Chg Fwd Diagnoses Pressure ulcer of sacral region, stage 3 L89.153 Acute anemia D64.9
[2024-05-25] MEDS: sodium chloride 0.9% (100 ml) 100 ML 50 ML (11:38)
--- NOTE | 2024-05-25 12:17 | P.PN_ITS ---
Subjective 2 Subjective: Patient's pain is improved. She is in bed comfortably sitting. Vitals/I&O/Wt Last Vital Signs Temp 98.1 F 05/25/24 11:42 Pulse 77 05/25/24 11:42 Resp 16 05/25/24 11:42 BP 131/73 05/25/24 11:42 Pulse Ox 96 05/25/24 11:42 O2 Del Method Room Air 05/25/24 07:55 O2 Flow Rate 8 05/24/24 13:13 05/24/24 05/25/24 05/25/24 22:59 06:59 14:59 Intake Total 603.5 / 1603.5 1000 / 2603.5 786.25 / 786.25 Output Total 1000 / 2605 Balance 603.5 / -1.5 0 / -1.5 786.25 / 786.25 Weight last 48 hrs Weight 137 lb 9.6 oz Weight 124 lb Physical Exam 2 Narrative: Left hip dressing is clean dry intact no evidence of any swelling. Urinary Catheter Management: Recinos: Cath Placed During This Visit: yes Reason for Continuing Indwelling Catheter: Perioperative Use in Selected Surgeries Urinary Catheter Date of Insertion: 05/18/24 Urinary Catheter Time of Insertion: 18:20 Data 05/25/24 05:09 05/25/24 05:09 Micro: Microbiology 05/21/24 19:05 Gram Stain - Final Hip - Left Wound Culture - Final A&P Assessment and plan (1) Recurrent dislocation, left hip: Status post Girdlestone procedure PDMP PDMP Reviewed: Not Reviewed Attestations 2 Medical Necessity Statement*: Per primary service Coding Level of Care Code Acute Code for Chg Fwd Diagnoses Recurrent dislocation, left hip M24.452
--- NOTE | 2024-05-25 12:53 | P.PN_ITS ---
Subjective 2 Subjective: Ms. Dennison was evaluated at bedside on the [facility] floor today. Upon entering she is resting comfortably. She is laying on her right side with pillows behind her back. Wound dressings are in place. She is postop day 1 from a surgical debridement of her sacral ulcer. Her nurse was in the room during the visit and preparing to administer a unit of PRBC. Vitals/I&O/Wt Last Vital Signs Temp 98.0 F 05/25/24 11:57 Pulse 76 05/25/24 11:57 Resp 17 05/25/24 11:57 BP 119/69 05/25/24 11:57 Pulse Ox 97 05/25/24 11:57 O2 Del Method Room Air 05/25/24 07:55 O2 Flow Rate 8 05/24/24 13:13 05/24/24 05/25/24 05/25/24 22:59 06:59 14:59 Intake Total 603.5 / 1603.5 1000 / 2603.5 786.25 / 786.25 Output Total 1000 / 2605 Balance 603.5 / -1.5 0 / -1.5 786.25 / 786.25 Weight last 48 hrs Weight 62.414 kg Weight 56.245 kg Physical Exam 2 Const: COMMON NORMALS: patient oriented x3 and alert EXAM LIMITATIONS: p hysical limitations GENERAL APPEARANCE: cooperative NUTRITIONAL APPEARANCE: thin ORIENTATION/CONSCIOUSNESS: Yes awake, Yes oriented to person, Yes oriented to place and Yes oriented to time HENMT: HEAD & SCALP: normal to inspection Resp: COMMON NORMALS: normal respiratory effort and No use of accessory muscles EFFORT & INSPECTION: Yes able to speak in complete sentences Cardio: COMMON NORMALS: regular rate RATE: regular rate : EXTERNAL FEMALE EXAM: Yes erythema (slight erythema with increased moisture noted to skin folds of groin) Neuro: COMMON NORMALS: patient oriented x3 SENSORIUM/ORIENTATION: Yes alert, Yes oriented to person, Yes oriented to place and Yes oriented to time Psych: COMMON NORMALS: mental status grossly normal and speech normal A TTITUDE: Yes calm ACTIVITY/MOTOR BEHAVIOR: Yes appropriate eye contact S PEECH: Yes normal speech Skin: WOUNDS: Yes wounds noted (See wound assessment) Urinary Catheter Management: Recinos: Cath Placed During This Visit: yes Reason for Continuing Indwelling Catheter: Perioperative Use in Selected Surgeries Urinary Catheter Date of Insertion: 05/18/24 Urinary Catheter Time of Insertion: 18:20 Data 05/25/24 05:09 05/25/24 05:09 Micro: Microbiology 05/21/24 19:05 Gram Stain - Final Hip - Left Wound Culture - Final A&P Assessment and plan (1) Pressure ulcer of sacral region, stage 3: Sacral wound postop day 1. The darker areas within the wound are due to cauterization during surgical debridement. There is a small area of adherent slough over the sacrum in the base of the wound. As for now, we will continue with Melanie for continued enzymatic debridement of this wound. This should be covered with gauze and a sacral OPTi foam. Negative pressure wound therapy may be beneifical once this adherant slough is no longer present. It will be especially important for Ms. Dennison to be turned very frequently, at least every 2 hours to prevent further decline. It would be beneficial for her to be on a pressure relief mattress for the rest of her hospital stay. (2) Wound dehiscence: The left lower back wound remains stable. Will continue wet-to-dry packing with saline. The smaller area to the superior portion of the wound is measuring smaller and remains very superficial. We will continue Hydrofera Blue and an Optifoam to this area. (3) Deep tissue injury: purple/maroon appearing areas to left medial knee and right anterior leg still present without change. She is now using folded up sheet between her legs as this is more comfortable for her. We will continue utilizing Optifoams to these areas daily and ensuring a pillow or the folded sheet is always between her legs to prevent pressure between these 2 points. (4) Candidal intertrigo: Skin folds of the groin were noted to have increased moisture with a slight odor. Skin appears irritated and slightly erythematous without ulcerations. Will order nystatin to be applied to the skin folds in the groin. Frequent and thorough padmini-care should be performed. Plan Open wounds do not appear acutely infected at this time. Sacral wound is improved after surgical debridement. Regularly change position to relieve pressure on the affected area, at minimum every 2 hours. Use pillows, foam cushions, mattress pads, or other aids to reduce pressure on vulnerable areas. Remove pressure from medical devices like catheters and oxygen tubing. Upon discharge, she would benefit from a hospital bed, vxy-god-oftm mattress, and a gel or a Roho wheelchair cushion. Nutrition will be especially important for wound healing. She would benefit from a protein supplement and/or manager immunology consult if she is not currently receiving this and it is medically appropriate per hospitalist. Ensure pillow is placed between legs at all times to prevent further breakdown of the deep tissue injuries noted to her left medial knee and right anterior thigh. Wounds were cleansed and dressings were applied during the visit. Nystatin powder for candidal intertrigo of the groin Will sign off for now. Any further wound care recommendation or changes should be made by hospitalist services. If she is still admitted on Tuesday we will reevaluate inpatient. If she is discharged before Tuesday, we will follow-up with her outpatient within the week. At this time, she states she is going home not to a skilled nursing after discharge. PDMP PDMP Reviewed: Not Reviewed Attestations 2 Medical Necessity Statement*: Time Spent in Patient Care: 16 - 35 minutes Coding Level of Care Code Acute Code for Chg Fwd Diagnoses Pressure ulcer of sacral region, stage 3 L89.153 Wound dehiscence T81.30XA Deep tissue injury T14.8XXA Candidal intertrigo B37.2 Wound Assessment Wound Assessment Wound Number 1 Sacrum: Primary Etiology:: Pressure Ulcer Length: (cm): 6 cm Width: (cm): 5 cm Depth: (cm): 2.5 cm darkened areas within wound bed are due to cauterization during surgery on 05/24/24 Epithelialization:: None Tunneling:: No Undermining:: Yes (2cm from 11-1 o'clock) Classification: Stage 3 Limited to Skin Breakdown: No Exudate Amount:: Medium Drainage Type: Serosanguineous Foul Odor After Cleansing:: No Slough/Fibrin?: Yes Granulation Amount: Small (1-33%) Granulation Quality:: [place] Necrotic Amount:: Small (1-33%) Necrotic Type:: Adherent Slough Wound Number 2 Back: Descriptor: Left and Inferior Primary Etiology:: Open Surgical Wound Length: (cm): 2 cm Width: (cm): 1.5 cm Depth: (cm): 2.4 cm Epithelialization:: None Tunneling:: Yes (3cm at 11o'clock) Limited to Skin Breakdown: No Exudate Amount:: Medium Drainage Type: Serosanguineous Foul Odor After Cleansing:: No Slough/Fibrin?: Yes Granulation Amount: Medium (34-66%) Granulation Quality:: [place] Necrotic Amount:: Small (1-33%) Necrotic Type:: Adherent Slough Non Wound Condition 1: deep tissue injury: left medial knee and right anterior thigh Exudate Amount:: None Present: Wound Number 4 Back: Descriptor: Left (Superior portion of incision) Primary Etiology:: Open Surgical Wound Length: (cm): 0.5 cm Width: (cm): 0.1 cm Depth: (cm): 0.1 cm Epithelialization:: Small (1-33%) Tunneling:: No Undermining:: No Limited to Skin Breakdown: Yes Exudate Amount:: Small Drainage Type: Serosanguineous Foul Odor After Cleansing:: No Slough/Fibrin?: No Granulation Amount: Small (1-33%) Granulation Quality:: [place] Necrotic Amount:: None Wound Orders Wound Number 1: sacrum Dressing change frequency: Daily Wound Cleansing: Saline Primary Wound Care Dressing: Daily: Santyl, nickel thickness to wound bed with moist gauze covering Secondary Wound Care Dressing: Dry Gauze, sacrum optifoam Off-Loading: Air fluidized (overlay) and Turn and reposition every 2 hours Wound Number 2: left lower back Dressing change frequency: Twice Daily Wound Cleansing: Saline Primary Wound Care Dressing: twice daily: wet to dry packing with 4x4 gauze; Ensure tunnel at 11 o'clock is lightly packed to depth of 3cm Secondary Wound Care Dressing: dry gauze and ABD pad secured with Medipore tape Off-Loading: Air fluidized (overlay) and Turn and reposition every 2 hours Non Wound Condition 1: left medial knee and right anterior thigh Dressing change frequency: Daily Secondary Wound Care Dressing: daily: optifoam Off-Loading: Other (ensure pillow is placed between legs at all times) Wound Number 4: left back Dressing change frequency: Daily Wound Cleansing: Saline Primary Wound Care Dressing: Daily: Hydrofera Blue ready Secondary Wound Care Dressing: Optifoam Off-Loading: Air fluidized and Turn and reposition every 2 hours
--- NOTE | 2024-05-25 13:24 | PC.SOCIAL ---
IMM Updated Updated pt on IMM. No questions voiced. Provided pt a copy. Initialed, dated, & timed copy in chart.
--- NOTE | 2024-05-25 13:47 | P.PN_ITS ---
Subjective 2 Subjective: Patient was seen this morning, she is alert oriented x 3, following all commands, no acute events overnight, denies any abdominal pain, no blood or black stools, we discussed her persistent anemia, discussed EGD findings, she still intends on going home, she tells me that she wants to continue to work with physical therapy Vitals/I&O/Wt Last Vital Signs Temp 98.0 F 05/25/24 12:57 Pulse 76 05/25/24 11:57 Resp 16 05/25/24 12:57 BP 119/67 05/25/24 12:57 Pulse Ox 95 05/25/24 12:57 O2 Del Method Room Air 05/25/24 11:28 O2 Flow Rate 8 05/24/24 13:13 05/24/24 05/25/24 05/25/24 22:59 06:59 14:59 Intake Total 603.5 / 1603.5 1000 / 2603.5 786.25 / 786.25 Output Total 1000 / 2605 Balance 603.5 / -1.5 0 / -1.5 786.25 / 786.25 Weight last 48 hrs Weight 62.414 kg Weight 56.245 kg Physical Exam 2 Const: COMMON NORMALS: no acute distress and patient oriented x3 Resp: COMMON NORMALS: normal respiratory effort, No retractions, No use of accessory muscles and clear to auscultation bilaterally AUSCULTATION: clear to auscultation bilaterally Cardio: COMMON NORMALS: regular rate, regular rhythm, S1 normal heart sound present and S2 normal heart sound present RATE: regular rate RHYTHM: r egular rhythm HEART SOUNDS: S1 normal heart sound present and S2 normal heart sound present GI: COMMON NORMALS: Normal to inspection, nondistended, normoactive bowel sounds present and non-tender Extremity: COMMON NORMALS: no pedal edema Neuro: COMMON NORMALS: patient oriented x3 Psych: COMMON NORMALS: mental status grossly normal Urinary Catheter Management: Recinos: Cath Placed During This Visit: yes Reason for Continuing Indwelling Catheter: Perioperative Use in Selected Surgeries Urinary Catheter Date of Insertion: 05/18/24 Urinary Catheter Time of Insertion: 18:20 Data 05/25/24 05:09 05/25/24 05:09 Micro: Microbiology 05/21/24 19:05 Gram Stain - Final Hip - Left Wound Culture - Final A&P Assessment and plan (1) Recurrent dislocation, left hip: (2) MRSA infection: (3) Wound dehiscence: (4) Intractable back pain: (5) Hardware complicating wound infection: Qualifiers: Encounter type: initial encounter Qualified Code(s): T84.7XXA - Infection and inflammatory reaction due to other internal orthopedic prosthetic devices, implants and grafts, initial encounter Plan Recurrent left hip dislocation -Presumed due to concerns for hip infection -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 -Patient intends on going home, has enough help at home -Continue IV antibiotics -Continue fentanyl pump -Dilaudid as needed for pain control -Lovenox for DVT prophylaxis Intractable pain/hip pain/back pain Fentanyl pump -Managed by a physician in [place] -Patient tells me that she has to go to [place] to have her fentanyl pump refilled Acute anemia, status post 3 units PRBC -No reported bloody or black stools, no hemodynamic compromise -Iron studies, ferritin, show evidence of early iron deficiency, 1 dose IV Venofer -Protonix, Carafate -Started on IV iron -Hemoglobin down to 6.6 this morning, will give another unit of PRBC today -Plavix, Lovenox on hold -General Surgery consulted for EGD Multiple wounds -1 draining over left hip, this has healed over, this was originally debrided by care -1 draining over sacrum, general surgery consulted, status post debridement postop day 1, continue wound care -1 over the hip -Continue wound care, consult wound care nurse History of hardware complicating wound infection -Status post partial removal of hardware from spine -Currently on daptomycin -Will continue vancomycin here, -Continue ciprofloxacin - blood cultures Now with acute kidney injury, creatinine 1.8, IV fluids, renal ultrasound Yeast infection, start nystatin Full code Lovenox for DVT prophylaxis Plan for today hemoglobin down to 6.6, transfuse 1 unit PRBC, give 1 dose IV Venofer, is now status post 4 units PRBC, no abdominal pain complaints we will do a CT scan abdomen pelvis without IV contrast, order hemolytic labs, continue wound care, PDMP PDMP Reviewed: Last Reviewed 05/18/24 18:16 by Refugio Brewer MD Attestations 2 Medical Necessity Statement*: Patient requires hospitalization for acute anemia, multiple wounds requiring surgical intervention, wound care Diagnoses Recurrent dislocation, left hip M24.452 MRSA infection A49.02 Wound dehiscence T81.30XA Intractable back pain M54.9 Hardware complicating wound infection, initial encounter T84.7XXA Encounter type: initial encounter
--- NOTE | 2024-05-25 13:49 | CTR_ITS ---
PROCEDURE INFORMATION: Exam: CT Abdomen And Pelvis Without Contrast Exam date and time: 05/25/2024 5:16 PM Age: 69 years old Clinical indication: Abdominal tenderness; Prior surgery; Surgery date: 6+ months; Surgery type: Spinal fusion, pain pump; Additional info: Acute anemia TECHNIQUE: Imaging protocol: Computed tomography of the abdomen and pelvis without contrast. Radiation optimization: All CT scans at this facility use at least one of these dose optimization techniques: automated exposure control; mA and/or kV adjustment per patient size (includes targeted exams where dose is matched to clinical indication); or iterative reconstruction. COMPARISON: 1. CT abdomen wo con [id number] 04/26/2024 12:[address] bony pelvis [id number] 01/30/2024 3:19 PM RADIATION DOSE METRICS: Total DLP (mGy-cm): 353.99 FINDINGS: Lungs: Calcified granuloma and dependent atelectasis in the right lower lobe. Pleural spaces: Small right pleural effusion. Liver: Normal. No mass. Gallbladder and biliary ducts: Normal. No calcified stones. No ductal dilation. Pancreas: Atrophic pancreas. Spleen: Calcified granulomas in the spleen. Adrenal glands: Normal. No mass. Kidneys and ureters: Normal. No hydronephrosis. Stomach and bowel: Partial resection of the colon. Large amount of stool in the sigmoid colon, consistent with constipation. Stable 6.5 cm periumbilical hernia containing loops of nonobstructed small bowel. The stomach and small bowel are otherwise unremarkable. No wall thickening or obstruction. Appendix: The appendix is not visualized. No secondary signs of appendicitis. Intraperitoneal space: Multiple surgical clips in the abdominal cavity. Vasculature: Calcified arterial plaque. No aneurysm. Lymph nodes: Unremarkable. No enlarged lymph nodes. Urinary bladder: Recinos catheter in a decompressed urinary bladder. Reproductive: Unremarkable as visualized. Bones/joints: Electronic pump in the right abdominal wall with lead extending into the posterior thoracic spinal canal. Scoliosis and extensive fusion hardware in the thoracolumbar spine with multilevel pedicle screws and posterior stabilization rods. Anterior mechanical fusion of L4-L5. Right hip arthroplasty changes with streak artifact. The previous left hip arthroplasty hardware has been removed. There is fragmentation of the proximal left femur with a displaced fracture through the base of the greater trochanter. Left hip joint effusion with gas bubbles. Multiple heterogeneous densities with scattered gas bubbles in the left gluteus ramonita and iliacus muscles, and left lateral hip region extending into the subcutaneous soft tissues. Diffuse body wall edema. Postsurgical changes of the left acetabulum, from prior arthroplasty. Bone destruction in the anterior acetabulum is not excluded. Soft tissues: Decubitus ulcer or open wound posterior to the left iliacus muscle. There is lucency in the left iliacus muscle which appears chronic. Retained screw in the left iliac bone. CT/CT abdomen pelvis wo con [id number] IMPRESSION: 1. Findings consistent with a septic left hip joint containing fluid and gas bubbles. There has been removal of the previous arthroplasty hardware. 2. Fragmentation in the proximal left femur with displaced fracture through the greater trochanter. This is suspicious for osteomyelitis with pathologic fractures. 3. Postsurgical changes of the left acetabulum with possible osteomyelitis in the anterior acetabulum. 4. Heterogeneous densities and gas bubbles in the left gluteus ramonita and iliacus muscles. This is consistent with intramuscular hematomas with superimposed infection. 5. Heterogeneous hyperdensities with gas bubbles in the soft tissues in the lateral hip, extending into the subcutaneous region. This is consistent with soft tissue hematomas with superimposed infection. 6. Decubitus ulcer or open wound posterior to the left iliacus muscle. 7. Right pleural effusion. 8. Body wall edema.
[2024-05-25] MEDS: pantoprazole 40 mg SDV IVP ×2 (14:57→23:41)
[2024-05-25] MEDS: sucralfate 1 gm/10 mL Oral Liq UDC PO ×3 (14:58→23:40)
[2024-05-25] MEDS: iron sucrose 200 MG in sodium chloride 0.9% (100 ml) 100 ML 220 MG IV (14:58)
[2024-05-25] MEDS: magnesium lactate 84 mg Tablet PO (15:01)
--- NOTE | 2024-05-25 15:01 | PC.NURSE ---
Patients protonix late due to receiving blood and one lumen picc
[2024-05-25 20:14] LABS: Hematocrit 26.5 % (36-47)
[2024-05-25] MEDS: amitriptyline 25 mg Tablet 100 MG PO (21:07)
[2024-05-26] VITALS (9 sets, daily range): BP systolic 120–178; BP diastolic 65–88; PULSE 78–85; RESP 15–18; TEMP 37.1–37.6; O2SAT 92–95
[2024-05-26 02:24] LABS: Basophils % 0.4 %; Eosinophils # 0.3 10^3/uL (0.0-0.8); Eosinophils % 3.9 %; Hematocrit 24.3 % (36-47); Lymphocytes # 1.2 10^3/uL (0.8-4.8); Lymphocytes % 17.6 %; Mean Corpuscular HGB Conc 31.7 g/dL (30-55); Mean Corpuscular Hemoglobin 28.1 pg (27-33); Mean Corpuscular Volume 88.7 fl (85-98); Mean Platelet Volume 10.1 fL (7.4-10.4); Monocytes # 0.7 10^3/uL (0.2-0.9); Monocytes % 10.6 %; Neutrophils # 4.49 10^3/uL (1.8-7.7); Neutrophils % 65.5 %; Nucleated Red Blood Cells % 0 %; Platelet Count 204 10^3/cmm (157-399); Red Blood Count 2.74 10^6/uL (3.85-5.65); Red Cell Distribution Width 15.9 % (12.1-15.1); White Blood Count 6.87 10^3/uL (3.29-11.43)
[2024-05-26 02:49] LABS: Alanine Aminotransferase 9 U/L (0-33); Alkaline Phosphatase 77 U/L (35-105); Anion Gap 10.6 (5-19); Aspartate Amino Transferase 16 U/L (0-32); Blood Urea Nitrogen 24 mg/dL (8-23); Carbon Dioxide 23 mmol/L (22-29); Chloride 106 mmol/L (98-107); Creatinine Clr Calc Pharmacy 29.1719; Globulin 2.8 g/dL (1.3-4.6); Glomerular Filtration Rate 29.8 mL/min (90-130); Glucose 97 mg/dL (65-115); Magnesium 1.4 mg/dL (1.7-2.3); Osmolality Calculated 286 mOsm/kg (285-295); Phosphorus 2.9 mg/dL (2.5-4.5); Potassium 3.6 mmol/L (3.5-5.1); Sodium 136 mmol/L (136-145); Total Bilirubin 0.5 mg/dL (0.15-1.2); Total Protein 4.8 g/dL (6.6-8.7)
[2024-05-26 02:52] LABS: Vancomycin Random 15.1 ug/mL (20.0-40.0)
[2024-05-26] MEDS: ciprofloxacin 500 mg Tablet PO ×2 (05:00→21:14)
[2024-05-26] MEDS: sucralfate 1 gm/10 mL Oral Liq UDC PO ×3 (05:00→17:19)
[2024-05-26] MEDS: vancomycin 500 MG in sodium chloride 0.9% (plus) 100 ML 200 MG IV (08:04)
[2024-05-26] MEDS: levothyroxine 50 mcg Tablet PO (08:11)
[2024-05-26] MEDS: metoprolol tartrate 25 mg Tablet PO ×2 (08:11→17:19)
[2024-05-26] MEDS: isosorbide dinitrate 20 mg Tablet 10 MG PO ×2 (08:11→17:19)
[2024-05-26] MEDS: collagenase oint 30 gm 1 APPLIC TOPICAL (08:12)
[2024-05-26] MEDS: HYDROmorphone 0.5 MG/0.5 ML INJ 1 MG IVP ×3 (08:13→21:15)
[2024-05-26] MEDS: iron sucrose 200 MG in sodium chloride 0.9% (100 ml) 100 ML 220 MG IV (09:23)
--- NOTE | 2024-05-26 09:34 | PC.NURSE ---
Dr. Brewer seen patient and gave verbal orders to give Miralax 17 grams PO Once.
--- NOTE | 2024-05-26 09:39 | PC.NURSE ---
Dr. Brewer gave verbal orders to do a Hemoglobin/Hematocrit at 1400.
[2024-05-26] MEDS: polyethylene glycol 3350 Pkt 17 gm PO ×2 (09:55→17:19)
[2024-05-26] MEDS: pantoprazole 40 mg SDV IVP (14:15)
[2024-05-26] MEDS: magnesium lactate 84 mg Tablet PO (14:15)
--- NOTE | 2024-05-26 14:15 | P.PN_ITS ---
Subjective 2 Subjective: - Patient was seen this morning, she is alert oriented x 3, following all commands - Denies any fevers, chills, no cough - She has no pain complaints this mornin g she feels better she wants to work with physical therapy - Discussed CT scan findings, she is afe brile, she clinically feels better, leukocytosis improved I think these are all postsurgical changes will speak to Dr. Julien, speak to radiology, she is in agreement, will continue her IV antibiotics Vitals/I&O/Wt Last Vital Signs Temp 98.7 F 05/26/24 11:21 Pulse 78 05/26/24 11:21 Resp 16 05/26/24 11:21 BP 120/65 05/26/24 11:21 Pulse Ox 95 05/26/24 11:21 O2 Del Method Room Air 05/26/24 11:21 O2 Flow Rate 8 05/24/24 13:13 05/25/24 05/26/24 05/26/24 22:59 06:59 14:59 Intake Total 518.75 / 1895.00 1330 / 1330 Output Total 1000 / 1000 500 / 1500 Balance -481.25 / 895.00 -500 / 395.00 1330 / 1330 Weight last 48 hrs Weight 66.542 kg Weight 62.414 kg Physical Exam 2 Const: COMMON NORMALS: no acute distress and patient oriented x3 Resp: COMMON NORMALS: normal respiratory effort, No retractions, No use of accessory muscles and clear to auscultation bilaterally AUSCULTATION: clear to auscultation bilaterally Cardio: COMMON NORMALS: regular rate, regular rhythm, S1 normal heart sound present and S2 normal heart sound present RATE: regular rate RHYTHM: r egular rhythm HEART SOUNDS: S1 normal heart sound present and S2 normal heart sound present GI: COMMON NORMALS: Normal to inspection, nondistended, normoactive bowel sounds present and non-tender Extremity: COMMON NORMALS: no pedal edema Neuro: COMMON NORMALS: patient oriented x3 Psych: COMMON NORMALS: mental status grossly normal Urinary Catheter Management: Recinos: Cath Placed During This Visit: yes Reason for Continuing Indwelling Catheter: Other Urinary Catheter Date of Insertion: 05/18/24 Urinary Catheter Time of Insertion: 18:20 Data 05/26/24 02:05 05/26/24 02:05 A&P Assessment and plan (1) Recurrent dislocation, left hip: (2) MRSA infection: (3) Wound dehiscence: (4) Intractable back pain: (5) Hardware complicating wound infection: Qualifiers: Encounter type: initial encounter Qualified Code(s): T84.7XXA - Infection and inflammatory reaction due to other internal orthopedic prosthetic devices, implants and grafts, initial encounter Plan Recurrent left hip dislocation -Presumed due to concerns for hip infection -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 -Patient intends on going home, has enough help at home -Continue IV antibiotics -Continue fentanyl pump -Dilaudid as needed for pain control -Lovenox for DVT prophylaxis CT scan abdomen pelvis as below ordered to rule out retroperitoneal bleed with findings as below CT/CT abdomen pelvis wo con [id number] IMPRESSION: 1. Findings consistent with a septic left hip joint containing fluid and gas bubbles. There has been removal of the previous arthroplasty hardware. 2. Fragmentation in the proximal left femur with displaced fracture through the greater trochanter. This is suspicious for osteomyelitis with pathologic fractures. 3. Postsurgical changes of the left acetabulum with possible osteomyelitis in the anterior acetabulum. 4. Heterogeneous densities and gas bubbles in the left gluteus ramonita and iliacus muscles. This is consistent with intramuscular hematomas with superimposed infection. 5. Heterogeneous hyperdensities with gas bubbles in the soft tissues in the lateral hip, extending into the subcutaneous region. This is consistent with soft tissue hematomas with superimposed infection. 6. Decubitus ulcer or open wound posterior to the left iliacus muscle. 7. Right pleural effusion. 8. Body wall edema. - Will discuss with Dr. Julien -Will discuss with radiology about it being if an acute infection versus postoperative state after her multiple surgeries including her removal of left hip arthroplasty, and sacral debridement Intractable pain/hip pain/back pain Fentanyl pump -Managed by a physician in [place] -Patient tells me that she has to go to [place] to have her fentanyl pump refilled Acute anemia, status post 3 units PRBC - postoperative anemia, intramuscular hematoma, bone marrow suppression -No reported bloody or black stools, no hemodynamic compromise -CT scan abdomen pelvis was ordered as above to rule out acute bleeding into the abdomen, etc. retroperitoneal bleed, which was unremarkable except intramuscular hematomas, soft tissue hematomas as above -Iron studies, ferritin, show evidence of early iron deficiency, 2 doses IV Venofer -Protonix, Carafate -Started on IV iron -Hemoglobin down to 7.7 this morning -Plavix, Lovenox on hold -General Surgery consulted for EGD Multiple wounds -1 draining over left hip, this has healed over, this was originally debrided by care -1 draining over sacrum, general surgery consulted, status post debridement postop day 1, continue wound care s/p Sacral decubitus ulcer initial measurements were 4 x 4 x 1 after debridement measurement of the wound was 6.5 x 5 x 1. -1 over the hip -Continue wound care, consult wound care nurse History of hardware complicating wound infection -Status post partial removal of hardware from spine -Currently on daptomycin -Will continue vancomycin here, -Continue ciprofloxacin - blood cultures Now with acute kidney injury, creatinine 1.7, IV fluids, renal ultrasound Yeast infection, start nystatin Full code Lovenox for DVT prophylaxis Plan for today PT OT, continue IV antibiotics, monitor hemoglobin, monitor creatinine PDMP PDMP Reviewed: Last Reviewed 05/18/24 18:16 by Refugio Brewer MD Attestations 2 Medical Necessity Statement*: Patient requires hospitalization for acute anemia, sacral ulcer status post debridement, left hip arthroplasty and removal Diagnoses Recurrent dislocation, left hip M24.452 MRSA infection A49.02 Wound dehiscence T81.30XA Intractable back pain M54.9 Hardware complicating wound infection, initial encounter T84.7XXA Encounter type: initial encounter
[2024-05-26 14:24] LABS: Hematocrit 24.4 % (36-47)
[2024-05-26] MEDS: bisacodyl 5 mg Tablet 10 MG PO (16:24)
[2024-05-26] MEDS: nystatin powder 15 gm Btl 1 APPLIC TOPICAL (16:28)
[2024-05-26] MEDS: amitriptyline 25 mg Tablet 100 MG PO (21:14)
[2024-05-27] VITALS (9 sets, daily range): BP systolic 116–180; BP diastolic 66–96; PULSE 80–98; RESP 16–20; TEMP 36.6–37.4; O2SAT 95–96
[2024-05-27] MEDS: sucralfate 1 gm/10 mL Oral Liq UDC PO ×4 (00:03→18:04)
[2024-05-27] MEDS: pantoprazole 40 mg SDV IVP ×2 (00:03→11:36)
[2024-05-27] MEDS: HYDROmorphone 0.5 MG/0.5 ML INJ 1 MG IVP ×2 (00:25→06:44)
[2024-05-27] MEDS: cyclobenzaprine 10 mg Tablet PO ×2 (01:40→11:36)
[2024-05-27] MEDS: bisacodyl 5 mg Tablet 10 MG PO ×2 (01:40→15:25)
[2024-05-27 03:51] LABS: Basophils % 0.4 %; Eosinophils # 0.2 10^3/uL (0.0-0.8); Eosinophils % 2.3 %; Hematocrit 31.2 % (36-47); Lymphocytes # 1.3 10^3/uL (0.8-4.8); Lymphocytes % 14.4 %; Mean Corpuscular HGB Conc 31.7 g/dL (30-55); Mean Corpuscular Hemoglobin 28.3 pg (27-33); Mean Corpuscular Volume 89.1 fl (85-98); Mean Platelet Volume 10.1 fL (7.4-10.4); Monocytes # 0.9 10^3/uL (0.2-0.9); Monocytes % 9.3 %; Neutrophils # 6.57 10^3/uL (1.8-7.7); Neutrophils % 71.1 %; Nucleated Red Blood Cells % 0 %; Platelet Count 252 10^3/cmm (157-399); Red Cell Distribution Width 15.8 % (12.1-15.1); White Blood Count 9.24 10^3/uL (3.29-11.43)
[2024-05-27 04:17] LABS: Alanine Aminotransferase 12 U/L (0-33); Albumin Level 2.7 g/dL (3.5-5.2); Alkaline Phosphatase 97 U/L (35-105); Anion Gap 15.8 (5-19); Aspartate Amino Transferase 20 U/L (0-32); Blood Urea Nitrogen 28 mg/dL (8-23); Calcium 7.9 mg/dL (8.5-10.5); Carbon Dioxide 24 mmol/L (22-29); Chloride 99 mmol/L (98-107); Creatinine Clr Calc Pharmacy 31.8602; Globulin 3.6 g/dL (1.3-4.6); Glucose 108 mg/dL (65-115); Magnesium 1.4 mg/dL (1.7-2.3); Osmolality Calculated 286 mOsm/kg (285-295); Phosphorus 2.5 mg/dL (2.5-4.5); Potassium 3.8 mmol/L (3.5-5.1); Sodium 135 mmol/L (136-145); Total Bilirubin 0.7 mg/dL (0.15-1.2); Total Protein 6.3 g/dL (6.6-8.7)
[2024-05-27] MEDS: levothyroxine 50 mcg Tablet PO (08:00)
[2024-05-27] MEDS: metoprolol tartrate 25 mg Tablet PO ×2 (08:00→18:03)
[2024-05-27] MEDS: isosorbide dinitrate 20 mg Tablet 10 MG PO ×2 (08:00→18:03)
[2024-05-27] MEDS: polyethylene glycol 3350 Pkt 17 gm PO ×2 (08:00→18:04)
[2024-05-27] MEDS: oxyCODONE-APAP 5-325 mg Tablet 1 TAB PO ×3 (11:36→21:22)
[2024-05-27] MEDS: magnesium lactate 84 mg Tablet PO (11:36)
[2024-05-27] MEDS: collagenase oint 30 gm 1 APPLIC TOPICAL (12:31)
[2024-05-27] MEDS: ciprofloxacin 500 mg Tablet PO (15:25)
--- NOTE | 2024-05-27 15:35 | P.PN_ITS ---
Subjective 2 Subjective: Patient was seen this morning, does report fatigue, malaise, she had a difficult night, reports generalized weakness, she reports she wants to do better with physical therapy before going home, she feels that she is not ready, we discussed placement to a [place] [facility] facility for rehab however she declines Vitals/I&O/Wt Last Vital Signs Temp 98.0 F 05/27/24 13:00 Pulse 80 05/27/24 13:00 Resp 18 05/27/24 13:00 BP 116/66 05/27/24 13:00 Pulse Ox 95 05/27/24 13:00 O2 Del Method Room Air 05/27/24 13:00 O2 Flow Rate 8 05/24/24 13:13 05/27/24 05/27/24 05/27/24 06:59 14:59 22:59 Intake Total 600 / 600 Balance 600 / 600 Weight last 48 hrs Weight 61.779 kg Weight 66.542 kg Physical Exam 2 Const: COMMON NORMALS: no acute distress and patient oriented x3 Resp: COMMON NORMALS: normal respiratory effort, No retractions, No use of accessory muscles and clear to auscultation bilaterally AUSCULTATION: clear to auscultation bilaterally Cardio: COMMON NORMALS: regular rate, regular rhythm, S1 normal heart sound present and S2 normal heart sound present RATE: regular rate RHYTHM: r egular rhythm HEART SOUNDS: S1 normal heart sound present and S2 normal heart sound present GI: COMMON NORMALS: Normal to inspection, nondistended, normoactive bowel sounds present and non-tender Extremity: COMMON NORMALS: no pedal edema Neuro: COMMON NORMALS: patient oriented x3 Psych: COMMON NORMALS: mental status grossly normal Skin: NARRATIVE SKIN EXAM: Multiple areas of superficial bruising, left hip, sacrum Urinary Catheter Management: Recinos: Cath Placed During This Visit: yes, but has since been removed by the nurse Reason for Continuing Indwelling Catheter: Decision to DC Catheter Urinary Catheter Date of Insertion: 05/18/24 Urinary Catheter Time of Insertion: 18:20 Date Urinary Catheter Removed: 05/27/24 Time Urinary Catheter Discontinued: 03:00 Data 05/27/24 03:21 05/27/24 03:21 A&P Assessment and plan (1) Recurrent dislocation, left hip: (2) MRSA infection: (3) Wound dehiscence: (4) Intractable back pain: (5) Hardware complicating wound infection: Qualifiers: Encounter type: initial encounter Qualified Code(s): T84.7XXA - Infection and inflammatory reaction due to other internal orthopedic prosthetic devices, implants and grafts, initial encounter Plan Recurrent left hip dislocation -Presumed due to concerns for hip infection -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 -Patient intends on going home, has enough help at home -Continue IV antibiotics -Continue fentanyl pump -Dilaudid as needed for pain control -Lovenox for DVT prophylaxis CT scan abdomen pelvis as below ordered to rule out retroperitoneal bleed with findings as below CT/CT abdomen pelvis wo con [id number] IMPRESSION: 1. Findings consistent with a septic left hip joint containing fluid and gas bubbles. There has been removal of the previous arthroplasty hardware. 2. Fragmentation in the proximal left femur with displaced fracture through the greater trochanter. This is suspicious for osteomyelitis with pathologic fractures. 3. Postsurgical changes of the left acetabulum with possible osteomyelitis in the anterior acetabulum. 4. Heterogeneous densities and gas bubbles in the left gluteus ramonita and iliacus muscles. This is consistent with intramuscular hematomas with superimposed infection. 5. Heterogeneous hyperdensities with gas bubbles in the soft tissues in the lateral hip, extending into the subcutaneous region. This is consistent with soft tissue hematomas with superimposed infection. 6. Decubitus ulcer or open wound posterior to the left iliacus muscle. 7. Right pleural effusion. 8. Body wall edema. - Will discuss with Dr. Julien -Will discuss with radiology about it being if an acute infection versus postoperative state after her multiple surgeries including her removal of left hip arthroplasty, and sacral debridement Intractable pain/hip pain/back pain Fentanyl pump -Managed by a physician in [place] -Patient tells me that she has to go to [place] to have her fentanyl pump refilled Acute anemia, status post 4 units PRBC - postoperative anemia, intramuscular hematoma, bone marrow suppression -No reported bloody or black stools, no hemodynamic compromise -CT scan abdomen pelvis was ordered as above to rule out acute bleeding into the abdomen, etc. retroperitoneal bleed, which was unremarkable except intramuscular hematomas, soft tissue hematomas as above -Iron studies, ferritin, show evidence of early iron deficiency, 4 doses IV Venofer -Protonix, Carafate -Started on IV iron -Hemoglobin 9.9 -Plavix, Lovenox on hold -General Surgery consulted for EGD, no acute findings Multiple wounds -1 draining over left hip, this has healed over, this was originally debrided by care -1 draining over sacrum, general surgery consulted, status post debridement postop day 1, continue wound care s/p Sacral decubitus ulcer initial measurements were 4 x 4 x 1 after debridement measurement of the wound was 6.5 x 5 x 1. -1 over the hip -Continue wound care, consult wound care nurse History of hardware complicating wound infection -Status post partial removal of hardware from spine -Currently on daptomycin -Will continue vancomycin here, -Continue ciprofloxacin - blood cultures History of fentanyl pump, will have to have it arranged with outpatient follow- up with pain management for refills Now with acute kidney injury, creatinine 1.6, IV fluids stopped, renal ultrasound Yeast infection, start nystatin Deconditioning, declines residential placement Full code Lovenox for DVT prophylaxis Plan for today PT OT, continue IV antibiotics, monitor hemoglobin, monitor creatinine PDMP PDMP Reviewed: Last Reviewed 05/18/24 18:16 by Refugio Brewer MD Attestations 2 Medical Necessity Statement*: Patient requires hospitalization for left hip status removal left hip arthroplasty, acute anemia, deconditioning Diagnoses Recurrent dislocation, left hip M24.452 MRSA infection A49.02 Wound dehiscence T81.30XA Intractable back pain M54.9 Hardware complicating wound infection, initial encounter T84.7XXA Encounter type: initial encounter
[2024-05-27] MEDS: iron sucrose 200 MG in sodium chloride 0.9% (100 ml) 100 ML 220 MG IV (16:29)
--- NOTE | 2024-05-27 17:10 | PC.NURSE ---
Patient's PICC hard to flush this morning before administering IV protonix. IV protonix administered. This nurse noticed last PICC dressing change was on 05/18/24. Patient stated she believed her home nurse changed the dressing. This nurse told patient we would change the dressing today. This nurse went to administer IV iron sucrose and PICC continued to have a sluggish flush. This nurse told patient that I would change the dressing before administering medication. PICC line was covered by a 2x2 guaze under dressing. When tegaderm and guaze was removed, this nurse noticed that PICC line was out quite a bit and looped upward.This nurse called for SHARON Castañeda Charge to come look at line. This nurse measured line being out at 4cm. Dressing was applied as it to protect from further removal until MD notified. Dr. Brewer was notified immediately and ordered for line to be removed and a new order for PICC to be placed. SHARON Castañeda Charge was notified and to remove line.
--- NOTE | 2024-05-27 17:34 | PC.NURSE ---
Patient care nurse went to change dressing to left upper arm picc line and noted the external line measured 4cm and called this nurse to observe. Previous documentation noted the external line to measure only 1cm, therefore physician notified. RBVO to remove picc line and insert peripheral IV and to place an order for a new Picc tomorrow. Orders placed. This nurse removed Picc line and Peripheral line inserted to patients right wrist. Patient tolerated well.
[2024-05-27] MEDS: amitriptyline 25 mg Tablet 100 MG PO (21:16)
[2024-05-28] VITALS (11 sets, daily range): BP systolic 124–146; BP diastolic 61–78; PULSE 73–97; RESP 16–20; TEMP 36.4–37.2; O2SAT 91–97; BMI 22.6
[2024-05-28] MEDS: pantoprazole 40 mg SDV IVP ×2 (00:28→11:37)
[2024-05-28] MEDS: sucralfate 1 gm/10 mL Oral Liq UDC PO ×4 (00:28→18:11)
[2024-05-28] MEDS: bisacodyl 5 mg Tablet 10 MG PO ×2 (01:51→15:05)
[2024-05-28] MEDS: oxyCODONE-APAP 5-325 mg Tablet 1 TAB PO ×5 (01:51→22:01)
[2024-05-28 03:37] LABS: Basophils % 0.5 %; Eosinophils # 0.4 10^3/uL (0.0-0.8); Eosinophils % 4.8 %; Hematocrit 27.7 % (36-47); Lymphocytes # 1.3 10^3/uL (0.8-4.8); Lymphocytes % 15.3 %; Mean Corpuscular Hemoglobin 27.9 pg (27-33); Mean Corpuscular Volume 89.9 fl (85-98); Mean Platelet Volume 10.2 fL (7.4-10.4); Monocytes # 0.8 10^3/uL (0.2-0.9); Neutrophils # 5.69 10^3/uL (1.8-7.7); Neutrophils % 68.2 %; Nucleated Red Blood Cells % 0 %; Platelet Count 311 10^3/cmm (157-399); Red Blood Count 3.08 10^6/uL (3.85-5.65); Red Cell Distribution Width 15.4 % (12.1-15.1); White Blood Count 8.34 10^3/uL (3.29-11.43)
[2024-05-28 03:52] LABS: Vancomycin Random 12.5 ug/mL (20.0-40.0)
[2024-05-28 03:55] LABS: Anion Gap 13.7 (5-19); Blood Urea Nitrogen 29 mg/dL (8-23); Calcium 7.5 mg/dL (8.5-10.5); Carbon Dioxide 24 mmol/L (22-29); Chloride 100 mmol/L (98-107); Glomerular Filtration Rate 37.3 mL/min (90-130); Glucose 98 mg/dL (65-115); Osmolality Calculated 284 mOsm/kg (285-295); Potassium 3.7 mmol/L (3.5-5.1); Sodium 134 mmol/L (136-145)
--- NOTE | 2024-05-28 08:26 | XR_ITS ---
WS: [id number] Exam: XR chest 1V portable [id number] Date/Time of Exam: 05/28/2024 9:04 AM Reason For Exam: Post PICC insertion Comparison 04/29/2024. A right-sided PICC line has been placed and ends in the lower one third of the SVC in good position. The lungs are clear. Cardiomediastinal silhouette is unremarkable. Roth rods are positioned in the thoracic spine with mild dextroscoliosis. Bony structures are intact. No pneumothorax or pleural effusion. XR/XR chest 1V portable [id number] IMPRESSION: 1. Right-sided PICC line ending in the lower one third of the SVC in good posit ion. 2. No acute cardiopulmonary finding.
[2024-05-28] MEDS: ciprofloxacin 500 mg Tablet PO (09:40)
[2024-05-28] MEDS: levothyroxine 50 mcg Tablet PO (09:40)
[2024-05-28] MEDS: metoprolol tartrate 25 mg Tablet PO ×2 (09:40→18:11)
[2024-05-28] MEDS: polyethylene glycol 3350 Pkt 17 gm PO ×2 (09:41→18:10)
[2024-05-28] MEDS: vancomycin 500 MG in sodium chloride 0.9% (plus) 100 ML 200 MG IV (09:41)
[2024-05-28] MEDS: isosorbide dinitrate 20 mg Tablet 10 MG PO ×2 (09:44→18:11)
--- NOTE | 2024-05-28 09:54 | PICC.NOTE ---
Single lumen PICC placed to right basilic vein. Referred to vascular access nurse for PICC placement due to PICC in left arm pulled out greater than 4 cm and removed on 05/27/24. Risks and benefits discussed and informed consent obtained from pt. Right arm assessed with right basilic vein measuring 4.3 mm, straight, and apparent best choice for placement. Using sterile technique and MST, right basilic vein accessed x 1 stick. Mid-arm circumference measured 10 cm from right AC 22 cm. Trimmed cath 35 cm with 0 cm external length noted. CXR shows tip in distal SVC, in good position for use per radiologist. Line secured with stat-lock. Insertion site covered with Biopatch and TSM. Report given to bedside nurse, [facility].
--- NOTE | 2024-05-28 10:32 | PC.SOCIAL ---
IMM Updated Updated pt on IMM. No questions voiced. Provided pt a copy. Initialed, dated, & timed copy in chart.
[2024-05-28] MEDS: magnesium lactate 84 mg Tablet PO (11:37)
[2024-05-28] MEDS: collagenase oint 30 gm 1 APPLIC TOPICAL (15:00)
--- NOTE | 2024-05-28 15:18 | P.PN_ITS ---
<Statement entered by Kristian Grover MD - 05/28/24 16:30> I have reviewed the documentation and plan of care and agree with the assessment and plan of care as written. This is a very challenging situation and given that Ms. Dennison is fairly adamant about care at home as opposed to a more structured group home care environment, there is a high risk for wound deterioration and more systemic sequelae. Dr. Kristian Grover Subjective 2 Subjective: Ms. eDnnison was evaluated at bedside on the [facility] floor today. She was resting comfortably in bed with pillows propped behind her left side. She reports she is going home tomorrow at noon. She does not have a hospital bed at home and does not want one. She states she has a purple mattress she likes to sleep on that is very comfortable for her. I discussed with her how a hospital bed and vyv-vok-sanj mattress would be of benefit for wound healing, she is not interested. She is agreeable to a [employer] wheelchair cushion. Vitals/I&O/Wt Last Vital Signs Temp 98.0 F 05/28/24 11:38 Pulse 97 05/28/24 11:38 Resp 20 H 05/28/24 11:38 BP 134/78 05/28/24 11:38 Pulse Ox 92 05/28/24 11:38 O2 Del Method Room Air 05/28/24 11:38 O2 Flow Rate 8 05/24/24 13:13 05/28/24 05/28/24 05/28/24 06:59 14:59 22:59 Intake Total 440 / 1390 580 / 580 Balance 440 / 1390 580 / 580 Weight last 48 hrs Weight 61.689 kg Weight 61.779 kg Physical Exam 2 Const: COMMON NORMALS: patient oriented x3 and alert EXAM LIMITATIONS: p hysical limitations GENERAL APPEARANCE: cooperative NUTRITIONAL APPEARANCE: thin ORIENTATION/CONSCIOUSNESS: Yes awake, Yes oriented to person, Yes oriented to place and Yes oriented to time HENMT: HEAD & SCALP: normal to inspection Resp: COMMON NORMALS: normal respiratory effort and No use of accessory muscles EFFORT & INSPECTION: Yes able to speak in complete sentences Cardio: COMMON NORMALS: regular rate RATE: regular rate : EXTERNAL FEMALE EXAM: Yes erythema (slight erythema with increased moisture noted to skin folds of groin) Neuro: COMMON NORMALS: patient oriented x3 SENSORIUM/ORIENTATION: Yes alert, Yes oriented to person, Yes oriented to place and Yes oriented to time Psych: COMMON NORMALS: mental status grossly normal and speech normal A TTITUDE: Yes calm ACTIVITY/MOTOR BEHAVIOR: Yes appropriate eye contact S PEECH: Yes normal speech Skin: NARRATIVE SKIN EXAM: light erythema with satellite lesions to skin folds of perineum, surrounding wounds, and on R upper back GENERAL SKIN EXAM: erythema WOUNDS: Yes wounds noted (See wound assessment) Data 05/28/24 02:31 05/28/24 02:31 Micro: Microbiology 05/27/24 17:55 Occult Blood (FIT) - Final Stool Routine Collection A&P Assessment and plan (1) Pressure ulcer of sacral region, stage 3: The area of adherent slough over the sacrum in the base of the wound remains the same. The majority of the cauterized tissue is no longer present. There is increasing granulation in these areas. As for now, we will continue with Santyl for continued enzymatic debridement of this wound. This should be covered with gauze and a sacral OPTi foam. It will be especially important for Ms. Dennison to be turned very frequently, at least every 2 hours to prevent further decline. It would be beneficial for her to be on a pressure relief mattress for the rest of her hospital stay. (2) Wound dehiscence: The left lower back wound remains stable with slight improvement in the measurements. There is notable erythema surrounding the wound as well as increased moisture. It is blanchable without warmth. Could likely be from [place]ie. Will continue wet-to-dry packing with saline. The smaller area to the superior portion of the wound is measuring smaller and remains very superficial. We will continue Hydrofera Blue and an Optifoam to this area. (3) Deep tissue injury: purple/maroon appearing areas to left medial knee and right anterior leg are still stable without change. She is now using a pillow again between her legs. We will continue utilizing Optifoams to these areas daily and ensuring a pillow is always between her legs to prevent pressure between these 2 points. (4) Candidal intertrigo: Skin folds of the groin, her buttocks, and an area on her right upper back were noted to have slightly erythematous patches with satellite lesions. No ulcerations within these areas are noted. A similar presentation is also occurring to the periwound of her sacral and left lower back wounds. Will continue nystatin. Frequent and thorough padmini-care should be performed. I have reached out to Dr. Brewer regarding a systemic antifungal given the inadequate response by nystatin powder. Plan Open wounds do not appear acutely infected at this time. The sacral wound is measuring larger, although there is new granulation tissue within the wound bed. This wound will be especially hard to heal given its location, size, and Ms. Dennison's health status and inability to adequately offload the area. Regularly change position to relieve pressure on the affected area, at minimum every 2 hours. Use pillows, foam cushions, mattress pads, or other aids to reduce pressure on vulnerable areas. Remove pressure from medical devices like catheters and oxygen tubing. Upon discharge, she would benefit from a hospital bed, [id number]-kvr-quac mattress, and a gel or a [employer] wheelchair cushion. She is refusing the hospital bed and [id number]-[id number] mattress. Nutrition will be especially important for wound healing. She would benefit from a protein supplement and/or weave room supervisor consult if she is not currently receiving this and it is medically appropriate per hospitalist. Ensure pillow is placed between legs at all times to prevent further breakdown of the deep tissue injuries noted to her left medial knee and right anterior thigh. Wounds were cleansed and dressings were applied during the visit. Talked with Dr. Ruiz about systemic antifungal to address yeast.. We will follow-up with her outpatient on June 01 at 9 AM. PDMP PDMP Reviewed: Not Reviewed Attestations 2 Medical Necessity Statement*: Time Spent in Patient Care: 16 - 35 minutes Coding Level of Care Code Acute Code for [facility] Fwd Diagnoses Pressure ulcer of sacral region, stage 3 L89.153 Wound dehiscence T81.30XA Deep tissue injury T14.8XXA Candidal intertrigo B37.2 Wound Assessment Wound Assessment Wound Number 1 Sacrum: Primary Etiology:: Pressure Ulcer Length: (cm): 6.5 cm Width: (cm): 5 cm Depth: (cm): 2.5 cm Epithelialization:: None Tunneling:: No Undermining:: Yes (2cm from 11-1 o'clock) Classification: Stage 3 Limited to Skin Breakdown: No Exudate Amount:: Medium Drainage Type: Serosanguineous Foul Odor After Cleansing:: No Slough/Fibrin?: Yes Granulation Amount: Medium (34-66%) Granulation Quality:: [place] Necrotic Amount:: Medium (34-66%) Necrotic Type:: Eschar and Adherent Slough Wound Number 2 Back: Descriptor: Left and Inferior Primary Etiology:: Open Surgical Wound Length: (cm): 1.5 cm Width: (cm): 1.5 cm Depth: (cm): 2 cm Epithelialization:: None Tunneling:: Yes (2cm at 11o'clock) Limited to Skin Breakdown: No Exudate Amount:: Medium Drainage Type: Serosanguineous Foul Odor After Cleansing:: No Slough/Fibrin?: Yes Granulation Amount: Medium (34-66%) Granulation Quality:: [place] Necrotic Amount:: Small (1-33%) Necrotic Type:: Adherent Slough Non Wound Condition 1: deep tissue injury: left medial knee and right anterior thigh Exudate Amount:: None Present: Wound Number 4 Back: Descriptor: Left (Superior portion of incision) Primary Etiology:: Open Surgical Wound Length: (cm): 0.5 cm Width: (cm): 0.1 cm Depth: (cm): 0.1 cm Epithelialization:: Small (1-33%) Tunneling:: No Undermining:: No Limited to Skin Breakdown: Yes Exudate Amount:: Small Drainage Type: Serosanguineous Foul Odor After Cleansing:: No Slough/Fibrin?: No Granulation Amount: Small (1-33%) Granulation Quality:: [place] Necrotic Amount:: None Wound Orders Wound Number 1: sacrum Dressing change frequency: Daily Wound Cleansing: Saline Primary Wound Care Dressing: Daily: Santyl, nickel thickness to wound bed with moist gauze covering Secondary Wound Care Dressing: Dry Gauze, sacrum optifoam Off-Loading: Air fluidized (overlay) and Turn and reposition every 2 hours Wound Number 2: left lower back Dressing change frequency: Twice Daily Wound Cleansing: Saline Primary Wound Care Dressing: twice daily: wet to dry packing with 4x4 gauze; Ensure tunnel at 11 o'clock is lightly packed to depth of 2cm Secondary Wound Care Dressing: dry gauze and ABD pad secured with Medipore tape Off-Loading: Air fluidized (overlay) and Turn and reposition every 2 hours Non Wound Condition 1: left medial knee and right anterior thigh Dressing change frequency: Daily Secondary Wound Care Dressing: daily: optifoam Off-Loading: Other (ensure pillow is placed between legs at all times) Wound Number 4: left back Dressing change frequency: Daily Wound Cleansing: Saline Primary Wound Care Dressing: Daily: Hydrofera Blue ready Secondary Wound Care Dressing: Optifoam Off-Loading: Air fluidized and Turn and reposition every 2 hours
[2024-05-28] MEDS: fluconazole 100 mg Tablet PO (15:22)
--- NOTE | 2024-05-28 16:28 | P.PN_ITS ---
Subjective 2 Subjective: patient was seen this morning, does report weakness and fatigue, no chest pain Vitals/I&O/Wt Last Vital Signs Temp 98.0 F 05/28/24 11:38 Pulse 97 05/28/24 11:38 Resp 20 H 05/28/24 11:38 BP 134/78 05/28/24 11:38 Pulse Ox 92 05/28/24 11:38 O2 Del Method Room Air 05/28/24 11:38 O2 Flow Rate 8 05/24/24 13:13 05/28/24 05/28/24 05/28/24 06:59 14:59 22:59 Intake Total 440 / 1390 580 / 580 Balance 440 / 1390 580 / 580 Weight last 48 hrs Weight 61.689 kg Weight 61.779 kg Physical Exam 2 Const: COMMON NORMALS: no acute distress and patient oriented x3 Resp: COMMON NORMALS: normal respiratory effort, No retractions, No use of accessory muscles and clear to auscultation bilaterally AUSCULTATION: clear to auscultation bilaterally Cardio: COMMON NORMALS: regular rate, regular rhythm, S1 normal heart sound present and S2 normal heart sound present RATE: regular rate RHYTHM: r egular rhythm HEART SOUNDS: S1 normal heart sound present and S2 normal heart sound present GI: COMMON NORMALS: Normal to inspection, nondistended, normoactive bowel sounds present and non-tender Extremity: COMMON NORMALS: no pedal edema Neuro: COMMON NORMALS: patient oriented x3 Psych: COMMON NORMALS: mental status grossly normal Skin: NARRATIVE SKIN EXAM: surgical site looks clean and dry Urinary Catheter Management: Recinos: Cath Placed During This Visit: yes, but has since been removed by the nurse Reason for Continuing Indwelling Catheter: Decision to DC Catheter Urinary Catheter Date of Insertion: 05/18/24 Urinary Catheter Time of Insertion: 18:20 Date Urinary Catheter Removed: 05/27/24 Time Urinary Catheter Discontinued: 03:00 Data 05/28/24 02:31 05/28/24 02:31 Micro: Microbiology 05/27/24 17:55 Occult Blood (FIT) - Final Stool Routine Collection A&P Assessment and plan (1) Recurrent dislocation, left hip: (2) MRSA infection: (3) Wound dehiscence: (4) Intractable back pain: (5) Hardware complicating wound infection: Qualifiers: Encounter type: initial encounter Qualified Code(s): T84.7XXA - Infection and inflammatory reaction due to other internal orthopedic prosthetic devices, implants and grafts, initial encounter Plan Recurrent left hip dislocation -Presumed due to concerns for hip infection -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 Findings consistent with a septic left hip joint containing fluid and gas bubbles. There has been removal of the previous arthroplasty hardware. 2. Fragmentation in the proximal left femur with displaced fracture through the greater trochanter. This is suspicious for osteomyelitis with pathologic fractures. 3. Postsurgical changes of the left acetabulum with possible osteomyelitis in the anterior acetabulum. 4. Heterogeneous densities and gas bubbles in the left gluteus ramonita and iliacus muscles. This is consistent with intramuscular hematomas with superimposed infection. 5. Heterogeneous hyperdensities with gas bubbles in the soft tissues in the lateral hip, extending into the subcutaneous region. This is consistent with soft tissue hematomas with superimposed infection. 6. Decubitus ulcer or open wound posterior to the left iliacus muscle. 7. Right pleural effusion. 8. Body wall edema. - Will discuss with Dr. Julien -Will discuss with radiology about it being if an acute infection versus postoperative state after her multiple surgeries including her removal of left hip arthroplasty, and sacral debridement Intractable pain/hip pain/back pain Fentanyl pump -Managed by a physician in [place] -Patient tells me that she has to go to [place] to have her fentanyl pump refilled Acute anemia, status post 4 units PRBC - postoperative anemia, intramuscular hematoma, bone marrow suppression -No reported bloody or black stools, no hemodynamic compromise -CT scan abdomen pelvis was ordered as above to rule out acute bleeding into the abdomen, etc. retroperitoneal bleed, which was unremarkable except intramuscular hematomas, soft tissue hematomas as above -Iron studies, ferritin, show evidence of early iron deficiency, 4 doses IV Venofer -Protonix, Carafate -Started on IV iron -Hemoglobin 8.6 -Plavix, Lovenox on hold -General Surgery consulted for EGD, no acute findings Multiple wounds -1 draining over left hip, this has healed over, this was originally debrided by care -1 draining over sacrum, general surgery consulted, status post debridement postop day 1, continue wound care s/p Sacral decubitus ulcer initial measurements were 4 x 4 x 1 after debridement measurement of the wound was 6.5 x 5 x 1. -1 over the hip -Continue wound care, consult wound care nurse History of hardware complicating wound infection -Status post partial removal of hardware from spine -Currently on daptomycin -Will continue vancomycin here, -Continue ciprofloxacin - blood cultures History of fentanyl pump, will have to have it arranged with outpatient follow- up with pain management for refills Now with acute kidney injury, creatinine 1.6, IV fluids stopped, renal ultrasound Yeast infection, start nystatin Deconditioning, declines mcfp placement Full code Lovenox for DVT prophylaxis Plan for today PT OT, continue IV antibiotics, monitor hemoglobin, monitor creatinine PDMP PDMP Reviewed: Last Reviewed 05/18/24 18:16 by Refugio Brewer MD Attestations 2 Medical Necessity Statement*: patient requires hospitalization for anemia, sacral wound, hip disolation s/p surgery Diagnoses Recurrent dislocation, left hip M24.452 MRSA infection A49.02 Wound dehiscence T81.30XA Intractable back pain M54.9 Hardware complicating wound infection, initial encounter T84.7XXA Encounter type: initial encounter
[2024-05-28] MEDS: amitriptyline 25 mg Tablet 100 MG PO (21:05)
[2024-05-29] VITALS (14 sets, daily range): BP systolic 114–161; BP diastolic 54–77; PULSE 74–97; RESP 15–20; TEMP 36.6–37.4; O2SAT 92–98; BMI 22.6
[2024-05-29] MEDS: sucralfate 1 gm/10 mL Oral Liq UDC PO ×4 (00:10→17:59)
[2024-05-29] MEDS: pantoprazole 40 mg SDV IVP ×2 (00:10→12:33)
[2024-05-29] MEDS: bisacodyl 5 mg Tablet 10 MG PO ×2 (02:05→14:34)
[2024-05-29] MEDS: oxyCODONE-APAP 5-325 mg Tablet 1 TAB PO ×3 (02:28→18:03)
[2024-05-29] MEDS: ciprofloxacin 500 mg Tablet PO (03:43)
[2024-05-29 05:52] LABS: Basophils % 0.6 %; Eosinophils # 0.5 10^3/uL (0.0-0.8); Eosinophils % 6.4 %; Hematocrit 23.9 % (36-47); Lymphocytes # 1.4 10^3/uL (0.8-4.8); Lymphocytes % 19.2 %; Mean Corpuscular HGB Conc 31.4 g/dL (30-55); Mean Corpuscular Volume 92.3 fl (85-98); Mean Platelet Volume 10.1 fL (7.4-10.4); Monocytes # 0.7 10^3/uL (0.2-0.9); Monocytes % 10.2 %; Neutrophils # 4.33 10^3/uL (1.8-7.7); Neutrophils % 60.4 %; Nucleated Red Blood Cells % 0 %; Platelet Count 293 10^3/cmm (157-399); Red Blood Count 2.59 10^6/uL (3.85-5.65); Red Cell Distribution Width 15.8 % (12.1-15.1); White Blood Count 7.17 10^3/uL (3.29-11.43)
[2024-05-29 06:15] LABS: Vancomycin Trough 13.3 ug/mL (10-15)
[2024-05-29 06:17] LABS: Blood Urea Nitrogen 29 mg/dL (8-23); Calcium 7.6 mg/dL (8.5-10.5); Carbon Dioxide 27 mmol/L (22-29); Chloride 100 mmol/L (98-107); Creatinine Clr Calc Pharmacy 37.9609; Glomerular Filtration Rate 40.6 mL/min (90-130); Glucose 84 mg/dL (65-115); Osmolality Calculated 283 mOsm/kg (285-295); Sodium 134 mmol/L (136-145)
[2024-05-29 06:23] LABS: Anion Gap 10.8 (5-19); Potassium 3.8 mmol/L (3.5-5.1)
--- NOTE | 2024-05-29 08:19 | P.PN_ITS ---
Subjective 2 Subjective: Patient is resting comfortably in bed. Complaining of some hip pain Vitals/I&O/Wt Last Vital Signs Temp 98.3 F 05/29/24 05:55 Pulse 76 05/29/24 05:55 Resp 17 05/29/24 06:31 BP 130/72 05/29/24 05:55 Pulse Ox 95 05/29/24 05:55 O2 Del Method Room Air 05/28/24 18:00 O2 Flow Rate 8 05/24/24 13:13 05/28/24 05/29/24 05/29/24 22:59 06:59 14:59 Intake Total 240 / 820 680 / 1500 Balance 240 / 820 680 / 1500 Weight last 48 hrs Weight 136 lb Weight 136 lb Physical Exam 2 Narrative: Left hip soft no evidence of any hematoma. Urinary Catheter Management: Recinos: Cath Placed During This Visit: yes, but has since been removed by the nurse Reason for Continuing Indwelling Catheter: Decision to DC Catheter Urinary Catheter Date of Insertion: 05/18/24 Urinary Catheter Time of Insertion: 18:20 Date Urinary Catheter Removed: 05/27/24 Time Urinary Catheter Discontinued: 03:00 Data 05/29/24 04:44 05/29/24 04:44 A&P Assessment and plan (1) MRSA infection: CT scan was reviewed I did likely with her seeing as far as air is postop changes. Clinically she does not look like she has any acute abscess or hematoma developing. PDMP PDMP Reviewed: Not Reviewed Attestations 2 Medical Necessity Statement*: Per primary service Coding Level of Care Code Acute Code for [facility] Diagnoses MRSA infection A49.02
[2024-05-29] MEDS: fluconazole 100 mg Tablet PO (09:15)
[2024-05-29] MEDS: levothyroxine 50 mcg Tablet PO (09:15)
[2024-05-29] MEDS: metoprolol tartrate 25 mg Tablet PO ×2 (09:15→17:59)
[2024-05-29] MEDS: isosorbide dinitrate 20 mg Tablet 10 MG PO ×2 (09:15→17:59)
[2024-05-29] MEDS: polyethylene glycol 3350 Pkt 17 gm PO ×2 (09:15→17:59)
[2024-05-29] MEDS: vancomycin 500 MG in sodium chloride 0.9% (plus) 100 ML 200 MG IV (09:17)
--- NOTE | 2024-05-29 11:26 | P.DS_ITS ---
Discharge Providers Date of Admission: 05/18/24 18:26 Date of Discharge: May 29, 2024 Attending Provider at Admission: Refugio Brewer MD Attending Provider at Discharge: Refugio Brewer MD Primary Care Provider: Stefany Hawk DO Diagnoses at Discharge Discharge Diagnosis (1) MRSA infection: Status: Acute Reason for Visit Reason for Visit: left hip pain - dislocation Hospital Course Hospital Course Torie Dennison is a 69 year old female with a past medical history of heartburn complicating wound infection, status post multiple spinal surgeries, requiring removal of partial hardware, currently on daptomycin, ciprofloxacin, 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 Julien, who discussed doing surgical procedure here at [facility] on Tuesday, removal of hip arthroplasty close team was called for admission to await surgical intervention on Tuesday, patient tells that she lives at home with her son and her grandkids, who help in her care taking Patient presented to [facility] for recurrent left hip dislocation, concerns for dislocation related to hip infection, status post removal of total hip arthroplasty from the left hip, received inpatient PT OT, patient insists on going home, I have strongly recommended for her to go to [facility] facility for [facility]hab. She will continue her home IV daptomycin which was set up during her last hospitalization, ciprofloxacin, follow-up with wound care Patient was found to have acute anemia during hospitalization, status post 5 units PRBC, likely from postoperative anemia, intramuscular hematoma, bone marrow suppression. She underwent EGD, no acute signs of bleeding, no bloody or black stools, no hemodynamic compromise. She has evidence of iron deficiency anemia she received 4 doses of IV Venofer during hospitalization. 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 Patient's hospitalization was complicated by sacral ulcer, which required debridement by general surgery, overall clinically improved, will be discharged with wound care instructions, and follow-up with wound care as outpatient. History of hardware complicating wound infection, status post removal of hardware from the spine, she was originally on daptomycin/ciprofloxacin, as inpatient she received vancomycin and ciprofloxacin. On discharge she should resume her home daptomycin/ciprofloxacin, and follow-up with primary care provider as outpatient For her significant deconditioning, bedbound status, after her removal of her left hip arthroplasty, I have strongly recommended for for patient to go to a [facility] facility for rehab, however patient has declined. Given her significant deconditioning, bedbound status, removal of left hip arthroplasty, history of hardware infection, history of sacral ulcer, history of acute on chronic anemia discussed with her that she has a high risk of morbidity and and mortality, high risk of rehospitalization, patient voiced understanding, all question answered, shared decision making; however patient declines [facility] facility placement, she was discharged home, with follow-up with primary care, follow-up with wound care For patient's intractable pain/hip pain, back pain, patient has a fentanyl pump in place, which she gets refill through a physician in [place]. Will have her follow-up with pain management here [place] so she can hopefully have her refills done here given her bedbound status after her left hip arthroplasty removal as above. Physical Exam Const: COMMON NORMALS: no acute distress and patient oriented x3 Resp: COMMON NORMALS: normal respiratory effort, No retractions, No use of accessory muscles and clear to auscultation bilaterally AUSCULTATION: clear to auscultation bilaterally Cardio: COMMON NORMALS: regular rate, regular rhythm, S1 normal heart sound present and S2 normal heart sound present RATE: regular rate RHYTHM: regular rhythm HEART SOUNDS: S1 normal heart sound present and S2 normal heart sound present GI: COMMON NORMALS: Normal to inspection, nondistended, normoactive bowel sounds present and non-tender Extremity: COMMON NORMALS: no pedal edema Neuro: COMMON NORMALS: patient oriented x3 Psych: COMMON NORMALS: mental status grossly normal Urinary Catheter Management: Recinos: Cath Placed During This Visit: yes, but has since been removed by the nurse Reason for Continuing Indwelling Catheter: Decision to DC Catheter Urinary Catheter Date of Insertion: 05/18/24 Urinary Catheter Time of Insertion: 18:20 Date Urinary Catheter Removed: 05/27/24 Time Urinary Catheter Discontinued: 03:00 Discharge Data Studies Completed and Pending Completed Studies During Hospitalization Category Date Time Status CT abdomen pelvis wo con [id number] Routine Cat Scan 05/25/24 13:49 Completed CXRP [XR chest 1V portable [id number]] Routine Exams 05/28/24 08:26 Completed XR hip LT 2-3V wo/w pel* [id number] Stat Exams 05/18/24 14:55 Completed US renal BI* [id number] Routine Ultrasound 05/24/24 11:43 Completed Pending at discharge Category Date Time Status Basic Metabolic Panel AM LABS Lab 05/30/24 04:00 Ordered Complete Blood Count w/Auto AM LABS Lab 05/30/24 04:00 Ordered Leukocyte Reduced RBC Stat Lab 05/29/24 10:04 Received Type and Screen Stat Lab 05/29/24 10:04 Received Radiology Impressions Hip/Pelvis X-Ray 05/18/24 14:55 IMPRESSION: Left hip prosthesis dislocation Renal Ultrasound 05/24/24 11:43 IMPRESSION: Kidneys are measuring small caliber with no obstruction. Mild increased echogenicity RIGHT kidney suggesting mild chronic medical renal disease. Abdomen/Pelvis CT 05/25/24 13:49 IMPRESSION: 1. Findings consistent with a septic left hip joint containing fluid and gas bubbles. There has been removal of the previous arthroplasty hardware. 2. Fragmentation in the proximal left femur with displaced fracture through the greater trochanter. This is suspicious for osteomyelitis with pathologic fractures. 3. Postsurgical changes of the left acetabulum with possible osteomyelitis in the anterior acetabulum. 4. Heterogeneous densities and gas bubbles in the left gluteus ramonita and iliacus muscles. This is consistent with intramuscular hematomas with superimposed infection. 5. Heterogeneous hyperdensities with gas bubbles in the soft tissues in the lateral hip, extending into the subcutaneous region. This is consistent with soft tissue hematomas with superimposed infection. 6. Decubitus ulcer or open wound posterior to the left iliacus muscle. 7. Right pleural effusion. 8. Body wall edema. ADDENDUM: 05/26/24 1521 The ordering clinician requested an addendum: Surgery to remove left surgical hardware two days ago and debridement of left decubitus ulcer, decreased hemoglobin. The left hip arthroplasty surgical hardware has been removed. Few foci of soft tissue emphysema in the left iliacus and left gluteus medius muscles as well as the soft tissues just lateral in superior to the left hip joint and few foci of subcutaneous emphysema lateral to the left hip, likely due to recent surgery (series 3, images 46-53, 59, and 56-61). However, there are findings concerning for left hip arthritis/osteomyelitis with sclerosis and a few areas of cortical destruction in the anterior left femoral neck and bony lysis at the medial left acetabulum. The left femur is displaced approximately 3 cm anteriorly and 2 cm superiorly with respect to the left acetabulum. Enlargement of the left iliacus and gluteal musculature suspicious for intramuscular hematomas. Large, partially visualized subcutaneous hematoma lateral to the left hip as well. Evaluation for active bleeding cannot not be performed as the patient could not receive intravenous contrast. Left decubitus ulcer extending inferiorly to the underlying left gluteus ramonita muscle with few adjacent soft tissue emphysema medial to the decubitus ulcer. Soft tissue emphysema is likely due to recent surgery (series 3, images 45-48). The left decubitus ulcer overlies a tunnel and interosseous fixation screw in the left iliac bone. There is sclerosis surrounding the tunnel. Mild sclerosis with irregularity of the posterior left sacroiliac joint (series 3, image 52). As well as sclerosis and loosening around the lower most left spinal surgical hardware. Findings are concerning for osteomyelitis and septic arthritis. Urgent results were discussed with REFUGIO Pratt on 05/26/2024 at 3:20 PM CDT. Chest X-Ray 05/28/24 08:26 IMPRESSION: 1. Right-sided PICC line ending in the lower one third of the SVC in good position. 2. No acute cardiopulmonary finding. Laboratory Results WBC 7.17 10^3/uL (3.29-11.43) 05/29/24 04:44 RBC 2.59 10^6/uL (3.85-5.65) L 05/29/24 04:44 Hgb 7.50 g/dL (11.27-16.99) L 05/29/24 04:44 Hct 23.9 % (36-47) L 05/29/24 04:44 MCV 92.3 fl (85-98) 05/29/24 04:44 MCH 29.0 pg (27-33) 05/29/24 04:44 MCHC 31.4 g/dL (30-55) 05/29/24 04:44 RDW 15.8 % (12.1-15.1) H 05/29/24 04:44 Plt Count 293 10^3/cmm (157-399) 05/29/24 04:44 MPV 10.1 fL (7.4-10.4) 05/29/24 04:44 Neut % (Auto) 60.4 % 05/29/24 04:44 Lymph % (Auto) 19.2 % 05/29/24 04:44 [place] % (Auto) 10.2 % 05/29/24 04:44 Eos % (Auto) 6.4 % 05/29/24 04:44 Baso % (Auto) 0.6 % 05/29/24 04:44 Neut # (Auto) 4.33 10^3/uL (1.8-7.7) 05/29/24 04:44 Lymph # (Auto) 1.4 10^3/uL (0.8-4.8) 05/29/24 04:44 Redwood # (Auto) 0.7 10^3/uL (0.2-0.9) 05/29/24 04:44 Eos # (Auto) 0.5 10^3/uL (0.0-0.8) 05/29/24 04:44 Baso # (Auto) 0.0 10^3/uL (0.0-0.1) 05/29/24 04:44 Nucleated RBC % (auto) 0 % 05/29/24 04:44 Nucleated RBCs # 0.0 /100WBC 05/29/24 04:44 Peripher Smr Path Cons Sent for review 05/25/24 05:09 Haptoglobin 245.0 mg/L (30-200) H 05/25/24 05:09 Sodium 134 mmol/L (136-145) L 05/29/24 04:44 Potassium 3.8 mmol/L (3.5-5.1) 05/29/24 04:44 Chloride 100 mmol/L (98-107) 05/29/24 04:44 Carbon Dioxide 27 mmol/L (22-29) 05/29/24 04:44 Anion Gap 10.8 (5-19) 05/29/24 04:44 BUN 29 mg/dL (8-23) H 05/29/24 04:44 Creatinine 1.3 mg/dL (0.5-0.9) H 05/29/24 04:44 GFR Calculation 40.6 mL/min (90-130) L 05/29/24 04:44 Glucose 84 mg/dL (65-115) 05/29/24 04:44 Calculated Osmolality 283 mOsm/kg (285-295) L 05/29/24 04:44 Calcium 7.6 mg/dL (8.5-10.5) L 05/29/24 04:44 Phosphorus 2.5 mg/dL (2.5-4.5) 05/27/24 03:21 Magnesium 1.4 mg/dL (1.7-2.3) L 05/27/24 03:21 Iron 19 ug/dL (37-145) L 05/20/24 04:38 TIBC 123 mcg/dl 05/20/24 04:38 % Saturation 15.4 % (20-50) L 05/20/24 04:38 Unsat Iron Binding 104 ug/dL (112-347) L 05/20/24 04:38 Ferritin 1129 ng/mL (15-150) H 05/20/24 04:38 Total Bilirubin 0.7 mg/dL (0.15-1.2) 05/27/24 03:21 AST 20 U/L (0-32) 05/27/24 03:21 ALT 12 U/L (0-33) 05/27/24 03:21 Alkaline Phosphatase 97 U/L (35-105) 05/27/24 03:21 Lactate Dehydrogenase 210 U/L (135-214) 05/25/24 05:09 C-Reactive Protein 66.8 mg/L (0.0-4.9) H 05/18/24 18:31 Total Protein 6.3 g/dL (6.6-8.7) L 05/27/24 03:21 Albumin 2.7 g/dL (3.5-5.2) L 05/27/24 03:21 Globulin 3.6 g/dL (1.3-4.6) 05/27/24 03:21 Procalcitonin 0.10 ng/mL (0-0.5) 05/18/24 18:31 TSH 0.42 uIU/mL (0.27-4.20) 05/18/24 18:31 Urine Color Yellow (Yellow) 05/18/24 18:42 Urine Appearance Clear (CLEAR) 05/18/24 18:42 Urine pH 6.5 (5-7) 05/18/24 18:42 Ur Specific Dilworth 1.005 (1.005-1.030) 05/18/24 18:42 Urine Protein 1+ (Negative) H 05/18/24 18:42 Urine Glucose (UA) Norm (Normal) 05/18/24 18:42 Urine Ketones Negative (Negative) 05/18/24 18:42 Urine Blood 3+ (Negative) H 05/18/24 18:42 Urine Nitrate Negative (Negative) 05/18/24 18:42 Urine Bilirubin Neg (Negative) 05/18/24 18:42 Urine Urobilinogen Norm mg/dL (Negative) 05/18/24 18:42 Ur Leukocyte Esterase Negative (Negative) 05/18/24 18:42 Urine RBC 0-2 /hpf (0-2) 05/18/24 18:42 Urine WBC 0-5 /hpf (0-5) 05/18/24 18:42 Ur Squamous Epith Cells 0-5 /hpf (0-5) 05/18/24 18:42 Amorphous Sediment Not Reportable 05/18/24 18:42 Urine Bacteria None seen /hpf (NONE) 05/18/24 18:42 Hyaline Casts 2.87 /lpf 05/18/24 18:42 Vancomycin Trough 13.3 ug/mL (10-15) 05/29/24 04:44 Random Vancomycin 12.5 ug/mL (20.0-40.0) L 05/28/24 02:31 Blood Type A Positive 05/25/24 07:31 Rho(D) Type Rh positive 05/25/24 07:31 Antibody Screen Positive 05/25/24 07:31 Antibody Identification Anti-K 05/25/24 07:31 Crossmatch See Detail 05/29/24 10:04 Vitals Last Vital Signs Temp 98.0 F 05/29/24 11:08 Pulse 93 05/29/24 11:08 Resp 19 H 05/29/24 11:08 BP 127/54 05/29/24 11:08 Pulse Ox 92 05/29/24 11:08 O2 Del Method Room Air 05/29/24 11:08 O2 Flow Rate 8 05/24/24 13:13 Discharge Plan Discharge Patient Disposition: Home Condition: Stable Prescriptions: New fluconazole 100 mg Tablet 100 mg PO DAILY 5 Days Qty: 5 0RF polyethylene glycol 3350 17 gram Powder In Packet 17 g PO DAILY 30 Days Qty: 30 0RF oxycodone-acetaminophen 5-325 mg Tablet 1 tab PO Q4H PRN (Reason: Moderate Pain) 5 Days Qty: 30 0RF magnesium L-lactate [Magtab] 84 mg Tablet Extended Release 84 mg PO Q24H 30 Days Qty: 30 0RF Continued lubiprostone [Amitiza] 24 mcg capsule 24 mcg PO BID levothyroxine 50 mcg capsule 50 mcg PO DAILY isosorbide dinitrate 10 mg tablet 10 mg PO BID Rx Instructions: allow nitrate-free interval of 12-14 hrs per 24-hr period atorvastatin 40 mg tablet 40 mg PO DAILY ciprofloxacin HCl 500 mg tablet 500 mg PO BID 30 Days Qty: 60 2RF amitriptyline 100 mg Tablet 100 mg PO BEDTIME metoprolol tartrate 25 mg tablet 25 mg PO BIDWM Qty: 60 0RF aspirin 81 mg Tablet,Delayed Release (Dr/Ec) 81 mg PO DAILY dorzolamide 2 % Drops 1 drp OPHTHALMIC (EYE) TID Lumigan 0.01 % Drops 1 drp OPHTHALMIC (EYE) QPM brimonidine 0.025 % Drops 1 drp OPHTHALMIC (EYE) TID Rhopressa 0.02 % Drops 1 drp OPHTHALMIC (EYE) QPM pantoprazole [Protonix] 40 mg tablet,delayed release (DR/EC) 40 mg PO DAILY 30 Days Qty: 30 0RF Held clopidogrel 75 mg tablet 75 mg PO DAILY Hold Instructions: Resume on 06/26/24. Discharge Orders: Discharge Order (Routine); Ordered 05/29/24 Ordered By: Refugio Brewer Other Ambulatory Orders: DME: Hospital Bed (Order) Location: None Selected Ordered By: Alexandra Vicente DME: Miscellaneous (Order) Location: None Selected Ordered By: Alexandra Vicente DME: Miscellaneous (Order) Location: None Selected Ordered By: Alexandra Vicente Referrals: Osvaldo Solano MD [Physician] - 06/13/24 8:20 am () Jaswant Julien DO [Physician] - 06/05/25 8:00 am Alexandra Vicente FNP [Nurse Practitioner] - 06/01/24 9:00 am (with Dr. Grover) Richard Jama MD [Hospitalist] - 06/05/24 9:45 am () Stefany Hawk DO [Primary Care Provider] - 05/31/24 9:30 am (This appointment will be at the [facility] ) Mamadou Aguayo MD [Physician] - 1 week Discharge Diet: Regular Discharge Activity: Resume usual activity Patient Instructions: Oxycodone/Acetaminophen (By mouth), Fluconazole (By mouth), Acute Wound Care (DC), PICC (Peripherally Inserted Central Catheter) (GEN), Opioid Safety, Post Anesthesia Care Activity Restrictions/Additional Instructions: DME: hospital bed, low airloss mattress, roho cushion for wheel chair Wound Orders Wound Number 1: sacrum Dressing change frequency: Daily Wound Cleansing: Saline Primary Wound Care Dressing: Daily: Santyl, nickel thickness to wound bed with moist gauze covering Secondary Wound Care Dressing: Dry Gauze, sacrum optifoam Off-Loading: Air fluidized (overlay) and Turn and reposition every 2 hours Wound Number 2: left lower back Dressing change frequency: Twice Daily Wound Cleansing: Saline Primary Wound Care Dressing: twice daily: wet to dry packing with 4x4 gauze; Ensure tunnel at 11 o'clock is lightly packed to depth of 3cm Secondary Wound Care Dressing: dry gauze and ABD pad secured with Medipore tape Off-Loading: Air fluidized (overlay) and Turn and reposition every 2 hours Non Wound Condition 1: left medial knee and right anterior thigh Dressing change frequency: Daily Secondary Wound Care Dressing: daily: optifoam Off-Loading: Other (ensure pillow is placed between legs at all times) Wound Number 4: left back Dressing change frequency: Daily Wound Cleansing: Saline Primary Wound Care Dressing: Daily: Hydrofera Blue ready Secondary Wound Care Dressing: Optifoam Off-Loading: Air fluidized and Turn and reposition every 2 hours - Please recheck CBC in next week, you might require blood transfusions on a weekly basis, have transfusion dependent anemia - Continue wound care instructions - Continue IV daptomycin on discharge, as scheduled at home - Continue oral ciprofloxacin - Please use pain medication sparingly, do not drive or operate heavy machinery or drink while taking medication - Continue to offload your left hip - Please continue to hold Plavix due to your anemia Discharge Attestations Time Spent in Discharge Care*: greater than 30 min Status at Discharge: Cognitive status at discharge: cognitively intact , Behavioral status at discharge: cooperative , Quality Metrics Clinical Quality Measures [ No reported AMI, CVA or VTE this stay] Coding Level of Care Code 19997 Total time (in minutes) for Discharge: 45 Diagnoses MRSA infection A49.02
[2024-05-29] MEDS: magnesium lactate 84 mg Tablet PO (12:33)
--- NOTE | 2024-05-29 15:04 | PC.OT ---
OT TREATMENT HELD TODAY DUE TO SCHEDULED PATIENT D/C TO HOME
[2024-05-29] MEDS: collagenase oint 30 gm 1 APPLIC TOPICAL (17:59)
[2024-05-29 18:09] LABS: Hematocrit 31.5 % (36-47)
== END 2024-05-29 19:26 | disposition home health service (06) | DRG 463 ==
LOC: ER 17:36 → ER IP 18:27 → MEDSURG 20:30
PROVIDERS: Orthopaedic Surgery; Surgery; Admitting Provider Family Medicine; Emergency Provider Family Medicine; PCP Family Medicine; Visit Provider Family Medicine
PROC: 0SPB0JZ Removal of Synthetic Substitute from Left Hip Joint, Open Approach (ICD-10-PCS; CPT 27130; principal; 2024-05-21 17:30)
PROC: 0JB70ZZ Excision of Back Subcutaneous Tissue and Fascia, Open Approach (ICD-10-PCS; principal; 2024-05-24 14:10)
PROC: 0DJ08ZZ Inspection of Upper Intestinal Tract, Via Natural or Artificial Opening Endoscopic (ICD-10-PCS; 2024-05-24 14:10)
DX: T84.52XA Infection and inflammatory reaction due to internal left hip prosthesis, initial encounter (principal); L89.154 Pressure ulcer of sacral region, stage 4; D62 Acute posthemorrhagic anemia; E46 Unspecified protein-calorie malnutrition; T81.328A Disruption or dehiscence of closure of other specified internal operation (surgical) wound, initial encounter; Y79.2 Prosthetic and other implants, materials and accessory orthopedic devices associated with adverse incidents; B95.62 Methicillin resistant Staphylococcus aureus infection as the cause of diseases classified elsewhere; M79.81 Nontraumatic hematoma of soft tissue; L30.4 Erythema intertrigo; L89.896 Pressure-induced deep tissue damage of other site; E11.9 Type 2 diabetes mellitus without complications; I10 Essential (primary) hypertension; E78.5 Hyperlipidemia, unspecified; Z68.22 Body mass index [BMI] 22.0-22.9, adult; Z79.82 Long term (current) use of aspirin; T81.82XA Emphysema (subcutaneous) resulting from a procedure, initial encounter; Z79.891 Long term (current) use of opiate analgesic; Z74.01 Bed confinement status
CPT/HCPCS: 11042; 36415; 36430; 36573; 36592; 51702; 71045; 73502; 74176; 76770; 80048; 80053; 80202; 80503; 81003; 82274; 82728; 83010; 83540; 83550; 83615; 83735; 84100; 84145; 84443; 85014; 85018; 85025; 86140; 86850; 86870; 86900; 86902; 86920; 87040; 87070; 87075; 87205; 90471; 90686; 94664; 96365; 96366; 96372; 96375; 97110; 97161; 97167; 97530; 99285; A6210; C1776; J1100; J1171; J1650; J1756; J2270; J2405; J2470; J2704; J2710; J3010; J3370; J3475; J3480; J3490; J7030; J7050; J9999; P9016

== ENCOUNTER → 2024-06-01 08:46 | Outpatient (BNVA) | payer MEDICARE, OTHER, SELFPAY | PROVIDERS: PCP Family Medicine; Visit Provider Thoracic Surgery (Cardiothoracic Vascular Surgery) | DX: I96 Gangrene, not elsewhere classified (principal); L89.152 Pressure ulcer of sacral region, stage 2; L98.421 Non-pressure chronic ulcer of back limited to breakdown of skin | CPT/HCPCS: 11042; 97597; A6021; A6212; A6219 ==

== ENCOUNTER 2024-06-05 09:47 | Oncology outpatient (recurring) (ONCR) | payer MEDICARE, OTHER, SELFPAY | END 2024-06-20 23:59 | disposition home or self-care (01) | PROVIDERS: PCP Family Medicine; Visit Provider Internal Medicine | DX: D64.9 Anemia, unspecified (principal); D50.9 Iron deficiency anemia, unspecified; G90.522 Complex regional pain syndrome I of left lower limb; Z47.1 Aftercare following joint replacement surgery; Z96.642 Presence of left artificial hip joint; M24.452 Recurrent dislocation, left hip; T84.7XXA Infection and inflammatory reaction due to other internal orthopedic prosthetic devices, implants and grafts, initial encounter; Z90.49 Acquired absence of other specified parts of digestive tract | CPT/HCPCS: 73502; 99024; 99204 ==

== ENCOUNTER → 2024-07-17 10:21 | Outpatient (BNVA) | payer MEDICARE, OTHER, SELFPAY | PROVIDERS: PCP Family Medicine; Visit Provider Orthopaedic Surgery | DX: M24.452 Recurrent dislocation, left hip (principal); M25.552 Pain in left hip | CPT/HCPCS: 99024 ==

== ENCOUNTER 2024-07-19 12:26 | Oncology outpatient (recurring) (ONCR) | payer MEDICARE, OTHER, SELFPAY ==
[2024-07-19 12:59] LABS: Basophils % 0.5 %; Eosinophils # 0.2 10^3/uL (0.0-0.8); Eosinophils % 2.9 %; Lymphocytes # 1.6 10^3/uL (0.8-4.8); Mean Corpuscular HGB Conc 30.3 g/dL (30-55); Mean Corpuscular Volume 95.5 fl (85-98); Mean Platelet Volume 9.3 fL (7.4-10.4); Monocytes # 0.6 10^3/uL (0.2-0.9); Neutrophils # 4.07 10^3/uL (1.8-7.7); Nucleated Red Blood Cells % 0 %; Platelet Count 321 10^3/cmm (157-399); Red Blood Count 3.14 10^6/uL (3.85-5.65); Red Cell Distribution Width 17.2 % (12.1-15.1); White Blood Count 6.46 10^3/uL (3.29-11.43)
[2024-07-19 13:16] LABS: Alanine Aminotransferase 8 U/L (0-33); Albumin Level 2.8 g/dL (3.5-5.2); Alkaline Phosphatase 164 U/L (35-105); Anion Gap 15.6 (5-19); Aspartate Amino Transferase 11 U/L (0-32); Blood Urea Nitrogen 25 mg/dL (8-23); Calcium 8.2 mg/dL (8.5-10.5); Carbon Dioxide 23 mmol/L (22-29); Chloride 104 mmol/L (98-107); Creatinine Clr Calc Pharmacy 38.9696; Globulin 4.6 g/dL (1.3-4.6); Glomerular Filtration Rate 44.5 mL/min (90-130); Glucose 71 mg/dL (65-115); Iron 48 ug/dL (37-145); Lactate Dehydrogenase 117 U/L (135-214); Osmolality Calculated 291 mOsm/kg (285-295); Percent Saturation 36.3 % (20-50); Potassium 3.6 mmol/L (3.5-5.1); Sodium 139 mmol/L (136-145); Total Bilirubin 0.2 mg/dL (0.15-1.2); Total Iron Binding Capacity 132 mcg/dl; Total Protein 7.4 g/dL (6.6-8.7); Unsaturated Iron Binding 84 ug/dL (112-347)
[2024-07-19 13:31] LABS: Ferritin 1279 ng/mL (15-150)
[2024-07-19 13:40] LABS: Folate Level 5.6 ng/mL (4.8-37.3)
== END 2024-07-21 23:59 | disposition home or self-care (01) ==
PROVIDERS: PCP Family Medicine; Visit Provider Internal Medicine
DX: D64.9 Anemia, unspecified (principal); G90.50 Complex regional pain syndrome I, unspecified; T84.7XXA Infection and inflammatory reaction due to other internal orthopedic prosthetic devices, implants and grafts, initial encounter; X58.XXXA Exposure to other specified factors, initial encounter
CPT/HCPCS: 36415; 80053; 82728; 82746; 83010; 83540; 83550; 83615; 85025; 85045; 99213

== ENCOUNTER → 2024-07-24 12:53 | Outpatient (BNVA) | payer MEDICARE, OTHER, SELFPAY | PROVIDERS: PCP Family Medicine; Visit Provider Student in an Organized Health Care Education/Training Program | DX: T84.7XXA Infection and inflammatory reaction due to other internal orthopedic prosthetic devices, implants and grafts, initial encounter (principal); A49.02 Methicillin resistant Staphylococcus aureus infection, unspecified site; M24.459 Recurrent dislocation, unspecified hip; X58.XXXA Exposure to other specified factors, initial encounter | CPT/HCPCS: 99215 ==

== ENCOUNTER → 2024-09-05 14:56 | Outpatient (BNVA) | payer MEDICARE, OTHER, SELFPAY | PROVIDERS: PCP Family Medicine; Visit Provider Internal Medicine Cardiovascular Disease | DX: I25.10 Atherosclerotic heart disease of native coronary artery without angina pectoris (principal); I10 Essential (primary) hypertension; E11.9 Type 2 diabetes mellitus without complications; E78.5 Hyperlipidemia, unspecified; G90.50 Complex regional pain syndrome I, unspecified; Z79.02 Long term (current) use of antithrombotics/antiplatelets; Z79.82 Long term (current) use of aspirin | CPT/HCPCS: 99214 ==

== ENCOUNTER 2024-09-20 13:07 | Oncology outpatient (recurring) (ONCR) | payer MEDICARE, OTHER, SELFPAY | END 2024-09-20 23:59 | disposition home or self-care (01) | PROVIDERS: PCP Family Medicine; Visit Provider Internal Medicine | DX: D50.9 Iron deficiency anemia, unspecified (principal); E53.8 Deficiency of other specified B group vitamins; G90.50 Complex regional pain syndrome I, unspecified | CPT/HCPCS: 99215 ==

== ENCOUNTER → 2024-09-26 14:13 | Outpatient (BNVA) | payer MEDICARE, OTHER, SELFPAY | PROVIDERS: PCP Family Medicine; Visit Provider Thoracic Surgery (Cardiothoracic Vascular Surgery) | DX: I96 Gangrene, not elsewhere classified (principal); L89.153 Pressure ulcer of sacral region, stage 3 | CPT/HCPCS: 97597; 99213 ==

== ENCOUNTER → 2024-10-23 13:09 | Outpatient (BNVA) | payer MEDICARE, OTHER, SELFPAY | PROVIDERS: PCP Family Medicine; Visit Provider Thoracic Surgery (Cardiothoracic Vascular Surgery) | DX: I96 Gangrene, not elsewhere classified (principal); L89.153 Pressure ulcer of sacral region, stage 3 | CPT/HCPCS: 97597 ==

== ENCOUNTER → 2024-11-02 10:49 | Outpatient (BNVA) | payer MEDICARE, OTHER, SELFPAY | PROVIDERS: PCP Family Medicine; Visit Provider Thoracic Surgery (Cardiothoracic Vascular Surgery) | DX: I96 Gangrene, not elsewhere classified (principal); L89.153 Pressure ulcer of sacral region, stage 3 | CPT/HCPCS: 97597; A6237; A6250 ==

== ENCOUNTER → 2024-11-09 10:00 | Outpatient (BNVA) | payer MEDICARE, OTHER, SELFPAY | PROVIDERS: PCP Family Medicine; Visit Provider Thoracic Surgery (Cardiothoracic Vascular Surgery) | DX: I96 Gangrene, not elsewhere classified (principal); L89.153 Pressure ulcer of sacral region, stage 3 | CPT/HCPCS: 97597; A6237; A6250 ==

== ENCOUNTER → 2024-11-16 10:55 | Outpatient (BNVA) | payer MEDICARE, OTHER, SELFPAY | PROVIDERS: PCP Family Medicine; Visit Provider Thoracic Surgery (Cardiothoracic Vascular Surgery) | DX: I96 Gangrene, not elsewhere classified (principal); L89.153 Pressure ulcer of sacral region, stage 3 | CPT/HCPCS: 97597; A6212; A6237; A6250 ==

== ENCOUNTER → 2024-11-23 10:27 | Outpatient (BNVA) | payer MEDICARE, OTHER, SELFPAY | PROVIDERS: PCP Family Medicine; Visit Provider Thoracic Surgery (Cardiothoracic Vascular Surgery) | DX: I96 Gangrene, not elsewhere classified (principal); L89.153 Pressure ulcer of sacral region, stage 3; Z09 Encounter for follow-up examination after completed treatment for conditions other than malignant neoplasm | CPT/HCPCS: 97597; 97605; A6237; A6250 ==

== ENCOUNTER → 2024-11-30 10:42 | Outpatient (BNVA) | payer MEDICARE, OTHER, SELFPAY | PROVIDERS: PCP Family Medicine; Visit Provider Thoracic Surgery (Cardiothoracic Vascular Surgery) | DX: I96 Gangrene, not elsewhere classified (principal); L89.153 Pressure ulcer of sacral region, stage 3 | CPT/HCPCS: 97597; A6237; A6250 ==

== ENCOUNTER 2024-12-04 16:28 | Outpatient (CLI) | payer MEDICARE, OTHER, SELFPAY ==
--- NOTE | 2024-12-04 16:39 | USR_ITS ---
PROCEDURE INFORMATION: Exam: US Duplex Left Upper Extremity Veins, Limited Exam date and time: 12/04/2024 4:50 PM Age: 69 years old Clinical indication: Pain; Arm, upper; Left; Additional info: Left arm swelling TECHNIQUE: Imaging protocol: Real-time duplex ultrasound of the left extremity with 2-D sanz scale, color Doppler flow and spectral waveform analysis including responses to compression and other maneuvers (when performed) with image documentation. Limited exam focused on the left upper extremity veins. COMPARISON: No relevant prior studies available. FINDINGS: Left deep veins: Unremarkable. Axillary and brachial veins are patent throughout without thrombus. Normal Doppler waveforms. Normal compressibility and/or augmentation response. Visualized internal jugular and subclavian veins are patent. Superficial veins: Unremarkable. Visualized cephalic and basilic veins are patent without thrombus. Soft tissues: There is a nonvascular heterogeneously hypoechoic mass in the deep muscular tissue of the left medial forearm measuring approximately 6.3 x 5.6 x 3.7 cm.. US/[place] [id number] IMPRESSION: 1. No evidence of deep vein thrombosis in the left upper extremity. 2. There is a nonvascular heterogeneously hypoechoic mass in the deep muscular tissue of the left medial forearm measuring approximately 6.3 x 5.6 x 3.7 cm. While nonspecific, this may represent an intramuscular hematoma.
== END 2024-12-04 16:29 | disposition home or self-care (01) ==
LOC: RAD 16:29
PROVIDERS: PCP Family Medicine; Visit Provider Nurse Practitioner Family
DX: M79.89 Other specified soft tissue disorders (principal); I82.402 Acute embolism and thrombosis of unspecified deep veins of left lower extremity
CPT/HCPCS: 93971

== ENCOUNTER → 2024-12-07 10:30 | Outpatient (BNVA) | payer MEDICARE, OTHER, SELFPAY | PROVIDERS: PCP Family Medicine; Visit Provider Thoracic Surgery (Cardiothoracic Vascular Surgery) | DX: I96 Gangrene, not elsewhere classified (principal); L89.153 Pressure ulcer of sacral region, stage 3 | CPT/HCPCS: 97597 ==

== ENCOUNTER → 2024-12-21 09:17 | Outpatient (BNVA) | payer MEDICARE, OTHER, SELFPAY | PROVIDERS: PCP Family Medicine; Visit Provider Thoracic Surgery (Cardiothoracic Vascular Surgery) | DX: I96 Gangrene, not elsewhere classified (principal); L89.153 Pressure ulcer of sacral region, stage 3; L89.322 Pressure ulcer of left buttock, stage 2 | CPT/HCPCS: 97597; A6237; A6250 ==

== ENCOUNTER → 2024-12-28 10:01 | Outpatient (BNVA) | payer MEDICARE, OTHER, SELFPAY | PROVIDERS: PCP Family Medicine; Visit Provider Thoracic Surgery (Cardiothoracic Vascular Surgery) | DX: I96 Gangrene, not elsewhere classified (principal); L89.153 Pressure ulcer of sacral region, stage 3; L89.322 Pressure ulcer of left buttock, stage 2 | CPT/HCPCS: 97597; 97605 ==

== ENCOUNTER 2025-01-02 12:47 | Outpatient (CLI) | payer MEDICARE, OTHER, SELFPAY ==
--- NOTE | 2025-01-02 12:52 | XR_ITS ---
WS: [id number] Exam: XR pelvis min 3V [id number] Date/Time of Exam: 01/02/2025 12:55 PM Reason For Exam: L89.153 - Pressure ulcer of sacral region, stage 3 DLP: Pelvis compared to prior study 01/02/2025. No acute pelvic fracture or obvious bone destruction. Chronically dislocated LEFT hip with marked deformity of the proximal femur and the LEFT acetabulum. RIGHT total hip noted appears to be intact. Extensive hardware in the upper sacral and lower lumbar spine secondary to fusion. Medication pump noted to the RIGHT of midline. Old fractured screw identified in the LEFT iliac bone. Surgical sutures in the pelvis. XR/XR pelvis min 3V [id number] IMPRESSION: 1. No acute pelvic fracture or bone destruction. Chronic changes as well as ext ensive postoperative changes as detailed above.
--- NOTE | 2025-01-02 12:52 | XR_ITS ---
WS: [email or web address] Exam: XR coccyx 2V [id number] Date/Time of Exam: 01/02/2025 12:55 PM Reason For Exam: L89.153 - Pressure ulcer of sacral region, stage [address] scan abdomen and pelvis performed 05/25/2024. No coccygeal fracture or bone destruction identified. The appearance is changed very little since the prior CT scan. Posterior skin ulceration. IMPRESSION1. No coccygeal fracture or obvious acute bone destruction.
== END 2025-01-02 12:48 | disposition home or self-care (01) ==
LOC: RAD 12:49
PROVIDERS: PCP Family Medicine; Visit Provider Thoracic Surgery (Cardiothoracic Vascular Surgery)
DX: L89.153 Pressure ulcer of sacral region, stage 3 (principal); Z96.89 Presence of other specified functional implants; M21.252 Flexion deformity, left hip; M95.5 Acquired deformity of pelvis; M43.26 Fusion of spine, lumbar region; M43.28 Fusion of spine, sacral and sacrococcygeal region
CPT/HCPCS: 72190; 72220

== ENCOUNTER → 2025-01-04 10:40 | Outpatient (BNVA) | payer MEDICARE, OTHER, SELFPAY | PROVIDERS: PCP Family Medicine; Visit Provider Thoracic Surgery (Cardiothoracic Vascular Surgery) | DX: I96 Gangrene, not elsewhere classified (principal); L89.153 Pressure ulcer of sacral region, stage 3; L89.322 Pressure ulcer of left buttock, stage 2 | CPT/HCPCS: 97597 ==

== ENCOUNTER → 2025-01-10 14:00 | Outpatient (BNVA) | payer MEDICARE, OTHER, SELFPAY | PROVIDERS: PCP Family Medicine; Visit Provider Orthopaedic Surgery | DX: L89.154 Pressure ulcer of sacral region, stage 4 (principal); T84.7XXA Infection and inflammatory reaction due to other internal orthopedic prosthetic devices, implants and grafts, initial encounter; Y79.2 Prosthetic and other implants, materials and accessory orthopedic devices associated with adverse incidents | CPT/HCPCS: 99213 ==

== ENCOUNTER → 2025-01-11 10:40 | Outpatient (BNVA) | payer MEDICARE, OTHER, SELFPAY | PROVIDERS: PCP Family Medicine; Visit Provider Thoracic Surgery (Cardiothoracic Vascular Surgery) | DX: I96 Gangrene, not elsewhere classified (principal); L89.153 Pressure ulcer of sacral region, stage 3; L89.322 Pressure ulcer of left buttock, stage 2 | CPT/HCPCS: 97597; 97605; A6212 ==

== ENCOUNTER → 2025-01-25 09:40 | Outpatient (BNVA) | payer MEDICARE, OTHER, SELFPAY | PROVIDERS: PCP Family Medicine; Visit Provider Thoracic Surgery (Cardiothoracic Vascular Surgery) | DX: I96 Gangrene, not elsewhere classified (principal); L89.153 Pressure ulcer of sacral region, stage 3; Z09 Encounter for follow-up examination after completed treatment for conditions other than malignant neoplasm | CPT/HCPCS: 97597; 97605; A6212; A6237; A6250 ==

== ENCOUNTER → 2025-02-01 10:30 | Outpatient (BNVA) | payer MEDICARE, OTHER, SELFPAY | PROVIDERS: PCP Family Medicine; Visit Provider Thoracic Surgery (Cardiothoracic Vascular Surgery) | DX: I96 Gangrene, not elsewhere classified (principal); L89.153 Pressure ulcer of sacral region, stage 3 | CPT/HCPCS: 97597 ==

== ENCOUNTER → 2025-02-08 10:40 | Outpatient (BNVA) | payer MEDICARE, OTHER, SELFPAY | PROVIDERS: PCP Family Medicine; Visit Provider Thoracic Surgery (Cardiothoracic Vascular Surgery) | DX: I96 Gangrene, not elsewhere classified (principal); L89.153 Pressure ulcer of sacral region, stage 3 | CPT/HCPCS: 97597; A6021; A6237 ==